=== PATIENT | male | born 1940 | race Caucasian/White ===

== ENCOUNTER 2021-12-31 06:49 | Inpatient (IN) | payer MEDICARE, BC ==
[2021-12-31] MEDS ORDERED: SODIUM CHLORIDE 0.9% 1,000 ML IV ONE (08:10)
--- NOTE | 2021-12-31 08:13 | ED ---
General Adult HPI - General Chief complaint: Back Pain/Injury Stated complaint: Back pain Time Seen by Provider: 12/31/21 08:05 Source: patient Mode of arrival: ambulatory Limitations: no limitations - History of Present Illness Initial comments: 81-year-old male with past medical history of hypertension presents to the emergency department with injury the scapular back pain. States it's been going on for the past 3 weeks. He did test positive for covid on the eighth and had mild congestion. Afterwards he did develop this back pain which is not r eproducible to palpation or movement. Denies any provocative or palliative factors. Has been taking Tylenol. Has no associated shortness of breath and pain does radiate through to the anterior chest as well as up to the jaw. No history of coronary disease or dysrhythmia. No history of congestive heart failure, asthma or COPD. He denies any numbness or tingling in his extremities. Did take a half aspirin this morning. 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 No fevers, chills or cough. No other alleviating, precipitating or modifying factors - Related Data Home Medications Medication Instructions Recorded Confirmed Aspirin EC [Ecotrin Low Dose] 40.5 mg PO W/SUPPER 12/31/21 12/31/21 Atorvastatin [Lipitor] 40 mg PO HS 12/31/21 12/31/21 Cholecalciferol [Vitamin D3 (125 125 mcg PO DAILY 12/31/21 12/31/21 Mcg = 5000 Iu)] Lisinopril-Hctz 20-12.5 mg 1 tab PO BID-W/MEALS 12/31/21 12/31/21 [Zestoretic 20-12.5] Vit C/E/Zn/Coppr/Lutein/Zeaxan 1 cap PO BID-W/MEALS 12/31/21 12/31/21 [Preservision Areds 2 Softgel] allopurinoL [Zyloprim] 150 mg PO W/SUPPER 12/31/21 12/31/21 amLODIPine [Norvasc] 5 mg PO W/LUNCH 12/31/21 12/31/21 carvediloL [Coreg] 12.5 mg PO BID-W/MEALS 12/31/21 12/31/21 fluorouraciL [Efudex] 1 applic TOPICAL MOTUWE 12/31/21 12/31/21 Allergies Allergy/AdvReac Type Severity Reaction Status Date / Time No Known Allergies Allergy Verified 12/31/21 10:14 Review of Systems ROS Statement: Those systems with pertinent positive or pertinent negative responses have been documented in the HPI. ROS Other: All systems not noted in ROS Statement are negative. Past Medical History Past Medical History: Hypertension History of Any Multi-Drug Resistant Organisms: None Reported Past Surgical History: Back Surgery, Tonsillectomy Smoking Status: Former smoker Past Alcohol Use History: Occasional Past Drug Use History: None Reported - Past Family History Mother Family Medical History: No Reported History Additional Family Medical History / Comment(s): Mother was healthy Father Family Medical History: No Reported History Additional Family Medical History / Comment(s): Father was healthy Brother(s) Family Medical History: CVA/TIA General Exam Limitations: no limitations General appearance: alert, in no apparent distress Head exam: Present: atraumatic, normocephalic, normal inspection Eye exam: Present: normal appearance, PERRL, EOMI. Absent: scleral icterus, conjunctival injection, periorbital swelling ENT exam: Present: normal exam, mucous membranes moist Neck exam: Present: normal inspection. Absent: tenderness, meningismus, lymphadenopathy Respiratory exam: Present: rales. Absent: respiratory distress, wheezes, rhonchi, stridor Cardiovascular Exam: Present: regular rate, irregular rhythm, normal heart sounds. Absent: systolic murmur, diastolic murmur, rubs, gallop, clicks GI/Abdominal exam: Present: soft, normal bowel sounds. Absent: distended, tenderness, guarding, rebound, rigid Extremities exam: Present: normal inspection, full ROM, normal capillary refill. Absent: tenderness, pedal edema, joint swelling, calf tenderness Back exam: Present: normal inspection Neurological exam: Present: alert, oriented X3, CN II-XII intact Psychiatric exam: Present: normal affect, normal mood Skin exam: Present: warm, dry, intact, normal color. Absent: rash Course Vital Signs 12/31/21 12/31/21 12/31/21 07:34 10:11 11:50 Temperature 97.7 F Pulse Rate 66 74 85 Pulse Rate [ Cellophane Bath Mixer ] Respiratory 18 18 20 Rate Blood Pressure 84/50 83/54 100/61 Blood Pressure [Right Arm] O2 Sat by Pulse 97 95 Oximetry 12/31/21 12/31/21 12/31/21 12:54 14:16 15:17 Temperature Pulse Rate 80 75 80 Pulse Rate [ Cellophane Bath Mixer ] Respiratory 20 20 16 Rate Blood Pressure 119/74 130/60 91/50 Blood Pressure [Right Arm] O2 Sat by Pulse 96 96 96 Oximetry 12/31/21 16:59 Temperature 98.2 F Pulse Rate Pulse Rate [ 78 Cellophane Bath Mixer ] Respiratory 20 Rate Blood Pressure Blood Pressure 91/56 [Right Arm] O2 Sat by Pulse 93 L Oximetry EKG Findings - EKG Comments: EKG Findings:: EKG demonstrates A. fib with a rate of 82. QRS 98. QTC of 394. No acute ST segment elevations or depressions. Baseline artifact. Medical Decision Making - Medical Decision Making Upon arrival patient was placed into room 3. A thorough history and physical exam was performed. IV access was established and laboratory studies are conducted and reviewed. Patient does have an elevated troponin 22.3. BNP is 8500. CT of the patient's chest is performed which demonstrates cardiomegaly with trace bilateral pleural effusions and pulmonary vascular congestion. Evaluation of the patient's thoracic spine demonstrates multilevel moderate to severe disc disease with large hypertrophic anterior spurs. Patient was originally given a liter bolus of normal saline due to his hypotension which did improve. Results are discussed with the patient. Twelve-lead EKG demonstrates new onset A. fib and therefore the patient is heparinized due to this and his elevated troponin. I spoke with Dr. Camacho who did evaluate the patient. I also spoke with Dr. Magallon who agreed to admit the patient to the hospital. Patient awaiting a bed in stable condition - Lab Data Result diagrams: 01/06/22 05:13 01/07/22 05:46 Lab Results 12/31/21 12/31/21 12/31/21 Range/Units 08:27 08:27 08:27 WBC 12.0 H (3.8-10.6) k/uL RBC 3.79 L (4.30-5.90) m/uL Hgb 12.7 L (13.0-17.5) gm/dL Hct 38.1 L (39.0-53.0) % MCV 100.7 H (80.0-100.0) fL MCH 33.6 (25.0-35.0) pg MCHC 33.4 (31.0-37.0) g/dL RDW 12.6 (11.5-15.5) % Plt Count 149 L (150-450) k/uL MPV 8.5 Neutrophils % 85 % Lymphocytes % 7 % Monocytes % 7 % Eosinophils % 1 % Basophils % 0 % Neutrophils # 10.1 H (1.3-7.7) k/uL Lymphocytes # 0.8 L (1.0-4.8) k/uL Monocytes # 0.8 (0-1.0) k/uL Eosinophils # 0.1 (0-0.7) k/uL Basophils # 0.0 (0-0.2) k/uL PT 11.4 (9.0-12.0) sec INR 1.1 (<1.2) APTT 23.3 (22.0-30.0) sec D-Dimer 0.45 (<0.60) mg/L FEU Sodium 131 L (137-145) mmol/L Potassium 4.5 (3.5-5.1) mmol/L Chloride 97 L (98-107) mmol/L Carbon Dioxide 23 (22-30) mmol/L Anion Gap 11 mmol/L BUN 27 H (9-20) mg/dL Creatinine 1.24 (0.66-1.25) mg/dL Est GFR (CKD-EPI)AfAm 63 (>60 ml/min/1.73 sqM) Est GFR (CKD-EPI)NonAf 54 (>60 ml/min/1.73 sqM) Glucose 151 H (74-99) mg/dL Calcium 8.8 (8.4-10.2) mg/dL Magnesium 1.7 (1.6-2.3) mg/dL Total Bilirubin 1.7 H (0.2-1.3) mg/dL AST 167 H (17-59) U/L ALT 31 (4-49) U/L Alkaline Phosphatase 117 (38-126) U/L Troponin I (0.000-0.034) ng/mL NT-Pro-B Natriuret Pep pg/mL Total Protein 6.4 (6.3-8.2) g/dL Albumin 3.8 (3.5-5.0) g/dL Lipase 120 (23-300) U/L 12/31/21 12/31/21 Range/Units 08:27 08:27 WBC (3.8-10.6) k/uL RBC (4.30-5.90) m/uL Hgb (13.0-17.5) gm/dL Hct (39.0-53.0) % MCV (80.0-100.0) fL MCH (25.0-35.0) pg MCHC (31.0-37.0) g/dL RDW (11.5-15.5) % Plt Count (150-450) k/uL MPV Neutrophils % % Lymphocytes % % Monocytes % % Eosinophils % % Basophils % % Neutrophils # (1.3-7.7) k/uL Lymphocytes # (1.0-4.8) k/uL Monocytes # (0-1.0) k/uL Eosinophils # (0-0.7) k/uL Basophils # (0-0.2) k/uL PT (9.0-12.0) sec INR (<1.2) APTT (22.0-30.0) sec D-Dimer (<0.60) mg/L FEU Sodium (137-145) mmol/L Potassium (3.5-5.1) mmol/L Chloride (98-107) mmol/L Carbon Dioxide (22-30) mmol/L Anion Gap mmol/L BUN (9-20) mg/dL Creatinine (0.66-1.25) mg/dL Est GFR (CKD-EPI)AfAm (>60 ml/min/1.73 sqM) Est GFR (CKD-EPI)NonAf (>60 ml/min/1.73 sqM) Glucose (74-99) mg/dL Calcium (8.4-10.2) mg/dL Magnesium (1.6-2.3) mg/dL Total Bilirubin (0.2-1.3) mg/dL AST (17-59) U/L ALT (4-49) U/L Alkaline Phosphatase (38-126) U/L Troponin I 22.300 H* (0.000-0.034) ng/mL NT-Pro-B Natriuret Pep 8500 pg/mL Total Protein (6.3-8.2) g/dL Albumin (3.5-5.0) g/dL Lipase (23-300) U/L Critical Care Time Critical Care Time: Yes Critical Care Time: 35 minutes Disposition Clinical Impression: Thoracic back pain, NSTEMI (non-ST elevated myocardial infarction), Chest pain, New onset of congestive heart failure Disposition: ADMITTED IP TO THIS [facility] Condition: Serious Is patient prescribed a controlled substance at d/c from ED?: No Time of Disposition: 10:39 Decision to Admit Reason: Admit from EC Decision Date: 12/31/21 Decision Time: 10:39
[2021-12-31 08:38] LABS: Basophils % (A) 0 %; Eosinophils # (A) 0.1 k/uL (0-0.7); Eosinophils % (A) 1 %; HCT 38.1 % (39.0-53.0); HGB 12.7 gm/dL (13.0-17.5); Lymphocytes # (A) 0.8 k/uL (1.0-4.8); Lymphocytes % (A) 7 %; MCH 33.6 pg (25.0-35.0); MCHC 33.4 g/dL (31.0-37.0); MCV 100.7 fL (80.0-100.0); Mean Platelet Volume 8.5; Monocytes # (A) 0.8 k/uL (0-1.0); Monocytes % (A) 7 %; Neutrophils # (A) 10.1 k/uL (1.3-7.7); Neutrophils % (A) 85 %; Platelet Count 149 k/uL (150-450); RBC 3.79 m/uL (4.30-5.90); RDW 12.6 % (11.5-15.5)
[2021-12-31 08:56] LABS: INR 1.1 (<1.2); Partial Thromboplastin Time 23.3 sec (22.0-30.0); Prothrombin Time 11.4 sec (9.0-12.0)
[2021-12-31 08:59] LABS: Albumin 3.8 g/dL (3.5-5.0); Calcium 8.8 mg/dL (8.4-10.2); Magnesium 1.7 mg/dL (1.6-2.3); Potassium 4.5 mmol/L (3.5-5.1); Total Bilirubin 1.7 mg/dL (0.2-1.3); Total Protein 6.4 g/dL (6.3-8.2)
--- NOTE | 2021-12-31 10:21 | CT ---
EXAMINATION TYPE: CT thoracic spine wo con DATE OF EXAM: 12/31/2021 COMPARISON: None HISTORY: Back/Chest pain CT DLP: Included with CTA chest of 1152.6 mGycm Automated exposure control for dose reduction was used. FINDINGS: Alignment is anatomic. There is hypertrophic spurring at virtually all levels with multilevel moderat e degenerative disc disease. Vacuum disc seen involving the lower thoracic and thoracolumbar junction compatible severe degenerative disc disease. There are no compression formation or evidence of acute fracture. Multilevel facet arthropathy and foraminal impingement suspected. There are bilateral pleural effusions. Dense atherosclerotic change and mesenteric vasculature. Calci fications in the renal hilum on the left are likely vascular Since the spinal canal limited due to artifact resolution. Could not exclude canal stenosis in the lo wer thoracic spine. IMPRESSION: 1. Multilevel moderate to severe degenerative disc disease with large hypertrophic anterior spurs. Arthur spect multilevel foraminal encroachment. Canal stenosis near the thoracolumbar junction in the differ ential diagnosis. 2. Bilateral pleural effusions. 3. Dense atherosclerotic change of the superior mesenteric artery and celiac axis. Correlate clinical ly.
--- NOTE | 2021-12-31 10:23 | CT ---
EXAMINATION TYPE: CT angio chest CT DLP: 1152.60 mGycm, Automated exposure control for dose reduction was used. DATE OF EXAM: 12/31/2021 10:06 AM COMPARISON: None CLINICAL INDICATION:Male, 81 years old with history of chest pain, back pain; Back/Chest pain TECHNIQUE/CONTRAST: CTA scan of the thorax is performed without and with IV Contrast, patient injected with 100 mL of Iso [address] 370, pulmonary embolism protocol. MIP images are created and reviewed. FINDINGS: Pulmonary Artery: Limited evaluation secondary both timing with no central filling defect to suggest pulmonary embolism. The pulmonary artery is mildly enlarged measuring up to 2.1 cm. Lungs/Pleura: Trace bilateral pleural effusions are present. Mild paraseptal emphysema changes are no jade in the apices. This thickening of the interlobular septa. No focal consolidation or pneumothorax. Scattered mild peripheral reticulation changes. Right upper lobe pulmonary nodule with peripheral ca lcification measuring 5 mm series 503 image 75 Airway : Large airways are patent. Heart: The heart is mildly enlarged for size with moderate coronary artery atherosclerosis. Vasculature: No evidence of aortic aneurysm. Moderate atherosclerosis of the arterial vasculature. Mediastinum: No gross evidence of adenopathy. Prominent right low paratracheal lymph node measuring u p to 9 mm in short axis and AP window measuring up to 8 mm. Musculoskeletal: No acute osseous abnormalities, bone island in T6 vertebral body. Multiple level dis c degeneration changes throughout the spine. Soft Tissues: Unremarkable. Lower neck: No significant findings. Upper Abdomen: Nonobstructing left renal calculus. IMPRESSION: 1. No evidence of central pulmonary embolism. Limited evaluation of the segmental and subsegmental br anches. 2. Cardiomegaly with trace bilateral pleural effusions and pulmonary vascular congestion concerning f or acute exacerbation of congestive heart failure. 3. Mild paraseptal emphysema changes. 4. Partially calcified 5 mm right upper lobe pulmonary nodule.
[2021-12-31] MEDS ORDERED: HEPARIN SODIUM 1,000 UN/ML (10ML VL) IV ONE ×2 (10:34→10:35)
[2021-12-31] MEDS ORDERED: HEPARIN SODIUM 1,000 UN/ML (10ML VL) IV PRN (10:35)
[2021-12-31] MEDS ORDERED: NALOXONE 0.4 MG/ML 1 ML VIAL IV PRN (10:43)
[2021-12-31] MEDS: carvediloL 12.5 MG TAB PO SCH ×2 (10:44→17:08)
[2021-12-31] MEDS ORDERED: HEPARIN SOD,PORK IN 0.45% NACL 25,000 UNIT in 0.45% NACL 1 250ML.BAG IV SCH (10:45)
[2021-12-31] MEDS: HEPARIN SOD,PORK IN 0.45% NACL 25,000 UNIT in 0.45% NACL 1 250ML.BAG IV SCH (11:45)
[2021-12-31] MEDS: ASPIRIN 81 MG PO SCH (11:49)
--- NOTE | 2021-12-31 12:08 | P.CRDCN ---
History of Present Illness History of present illness: HISTORY OF PRESENTING ILLNESS This is a pleasant 81-year-old male past medical history significant for hypertension, dyslipidemia, former smoker recent COVID-19 12/09/2021. 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 We have been asked to see in consultation for elevated troponin. Patient presents to the emergency department with complaints of injury to his back. Over the past 3 weeks patient has been having increased back pain in between his shoulder blades. It is non-exertional. Non-radiating. No chest pain. He denies any specific alleviating or aggravating factors. He denies any associated shortness of breath, chest pain, lightheadedness, dizziness, syncope or near-syncope, nausea, vomiting, palpitations. On 12/09/2021 patient is a positive for Coumadin 19 his symptoms are mild congestion. He currently denies any fevers cough or chills. Workup in the emergency department revealed an EKG revealed atrial fibrillation with controlled ventricular rates. Patient's initial troponin was elevated at 22.3. Patient denies any history of CAD, HI, stroke, atrial fibrillation. DIAGNOSTICS * EKG reveals atrial fibrillation, heart rate 82, nonspecific STT wave abnormalities, no acute ischemia noted on EKG. No prior EKG to compare. * Telemetry tracings indicate atrial fibrillation with controlled ventricular rates * CT chest reported- no evidence of central pulmonary embolism, limited evaluation the segmental and subsegmental branches. Cardiomegaly with trace bilateral pleural effusions, pulmonary as her congestion, mild paraseptal emphysema * Thoracic spine CT revealed multilevel moderate to severe degenerative disc disease with large hypertrophic anterior spurs, canal stenosis near the floor while: Lumbar junction in the differential diagnosis. Dense atherosclerotic changes of the superior mesenteric artery and celiac axis. No compression formation evidence of acute fracture. Bilateral pleural effusions. * Laboratory reviewed, W BC 12, hemoglobin 10.7, platelets 149, d-dimer negative, sodium 131, potassium 4.5, BUN 27, serum creatinine 1.24, magnesium 1.7, troponin 22.3, proBNP 8500 * Current home medications include allopurinol, carvedilol 12.5 mg twice a day, amlodipine 5 mg daily, lisinoprilhydrochlorothiazide 2012.5 mg twice a day, atorvastatin 40mg nightly, aspirin 40.5mg nightly REVIEW OF SYSTEMS At the time of my exam: CONSTITUTIONAL: Denies fever or chills. CARDIOVASCULAR: Denies chest pain, shortness of breath, orthopnea, PND or palpitations. RESPIRATORY: Denies cough. GASTROINTESTINAL: Denies abdominal pain, diarrhea, constipation, nausea or vomiting. MUSCULOSKELETAL: +Back pain NEUROLOGIC: Denies numbness, tingling, headacbe or weakness. ENDOCRINE: Denies fatigue, weight change, polydipsia or polyurina. GENITOURINARY: Denies burning, hematuria or urgency with micturation. HEMATOLOGIC: Denies bleeding. PHYSICAL EXAMINATION Vitals 100/61 HR 85, afebrile 95% on room air CONSTITUTIONAL: No apparent distress. HEENT: Head is normocephalic. Pupils are equal, round. Sclerae anicteric. Mucous membranes of the mouth are moist. No JVD. CHEST EXAMINATION: Lungs are clear to auscultation. No chest wall tenderness is noted on palpation or with deep breathing. HEART EXAMINATION: Irregular rate and rhythm. S1, S2 heard. ABDOMEN: Soft, nontender. Positive bowel sounds. EXTREMITIES: no lower extremity edema NEUROLOGIC EXAMINATION: Patient is awake, alert and oriented x3. ASSESSMENT Paroxysmal atrial fibrillation -[id number] score 3 Elevated troponin Recent COVID-19 infection on 12/09/2021 History hypertension Dyslipidemia Former smoker PLAN Start IV heparin drip Restart Aspirin, statin, carvedilol Obtain 2D echocardiogram Trend troponin Repeat EKG NPO after midnight if intervention is indicated Further recommendations based on clinical course Nurse practitioner note has been reviewed by physician. Signing provider agrees with the documented findings, assessment, and plan of care. Past Medical History Past Medical History: Hypertension History of Any Multi-Drug Resistant Organisms: None Reported Past Surgical History: Back Surgery, Tonsillectomy Smoking Status: Former smoker Past Alcohol Use History: Occasional Past Drug Use History: None Reported Medications and Allergies Home Medications Medication Instructions Recorded Confirmed Type Aspirin EC [Ecotrin Low Dose] 40.5 mg PO W/SUPPER 12/31/21 12/31/21 History Atorvastatin [Lipitor] 40 mg PO HS 12/31/21 12/31/21 History Cholecalciferol [Vitamin D3 (125 125 mcg PO DAILY 12/31/21 12/31/21 History Mcg = 5000 Iu)] Lisinopril-Hctz 20-12.5 mg 1 tab PO BID-W/MEALS 12/31/21 12/31/21 History [Zestoretic 20-12.5] Vit C/E/Zn/Coppr/Lutein/Zeaxan 1 cap PO BID-W/MEALS 12/31/21 12/31/21 History [Preservision Areds 2 Softgel] allopurinoL [Zyloprim] 150 mg PO W/SUPPER 12/31/21 12/31/21 History amLODIPine [Norvasc] 5 mg PO W/LUNCH 12/31/21 12/31/21 History carvediloL [Coreg] 12.5 mg PO BID-W/MEALS 12/31/21 12/31/21 History fluorouraciL [Efudex] 1 applic TOPICAL MOTUWE 12/31/21 12/31/21 History Allergies Allergy/AdvReac Type Severity Reaction Status Date / Time No Known Allergies Allergy Verified 12/31/21 10:14 Physical Exam Vitals: Vital Signs Temp Pulse Resp BP Pulse Ox 12/31/21 11:50 85 20 100/61 95 12/31/21 10:11 74 18 83/54 12/31/21 07:34 97.7 F 66 18 84/50 97 Intake and Output 12/30/21 12/31/21 12/31/21 22:59 06:59 14:59 Other: Weight 77.111 kg Results 12/31/21 08:27 12/31/21 08:27 Cardiac Enzymes 12/31/21 12/31/21 Range/Units 08:27 08:27 AST 167 H (17-59) U/L Troponin I 22.300 H* (0.000-0.034) ng/mL Coagulation 12/31/21 Range/Units 08:27 PT 11.4 (9.0-12.0) sec APTT 23.3 (22.0-30.0) sec CBC 12/31/21 Range/Units 08:27 WBC 12.0 H (3.8-10.6) k/uL RBC 3.79 L (4.30-5.90) m/uL Hgb 12.7 L (13.0-17.5) gm/dL Hct 38.1 L (39.0-53.0) % Plt Count 149 L (150-450) k/uL Comprehensive Metabolic Panel 12/31/21 Range/Units 08:27 Sodium 131 L (137-145) mmol/L Potassium 4.5 (3.5-5.1) mmol/L Chloride 97 L (98-107) mmol/L Carbon Dioxide 23 (22-30) mmol/L BUN 27 H (9-20) mg/dL Creatinine 1.24 (0.66-1.25) mg/dL Glucose 151 H (74-99) mg/dL Calcium 8.8 (8.4-10.2) mg/dL AST 167 H (17-59) U/L ALT 31 (4-49) U/L Alkaline Phosphatase 117 (38-126) U/L Total Protein 6.4 (6.3-8.2) g/dL Albumin 3.8 (3.5-5.0) g/dL Current Medications Generic Name Dose Route Start Last Admin Trade Name Freq PRN Reason Stop Dose Admin Aspirin 81 mg 12/31/21 10:45 12/31/21 11:49 Aspirin 81 Mg PO 81 mg DAILY BENJAMIN Administration Atorvastatin Calcium 40 mg 12/31/21 21:00 Atorvastatin 40 Mg Tab PO HS BENJAMIN Carvedilol 12.5 mg 12/31/21 10:45 12/31/21 10:44 Carvedilol 12.5 Mg Tab PO Not Given BID-W/MEALS BENJAMIN Heparin Sodium (Porcine) 0 unit 12/31/21 10:34 Heparin Sodium 1,000 Un/Ml (10ml Vl) IV PER PROTOCOL PRN Low PTT Protocol Heparin Sodium/Sodium Chloride 250 mls @ 9.253 mls/hr 12/31/21 10:45 12/31/21 11:45 25,000 unit/ Sodium Chloride IV 12 units/kg/hr .Q24H BENJAMIN 9.253 mls/hr Administration Protocol 12 UNITS/KG/HR Naloxone HCl 0.2 mg 12/31/21 10:43 Naloxone 0.4 Mg/Ml 1 Ml Vial IV Q2M PRN Opioid Reversal Intake and Output 12/30/21 12/31/21 12/31/21 22:59 06:59 14:59 Other: Weight 77.111 kg Patient Weight 01/01/22 06:59 Weight 77.111 kg 12/31/21 08:27 12/31/21 08:27
--- NOTE | 2021-12-31 12:11 | P.HPIM ---
History of Present Illness 81-year-old pleasant male came in with the upper back pain between the scapula and patient also vomiting, no pain in the chair. Jaw pain is mostly like spasms. Patient doesn't have any fever chills patient was diagnosed with COVID- 19 about couple weeks ago patient's pain in the back changes at the moment nonpleuritic patient had a CT angios the chest which did not show any significant X abnormality except for mild bilateral pleural effusions patient doesn't have any cardiac history found to have troponin of 22.3. EKG did not show any acute ST-T wave changes but is in A. fib and rate controlled. There is some degenerative to thoracic spine disease beyond which shows no other significant abnormality was seen. Patient was started on IV heparin cardiology was consulted patient although doesn't have any significant chest pain is back pain is not associated with lightheadedness or diaphoresis. REVIEW OF SYSTEMS: CONSTITUTIONAL: No fever, no malaise, no fatigue. HEENT: No recent visual problems or hearing problems. Denied any sore throat. CARDIOVASCULAR: No orthopnea, PND, no palpitations, no syncope. PULMONARY: No shortness of breath, no cough, no hemoptysis. GASTROINTESTINAL: No diarrhea, no nausea, no vomiting, no abdominal pain. NEUROLOGICAL: No headaches, no weakness, no numbness. HEMATOLOGICAL: Denies any bleeding or petechiae. GENITOURINARY: Denies any burning micturition, frequency, or urgency. MUSCULOSKELETAL/RHEUMATOLOGICAL: As mentioned above ENDOCRINE: Denies any polyuria or polydipsia. The rest of the 14-point review of systems is negative. PHYSICAL EXAMINATION: GENERAL: The patient is alert and oriented x3, not in any acute distress. Well developed, well nourished. HEENT: Pupils are round and equally reacting to light. EOMI. No scleral icterus. No conjunctival pallor. Normocephalic, atraumatic. No pharyngeal erythema. No thyromegaly. CARDIOVASCULAR: S1 and S2 present. No murmurs, rubs, or gallops. PULMONARY: Chest is clear to auscultation, no wheezing or crackles. ABDOMEN: Soft, nontender, nondistended, normoactive bowel sounds. No palpable organomegaly. EXTREMITIES: No cyanosis, clubbing, or pedal edema. NEUROLOGICAL: Gross neurological examination did not reveal any focal deficits. SKIN: No rashes. Assessment and plan -Troponin elevation: Possibility of this being type I acute non-ST elevation myocardial infarction for which patient is on IV heparin, no other possible etiologies stress-induced cardiomyopathy etiology evaluated the patient echo is being obtained, cardiac catheterization as per cardiology. Patient had a recent COVID-19 infection -Ruled out pulmonary embolism Hyponatremia secondary to diuretics which will be held -Possible congestive heart failure, ejection fraction is not known echocardiogram is being obtained patient may need diuretics once his pressure gets better presently blood pressure is low at 100/61. -Elevated creatinine unsure present patient has acute renal failure on chronic kidney disease will monitor the creatinine -Hypertension holding up antiemesis medication patient blood pressure is low at this time -Hypomagnesemia progress will be placed DVT prophylaxis: Patient on IV heparin Past Medical History Past Medical History: Hypertension History of Any Multi-Drug Resistant Organisms: None Reported Past Surgical History: Back Surgery, Tonsillectomy Smoking Status: Former smoker Past Alcohol Use History: Occasional Past Drug Use History: None Reported Medications and Allergies Home Medications Medication Instructions Recorded Confirmed Type Aspirin EC [Ecotrin Low Dose] 40.5 mg PO W/SUPPER 12/31/21 12/31/21 History Atorvastatin [Lipitor] 40 mg PO HS 12/31/21 12/31/21 History Cholecalciferol [Vitamin D3 (125 125 mcg PO DAILY 12/31/21 12/31/21 History Mcg = 5000 Iu)] Lisinopril-Hctz 20-12.5 mg 1 tab PO BID-W/MEALS 12/31/21 12/31/21 History [Zestoretic 20-12.5] Vit C/E/Zn/Coppr/Lutein/Zeaxan 1 cap PO BID-W/MEALS 12/31/21 12/31/21 History [Preservision Areds 2 Softgel] allopurinoL [Zyloprim] 150 mg PO W/SUPPER 12/31/21 12/31/21 History amLODIPine [Norvasc] 5 mg PO W/LUNCH 12/31/21 12/31/21 History carvediloL [Coreg] 12.5 mg PO BID-W/MEALS 12/31/21 12/31/21 History fluorouraciL [Efudex] 1 applic TOPICAL MOTUWE 12/31/21 12/31/21 History Allergies Allergy/AdvReac Type Severity Reaction Status Date / Time No Known Allergies Allergy Verified 12/31/21 10:14 Physical Exam Vitals: Vital Signs Temp Pulse Resp BP Pulse Ox 12/31/21 11:50 85 20 100/61 95 12/31/21 10:11 74 18 83/54 12/31/21 07:34 97.7 F 66 18 84/50 97 Intake and Output 12/30/21 12/31/21 12/31/21 22:59 06:59 14:59 Other: Weight 77.111 kg Results CBC & Chem 7: 12/31/21 08:27 12/31/21 08:27 Labs: Abnormal Lab Results - Last 24 Hours (Table) 12/31/21 12/31/21 12/31/21 Range/Units 08:27 08:27 08:27 WBC 12.0 H (3.8-10.6) k/uL RBC 3.79 L (4.30-5.90) m/uL Hgb 12.7 L (13.0-17.5) gm/dL Hct 38.1 L (39.0-53.0) % MCV 100.7 H (80.0-100.0) fL Plt Count 149 L (150-450) k/uL Neutrophils # 10.1 H (1.3-7.7) k/uL Lymphocytes # 0.8 L (1.0-4.8) k/uL Sodium 131 L (137-145) mmol/L Chloride 97 L (98-107) mmol/L BUN 27 H (9-20) mg/dL Glucose 151 H (74-99) mg/dL Total Bilirubin 1.7 H (0.2-1.3) mg/dL AST 167 H (17-59) U/L Troponin I 22.300 H* (0.000-0.034) ng/mL
[2021-12-31] MEDS: NON FORMULARY DRUG (Fluorouracil [Efudex] 40 GM Cream..G.) TOPICAL SCH (15:55)
[2021-12-31] MEDS ORDERED: NON FORMULARY DRUG (Aspirin Ec 81 MG Tablet) PO SCH (17:30)
[2021-12-31] MEDS: ATORVASTATIN 40 MG TAB PO SCH (20:05)
[2021-12-31] MEDS: FAMOTIDINE 20 MG/2 ML VIAL IV SCH (20:05)
[2021-12-31] MEDS: MELATONIN 3 MG TABLET PO PRN (20:05)
[2022-01-01] MEDS: carvediloL 12.5 MG TAB PO SCH (06:10)
[2022-01-01 07:36] LABS: Basophils % (A) 0 %; Eosinophils % (A) 0 %; HCT 33.5 % (39.0-53.0); HGB 11.2 gm/dL (13.0-17.5); Lymphocytes # (A) 1.2 k/uL (1.0-4.8); Lymphocytes % (A) 13 %; MCH 34.1 pg (25.0-35.0); MCHC 33.6 g/dL (31.0-37.0); MCV 101.6 fL (80.0-100.0); Macrocytosis Slight; Mean Platelet Volume 9.3; Monocytes # (A) 0.8 k/uL (0-1.0); Monocytes % (A) 9 %; Neutrophils # (A) 6.9 k/uL (1.3-7.7); Neutrophils % (A) 77 %; Platelet Count 111 k/uL (150-450); RDW 13.1 % (11.5-15.5)
[2022-01-01 07:45] LABS: Calcium 8.2 mg/dL (8.4-10.2); Magnesium 1.8 mg/dL (1.6-2.3); Potassium 4.4 mmol/L (3.5-5.1)
[2022-01-01 07:51] LABS: INR 1.2 (<1.2); Partial Thromboplastin Time 46.1 sec (22.0-30.0); Prothrombin Time 12.3 sec (9.0-12.0)
[2022-01-01] MEDS ORDERED: SODIUM CHLORIDE 0.9% 1,000 ML IV ONE (08:08)
[2022-01-01] MEDS: FAMOTIDINE 20 MG/2 ML VIAL IV SCH (08:10)
[2022-01-01] MEDS: ASPIRIN 81 MG PO SCH (08:11)
--- NOTE | 2022-01-01 10:31 | CA ---
Transthoracic Echo Report Name: Chuck Santiago Age: 81 Gender: M : 1940 Exam Date: 12/31/2021 14:03 Exam Location: [facility] Ht (in): 67 Wt (lb): 170 Ordering Physician: Chhaya Warren Attending/Referring Phys: Telephoto Installer Marquita Alicia RDCS Procedure CPT: Indications: elevated troponin, chest pain Cardiac Hx: Technical Quality: Technically difficult study Contrast 1: Total Dose (mL): Contrast 2: Total Dose (mL): MEASUREMENTS (Male / Female) Normal Values 2D ECHO LV Diastolic Diameter PLAX 4.5 cm 4.2 - 5.9 / 3.9 - 5.3 cm LV Systolic Diameter PLAX 4.1 cm IVS Diastolic Thickness 1.0 cm 0.6 - 1.0 / 0.6 - 0.9 cm LVPW Diastolic Thickness 1.2 cm 0.6 - 1.0 / 0.6 - 0.9 cm LV Relative Wall Thickness 0.5 LV Diastolic Volume MOD 4C 70.5 cm??? LV Systolic Volume MOD 4C 62.6 cm??? LV Ejection Fraction MOD 4C 11.2 % LV Diastolic Length 4C 7.2 cm LV Systolic Length 4C 7.3 cm LA Volume 54.4 cm??? 18 - 58 / 22 - 52 cm??? M-MODE Aortic Root Diameter MM 3.1 cm LA Systolic Diameter MM 3.4 cm LA Ao Ratio MM 1.1 MV E Point Septal Separation 0.3 cm AV Cusp Separation MM 1.7 cm DOPPLER AV Peak Velocity 93.1 cm/s AV Peak Gradient 3.5 mmHg AI Peak Velocity 207.0 cm/s AI Peak Gradient 17.1 mmHg AI Pressure Half Time 1340.4 ms MV Area PHT 3.3 cm??? MR Peak Velocity 387.7 cm/s MR Peak Gradient 60.1 mmHg Mitral E Point Velocity 98.8 cm/s Mitral A Point Velocity 37.3 cm/s Mitral E to A Ratio 2.6 MV Deceleration Time 229.2 ms MV E' Velocity 6.5 cm/s Mitral E to MV E' Ratio 15.2 TR Peak Velocity 250.8 cm/s TR Peak Gradient 25.2 mmHg Right Ventricular Systolic Press 27.8 mmHg PV Peak Velocity 102.5 cm/s PV Peak Gradient 4.2 mmHg PI Peak Gradient 11.8 mmHg FINDINGS Left Ventricle Left ventricular ejection fraction is estimated at 30-35 %. Apical hypokinesis. False tendon seen in the apical region. Lumason used to rule out clot. Grade 1 diastolic dysfunction. Right Ventricle The right ventricle is normal in size and function. Right Atrium The right atrium is normal in size. Left Atrium The left atrium is normal in size. Mitral Valve Structurally normal mitral valve without significant stenosis or prolapse. There is mild mitral regurgitation. Mitral valve thickened. Aortic Valve Structurally normal aortic valve without significant sclerosis or stenosis. There is trace aortic regurgitation. Tricuspid Valve Structurally normal tricuspid valve without significant stenosis. Pulmonary artery systolic pressure is normal. [id number] tricuspid regurgitation. Pulmonic Valve Structurally normal pulmonic valve without significant stenosis. There is no pulmonic regurgitation. Pericardium Normal pericardium without effusion. Aorta Normal aortic root dimension. CONCLUSIONS Left ventricular EF 30-35% with apical hypokinesis. May be seen with Takotsubo's or multivessel CAD. Mild mitral regurgitation Moderate to severe tricuspid regurgitation RVSP 27 No pericardial effusion Previewed by: Dr. Sabino Lenz DO (Electronically Signed) Final Date: 01 January 2022 10:30
[2022-01-01] MEDS: HEPARIN SOD,PORK IN 0.45% NACL 25,000 UNIT in 0.45% NACL 1 250ML.BAG IV SCH ×2 (10:56→20:39)
[2022-01-01] MEDS: NON FORMULARY DRUG (Fluorouracil [Efudex] 40 GM Cream..G.) TOPICAL SCH (10:57)
[2022-01-01] MEDS ORDERED: NOREPINEPHRINE 4 MG in SODIUM CHLORIDE 0.9% 250 ML IV SCH ×2 (11:15→12:45)
--- NOTE | 2022-01-01 11:47 | P.PN ---
Subjective This is a pleasant 81-year-old male past medical history significant for hypertension, dyslipidemia, former smoker recent COVID-19 12/09/2021. 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 We have been asked to see in consultation for elevated troponin. Patient presents to the emergency department with complaints of injury to his back. Over the past 3 weeks patient has been having increased back pain in between his shoulder blades. It is non-exertional. Non-radiating. No chest pain. He denies any specific alleviating or aggravating factors. He denies any associated shortness of breath, chest pain, lightheadedness, dizziness, syncope or near-syncope, nausea, vomiting, palpitations. On 12/09/2021 patient is a positive for Coumadin 19 his symptoms are mild congestion. He currently denies any fevers cough or chills. Workup in the emergency department revealed an EKG revealed atrial fibrillation with controlled ventricular rates. Patient's initial troponin was elevated at 22.3. Patient denies any history of CAD, [place], stroke, atrial fibrillation. * CT chest reported- no evidence of central pulmonary embolism, limited evaluation the segmental and subsegmental branches. Cardiomegaly with trace bilateral pleural effusions, pulmonary as her congestion, mild paraseptal emphysema * Thoracic spine CT revealed multilevel moderate to severe degenerative disc disease with large hypertrophic anterior spurs, canal stenosis near the floor while: Lumbar junction in the differential diagnosis. Dense atherosclerotic changes of the superior mesenteric artery and celiac axis. No compression formation evidence of acute fracture. Bilateral pleural effusions. 01/01 Patient seen and examined at bedside, appears short of breath but stable. He states he has generalized fatigue. Overall his bilateral back has improved but no resolved. He continues to be hypotensive, BP 81/43 this morning, was given 1L fluid bolus and improved to 88/55. Troponin increased to 29. Labs, hemoglobin 11.2, platelets 111, sodium 131, potassium 4.4, BUN 40, serum creatinine 1.8, magnesium 1.8, troponin 29.2 Echocardiogram revealed EF 3035% with apical hypokinesis, Takotsubo vs multivessel CAD, mild mitral regurgitation, moderate severe tricuspid regurgitation, RVSP of 27 mmHg, no pericardial effusion PHYSICAL EXAMINATION Vitals 100/61 HR 85, afebrile 95% on room air CONSTITUTIONAL: Appears short of breath on exam HEENT: Head is normocephalic. No JVD. CHEST EXAMINATION: Lungs are clear to auscultation. No chest wall tenderness is noted on palpation or with deep breathing. HEART EXAMINATION: Irregular rate and rhythm. S1, S2 heard. ABDOMEN: Soft, nontender. Positive bowel sounds. EXTREMITIES: no lower extremity edema NEUROLOGIC EXAMINATION: Patient is awake, alert and oriented x3. ASSESSMENT Paroxysmal atrial fibrillation -[id number] score 3 Elevated troponin, possible NSTEMI Cardiomyopathy with EF 30-35%, ischemic vs non-ischemic Hypotension Back pain Recent COVID-19 infection on 12/09/2021 History hypertension Dyslipidemia Former smoker PLAN Patient discussed with Dr. Camacho, due to patient's hypotension with cardimyopathy, recommend transfer to ICU for better BP control and likely need for vasopressors Hold carvedilol Continue IV heparin, aspirin, statin Monitor renal function NPO after midnight for possible cardiac catheterization tomorrow, however patient is asymptomatic will hold off pending renal function Further recommendations based on clinical course Nurse practitioner note has been reviewed by physician. Signing provider agrees with the documented findings, assessment, and plan of care. Objective - Vital Signs Vital signs: Vital Signs Temp 97.7 F 01/01/22 08:02 Pulse 86 01/01/22 11:11 Resp 16 01/01/22 11:11 BP 86/59 01/01/22 11:11 Pulse Ox 93 L 01/01/22 11:11 FiO2 Intake & Output 12/31/21 01/01/22 01/01/22 18:59 06:59 18:59 Intake Total 50.892 240 540 Balance 50.892 240 540 Weight 77.111 kg Intake: Intake, IV Titration 50.892 Amount Heparin Sod,Pork in 0.45% 50.892 NaCl 25,000 unit In 0.45 % NaCl 1 250ml.bag @ 12 UNITS/KG/HR 9.253 mls/hr IV .Q24H [facility] Rx#: [id number] Oral 240 540 Other: Voiding Method Toilet Toilet Urinal Urinal # Voids 1 1 # Bowel Movements 1 - Labs CBC & Chem 7: 01/01/22 06:51 01/01/22 06:51 Labs: Abnormal Lab Results - Last 24 Hours (Table) 12/31/21 12/31/21 12/31/21 Range/Units 11:39 16:01 16:01 RBC (4.30-5.90) m/uL Hgb (13.0-17.5) gm/dL Hct (39.0-53.0) % MCV (80.0-100.0) fL Plt Count (150-450) k/uL PT (9.0-12.0) sec INR (<1.2) APTT 99.5 H (22.0-30.0) sec Sodium (137-145) mmol/L Carbon Dioxide (22-30) mmol/L BUN (9-20) mg/dL Creatinine (0.66-1.25) mg/dL Glucose (74-99) mg/dL Calcium (8.4-10.2) mg/dL Troponin I 19.400 H* 29.200 H* (0.000-0.034) ng/mL 01/01/22 01/01/22 01/01/22 Range/Units 00:40 06:51 06:51 RBC 3.30 L (4.30-5.90) m/uL Hgb 11.2 L (13.0-17.5) gm/dL Hct 33.5 L (39.0-53.0) % MCV 101.6 H (80.0-100.0) fL Plt Count 111 L (150-450) k/uL PT (9.0-12.0) sec INR (<1.2) APTT 48.3 H (22.0-30.0) sec Sodium 131 L (137-145) mmol/L Carbon Dioxide 20 L (22-30) mmol/L BUN 40 H (9-20) mg/dL Creatinine 1.88 H (0.66-1.25) mg/dL Glucose 123 H (74-99) mg/dL Calcium 8.2 L (8.4-10.2) mg/dL Troponin I (0.000-0.034) ng/mL 01/01/22 Range/Units 06:51 RBC (4.30-5.90) m/uL Hgb (13.0-17.5) gm/dL Hct (39.0-53.0) % MCV (80.0-100.0) fL Plt Count (150-450) k/uL PT 12.3 H (9.0-12.0) sec INR 1.2 H (<1.2) APTT 46.1 H (22.0-30.0) sec Sodium (137-145) mmol/L Carbon Dioxide (22-30) mmol/L BUN (9-20) mg/dL Creatinine (0.66-1.25) mg/dL Glucose (74-99) mg/dL Calcium (8.4-10.2) mg/dL Troponin I (0.000-0.034) ng/mL
--- NOTE | 2022-01-01 11:53 | P.PN ---
Subjective 81-year-old pleasant male came in with the upper back pain between the scapula and patient also vomiting, no pain in the chair. Jaw pain is mostly like spasms. Patient doesn't have any fever chills patient was diagnosed with COVID- 19 about couple weeks ago patient's pain in the back changes at the moment nonpleuritic patient had a CT angios the chest which did not show any significant X abnormality except for mild bilateral pleural effusions patient doesn't have any cardiac history found to have troponin of 22.3. EKG did not show any acute ST-T wave changes but is in A. fib and rate controlled. There is some degenerative to thoracic spine disease beyond which shows no other significant abnormality was seen. Patient was started on IV heparin cardiology was consulted patient although doesn't have any significant chest pain is back pain is not associated with lightheadedness or diaphoresis. 01/01/2022 Patient denies chest pain or dyspnea today. Also denies pain between his shoulder blades as he rated as 0/10. He has constipation but no abdominal pain. No vomiting. His PCP is Dr. Tyree dalal at bedside and patient TO TALK TO HIM ABOUT HIS HEALTH ISSUE Blood pressure on the low side, patient might have CHF however he is not tachypneic therefore going to try 1 L of normal saline. Patient currently continues on heparin drip and aspirin 81 mg added Blood pressure medication were held since admission including hydr ochlorothiazide 12.5 mg, lisinopril 20 mg Norvasc 5 mg. TSH is normal, CTA is negative for PE but there is vascular congestion of right upper lobe nodes. His creatinine went up today to 1.8. He is making good urine output Patient may be moved to the ICU for blood pressure treatment Review of systems CONSTITUTIONAL: No fever, no malaise, no fatigue. HEENT: No recent visual problems or hearing problems. Denied any sore throat. CARDIOVASCULAR: No orthopnea, PND, no palpitations, no syncope. PULMONARY: No shortness of breath, no cough, no hemoptysis. GASTROINTESTINAL: No diarrhea, no nausea, no vomiting, no abdominal pain. Normoactive bowel sounds. NEUROLOGICAL: No headaches, no weakness, no numbness. Active Medications Generic Name Dose Route Start Last Admin Trade Name Freq PRN Reason Stop Dose Admin Aspirin 81 mg 12/31/21 10:45 01/01/22 08:11 Aspirin 81 Mg PO 81 mg DAILY BENJAMIN Administration Atorvastatin Calcium 40 mg 12/31/21 21:00 12/31/21 20:05 Atorvastatin 40 Mg Tab PO 40 mg HS BENJAMIN Administration Famotidine 20 mg 01/02/22 09:00 Famotidine 20 Mg/2 Ml Vial IV DAILY [facility] Heparin Sodium (Porcine) 0 unit 12/31/21 10:34 Heparin Sodium 1,000 Un/Ml (10ml Vl) IV PER PROTOCOL PRN Low PTT Protocol Heparin Sodium/Sodium Chloride 250 mls @ 9.253 mls/hr 12/31/21 10:45 01/01/22 10:56 25,000 unit/ Sodium Chloride IV Not Given .Q24H [facility] Protocol 12 UNITS/KG/HR Norepinephrine Bitartrate 4 mg 254 mls @ 14.69 mls/hr 01/01/22 11:15 / Sodium Chloride IV .[id number] [facility] Protocol 0.05 MCG/KG/MIN Melatonin 3 mg 12/31/21 19:53 12/31/21 20:05 Melatonin 3 Mg Tablet PO 3 mg HS PRN Administration Insomnia Naloxone HCl 0.2 mg 12/31/21 10:43 Naloxone 0.4 Mg/Ml 1 Ml Vial IV Q2M PRN Opioid Reversal Non-Formulary Medication 1 applic 12/31/21 12:00 01/01/22 10:57 Fluorouracil [Efudex] TOPICAL Not Given [facility] Objective - Vital Signs Vital signs: Vital Signs Temp 97.7 F 01/01/22 08:02 Pulse 79 01/01/22 09:40 Resp 16 01/01/22 08:02 BP 88/55 01/01/22 09:40 Pulse Ox 91 L 01/01/22 08:02 FiO2 Intake & Output 12/31/21 01/01/22 01/01/22 18:59 06:59 18:59 Intake Total 50.892 240 Balance 50.892 240 Weight 77.111 kg Intake: Intake, IV Titration 50.892 Amount Heparin Sod,Pork in 0.45% 50.892 NaCl 25,000 unit In 0.45 % NaCl 1 250ml.bag @ 12 UNITS/KG/HR 9.253 mls/hr IV .Q24H [facility] Rx#: [id number] Oral 240 Other: Voiding Method Toilet Toilet Urinal Urinal # Voids 1 - Labs CBC & Chem 7: 01/01/22 06:51 01/01/22 06:51 Labs: Abnormal Lab Results - Last 24 Hours (Table) 12/31/21 12/31/21 12/31/21 Range/Units 11:39 16:01 16:01 RBC (4.30-5.90) m/uL Hgb (13.0-17.5) gm/dL Hct (39.0-53.0) % MCV (80.0-100.0) fL Plt Count (150-450) k/uL PT (9.0-12.0) sec INR (<1.2) APTT 99.5 H (22.0-30.0) sec Sodium (137-145) mmol/L Carbon Dioxide (22-30) mmol/L BUN (9-20) mg/dL Creatinine (0.66-1.25) mg/dL Glucose (74-99) mg/dL Calcium (8.4-10.2) mg/dL Troponin I 19.400 H* 29.200 H* (0.000-0.034) ng/mL 01/01/22 01/01/22 01/01/22 Range/Units 00:40 06:51 06:51 RBC 3.30 L (4.30-5.90) m/uL Hgb 11.2 L (13.0-17.5) gm/dL Hct 33.5 L (39.0-53.0) % MCV 101.6 H (80.0-100.0) fL Plt Count 111 L (150-450) k/uL PT (9.0-12.0) sec INR (<1.2) APTT 48.3 H (22.0-30.0) sec Sodium 131 L (137-145) mmol/L Carbon Dioxide 20 L (22-30) mmol/L BUN 40 H (9-20) mg/dL Creatinine 1.88 H (0.66-1.25) mg/dL Glucose 123 H (74-99) mg/dL Calcium 8.2 L (8.4-10.2) mg/dL Troponin I (0.000-0.034) ng/mL 01/01/22 Range/Units 06:51 RBC (4.30-5.90) m/uL Hgb (13.0-17.5) gm/dL Hct (39.0-53.0) % MCV (80.0-100.0) fL Plt Count (150-450) k/uL PT 12.3 H (9.0-12.0) sec INR 1.2 H (<1.2) APTT 46.1 H (22.0-30.0) sec Sodium (137-145) mmol/L Carbon Dioxide (22-30) mmol/L BUN (9-20) mg/dL Creatinine (0.66-1.25) mg/dL Glucose (74-99) mg/dL Calcium (8.4-10.2) mg/dL Troponin I (0.000-0.034) ng/mL Assessment and Plan Assessment: -acute non-ST elevation myocardial infarction for which patient is on IV heparin, no other possible etiologies stress-induced cardiomyopathy etiology evaluated the patient echo is being obtained, cardiac catheterization as per cardiology. -Acute systolic and diastolic heart failure with ejection fraction 30-35% and apical hypokinesia, grade 1 diastolic dysfunction. Full standing seen, rule out clots, possible takotsubo syndrome . -Hypotension, secondary to above possible cardiogenic shock -Moderate to severe tricuspid regurgitation -Recent history of covid 19 infection without pneumonia -Acute kidney injury -Hyponatremia secondary to diuretics which will be held -Elevated creatinine unsure present patient has acute renal failure on chronic kidney disease will monitor the creatinine -Hypertension holding up anti-hypertensive medication patient blood pressure is low at this time Plan: This is a pleasant 81 years old male who presents with non-STEMI and hypertension possible congestive heart failure Status post 1 L of IV fluids with no improvement, patient might go to the ICU for pressor support Continue with heparin drip Cardiology and pulmonary consult Check a bladder scan and nephrology consult. Check urinalysis Labs and medication were reviewed.. Continue same treatment. Continue with symptomatic treatment. Resume home medication. Monitor lytes and vitals. DVT and GI prophylaxis. Further recommendations as per clinical course of the patient DVT prophylaxis: heparin GI Prophylaxis: Pepcid PT/OT: Pending Prognosis is guarded
[2022-01-01 12:28] LABS: Glucose,Whole Blood 152 mg/dL (70-110)
[2022-01-01] MEDS ORDERED: DEXTROSE/WATER 1 250ML.BAG with DOPamine DRIP 800 MG IV SCH (13:00)
[2022-01-01] MEDS: DOBUTamine DRIP 500 MG in DEXTROSE/WATER 1 250ML.BAG IV SCH (13:32)
--- NOTE | 2022-01-01 14:57 | P.CNPUL ---
History of Present Illness Consult date: 01/01/22 Chief complaint: Acute non-STEMI, hypotension History of present illness: 7-year-old male patient, Neel chest into the intensive care because of hypotension. The patient is postop acute non-ST segment elevation myocardial infarction patient is known to have cardiomyopathy with an ejection fraction of 30-35%. He has hypertension and hyperlipidemia and paroxysmal atrial fibrillation. Is a former smoker and he has COVID 19 infection back in August 2021 from which she recovered. The patient presented to the hospital because of back pain between his shoulder blades. No chest pain. No known exacerbating or relieving factors. No fever. No chills. He came into the emergency and his EKG was consistent with atrial fibrillation with RVR. The patient's troponin was elevated at 22.3. Subsequently, the troponin peaked at 29. The patient was started on IV heparin. The patient was given aspirin and patient was given a CT angiogram that showed no evidence of any pulmonary embolism. There was trace left pleural effusions and the patient had background COPD and a 5 mm calcified pulmonary nodule in the right upper lobe. CAT scan of the thoracic spine showed multilevel moderate to severe degenerative disc disease along with hard large hypertrophic anterior spurs and suspect multilevel foraminal encroachment. Cannot stenosis near the thoracolumbar junction was also considered. The patient has also by the pleural effusions. Initially, the patient got admitted to the medical floor and subsequently got transferred to the intensive care unit as the patient was running a lower blood pressure. The patient is currently on dobutamine as the patient was also noted to have cardiomyopathy and the echocardiogram revealed left ventricular ejection fraction of 30-35% along with apical hypokinesis and mild mitral regurgitation, moderate to severe tricuspid regurgitation without any pericardial effusion. RV was within normal limits. The patient is currently on dobutamine, dopamine and norepinephrine was also initiated for blood pressure support is being administered at a dose of 0.05 per Kilogram per minute. Dobutamine is running at 2.5 mcg/kg/min. Dopamine at 2 mcg/kg/min. Since the current admission, the patient developed acute kidney injury. Creatinine was 1.24 time of admission the creatinine is up to 1.8. The most recent systolic blood pressure is 86/59 and the patient is currently on 2 L of oxygen by nasal cannula with a pulse ox of 93%. The patient is not on any diuretics at this point in time. The fluid balance is slightly positive at 90 mL over the past 8 hours. The patient body weight is stable and 77 kg. Review of Systems Constitutional: Denies chills, Denies fever Eyes: denies as per HPI, denies blurred vision, denies bulging eye, denies decreased vision, denies diplopia, denies discharge, denies dry eye, denies irritation, denies itching, denies pain, denies photophobia, denies loss of peripheral vision, denies loss of vision, denies tunnel vision/blind spots Ears: deny: decreased hearing, ear discharge, earache, tinnitus Ears, nose, mouth and throat: Reports as per HPI Breasts: absent: as per HPI, gynecomastia Cardiovascular: Reports as per HPI (No chest. The patient had some back pain and the time of admission) Respiratory: Reports as per HPI, Reports cough (Mild congestion secondary to recent coronary infection, no fever) Gastrointestinal: Reports as per HPI Genitourinary: Reports as per HPI Musculoskeletal: Reports as per HPI (The patient had back pain and this was in between his scapula. ) Musculoskeletal: absent: ankle pain, ankle stiffness, ankle swelling Integumentary: Reports as per HPI Neurological: Reports as per HPI Psychiatric: Reports as per HPI Endocrine: Reports as per HPI Hematologic/Lymphatic: Reports as per HPI Allergic/Immunologic: Reports as per HPI Past Medical History Past Medical History: Cancer, Hyperlipidemia, Hypertension Additional Past Medical History / Comment(s): 12/09/21 covid +/[facility], skin cancer removals, gout in toes History of Any Multi-Drug Resistant Organisms: None Reported Past Surgical History: Back Surgery, Tonsillectomy Additional Past Surgical History / Comment(s): Skin cancer removals/nose flaps, colonoscopy Past Anesthesia/Blood Transfusion Reactions: No Reported Reaction Smoking Status: Former smoker - Past Family History Mother Family Medical History: No Reported History Additional Family Medical History / Comment(s): Mother was healthy Father Family Medical History: No Reported History Additional Family Medical History / Comment(s): Father was healthy Brother(s) Family Medical History: CVA/TIA Medications and Allergies Home Medications Medication Instructions Recorded Confirmed Type Aspirin EC [Ecotrin Low Dose] 40.5 mg PO W/SUPPER 12/31/21 12/31/21 History Atorvastatin [Lipitor] 40 mg PO HS 12/31/21 12/31/21 History Cholecalciferol [Vitamin D3 (125 125 mcg PO DAILY 12/31/21 12/31/21 History Mcg = 5000 Iu)] Lisinopril-Hctz 20-12.5 mg 1 tab PO BID-W/MEALS 12/31/21 12/31/21 History [Zestoretic 20-12.5] Vit C/E/Zn/Coppr/Lutein/Zeaxan 1 cap PO BID-W/MEALS 12/31/21 12/31/21 History [Preservision Areds 2 Softgel] allopurinoL [Zyloprim] 150 mg PO W/SUPPER 12/31/21 12/31/21 History amLODIPine [Norvasc] 5 mg PO W/LUNCH 12/31/21 12/31/21 History carvediloL [Coreg] 12.5 mg PO BID-W/MEALS 12/31/21 12/31/21 History fluorouraciL [Efudex] 1 applic TOPICAL MOTUWE 12/31/21 12/31/21 History Allergies Allergy/AdvReac Type Severity Reaction Status Date / Time No Known Allergies Allergy Verified 12/31/21 10:14 Physical Exam Vitals: Vital Signs Temp Pulse Pulse Resp BP BP Pulse Ox 01/01/22 11:11 86 16 86/59 93 L 01/01/22 09:40 79 88/55 01/01/22 08:02 97.7 F 73 16 81/43 91 L 01/01/22 04:00 98.4 F 95 16 91/56 94 L 12/31/21 22:59 98.1 F 80 16 104/67 92 L 12/31/21 20:00 98.5 F 95 18 90/64 94 L 12/31/21 18:06 98 F 89 17 89/57 95 12/31/21 16:59 98.2 F 78 20 91/56 93 L 12/31/21 15:17 80 16 91/50 96 12/31/21 14:16 75 20 130/60 96 Intake and Output 12/31/21 01/01/22 01/01/22 22:59 06:59 14:59 Intake Total 290.892 540 Balance 290.892 540 Intake: Intake, IV Titration 50.892 Amount Heparin Sod,Pork in 0.45% 50.892 NaCl 25,000 unit In 0.45 % NaCl 1 250ml.bag @ 12 UNITS/KG/HR 9.253 mls/hr IV .Q24H [facility] Rx#: [id number] Oral 240 540 Other: Voiding Method Toilet Toilet Toilet Urinal Urinal Urinal # Voids 1 1 1 # Bowel Movements 1 Weight 77.111 kg 77.111 kg CONSTITUTIONAL: Appears short of breath on exam , breathing is nonlabored and the patient's currently on 2 L oxygen by nasal cannula Head exam was generally normal. There was no scleral icterus or corneal arcus. Mucous membranes were moist. Neck was supple and without jugular venous distension, thyromegaly, or carotid bruits. Carotids were easily palpable bilaterally. There was no adenopathy. HEENT: Head is normocephalic. No JVD. CHEST EXAMINATION: Lungs are clear to auscultation. No chest wall tenderness is noted on palpation or with deep breathing. HEART EXAMINATION: Irregular rate and rhythm. S1, S2 heard. ABDOMEN: Abdominal exam revealed normal bowel sounds. The abdomen was soft, non- tender, and without masses, organomegaly, or appreciable enlargement of the abdominal aorta. EXTREMITIES: Examination of the extremities revealed easily palpable radial, femoral and pedal pulses. There was no cyanosis, clubbing or edema. Pulses in the lower extremity are quite diminished NEUROLOGIC EXAMINATION: Patient is awake, alert and oriented x3. Results - Laboratory Findings CBC and BMP: 01/01/22 06:51 01/01/22 06:51 PT/INR, D-dimer PT 12.3 sec (9.0-12.0) H 01/01/22 06:51 INR 1.2 (<1.2) H 01/01/22 06:51 D-Dimer 0.45 mg/L FEU (<0.60) 12/31/21 08:27 Abnormal lab findings: Abnormal Labs 12/31/21 12/31/21 12/31/21 08:27 08:27 08:27 WBC 12.0 H RBC 3.79 L Hgb 12.7 L Hct 38.1 L MCV 100.7 H Plt Count 149 L Neutrophils # 10.1 H Lymphocytes # 0.8 L PT INR APTT Sodium 131 L Chloride 97 L Carbon Dioxide BUN 27 H Creatinine Glucose 151 H POC Glucose (mg/dL) Calcium Total Bilirubin 1.7 H AST 167 H Troponin I 22.300 H* 12/31/21 12/31/21 12/31/21 11:39 16:01 16:01 WBC RBC Hgb Hct MCV Plt Count Neutrophils # Lymphocytes # PT INR APTT 99.5 H Sodium Chloride Carbon Dioxide BUN Creatinine Glucose POC Glucose (mg/dL) Calcium Total Bilirubin AST Troponin I 19.400 H* 29.200 H* 01/01/22 01/01/22 01/01/22 00:40 06:51 06:51 WBC RBC 3.30 L Hgb 11.2 L Hct 33.5 L MCV 101.6 H Plt Count 111 L Neutrophils # Lymphocytes # PT INR APTT 48.3 H Sodium 131 L Chloride Carbon Dioxide 20 L BUN 40 H Creatinine 1.88 H Glucose 123 H POC Glucose (mg/dL) Calcium 8.2 L Total Bilirubin AST Troponin I 01/01/22 01/01/22 06:51 12:25 WBC RBC Hgb Hct MCV Plt Count Neutrophils # Lymphocytes # PT 12.3 H INR 1.2 H APTT 46.1 H Sodium Chloride Carbon Dioxide BUN Creatinine Glucose POC Glucose (mg/dL) 152 H Calcium Total Bilirubin AST Troponin I - Diagnostic Findings Chest x-ray: image reviewed Assessment and Plan Plan: Acute non-STEMI, currently free of any chest pain or back pain and the patient is currently on IV heparin and aspirin, awaiting a cardiac catheterization, troponin peaked at 29 Severe cardiomyopathy with an ejection fraction of 30-35% long with apical hypokinesis and grade 1 diastolic heart failure Acute hypotension, likely cardiogenic in nature and the patient is currently on a combination of dobutamine and norepinephrine infusion for hemodynamic support Chronic atrial fibrillation, rate is controlled for now Acute kidney injury, possibly due to cardiogenic or cardiorenal factors, creatinine is up to 1.8 COVID 19 infection, on 12/09/2021, recovered, treated with monoclonal abs pleural effusion, bilateral, small COPD Granuloma, Calcified pulmonary nodule in the right upper lobe on the right Hypertension Hyperlipidemia History of skin cancer, multiple, resected Moderate degree of tricuspid regurgitation based on recent echocardiogram Plan Continue aspirin Continued IV heparin Continue dobutamine at 2.5 mcg/kg per minute Continue dopamine at 2 mcg/kg/min Continue norepinephrine infusion for hemodynamic support Monitor renal function Monitor urine output Moderate fluid balance All the beta blockers for now Continue high-dose statins with Lipitor Continue aspirin Senior Marketing Coordinator on the case and the patient will need a cardiac catheterization once his renal function is stable
[2022-01-01 16:30] LABS: Appearance,Urine Clear (Clear); Bilirubin,Urine Negative (Negative); Blood,Urine Negative (Negative); Color,Urine Yellow; Glucose,Urine (UA) Negative (Negative); Ketones,Urine Negative (Negative); Leukocyte Esterase,Urine Negative (Negative); Nitrite,Urine Negative (Negative); Protein,Urine Trace (Negative); Specific Gravity,Urine 1.032 (1.001-1.035)
[2022-01-01] MEDS: ACETAMINOPHEN TAB 325 MG TAB PO PRN (17:07)
[2022-01-01] MEDS: MELATONIN 3 MG TABLET PO PRN (20:37)
[2022-01-01] MEDS: ATORVASTATIN 40 MG TAB PO SCH (20:37)
[2022-01-01] MEDS ORDERED: DOPamine DRIP 800 MG in DEXTROSE/WATER 1 250ML.BAG IV SCH (22:15)
[2022-01-01] MEDS ORDERED: IPRATROPIUM-ALBUTEROL 3 ML NEB INHALATION PRN (23:56)
[2022-01-02] MEDS: NOREPINEPHRINE 4 MG in SODIUM CHLORIDE 0.9% 250 ML IV SCH ×2 (00:39→15:48)
[2022-01-02] MEDS ORDERED: FUROSEMIDE 10 MG/ML 10 ML VIAL IV STA (02:11)
[2022-01-02 06:17] LABS: Basophils % (A) 0 %; Eosinophils # (A) 0.1 k/uL (0-0.7); Eosinophils % (A) 1 %; HCT 36.6 % (39.0-53.0); HGB 12.2 gm/dL (13.0-17.5); Lymphocytes # (A) 1.2 k/uL (1.0-4.8); Lymphocytes % (A) 11 %; MCH 34.1 pg (25.0-35.0); MCHC 33.4 g/dL (31.0-37.0); MCV 102.2 fL (80.0-100.0); Macrocytosis Slight; Mean Platelet Volume 10.2; Monocytes # (A) 0.8 k/uL (0-1.0); Monocytes % (A) 7 %; Neutrophils # (A) 9.3 k/uL (1.3-7.7); Neutrophils % (A) 81 %; Platelet Count 135 k/uL (150-450); RBC 3.58 m/uL (4.30-5.90); RDW 13.1 % (11.5-15.5); WBC 11.5 k/uL (3.8-10.6)
[2022-01-02 06:35] LABS: Calcium 8.2 mg/dL (8.4-10.2); Potassium 4.3 mmol/L (3.5-5.1)
[2022-01-02] MEDS: IPRATROPIUM-ALBUTEROL 3 ML NEB INHALATION SCH ×4 (07:55→20:10)
[2022-01-02] MEDS ORDERED: FAMOTIDINE 20 MG/2 ML VIAL IV SCH (09:00)
--- NOTE | 2022-01-02 09:22 | XR ---
EXAMINATION TYPE: XR chest 1V DATE OF EXAM: 01/02/2022 COMPARISON: NONE HISTORY: Increased shortness of breath TECHNIQUE: Single frontal view of the chest is obtained. FINDINGS: Heart is enlarged and there is bilateral small pleural effusions greater on the left with left lower lobe consolidation. Atherosclerotic change aorta. Correlate for COPD. Nonspecific calcific ations overlying the left lung apex. A calcified lung nodule loss suspected on the right. Arthropathy of the shoulders. No overt failure. Correlate for previous surgical change in the left perihilar reg ion. IMPRESSION: 1. COPD with cardiomegaly and bilateral small pleural effusion with basilar infiltrate or atelectasis .
--- NOTE | 2022-01-02 09:44 | P.NPCON ---
History of Present Illness - Reason for Consult acute renal failure - History of Present Illness Reason for consultation: Acute kidney injury History of present illness: Patient is a 81-year-old male seen in consultation for acute kidney injury. Patient denies any prior history of kidney disease. Patient's creatinine on admission was 1.24 and was up to 1.88 yesterday. It is 1.39 today. Patient presented to the hospital with pain in his upper back between shoulder blades. He also complains of pain in his jaw. He was diagnosed with NSTEMI and is currently maintained on heparin drip. He's being followed by cardiology. Patient did undergo CTA on 12/31/2021 which showed no PE but was noted to have findings of CHF. Patient has ejection fraction of 30-35% with moderate to severe tricuspid regurgitation. He did receive a dose of IV Lasix last night and is nonoliguric. He is on low-dose Levophed as well as dobutamine. Patient's his oral intake has been poor. Denies chest pain. Denies vomiting or diarrhea. No hematuria or dysuria. Denies use of nonsteroidals. Denies family history of renal disease. No history of diabetes. Vital signs are stable. On vasopressor support. General: Awake. No acute distress. HEENT: Head exam is unremarkable. On nasal cannula. LUNGS: Breath sounds decreased. HEART: Rate and Rhythm are regular. ABDOMEN: Soft, no distention. EXTREMITITES: Trace edema. Past Medical History Past Medical History: Cancer, Hyperlipidemia, Hypertension Additional Past Medical History / Comment(s): 12/09/21 covid +/[facility], skin cancer removals, gout in toes History of Any Multi-Drug Resistant Organisms: None Reported Past Surgical History: Back Surgery, Tonsillectomy Additional Past Surgical History / Comment(s): Skin cancer removals/nose flaps, colonoscopy Past Anesthesia/Blood Transfusion Reactions: No Reported Reaction Smoking Status: Former smoker - Past Family History Mother Family Medical History: No Reported History Additional Family Medical History / Comment(s): Mother was healthy Father Family Medical History: No Reported History Additional Family Medical History / Comment(s): Father was healthy Brother(s) Family Medical History: CVA/TIA Medications and Allergies Home Medications Medication Instructions Recorded Confirmed Type Aspirin EC [Ecotrin Low Dose] 40.5 mg PO W/SUPPER 12/31/21 12/31/21 History Atorvastatin [Lipitor] 40 mg PO HS 12/31/21 12/31/21 History Cholecalciferol [Vitamin D3 (125 125 mcg PO DAILY 12/31/21 12/31/21 History Mcg = 5000 Iu)] Lisinopril-Hctz 20-12.5 mg 1 tab PO BID-W/MEALS 12/31/21 12/31/21 History [Zestoretic 20-12.5] Vit C/E/Zn/Coppr/Lutein/Zeaxan 1 cap PO BID-W/MEALS 12/31/21 12/31/21 History [Preservision Areds 2 Softgel] allopurinoL [Zyloprim] 150 mg PO W/SUPPER 12/31/21 12/31/21 History amLODIPine [Norvasc] 5 mg PO W/LUNCH 12/31/21 12/31/21 History carvediloL [Coreg] 12.5 mg PO BID-W/MEALS 12/31/21 12/31/21 History fluorouraciL [Efudex] 1 applic TOPICAL MOTUWE 12/31/21 12/31/21 History Allergies Allergy/AdvReac Type Severity Reaction Status Date / Time No Known Allergies Allergy Verified 12/31/21 10:14 Physical Exam Vitals: Vital Signs Temp Pulse Pulse Resp BP BP Pulse Ox 01/02/22 09:00 89 26 H 96/68 93 L 01/02/22 08:04 88 01/02/22 08:00 98.1 F 90 18 104/65 97 01/02/22 07:57 90 01/02/22 07:00 99 23 98/72 01/02/22 06:00 87 16 106/74 94 L 01/02/22 05:00 106 H 19 104/58 92 L 01/02/22 04:00 97.6 F 115 H 28 H 92/46 93 L 01/02/22 03:00 89 21 89/61 94 L 01/02/22 02:00 89 26 H 84/56 93 L 01/02/22 01:00 93 30 H 92/57 92 L 01/02/22 00:26 81 01/02/22 00:19 110 H 01/02/22 00:00 100 31 H 85/59 92 L 01/01/22 23:09 18 93/54 93 L 01/01/22 23:00 83 17 93/54 93 L 01/01/22 22:00 83 18 95/59 92 L 01/01/22 21:00 22 98/60 88 L 01/01/22 20:00 98.3 F 93 17 93/53 92 L 01/01/22 19:00 89 20 91/54 89 L 01/01/22 18:45 80 30 H 94/55 92 L 01/01/22 18:30 27 H 86/52 90 L 01/01/22 18:15 97 28 H 97/56 91 L 01/01/22 18:00 87 31 H 91/62 92 L 01/01/22 17:45 83 27 H 90/62 92 L 01/01/22 17:30 93 35 H 88/60 89 L 01/01/22 17:15 87 40 H 84/60 88 L 01/01/22 17:00 80 26 H 95/54 92 L 01/01/22 16:45 92 21 94/62 91 L 01/01/22 16:30 84 28 H 90 L 01/01/22 16:15 108 H 20 82/51 87 L 01/01/22 16:00 97.7 F 79 27 H 82/59 89 L 01/01/22 15:45 87 23 91/55 90 L 01/01/22 15:30 75 20 86/60 91 L 01/01/22 15:15 83 12 94/59 93 L 01/01/22 15:00 81 25 H 93/58 91 L 01/01/22 14:45 72 13 88/56 90 L 01/01/22 14:30 78 23 85/55 90 L 01/01/22 14:15 86 22 89/58 88 L 01/01/22 14:00 75 24 83/54 90 L 01/01/22 13:45 71 33 H 77/49 91 L 01/01/22 13:30 83/51 01/01/22 13:15 98.1 F 70 26 H 81/50 90 L 01/01/22 13:00 76 27 H 80/52 90 L 01/01/22 12:45 76 28 H 85/48 01/01/22 12:30 77 25 H 87/50 89 L 01/01/22 12:17 91 L 01/01/22 11:11 86 16 86/59 93 L 01/01/22 09:40 79 88/55 Intake and Output 01/01/22 01/02/22 01/02/22 22:59 06:59 14:59 Intake Total 314.026 150.788 148.989 Output Total 250 830 200 Balance 64.026 -679.212 -51.011 Intake: IV 80 80 30 0.9 NS 80 80 30 Intake, IV Titration 184.026 70.788 118.989 Amount DOPamine DRIP 800 mg In 0 Dextrose/Water 1 250ml. bag @ 3.5 MCG/KG/MIN 5.06 mls/hr IV .Q24H [facility] Rx#: [id number] Heparin Sod,Pork in 0.45% 184.026 70.788 NaCl 25,000 unit In 0.45 % NaCl 1 250ml.bag @ 12 UNITS/KG/HR 9.253 mls/hr IV .Q24H [facility] Rx#: [id number] Norepinephrine 4 mg In 118.989 Sodium Chloride 0.9% 250 ml @ 0.05 MCG/KG/MIN 14. 69 mls/hr IV .[id number] [facility] Rx#:[id number] Oral 50 Output: Urine 250 830 200 Other: Voiding Method Toilet Toilet Toilet Urinal Urinal Urinal # Voids 0 0 # Bowel Movements 1 Results - Lab Results Most recent lab results Calcium 8.2 mg/dL (8.4-10.2) L 01/02/22 05:28 Magnesium 1.8 mg/dL (1.6-2.3) 01/01/22 06:51 01/02/22 05:28 01/02/22 05:28 Assessment and Plan Plan: Assessment: 1. Acute kidney injury mostly prerenal secondary to cardiorenal syndrome. Creatinine peaked at 1.88 this admission and is 1.39 today. Creatinine was 1. to 4 on admission. Unknown baseline renal function. UA fairly benign. 2. Acute on chronic systolic CHF with ejection fraction of 30-35% with moderate to severe tricuspid regurgitation. 3. Volume overload. 4. Non-ST elevated myocardial infarction maintained on heparin drip. 5. Recent covid infection. 6. Metabolic acidosis secondary to acute kidney injury. 7. Hypervolemic hyponatremia. Plan: Agree with IV Lasix. Maintain dobutamine per cardiology. Wean Levophed. Encourage oral intake. Add oral bicarb. Check renal ultrasound. Avoid nephrotoxins. Continue to monitor renal function and urine output. Thank you for the consultation. I will continue to follow the patient with you during his hospital stay.
--- NOTE | 2022-01-02 09:46 | P.PN ---
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 The patient reported having COVID-19 earlier this month with mild symptoms. Initial EKG showed atrial fibrillation, which according to the patient is a new finding. Chest x-ray showed COPD with cardiomegaly and bilateral pleural effusions. The patient was subsequently transferred to the ICU for hypotension. Troponins elevated at 22, 19, 29. No ST changes on EKG. Echocardiogram revealed reduced LV function at 30-35% with apical hypokinesis consistent with Takotsubo. Extensive history reviewed with the patient and Dr. Camacho. The patient began feeling ill in November with fatigue and intermittent episodes of dizziness and lightheadedness. He states this was approximately 3 weeks prior to being diagnosed with COVID-19. He presented to his primary care provider where he was told he had covid pneumonia. According to the patient he did not have fever or chills. No cough or congestion. Just weakness, fatigue, and shortness of breath with exertional activity. The patient also states he had an EKG performed by his primary care provider within the last month and was not told it was abnormal. The patient states he is gradually feeling better and strands incision into the ICU. He states he is interested in eating, despite the patient not having an appetite over the last 6 weeks. He denies any current chest pain or chest pressure. No difficulty breathing resting in bed. No dizziness or lightheadedness. GENERAL: Well-appearing, well-nourished and in no acute distress. NECK: Supple without JVD or thyromegaly. LUNGS: Breath sounds diminished to auscultation bilaterally. Respiration equal and unlabored. No wheezes, rales or rhonchi. HEART: Irregular rate and rhythm without murmurs, rubs or gallops. S1 and S2 heard. EXTREMITIES: Normal range of motion, no edema. No clubbing or cyanosis. Peripheral pulses intact and strong. VITALS: Blood pressure 96/68, respiratory rate 18, pulse 89, SpO2 93% on nasal cannula TELEMETRY: Persistent atrial fibrillation with heart rates in the low 100s LABS: WBC 11.5, hemoglobin 12.2, hematocrit 36.6, platelet 135, sodium 133, potassium 4.3, BUN 46, creatinine 1.39 IMPRESSION: Paroxysmal atrial fibrillation, currently rate controlled, on heparin Elevated troponin, possible NSTEMI vs secondary to Covid myocarditis Cardiomyopathy with EF 30-35%, ischemic vs non-ischemic Hypotension, on supportive treatment Recent COVID-19 infection on 12/09/2021 History hypertension Dyslipidemia Former smoker PLAN: Obtain outpatient EKG Continue supportive treatment for hypotension. Wean norepinephrine to keep systolic pressure above 90 mmHg. Continue heparin drip No plan for coronary angiogram at this time with recent COVID-19 infection Further recommendations based upon clinical course I am dictating on behalf of Dr Orlando Camacho's history/physical and assessment/plan. Objective - Vital Signs Vital signs: Vital Signs Temp 98.1 F 01/02/22 08:00 Pulse 89 01/02/22 09:00 Resp 26 H 01/02/22 09:00 BP 96/68 01/02/22 09:00 Pulse Ox 93 L 01/02/22 09:00 FiO2 Intake & Output 01/01/22 01/02/22 01/02/22 18:59 06:59 18:59 Intake Total 610 414.814 148.989 Output Total 100 980 200 Balance 510 -565.186 -51.011 Weight 77.111 kg Intake: IV 70 110 30 0.9 NS 70 110 30 Intake, IV Titration 254.814 118.989 Amount DOPamine DRIP 800 mg In 0 Dextrose/Water 1 250ml. bag @ 3.5 MCG/KG/MIN 5.06 mls/hr IV .Q24H [facility] Rx#: [id number] Heparin Sod,Pork in 0.45% 254.814 NaCl 25,000 unit In 0.45 % NaCl 1 250ml.bag @ 12 UNITS/KG/HR 9.253 mls/hr IV .Q24H [facility] Rx#: [id number] Norepinephrine 4 mg In 118.989 Sodium Chloride 0.9% 250 ml @ 0.05 MCG/KG/MIN 14. 69 mls/hr IV .[id number] [facility] Rx#:[id number] Oral 540 50 Output: Urine 100 980 200 Other: Voiding Method Toilet Toilet Toilet Urinal Urinal Urinal # Voids 0 0 # Bowel Movements 1 - Labs CBC & Chem 7: 01/02/22 05:28 01/02/22 05:28 Labs: Abnormal Lab Results - Last 24 Hours (Table) 01/01/22 01/01/22 01/02/22 Range/Units 12:25 16:25 05:28 WBC (3.8-10.6) k/uL RBC (4.30-5.90) m/uL Hgb (13.0-17.5) gm/dL Hct (39.0-53.0) % MCV (80.0-100.0) fL Plt Count (150-450) k/uL Neutrophils # (1.3-7.7) k/uL APTT 33.3 H (22.0-30.0) sec Sodium (137-145) mmol/L Carbon Dioxide (22-30) mmol/L BUN (9-20) mg/dL Creatinine (0.66-1.25) mg/dL Glucose (74-99) mg/dL POC Glucose (mg/dL) 152 H (70-110) mg/dL Calcium (8.4-10.2) mg/dL Urine Protein Trace H (Negative) 01/02/22 01/02/22 Range/Units 05:28 05:28 WBC 11.5 H (3.8-10.6) k/uL RBC 3.58 L (4.30-5.90) m/uL Hgb 12.2 L (13.0-17.5) gm/dL Hct 36.6 L (39.0-53.0) % MCV 102.2 H (80.0-100.0) fL Plt Count 135 L (150-450) k/uL Neutrophils # 9.3 H (1.3-7.7) k/uL APTT (22.0-30.0) sec Sodium 133 L (137-145) mmol/L Carbon Dioxide 19 L (22-30) mmol/L BUN 46 H (9-20) mg/dL Creatinine 1.39 H (0.66-1.25) mg/dL Glucose 115 H (74-99) mg/dL POC Glucose (mg/dL) (70-110) mg/dL Calcium 8.2 L (8.4-10.2) mg/dL Urine Protein (Negative)
[2022-01-02] MEDS: ASPIRIN 81 MG PO SCH (10:08)
[2022-01-02] MEDS: FUROSEMIDE 10 MG/ML 4 ML VIAL IV SCH ×2 (10:08→20:27)
[2022-01-02] MEDS: SODIUM BICARBONATE TAB 650 MG TAB PO SCH ×2 (10:09→20:26)
--- NOTE | 2022-01-02 12:26 | P.PN ---
Subjective Progress Note Date: 01/02/22 81-year-old male patient, Neel chest into the intensive care because of hypotension. The patient is postop acute non-ST segment elevation myocardial infarction patient is known to have cardiomyopathy with an ejection fraction of 30-35%. He has hypertension and hyperlipidemia and paroxysmal atrial fibr illation. Is a former smoker and he has COVID 19 infection back in August 2021 from which she recovered. The patient presented to the hospital because of back pain between his shoulder blades. No chest pain. No known exacerbating or relieving factors. No fever. No chills. He came into the emergency and his EKG was consistent with atrial fibrillation with RVR. The patient's troponin was elevated at 22.3. Subsequently, the troponin peaked at 29. The patient was started on IV heparin. The patient was given aspirin and patient was given a CT angiogram that showed no evidence of any pulmonary embolism. There was trace left pleural effusions and the patient had background COPD and a 5 mm calcified pulmonary nodule in the right upper lobe. CAT scan of the thoracic spine showed multilevel moderate to severe degenerative disc disease along with hard large hypertrophic anterior spurs and suspect multilevel foraminal encroachment. Cannot stenosis near the thoracolumbar junction was also considered. The patient has also by the pleural effusions. Initially, the patient got admitted to the medical floor and subsequently got transferred to the intensive care unit as the patient was running a lower blood pressure. The patient is currently on dobutamine as the patient was also noted to have cardiomyopathy and the echocardiogram revealed left ventricular ejection fraction of 30-35% along with apical hypokinesis and mild mitral regurgitation, moderate to severe tricuspid regurgitation without any pericardial effusion. RV was within normal limits. The patient is currently on dobutamine, dopamine and norepinephrine was also initiated for blood pressure support is being administered at a dose of 0.05 per Kilogram per minute. Dobutamine is running at 2.5 mcg/kg/min. Dopamine at 2 mcg/kg/min. Since the current admission, the patient developed acute kidney injury. Creatinine was 1.24 time of admission the creatinine is up to 1.8. The most recent systolic blood pressure is 86/59 and the patient is currently on 2 L of oxygen by nasal cannula with a pulse ox of 93%. The patient is not on any diuretics at this point in time. The fluid balance is slightly positive at 90 mL over the past 8 hours. The patient body weight is stable and 77 kg. On today's evaluation of 01/02/2022, the patient is being seen for a follow-up. Some improvement since yesterday as the patient was started on a combination dobutamine and norepinephrine. Yesterday afternoon and early evening, the patient became more short of breath. He was given a dose of Lasix 60 mg IV push and his urine output improved and the patient producing approximately 1 L of urine output since. This morning, he remains on examination dobutamine 2.5 mics per kilogram patient is also norepinephrine at 0.04 mcg/kg per minute. The patient is on 10 L of oxygen by nasal cannula. Urine output is adequate. C ardiac rhythm is still atrial fibrillation with a controlled rate. The creatinine is improving. Also one point with a BUN of 46. The patient remains on IV heparin. Hemoglobin is at 12.2 with a white cell count of 11.5. UA is negative. Cardiology on the case. No chest pain. No back pain. No focal neurological deficits. Objective - Vital Signs Vital signs: Vital Signs Temp 98.1 F 01/02/22 08:00 Pulse 90 01/02/22 11:53 Resp 26 H 01/02/22 11:00 BP 97/61 01/02/22 11:00 Pulse Ox 95 01/02/22 11:00 FiO2 Intake & Output 01/01/22 01/02/22 01/02/22 18:59 06:59 18:59 Intake Total 610 414.814 513.521 Output Total 100 980 775 Balance 510 -565.186 -261.479 Weight 77.111 kg Intake: IV 70 110 120 0.9 NS 70 110 120 Intake, IV Titration 254.814 143.521 Amount DOPamine DRIP 800 mg In 0 Dextrose/Water 1 250ml. bag @ 3.5 MCG/KG/MIN 5.06 mls/hr IV .Q24H [facility] Rx#: [id number] Heparin Sod,Pork in 0.45% 254.814 NaCl 25,000 unit In 0.45 % NaCl 1 250ml.bag @ 12 UNITS/KG/HR 9.253 mls/hr IV .Q24H [facility] Rx#: [id number] Norepinephrine 4 mg In 143.521 Sodium Chloride 0.9% 250 ml @ 0.05 MCG/KG/MIN 14. 69 mls/hr IV .[id number] [facility] Rx#:[id number] Oral 540 50 250 Output: Urine 100 980 775 Other: Voiding Method Toilet Toilet Toilet Urinal Urinal Urinal # Voids 0 0 # Bowel Movements 1 - Exam CONSTITUTIONAL: Appears short of breath on exam , breathing is nonlabored and the patient's currently on 10 L oxygen by nasal cannula Head exam was generally normal. There was no scleral icterus or corneal arcus. Mucous membranes were moist. Neck was supple and without jugular venous distension, thyromegaly, or carotid bruits. Carotids were easily palpable bilaterally. There was no adenopathy. HEENT: Head is normocephalic. No JVD. CHEST EXAMINATION: Lungs are clear to auscultation. No chest wall tenderness is noted on palpation or with deep breathing. HEART EXAMINATION: Irregular rate and rhythm. S1, S2 heard. ABDOMEN: Abdominal exam revealed normal bowel sounds. The abdomen was soft, non- tender, and without masses, organomegaly, or appreciable enlargement of the abdominal aorta. EXTREMITIES: Examination of the extremities revealed easily palpable radial, femoral and pedal pulses. There was no cyanosis, clubbing or edema. Pulses in the lower extremity are quite diminished NEUROLOGIC EXAMINATION: Patient is awake, alert and oriented x3. - Labs CBC & Chem 7: 01/02/22 05:28 01/02/22 05:28 Labs: Abnormal Lab Results - Last 24 Hours (Table) 01/01/22 01/01/22 01/02/22 Range/Units 12:25 16:25 05:28 WBC (3.8-10.6) k/uL RBC (4.30-5.90) m/uL Hgb (13.0-17.5) gm/dL Hct (39.0-53.0) % MCV (80.0-100.0) fL Plt Count (150-450) k/uL Neutrophils # (1.3-7.7) k/uL APTT 33.3 H (22.0-30.0) sec Sodium (137-145) mmol/L Carbon Dioxide (22-30) mmol/L BUN (9-20) mg/dL Creatinine (0.66-1.25) mg/dL Glucose (74-99) mg/dL POC Glucose (mg/dL) 152 H (70-110) mg/dL Calcium (8.4-10.2) mg/dL Urine Protein Trace H (Negative) 01/02/22 01/02/22 Range/Units 05:28 05:28 WBC 11.5 H (3.8-10.6) k/uL RBC 3.58 L (4.30-5.90) m/uL Hgb 12.2 L (13.0-17.5) gm/dL Hct 36.6 L (39.0-53.0) % MCV 102.2 H (80.0-100.0) fL Plt Count 135 L (150-450) k/uL Neutrophils # 9.3 H (1.3-7.7) k/uL APTT (22.0-30.0) sec Sodium 133 L (137-145) mmol/L Carbon Dioxide 19 L (22-30) mmol/L BUN 46 H (9-20) mg/dL Creatinine 1.39 H (0.66-1.25) mg/dL Glucose 115 H (74-99) mg/dL POC Glucose (mg/dL) (70-110) mg/dL Calcium 8.2 L (8.4-10.2) mg/dL Urine Protein (Negative) Assessment and Plan Plan: Acute non-STEMI, currently free of any chest pain or back pain and the patient is currently on IV heparin and aspirin, awaiting a cardiac catheterization, troponin peaked at 29, also possibility of a COVID 19 induced myocarditis cannot be completely ruled out. The patient remains on IV heparin. The patient remains free of any pain. Acute hypoxic respiratory failure secondary to CHF/pulmonary edema, currently on 2 L of O2 nasal cannula and the patient is on a combination of norepinephrine and dobutamine and Lasix. Acute on top of chronic systolic heart failure the patient has severe cardiomyopathy with an ejection fraction of 30-35% long with apical hypokinesis and grade 1 diastolic heart failure Acute hypotension, likely cardiogenic in nature and the patient is currently on a combination of dobutamine and norepinephrine infusion for hemodynamic support, the patient is normotensive Chronic atrial fibrillation, rate is controlled for now Acute kidney injury, possibly due to cardiogenic or cardiorenal factors, creatinine is improving as the patient is producing adequate urine output for now. COVID 19 infection, on 12/09/2021, recovered, treated with monoclonal abs pleural effusion, bilateral, small COPD Granuloma, Calcified pulmonary nodule in the right upper lobe on the right Hypertension Hyperlipidemia History of skin cancer, multiple, resected Moderate degree of tricuspid regurgitation based on recent echocardiogram Plan Continue aspirin Continued IV heparin Continue dobutamine at 2.5 mcg/kg per minute Continue norepinephrine infusion for hemodynamic support Start the patient on Lasix 40 mg IV every 12 hours Wean the FiO2 as tolerated Monitor renal function Monitor urine output Moderate fluid balance Hold beta blockers for now Continue high-dose statins with Lipitor Continue aspirin Renal function continued to improve. We'll keep the patient intensive care unit for now.
[2022-01-02] MEDS: HEPARIN SODIUM 1,000 UN/ML (10ML VL) IV PRN (13:50)
--- NOTE | 2022-01-02 14:41 | US ---
EXAMINATION TYPE: US kidneys/renal and bladder DATE OF EXAM: 01/02/2022 COMPARISON: NONE CLINICAL HISTORY: gabriela. GABRIELA EXAM MEASUREMENTS: Right Kidney: 9.4 x 5.2 x 4.6 cm Left Kidney: 9.4 x 5.0 x 3.4 cm Right Kidney: No hydronephrosis, nephrolithiasis or masses seen Left Kidney: No hydronephrosis, nephrolithiasis or masses seen Bladder: wnl Bilateral Jets seen: Yes IMPRESSION: No acute processes.
[2022-01-02] MEDS: DOBUTamine DRIP 500 MG in DEXTROSE/WATER 1 250ML.BAG IV SCH (16:07)
[2022-01-02] MEDS: ATORVASTATIN 40 MG TAB PO SCH (20:26)
[2022-01-02] MEDS: ACETAMINOPHEN TAB 325 MG TAB PO PRN (20:26)
--- NOTE | 2022-01-02 22:16 | P.PN ---
Subjective 81-year-old pleasant male came in with the upper back pain between the scapula and patient also vomiting, no pain in the chair. Jaw pain is mostly like spasms. Patient doesn't have any fever chills patient was diagnosed with COVID- 19 about couple weeks ago patient's pain in the back changes at the moment nonpleuritic patient had a CT angios the chest which did not show any significant X abnormality except for mild bilateral pleural effusions patient doesn't have any cardiac history found to have troponin of 22.3. EKG did not show any acute ST-T wave changes but is in A. fib and rate controlled. There is some degenerative to thoracic spine disease beyond which shows no other significant abnormality was seen. Patient was started on IV heparin cardiology was consulted patient although doesn't have any significant chest pain is back pain is not associated with lightheadedness or diaphoresis. 01/01/2022 Patient denies chest pain or dyspnea today. Also denies pain between his shoulder blades as he rated as 0/10. He has constipation but no abdominal pain. No vomiting. His PCP is Dr. Tyree dalal at bedside and patient TO TALK TO HIM ABOUT HIS HEALTH ISSUE Blood pressure on the low side, patient might have CHF however he is not tachypneic therefore going to try 1 L of normal saline. Patient currently continues on heparin drip and aspirin 81 mg added Blood pressure medication were held since admission including hydr ochlorothiazide 12.5 mg, lisinopril 20 mg Norvasc 5 mg. TSH is normal, CTA is negative for PE but there is vascular congestion of right upper lobe nodes. His creatinine went up today to 1.8. He is making good urine output Patient may be moved to the ICU for blood pressure treatment 01/02/2022 Patient states in the ICU, his awake, not significantly tachypneic while he is at rest. Patient blood pressure is improved while he is on pressors. He is kept on both dobutamine and the levophed drips. He has decent urine output and his creatinine improved as well 1.8 down to 1.3. Also he is on IV Lasix to help his fluid overload. He has hypoxia with oxygen requirement 10 L/m. Also he is continued on heparin drip and his rate controlled. Coreg is on hold. Currently blood pressure is 100/60. Heart rate is high 90s-100s. Coreg is on hold and he is continued on baby aspirin Other than that WBC 11.5, hemoglobin 12.2 and creatinine 1.39 abdominal ultrasound is negative. Review of systems CONSTITUTIONAL: No fever, no malaise, no fatigue. HEENT: No recent visual problems or hearing problems. Denied any sore throat. CARDIOVASCULAR: No orthopnea, PND, no palpitations, no syncope. PULMONARY: No shortness of breath, no cough, no hemoptysis. GASTROINTESTINAL: No diarrhea, no nausea, no vomiting, no abdominal pain. Normoactive bowel sounds. NEUROLOGICAL: No headaches, no weakness, no numbness. Active Medications Generic Name Dose Route Start Last Admin Trade Name Freq PRN Reason Stop Dose Admin Acetaminophen 650 mg 01/01/22 17:00 01/02/22 20:26 Acetaminophen Tab 325 Mg Tab PO 650 mg Q4HR PRN Administration Fever and/ or Mild Pain Albuterol/Ipratropium 3 ml 01/02/22 08:00 01/02/22 20:10 Ipratropium-Albuterol 3 Ml Neb INHALATION 3 ml RT-QID [facility] Administration Albuterol/Ipratropium 3 ml 01/01/22 23:56 01/02/22 00:18 Ipratropium-Albuterol 3 Ml Neb INHALATION 3 ml RT-QID PRN Administration Shortness Of Breath Or Wheezing Aspirin 81 mg 12/31/21 10:45 01/02/22 10:08 Aspirin 81 Mg PO 81 mg DAILY [facility] Administration Atorvastatin Calcium 40 mg 12/31/21 21:00 01/02/22 20:26 Atorvastatin 40 Mg Tab PO 40 mg HS [facility] Administration Famotidine 20 mg 01/03/22 09:00 Famotidine 20 Mg Tab PO DAILY [facility] Furosemide 40 mg 01/02/22 09:30 01/02/22 20:27 Furosemide 10 Mg/Ml 4 Ml Vial IV 40 mg Q12HR [facility] Administration Heparin Sodium (Porcine) 0 unit 12/31/21 10:34 01/02/22 13:50 Heparin Sodium 1,000 Un/Ml (10ml Vl) IV 1,925 unit PER PROTOCOL PRN Administration Low PTT Protocol Heparin Sodium/Sodium Chloride 250 mls @ 9.253 mls/hr 12/31/21 10:45 01/02/22 13:50 25,000 unit/ Sodium Chloride IV 14 units/kg/hr .Q24H [facility] 10.796 mls/hr Titration Protocol 12 UNITS/KG/HR Dobutamine HCl/Dextrose 500 mg 250 mls @ 5.783 mls/hr 01/01/22 13:00 01/02/22 16:07 / IV Solution IV Not Given .Q24H [facility] 2.5 MCG/KG/MIN Norepinephrine Bitartrate 4 mg 254 mls @ 14.69 mls/hr 01/02/22 00:15 01/02/22 15:48 / Sodium Chloride IV 0.05 mcg/kg/min .[id number] [facility] 14.69 mls/hr Administration Protocol 0.05 MCG/KG/MIN Melatonin 3 mg 12/31/21 19:53 01/01/22 20:37 Melatonin 3 Mg Tablet PO 3 mg HS PRN Administration Insomnia Naloxone HCl 0.2 mg 12/31/21 10:43 Naloxone 0.4 Mg/Ml 1 Ml Vial IV Q2M PRN Opioid Reversal Non-Formulary Medication 1 applic 12/31/21 12:00 01/01/22 10:57 Fluorouracil [Efudex] TOPICAL Not Given [facility] Sodium Bicarbonate 650 mg 01/02/22 09:45 01/02/22 20:26 Sodium Bicarbonate Tab 650 Mg Tab PO 650 mg BID [facility] Administration Objective - Vital Signs Vital signs: Vital Signs Temp 98.1 F 01/02/22 08:00 Pulse 90 01/02/22 11:00 Resp 26 H 01/02/22 11:00 BP 97/61 01/02/22 11:00 Pulse Ox 95 01/02/22 11:00 FiO2 Intake & Output 01/01/22 01/02/22 01/02/22 18:59 06:59 18:59 Intake Total 610 414.814 473.989 Output Total 100 980 400 Balance 510 -565.186 73.989 Weight 77.111 kg Intake: IV 70 110 105 0.9 NS 70 110 105 Intake, IV Titration 254.814 118.989 Amount DOPamine DRIP 800 mg In 0 Dextrose/Water 1 250ml. bag @ 3.5 MCG/KG/MIN 5.06 mls/hr IV .Q24H [facility] Rx#: [id number] Heparin Sod,Pork in 0.45% 254.814 NaCl 25,000 unit In 0.45 % NaCl 1 250ml.bag @ 12 UNITS/KG/HR 9.253 mls/hr IV .Q24H [facility] Rx#: [id number] Norepinephrine 4 mg In 118.989 Sodium Chloride 0.9% 250 ml @ 0.05 MCG/KG/MIN 14. 69 mls/hr IV .[id number] [facility] Rx#:[id number] Oral 540 50 250 Output: Urine 100 980 400 Other: Voiding Method Toilet Toilet Toilet Urinal Urinal Urinal # Voids 0 0 # Bowel Movements 1 - Exam GENERAL: The patient is alert and oriented x3, not in any acute distress. Well developed, well nourished. HEENT: Pupils are round and equally reacting to light. EOMI. No scleral icterus. No conjunctival pallor. Normocephalic, atraumatic. No pharyngeal erythema. No thyromegaly. CARDIOVASCULAR: S1 and S2 present. No murmurs, rubs, or gallops. PULMONARY: Chest is clear to auscultation, no wheezing or crackles. ABDOMEN: Soft, nontender, nondistended, normoactive bowel sounds. No palpable organomegaly. MUSCULOSKELETAL: No joint swelling or deformity. EXTREMITIES: No cyanosis, clubbing, or pedal edema. NEUROLOGICAL: Gross neurological examination did not reveal any focal deficits. SKIN: No rashes. no petechiae. - Labs CBC & Chem 7: 01/02/22 05:28 01/02/22 05:28 Labs: Abnormal Lab Results - Last 24 Hours (Table) 01/01/22 01/01/22 01/02/22 Range/Units 12:25 16:25 05:28 WBC (3.8-10.6) k/uL RBC (4.30-5.90) m/uL Hgb (13.0-17.5) gm/dL Hct (39.0-53.0) % MCV (80.0-100.0) fL Plt Count (150-450) k/uL Neutrophils # (1.3-7.7) k/uL APTT 33.3 H (22.0-30.0) sec Sodium (137-145) mmol/L Carbon Dioxide (22-30) mmol/L BUN (9-20) mg/dL Creatinine (0.66-1.25) mg/dL Glucose (74-99) mg/dL POC Glucose (mg/dL) 152 H (70-110) mg/dL Calcium (8.4-10.2) mg/dL Urine Protein Trace H (Negative) 01/02/22 01/02/22 Range/Units 05:28 05:28 WBC 11.5 H (3.8-10.6) k/uL RBC 3.58 L (4.30-5.90) m/uL Hgb 12.2 L (13.0-17.5) gm/dL Hct 36.6 L (39.0-53.0) % MCV 102.2 H (80.0-100.0) fL Plt Count 135 L (150-450) k/uL Neutrophils # 9.3 H (1.3-7.7) k/uL APTT (22.0-30.0) sec Sodium 133 L (137-145) mmol/L Carbon Dioxide 19 L (22-30) mmol/L BUN 46 H (9-20) mg/dL Creatinine 1.39 H (0.66-1.25) mg/dL Glucose 115 H (74-99) mg/dL POC Glucose (mg/dL) (70-110) mg/dL Calcium 8.2 L (8.4-10.2) mg/dL Urine Protein (Negative) Assessment and Plan Assessment: -acute non-ST elevation myocardial infarction for which patient is on IV heparin, no other possible etiologies stress-induced cardiomyopathy etiology evaluated the patient echo is being obtained, cardiac catheterization as per cardiology. -Acute systolic and diastolic heart failure with ejection fraction 30-35% and apical hypokinesia, grade 1 diastolic dysfunction. Full standing seen, rule out clots, possible takotsubo syndrome . -Hypotension, secondary to above possible cardiogenic shock -Moderate to severe tricuspid regurgitation -Recent history of covid 19 infection without pneumonia -Acute kidney injury -Hyponatremia secondary to diuretics which will be held -Elevated creatinine unsure present patient has acute renal failure on chronic kidney disease will monitor the creatinine -Hypertension holding up anti-hypertensive medication patient blood pressure is low at this time Plan: This is a pleasant 81 years old male who presents with non-STEMI and hypertension possible congestive heart failure Status post 1 L of IV fluids with no improvement, patient might go to the ICU for pressor support Continue with heparin drip Cardiology and pulmonary consult Check a bladder scan and nephrology consult. Check urinalysis Labs and medication were reviewed.. Continue same treatment. Continue with symptomatic treatment. Resume home medication. Monitor lytes and vitals. DVT and GI prophylaxis. Further recommendations as per clinical course of the patient DVT prophylaxis: heparin GI Prophylaxis: Pepcid PT/OT: Pending Prognosis is guarded
[2022-01-03] MEDS: HEPARIN SOD,PORK IN 0.45% NACL 25,000 UNIT in 0.45% NACL 1 250ML.BAG IV SCH (02:29)
[2022-01-03] MEDS: NOREPINEPHRINE 4 MG in SODIUM CHLORIDE 0.9% 250 ML IV SCH ×2 (06:15→23:05)
[2022-01-03] MEDS: DOBUTamine DRIP 500 MG in DEXTROSE/WATER 1 250ML.BAG IV SCH (08:04)
--- NOTE | 2022-01-03 08:47 | P.PN ---
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 The patient reported having COVID-19 earlier this month with mild symptoms. Initial EKG showed atrial fibrillation, which according to the patient is a new finding. Chest x-ray showed COPD with cardiomegaly and bilateral pleural effusions. The patient was subsequently transferred to the ICU for hypotension. Troponins elevated at 22, 19, 29. No ST changes on EKG. Echocardiogram revealed reduced LV function at 30-35% with global hypokinesis consistent with Takotsubo. Extensive history reviewed with the patient and Dr. Camacho. The patient began feeling ill in November with fatigue and intermittent episodes of dizziness and lightheadedness. He states this was approximately 3 weeks prior to being diagnosed with COVID-19. He presented to his primary care provider where he was told he had covid pneumonia. According to the patient he did not have fever or chills. No cough or congestion. Just weakness, fatigue, and shortness of breath with exertional activity. The patient also states he had an EKG performed by his primary care provider within the last month and was not told it was abnormal. On 01/02/2022, his IV diuretics were increased. Overnight he became more hypotensive and norepinephrine requirements increased. No significant increase in urine output with IV diuretics. The patient was interviewed and examined lying comfortably in bed. He denies any chest pain overnight. No difficulty breathing. No dizziness or lightheadedness, however mobility has been limited due to multiple IVs. GENERAL: Well-appearing, well-nourished and in no acute distress. NECK: Supple without JVD or thyromegaly. LUNGS: Breath sounds diminished to auscultation bilaterally. Respiration equal and unlabored. No wheezes, rales or rhonchi. HEART: Irregular rate and rhythm without murmurs, rubs or gallops. S1 and S2 heard. EXTREMITIES: Normal range of motion, no edema. No clubbing or cyanosis. Peripheral pulses intact and strong. VITALS: Blood pressure 107/70, heart rate 112, respiratory rate 20, SpO2 94% on 10 L high flow nasal cannula TELEMETRY: Persistent atrial fibrillation with heart rates 1 teens to 120s. LABS: Awaiting lab work IMPRESSION: Paroxysmal atrial fibrillation, currently rate controlled, on heparin Elevated troponin, possible NSTEMI vs secondary to Covid myocarditis Cardiomyopathy with EF 30-35%, ischemic vs non-ischemic Hypotension, on supportive treatment Recent COVID-19 infection on 12/09/2021 History hypertension Dyslipidemia Former smoker PLAN: Reduce furosemide IV to once daily in an effort to wean norepinephrine Obtain outpatient EKG Continue heparin drip No plan for coronary angiogram at this time Further recommendations based upon clinical course I am dictating on behalf of Dr Orlando Camacho's history/physical and assessment/plan. Objective - Vital Signs Vital signs: Vital Signs Temp 97.8 F 01/03/22 08:00 Pulse 96 01/03/22 08:30 Resp 21 01/03/22 08:30 BP 107/70 01/03/22 08:15 Pulse Ox 94 L 01/03/22 08:30 FiO2 Intake & Output 01/02/22 01/03/22 01/03/22 18:59 06:59 18:59 Intake Total 974.695 548.595 316.30 Output Total 1275 1100 0 Balance -300.305 -551.405 316.30 Weight 79 kg Intake: IV 210 180 15 0.9 NS 210 180 15 Intake, IV Titration 264.695 368.595 301.30 Amount DOBUTamine DRIP 500 mg In 245.97 Dextrose/Water 1 250ml. bag @ 2.5 MCG/KG/MIN 5. 783 mls/hr IV .Q24H [facility] Rx#:[id number] Heparin Sod,Pork in 0.45% 64.617 114.595 NaCl 25,000 unit In 0.45 % NaCl 1 250ml.bag @ 12 UNITS/KG/HR 9.253 mls/hr IV .Q24H [facility] Rx#: [id number] Norepinephrine 4 mg In 200.078 254.000 55.33 Sodium Chloride 0.9% 250 ml @ 0.05 MCG/KG/MIN 14. 69 mls/hr IV .[id number] [facility] Rx#:[id number] Oral 500 Output: Urine 1275 1100 0 Other: Voiding Method Toilet Toilet Urinal Urinal # Voids 1 - Labs CBC & Chem 7: 01/02/22 05:28 01/02/22 05:28 Labs: Abnormal Lab Results - Last 24 Hours (Table) 01/02/22 01/02/22 Range/Units 12:43 22:05 APTT 39.2 H 71.2 H (22.0-30.0) sec
[2022-01-03 08:49] LABS: Basophils % (A) 0 %; Eosinophils # (A) 0.1 k/uL (0-0.7); Eosinophils % (A) 1 %; HCT 37.4 % (39.0-53.0); HGB 12.3 gm/dL (13.0-17.5); Lymphocytes # (A) 1.3 k/uL (1.0-4.8); Lymphocytes % (A) 14 %; MCH 33.7 pg (25.0-35.0); MCHC 32.9 g/dL (31.0-37.0); MCV 102.6 fL (80.0-100.0); Macrocytosis Slight; Mean Platelet Volume 8.7; Monocytes # (A) 0.7 k/uL (0-1.0); Monocytes % (A) 8 %; Neutrophils # (A) 7.3 k/uL (1.3-7.7); Neutrophils % (A) 76 %; Platelet Count 177 k/uL (150-450); RBC 3.65 m/uL (4.30-5.90); RDW 13.1 % (11.5-15.5); WBC 9.6 k/uL (3.8-10.6)
--- NOTE | 2022-01-03 09:11 | P.PN ---
Subjective Patient is seen in follow-up for acute kidney injury. Morning labs pending. Dobutamine drip stopped this morning. Dose of Lasix also decreased to once daily. Not on any vasopressors. Blood pressure stable. On 10 L high flow cannula. Oral intake fair. Vital signs are stable. General: Awake. No acute distress. HEENT: Head exam is unremarkable. On nasal cannula. LUNGS: Breath sounds decreased. HEART: Rate and Rhythm are regular. ABDOMEN: Soft, no distention. EXTREMITITES: No edema. Objective - Vital Signs Vital signs: Vital Signs Temp 97.8 F 01/03/22 08:00 Pulse 96 01/03/22 08:30 Resp 21 01/03/22 08:30 BP 107/70 01/03/22 08:15 Pulse Ox 94 L 01/03/22 08:30 FiO2 Intake & Output 01/02/22 01/03/22 01/03/22 18:59 06:59 18:59 Intake Total 974.695 548.595 316.30 Output Total 1275 1100 0 Balance -300.305 -551.405 316.30 Weight 79 kg Intake: IV 210 180 15 0.9 NS 210 180 15 Intake, IV Titration 264.695 368.595 301.30 Amount DOBUTamine DRIP 500 mg In 245.97 Dextrose/Water 1 250ml. bag @ 2.5 MCG/KG/MIN 5. 783 mls/hr IV .Q24H [facility] Rx#:[id number] Heparin Sod,Pork in 0.45% 64.617 114.595 NaCl 25,000 unit In 0.45 % NaCl 1 250ml.bag @ 12 UNITS/KG/HR 9.253 mls/hr IV .Q24H [facility] Rx#: [id number] Norepinephrine 4 mg In 200.078 254.000 55.33 Sodium Chloride 0.9% 250 ml @ 0.05 MCG/KG/MIN 14. 69 mls/hr IV .[id number] [facility] Rx#:[id number] Oral 500 Output: Urine 1275 1100 0 Other: Voiding Method Toilet Toilet Urinal Urinal # Voids 1 - Labs CBC & Chem 7: 01/03/22 07:56 01/02/22 05:28 Labs: Abnormal Lab Results - Last 24 Hours (Table) 01/02/22 01/02/22 01/03/22 Range/Units 12:43 22:05 07:56 RBC 3.65 L (4.30-5.90) m/uL Hgb 12.3 L (13.0-17.5) gm/dL Hct 37.4 L (39.0-53.0) % MCV 102.6 H (80.0-100.0) fL APTT 39.2 H 71.2 H (22.0-30.0) sec 01/03/22 Range/Units 08:17 RBC (4.30-5.90) m/uL Hgb (13.0-17.5) gm/dL Hct (39.0-53.0) % MCV (80.0-100.0) fL APTT 48.0 H (22.0-30.0) sec Assessment and Plan Plan: Assessment: 1. Acute kidney injury mostly prerenal secondary to cardiorenal syndrome. Creatinine peaked at 1.88 this admission and was 1.39 yesterday. Creatinine was 1.24 on admission. Unknown baseline renal function. UA fairly benign. No hydronephrosis noted on kidney ultrasound. 2. Acute on chronic systolic CHF with ejection fraction of 30-35% with moderate to severe tricuspid regurgitation. 3. Volume overload. 4. Non-ST elevated myocardial infarction maintained on heparin drip. 5. Recent covid infection. 6. Metabolic acidosis secondary to acute kidney injury. On oral bicarbonate. 7. Hypervolemic hyponatremia. Plan: Maintain IV Lasix. Will give additional dose this evening if urine output tapers. Dobutamine discontinued this morning. Off Levophed. Encourage oral intake. Avoid nephrotoxins. Continue to monitor renal function and urine output. Follow-up morning labs.
--- NOTE | 2022-01-03 09:16 | XR ---
EXAMINATION TYPE: XR chest 1V DATE OF EXAM: 01/03/2022 COMPARISON: 01/02/2022 HISTORY: Increasing shortness of breath TECHNIQUE: Single frontal view of the chest is obtained. FINDINGS: Heart is enlarged and there is bilateral small pleural effusions greater on the left with left lower lobe consolidation. Atherosclerotic change aorta. Correlate for COPD. Nonspecific calcific ations overlying the left lung apex. A calcified lung nodule loss suspected on the right. Arthropathy of the shoulders. No overt failure. Correlate for previous surgical change in the left perihilar reg ion. IMPRESSION: 1. Bilateral lower lobe. Small effusions greater on the left stable. However, there is now a intersti tial process correlate for interstitial pneumonitis, pneumonia versus
[2022-01-03 09:24] LABS: Potassium 4.9 mmol/L (3.5-5.1)
[2022-01-03] MEDS: IPRATROPIUM-ALBUTEROL 3 ML NEB INHALATION SCH ×4 (09:34→20:57)
[2022-01-03] MEDS: ASPIRIN 81 MG PO SCH (10:03)
[2022-01-03] MEDS: SODIUM BICARBONATE TAB 650 MG TAB PO SCH ×2 (10:04→20:17)
[2022-01-03] MEDS: FUROSEMIDE 10 MG/ML 4 ML VIAL IV SCH (10:04)
[2022-01-03] MEDS: FAMOTIDINE 20 MG TAB PO SCH (10:04)
--- NOTE | 2022-01-03 14:29 | P.PN ---
Subjective Progress Note Date: 01/03/22 81-year-old male patient, [facility] chest into the intensive care because of hypotension. The patient is postop acute non-ST segment elevation myocardial infarction patient is known to have cardiomyopathy with an ejection fraction of 30-35%. He has hypertension and hyperlipidemia and paroxysmal atrial fibr illation. Is a former smoker and he has COVID 19 infection back in August 2021 from which she recovered. The patient presented to the hospital because of back pain between his shoulder blades. No chest pain. No known exacerbating or relieving factors. No fever. No chills. He came into the emergency and his EKG was consistent with atrial fibrillation with RVR. The patient's troponin was elevated at 22.3. Subsequently, the troponin peaked at 29. The patient was started on IV heparin. The patient was given aspirin and patient was given a CT angiogram that showed no evidence of any pulmonary embolism. There was trace left pleural effusions and the patient had background COPD and a 5 mm calcified pulmonary nodule in the right upper lobe. CAT scan of the thoracic spine showed multilevel moderate to severe degenerative disc disease along with hard large hypertrophic anterior spurs and suspect multilevel foraminal encroachment. Cannot stenosis near the thoracolumbar junction was also considered. The patient has also by the pleural effusions. Initially, the patient got admitted to the medical floor and subsequently got transferred to the intensive care unit as the patient was running a lower blood pressure. The patient is currently on dobutamine as the patient was also noted to have cardiomyopathy and the echocardiogram revealed left ventricular ejection fraction of 30-35% along with apical hypokinesis and mild mitral regurgitation, moderate to severe tricuspid regurgitation without any pericardial effusion. RV was within normal limits. The patient is currently on dobutamine, dopamine and norepinephrine was also initiated for blood pressure support is being administered at a dose of 0.05 per Kilogram per minute. Dobutamine is running at 2.5 mcg/kg/min. Dopamine at 2 mcg/kg/min. Since the current admission, the patient developed acute kidney injury. Creatinine was 1.24 time of admission the creatinine is up to 1.8. The most recent systolic blood pressure is 86/59 and the patient is currently on 2 L of oxygen by nasal cannula with a pulse ox of 93%. The patient is not on any diuretics at this point in time. The fluid balance is slightly positive at 90 mL over the past 8 hours. The patient body weight is stable and 77 kg. On today's evaluation of 01/02/2022, the patient is being seen for a follow-up. Some improvement since yesterday as the patient was started on a combination dobutamine and norepinephrine. Yesterday afternoon and early evening, the patient became more short of breath. He was given a dose of Lasix 60 mg IV push and his urine output improved and the patient producing approximately 1 L of urine output since. This morning, he remains on examination dobutamine 2.5 mics per kilogram patient is also norepinephrine at 0.04 mcg/kg per minute. The patient is on 10 L of oxygen by nasal cannula. Urine output is adequate. C ardiac rhythm is still atrial fibrillation with a controlled rate. The creatinine is improving. Also one point with a BUN of 46. The patient remains on IV heparin. Hemoglobin is at 12.2 with a white cell count of 11.5. UA is negative. Cardiology on the case. No chest pain. No back pain. No focal neurological deficits. 01/03/2022, the patient is being seen for a follow-up. Patient is comfortable. The patient was taken off the dobutamine today. The patient urine output is adequate for now and the patient produced approximately 2.3 L of urine output yesterday and the patient has a negative fluid balance of 850 mL over the past 24 hours. The patient is currently on 10 L O2 nasal cannula. The patient is on norepinephrine at 0.08 mcg/kg per minute and the patient remains on IV heparin. No chest pain. No angina. No palpitation. White cell count is at 9.6 and hemoglobin of 12.3 and a platelet count of177. As far as electrolytes, the sodium level is at 133 and a serum bicarbonate of 19 with a BUN of 41 and creatinine 0.9. The PTT is therapeutic for now. The patient is resting comfortably in bed. No new complaints otherwise for now.he remains in atrial fibrillation. The chest x-ray shows bilateral lower lobe small effusions greater on the left and there is some interstitial process consistent with some interstitial edema/CHF. Objective - Vital Signs Vital signs: Vital Signs Temp 98.1 F 01/03/22 12:00 Pulse 109 H 01/03/22 12:45 Resp 19 01/03/22 12:45 BP 102/64 01/03/22 12:30 Pulse Ox 97 01/03/22 12:15 FiO2 Intake & Output 01/02/22 01/03/22 01/03/22 18:59 06:59 18:59 Intake Total 974.695 548.595 991.30 Output Total 1275 1100 700 Balance -300.305 -551.405 291.30 Weight 79 kg 79 kg Intake: IV 210 180 90 0.9 NS 210 180 90 Intake, IV Titration 264.695 368.595 301.30 Amount DOBUTamine DRIP 500 mg In 245.97 Dextrose/Water 1 250ml. bag @ 2.5 MCG/KG/MIN 5. 783 mls/hr IV .Q24H [facility] Rx#:[id number] Heparin Sod,Pork in 0.45% 64.617 114.595 NaCl 25,000 unit In 0.45 % NaCl 1 250ml.bag @ 12 UNITS/KG/HR 9.253 mls/hr IV .Q24H [facility] Rx#: [id number] Norepinephrine 4 mg In 200.078 254.000 55.33 Sodium Chloride 0.9% 250 ml @ 0.05 MCG/KG/MIN 14. 69 mls/hr IV .[id number] [facility] Rx#:[id number] Oral 500 600 Output: Urine 1275 1100 700 Other: Voiding Method Toilet Toilet Toilet Urinal Urinal Urinal # Voids 1 - Exam CONSTITUTIONAL: Appears short of breath on exam , breathing is nonlabored and the patient's currently on 10 L oxygen by nasal cannula Head exam was generally normal. There was no scleral icterus or corneal arcus. Mucous membranes were moist. Neck was supple and without jugular venous distension, thyromegaly, or carotid bruits. Carotids were easily palpable bilaterally. There was no adenopathy. HEENT: Head is normocephalic. No JVD. CHEST EXAMINATION: Lungs are clear to auscultation. No chest wall tenderness is noted on palpation or with deep breathing. HEART EXAMINATION: Irregular rate and rhythm. S1, S2 heard. ABDOMEN: Abdominal exam revealed normal bowel sounds. The abdomen was soft, non- tender, and without masses, organomegaly, or appreciable enlargement of the abdominal aorta. EXTREMITIES: Examination of the extremities revealed easily palpable radial, femoral and pedal pulses. There was no cyanosis, clubbing or edema. Pulses in the lower extremity are quite diminished NEUROLOGIC EXAMINATION: Patient is awake, alert and oriented x3. - Labs CBC & Chem 7: 01/03/22 07:56 01/03/22 07:56 Labs: Abnormal Lab Results - Last 24 Hours (Table) 01/02/22 01/03/22 01/03/22 Range/Units 22:05 07:56 07:56 RBC 3.65 L (4.30-5.90) m/uL Hgb 12.3 L (13.0-17.5) gm/dL Hct 37.4 L (39.0-53.0) % MCV 102.6 H (80.0-100.0) fL APTT 71.2 H (22.0-30.0) sec Sodium 133 L (137-145) mmol/L Carbon Dioxide 19 L (22-30) mmol/L BUN 41 H (9-20) mg/dL Glucose 137 H (74-99) mg/dL Calcium 8.0 L (8.4-10.2) mg/dL 01/03/22 Range/Units 08:17 RBC (4.30-5.90) m/uL Hgb (13.0-17.5) gm/dL Hct (39.0-53.0) % MCV (80.0-100.0) fL APTT 48.0 H (22.0-30.0) sec Sodium (137-145) mmol/L Carbon Dioxide (22-30) mmol/L BUN (9-20) mg/dL Glucose (74-99) mg/dL Calcium (8.4-10.2) mg/dL Assessment and Plan Plan: Acute non-STEMI, currently free of any chest pain or back pain and the patient is currently on IV heparin and aspirin, awaiting a cardiac catheterization, troponin peaked at 29, also possibility of a COVID 19 induced myocarditis cannot be completely ruled out. The patient remains on IV heparin. The patient remains free of any pain. Acute hypoxic respiratory failure secondary to CHF/pulmonary edema, currently on 10 L of O2 nasal cannula and the patient is on a combination of norepinephrine and dobutamine and Lasix.the patient was taken off dobutamine today by cardiology. Acute on top of chronic systolic heart failure the patient has severe cardiomyopathy with an ejection fraction of 30-35% long with apical hypokinesis and grade 1 diastolic heart failure Acute hypotension, likely cardiogenic in nature and the patient is currently on a combination of dobutamine and norepinephrine infusion for hemodynamic support, the patient is normotensive. The patient was taken off dobutamine Chronic atrial fibrillation, rate is controlled for now Acute kidney injury, possibly due to cardiogenic or cardiorenal factors, creatinine is improvement in the patient is producing adequate amount of urine output COVID 19 infection, on 12/09/2021, recovered, treated with monoclonal abs pleural effusion, bilateral, small COPD Granuloma, Calcified pulmonary nodule in the right upper lobe on the right Hypertension Hyperlipidemia History of skin cancer, multiple, resected Moderate degree of tricuspid regurgitation based on recent echocardiogram Plan Continue aspirin Continued IV heparin dobutamine was discontinued by cardiology Continue norepinephrine infusion for hemodynamic support continue Lasix 40 mg IV every 12 hours wean FiO2 as tolerated to maintain saturation above 90% Chest x-ray still showing interstitial edema monitor fluid balance Hold beta blockers for now Continue high-dose statins with Lipitor Renal function continued to improve. We'll keep the patient intensive care unit for now.
[2022-01-03] MEDS: ATORVASTATIN 40 MG TAB PO SCH (20:17)
[2022-01-03] MEDS: ACETAMINOPHEN TAB 325 MG TAB PO PRN (23:06)
[2022-01-04 06:31] LABS: Basophils # (A) 0.1 k/uL (0-0.2); Basophils % (A) 1 %; Eosinophils # (A) 0.1 k/uL (0-0.7); Eosinophils % (A) 1 %; HCT 37.1 % (39.0-53.0); HGB 12.1 gm/dL (13.0-17.5); Lymphocytes # (A) 1.7 k/uL (1.0-4.8); Lymphocytes % (A) 20 %; MCH 32.9 pg (25.0-35.0); MCHC 32.7 g/dL (31.0-37.0); MCV 100.6 fL (80.0-100.0); Monocytes # (A) 0.6 k/uL (0-1.0); Monocytes % (A) 7 %; Neutrophils # (A) 5.9 k/uL (1.3-7.7); Neutrophils % (A) 69 %; Platelet Count 198 k/uL (150-450); RBC 3.69 m/uL (4.30-5.90); WBC 8.5 k/uL (3.8-10.6)
[2022-01-04 06:42] LABS: African American GFR (CKD) >90 (>60 ml/min/1.73 sqM); Anion Gap 9 mmol/L; Blood Urea Nitrogen 34 mg/dL (9-20); Carbon Dioxide 21 mmol/L (22-30); Chloride 103 mmol/L (98-107); Glucose 126 mg/dL (74-99); Non-African American GFR(CKD) 78 (>60 ml/min/1.73 sqM); Potassium 3.8 mmol/L (3.5-5.1); Sodium 133 mmol/L (137-145)
--- NOTE | 2022-01-04 07:13 | XR ---
EXAMINATION TYPE: XR chest 1V DATE OF EXAM: 01/04/2022 5:47 AM COMPARISON: Chest radiographs from 01/03/2022 TECHNIQUE: XR chest 1V Frontal view of the chest. CLINICAL INDICATION:Male, 81 years old with history of SOB; FINDINGS: Lungs/Pleura: No pneumothorax. Small bilateral pleural effusions redemonstrated. Bibasilar patchy air space disease. Increased bilateral upper lobe lucencies. Pulmonary vascularity: Unremarkable. Heart/mediastinum: Cardiomediastinal silhouette is enlarged and stable. Musculoskeletal: No acute osseous pathology. IMPRESSION: COPD with cardiomegaly and bilateral small pleural effusions with bibasilar infiltrate or atelectasis .
[2022-01-04] MEDS: HEPARIN SOD,PORK IN 0.45% NACL 25,000 UNIT in 0.45% NACL 1 250ML.BAG IV SCH (07:55)
[2022-01-04] MEDS ORDERED: Potassium Replacement Protocol 1 EACH MISC MISCELLANE PRN (08:01)
[2022-01-04] MEDS: IPRATROPIUM-ALBUTEROL 3 ML NEB INHALATION SCH ×4 (08:16→21:20)
[2022-01-04] MEDS: FUROSEMIDE 10 MG/ML 4 ML VIAL IV SCH (08:27)
[2022-01-04] MEDS: SODIUM BICARBONATE TAB 650 MG TAB PO SCH (08:28)
[2022-01-04] MEDS: FAMOTIDINE 20 MG TAB PO SCH (08:28)
[2022-01-04] MEDS: ASPIRIN 81 MG PO SCH (08:28)
[2022-01-04] MEDS: ACETAMINOPHEN TAB 325 MG TAB PO PRN ×3 (08:43→23:09)
[2022-01-04] MEDS ORDERED: POTASSIUM CHLORIDE ER 20 MEQ TAB.ER PO SCH (09:00)
--- NOTE | 2022-01-04 09:44 | P.PN ---
Subjective Progress Note Date: 01/03/22 81-year-old pleasant male came in with the upper back pain between the scapula and patient also vomiting, no pain in the chair. Jaw pain is mostly like spasms. Patient doesn't have any fever chills patient was diagnosed with COVID- 19 about couple weeks ago patient's pain in the back changes at the moment nonpleuritic patient had a CT angios the chest which did not show any significant X abnormality except for mild bilateral pleural effusions patient doesn't have any cardiac history found to have troponin of 22.3. EKG did not show any acute ST-T wave changes but is in A. fib and rate controlled. There is some degenerative to thoracic spine disease beyond which shows no other significant abnormality was seen. Patient was started on IV heparin cardiology was consulted patient although doesn't have any significant chest pain is back pain is not associated with lightheadedness or diaphoresis. Objective - Vital Signs Vital signs: Vital Signs Temp 97.8 F 01/03/22 08:00 Pulse 105 H 01/03/22 10:00 Resp 17 01/03/22 10:00 BP 106/75 01/03/22 10:00 Pulse Ox 98 01/03/22 10:00 FiO2 Intake & Output 01/02/22 01/03/22 01/03/22 18:59 06:59 18:59 Intake Total 974.695 548.595 316.30 Output Total 1275 1100 0 Balance -300.305 -551.405 316.30 Weight 79 kg Intake: IV 210 180 15 0.9 NS 210 180 15 Intake, IV Titration 264.695 368.595 301.30 Amount DOBUTamine DRIP 500 mg In 245.97 Dextrose/Water 1 250ml. bag @ 2.5 MCG/KG/MIN 5. 783 mls/hr IV .Q24H [facility] Rx#:[id number] Heparin Sod,Pork in 0.45% 64.617 114.595 NaCl 25,000 unit In 0.45 % NaCl 1 250ml.bag @ 12 UNITS/KG/HR 9.253 mls/hr IV .Q24H [facility] Rx#: [id number] Norepinephrine 4 mg In 200.078 254.000 55.33 Sodium Chloride 0.9% 250 ml @ 0.05 MCG/KG/MIN 14. 69 mls/hr IV .[id number] [facility] Rx#:[id number] Oral 500 Output: Urine 1275 1100 0 Other: Voiding Method Toilet Toilet Urinal Urinal # Voids 1 - Exam GENERAL: The patient is alert and oriented x3, not in any acute distress. Well developed, well nourished. HEENT: Pupils are round and equally reacting to light. EOMI. No scleral icterus. No conjunctival pallor. Normocephalic, atraumatic. No pharyngeal erythema. No thyromegaly. CARDIOVASCULAR: S1 and S2 present. No murmurs, rubs, or gallops. PULMONARY: Chest is clear to auscultation, no wheezing or crackles. ABDOMEN: Soft, nontender, nondistended, normoactive bowel sounds. No palpable organomegaly. MUSCULOSKELETAL: No joint swelling or deformity. EXTREMITIES: No cyanosis, clubbing, or pedal edema. NEUROLOGICAL: Gross neurological examination did not reveal any focal deficits. SKIN: No rashes. no petechiae. - Labs CBC & Chem 7: 01/04/22 06:04 01/04/22 06:04 Labs: Abnormal Lab Results - Last 24 Hours (Table) 01/02/22 01/02/22 01/03/22 Range/Units 12:43 22:05 07:56 RBC 3.65 L (4.30-5.90) m/uL Hgb 12.3 L (13.0-17.5) gm/dL Hct 37.4 L (39.0-53.0) % MCV 102.6 H (80.0-100.0) fL APTT 39.2 H 71.2 H (22.0-30.0) sec Sodium (137-145) mmol/L Carbon Dioxide (22-30) mmol/L BUN (9-20) mg/dL Glucose (74-99) mg/dL Calcium (8.4-10.2) mg/dL 01/03/22 01/03/22 Range/Units 07:56 08:17 RBC (4.30-5.90) m/uL Hgb (13.0-17.5) gm/dL Hct (39.0-53.0) % MCV (80.0-100.0) fL APTT 48.0 H (22.0-30.0) sec Sodium 133 L (137-145) mmol/L Carbon Dioxide 19 L (22-30) mmol/L BUN 41 H (9-20) mg/dL Glucose 137 H (74-99) mg/dL Calcium 8.0 L (8.4-10.2) mg/dL Assessment and Plan Assessment: -acute non-ST elevation myocardial infarction for which patient is on IV heparin, no other possible etiologies stress-induced cardiomyopathy etiology evaluated the patient echo is being obtained, cardiac catheterization as per cardiology. -Acute systolic and diastolic heart failure with ejection fraction 30-35% and apical hypokinesia, grade 1 diastolic dysfunction. Full standing seen, rule out clots, possible takotsubo syndrome . -Hypotension, secondary to above possible cardiogenic shock -Moderate to severe tricuspid regurgitation -Recent history of covid 19 infection without pneumonia -Acute kidney injury -Hyponatremia secondary to diuretics which will be held -Elevated creatinine unsure present patient has acute renal failure on chronic kidney disease will monitor the creatinine -Hypertension holding up anti-hypertensive medication patient blood pressure is low at this time Status post 1 L of IV fluids with no improvement, patient might go to the ICU for pressor support Continue with heparin drip Cardiology and pulmonary consult Check a bladder scan and nephrology consult. Check urinalysis Labs and medication were reviewed.. Continue same treatment. Continue with symptomatic treatment. Resume home medication. Monitor lytes and vitals. DVT and GI prophylaxis. Further recommendations as per clinical course of the patient DVT prophylaxis: heparin GI Prophylaxis: Pepcid PT/OT: Pending Prognosis is guarded
[2022-01-04 10:31] LABS: ABG HCO3 26 mmol/L (21-25); ABG Hematocrit 36 % (34.0-46.0); ABG Oxygen Saturation 88.9 % (94-97); ABG PCO2 33 mmHg (35-45); ABG PH 7.51 (7.35-7.45); ABG TCO2 27 mmol/L (19-24); Allen Test Performed? Yes
[2022-01-04 10:33] LABS: ABG PO2 54 mmHg (83-108)
--- NOTE | 2022-01-04 10:37 | P.PN ---
Subjective Progress Note Date: 01/04/22 The patient is an 81-year-old male who follows with a resident care manager rn in [facility], who presented to the emergency room with back discomfort. The patient reported having COVID-19 earlier this month with mild symptoms. Initial EKG showed atrial fibrillation, which according to the patient is a new finding. Chest x-ray showed COPD with cardiomegaly and bilateral pleural effusions. The patient was subsequently transferred to the ICU for hypotension. Troponins elevated at 22, 19, 29. No ST changes on EKG. Echocardiogram revealed reduced LV function at 30-35% with global hypokinesis consistent with Takotsubo. Extensive history reviewed with the patient and Dr. Caamcho. The patient began feeling ill in November with fatigue and intermittent episodes of dizziness and lightheadedness. He states this was approximately 3 weeks prior to being diagnosed with COVID-19. He presented to his primary care provider where he was told he had covid pneumonia. According to the patient he did not have fever or chills. No cough or congestion. Just weakness, fatigue, and shortness of breath with exertional activity. The patient also states he had an EKG performed by his primary care provider within the last month and was not told it was abnormal. On 01/03/2022 his dobutamine was discontinued. He remained on norepinephrine overnight. Unfortunately he continues to have high oxygen requirements. Chest x-ray continues to show only small bilateral pleural effusions The patient was interviewed and examined lying comfortably in bed. He states there is no change in his clinical status in the last 24 hours. He continues to remain chest pain-free. No difficulty breathing. No dizziness or ligh theadedness, however mobility has been limited due to multiple IVs. GENERAL: Well-appearing, well-nourished and in no acute distress. NECK: Supple without JVD or thyromegaly. LUNGS: Breath sounds diminished to auscultation bilaterally. Respiration equal and unlabored. Fine crackles in the lung bases. HEART: Irregular rate and rhythm without murmurs, rubs or gallops. S1 and S2 heard. EXTREMITIES: Normal range of motion, no edema. No clubbing or cyanosis. Peripheral pulses intact and strong. VITALS: Blood pressure 120/72, pulse 92, respiratory rate 20, SpO2 93% on 10 L high flow nasal cannula TELEMETRY: Persistent atrial fibrillation with heart rates in the 90s LABS: WBC 8.5, hemoglobin 12.1, hematocrit 37.1, platelet 198, sodium 133, potassium 3.8, BUN 34, creatinine 0.91 IMPRESSION: Paroxysmal atrial fibrillation, currently rate controlled, on heparin Elevated troponin, possible NSTEMI vs secondary to Covid myocarditis Cardiomyopathy with EF 30-35%, ischemic vs non-ischemic Hypotension, on supportive treatment Recent COVID-19 infection on 12/09/2021 History hypertension Dyslipidemia Former smoker PLAN: Stop norepinephrine ABG to completed off vasopressors Further recommendations based on clinical course I am dictating on behalf of Dr Orlando Camacho's history/physical and as sessment/plan. Objective - Vital Signs Vital signs: Vital Signs Temp 98.2 F 01/04/22 08:00 Pulse 92 01/04/22 08:45 Resp 20 01/04/22 08:45 BP 120/72 01/04/22 08:45 Pulse Ox 93 L 01/04/22 08:45 FiO2 Intake & Output 01/03/22 01/04/22 01/04/22 18:59 06:59 18:59 Intake Total 1524.959 835.011 99.539 Output Total 1000 450 0 Balance 524.959 385.011 99.539 Weight 79 kg 78.5 kg Intake: IV 180 180 15 0.9 NS 180 180 15 Intake, IV Titration 494.959 255.011 84.539 Amount DOBUTamine DRIP 500 mg In 245.97 Dextrose/Water 1 250ml. bag @ 2.5 MCG/KG/MIN 5. 783 mls/hr IV .Q24H [facility] Rx#:[id number] Heparin Sod,Pork in 0.45% 250 0.463 NaCl 25,000 unit In 0.45 % NaCl 1 250ml.bag @ 12 UNITS/KG/HR 9.253 mls/hr IV .Q24H [facility] Rx#: [id number] Norepinephrine 4 mg In 248.989 5.011 84.076 Sodium Chloride 0.9% 250 ml @ 0.05 MCG/KG/MIN 14. 69 mls/hr IV .[id number] [facility] Rx#:[id number] Oral 850 400 Output: Urine 1000 450 0 Other: Voiding Method Toilet Toilet Urinal Urinal - Labs CBC & Chem 7: 01/04/22 06:04 01/04/22 06:04 Labs: Abnormal Lab Results - Last 24 Hours (Table) 01/04/22 01/04/22 01/04/22 Range/Units 06:04 06:04 06:04 RBC 3.69 L (4.30-5.90) m/uL Hgb 12.1 L (13.0-17.5) gm/dL Hct 37.1 L (39.0-53.0) % MCV 100.6 H (80.0-100.0) fL APTT 43.5 H (22.0-30.0) sec Sodium 133 L (137-145) mmol/L Carbon Dioxide 21 L (22-30) mmol/L BUN 34 H (9-20) mg/dL Glucose 126 H (74-99) mg/dL Calcium 8.0 L (8.4-10.2) mg/dL
--- NOTE | 2022-01-04 13:38 | P.PN ---
Subjective Progress Note Date: 01/04/22 81-year-old male patient, Neel chest into the intensive care because of hypotension. The patient is postop acute non-ST segment elevation myocardial infarction patient is known to have cardiomyopathy with an ejection fraction of 30-35%. He has hypertension and hyperlipidemia and paroxysmal atrial fibr illation. Is a former smoker and he has COVID 19 infection back in August 2021 from which she recovered. The patient presented to the hospital because of back pain between his shoulder blades. No chest pain. No known exacerbating or relieving factors. No fever. No chills. He came into the emergency and his EKG was consistent with atrial fibrillation with RVR. The patient's troponin was elevated at 22.3. Subsequently, the troponin peaked at 29. The patient was started on IV heparin. The patient was given aspirin and patient was given a CT angiogram that showed no evidence of any pulmonary embolism. There was trace left pleural effusions and the patient had background COPD and a 5 mm calcified pulmonary nodule in the right upper lobe. CAT scan of the thoracic spine showed multilevel moderate to severe degenerative disc disease along with hard large hypertrophic anterior spurs and suspect multilevel foraminal encroachment. Cannot stenosis near the thoracolumbar junction was also considered. The patient has also by the pleural effusions. Initially, the patient got admitted to the medical floor and subsequently got transferred to the intensive care unit as the patient was running a lower blood pressure. The patient is currently on dobutamine as the patient was also noted to have cardiomyopathy and the echocardiogram revealed left ventricular ejection fraction of 30-35% along with apical hypokinesis and mild mitral regurgitation, moderate to severe tricuspid regurgitation without any pericardial effusion. RV was within normal limits. The patient is currently on dobutamine, dopamine and norepinephrine was also initiated for blood pressure support is being administered at a dose of 0.05 per Kilogram per minute. Dobutamine is running at 2.5 mcg/kg/min. Dopamine at 2 mcg/kg/min. Since the current admission, the patient developed acute kidney injury. Creatinine was 1.24 time of admission the creatinine is up to 1.8. The most recent systolic blood pressure is 86/59 and the patient is currently on 2 L of oxygen by nasal cannula with a pulse ox of 93%. The patient is not on any diuretics at this point in time. The fluid balance is slightly positive at 90 mL over the past 8 hours. The patient body weight is stable and 77 kg. On today's evaluation of 01/02/2022, the patient is being seen for a follow-up. Some improvement since yesterday as the patient was started on a combination dobutamine and norepinephrine. Yesterday afternoon and early evening, the patient became more short of breath. He was given a dose of Lasix 60 mg IV push and his urine output improved and the patient producing approximately 1 L of urine output since. This morning, he remains on examination dobutamine 2.5 mics per kilogram patient is also norepinephrine at 0.04 mcg/kg per minute. The patient is on 10 L of oxygen by nasal cannula. Urine output is adequate. C ardiac rhythm is still atrial fibrillation with a controlled rate. The creatinine is improving. Also one point with a BUN of 46. The patient remains on IV heparin. Hemoglobin is at 12.2 with a white cell count of 11.5. UA is negative. Cardiology on the case. No chest pain. No back pain. No focal neurological deficits. 01/03/2022, the patient is being seen for a follow-up. Patient is comfortable. The patient was taken off the dobutamine today. The patient urine output is adequate for now and the patient produced approximately 2.3 L of urine output yesterday and the patient has a negative fluid balance of 850 mL over the past 24 hours. The patient is currently on 10 L O2 nasal cannula. The patient is on norepinephrine at 0.08 mcg/kg per minute and the patient remains on IV heparin. No chest pain. No angina. No palpitation. White cell count is at 9.6 and hemoglobin of 12.3 and a platelet count of177. As far as electrolytes, the sodium level is at 133 and a serum bicarbonate of 19 with a BUN of 41 and creatinine 0.9. The PTT is therapeutic for now. The patient is resting comfortably in bed. No new complaints otherwise for now.he remains in atrial fibrillation. The chest x-ray shows bilateral lower lobe small effusions greater on the left and there is some interstitial process consistent with some interstitial edema/CHF. 01/04/2022, the patient is hemodynamically stable and the patient was taken off norepinephrine infusion this morning. The patient was on low dose of norepinephrine earlier. The patient was also taken off dobutamine. The patient otherwise is doing well. No specific complaints. Urine output is adequate. Creatinine is down to 0.9 with a 34. The patient was started on 10 L of oxygen by nasal cannula. With that him of the oxygen and the room air blood gases was done and the patient was found to have a pH of 7.51 with a pCO2 of 33 and pO2 of 54. He was placed on 2 L of oxygen by nasal cannula and he was given incentive spirometer. Chest x-ray showing some small pleural effusion and atelectatic changes. No significant pulmonary edema noted. The white cell count at 8.5 with a hemoglobin of 12.1 and a platelet count of 198. The sodium level is at 133 with a potassium level of 3.8 and a BUN of 34 with a creatinine of 0.91. No fever. No chills. No altered mentation. The patient remains in atrial fibrillation. Objective - Vital Signs Vital signs: Vital Signs Temp 97 F L 01/04/22 12:00 Pulse 94 01/04/22 12:00 Resp 21 01/04/22 12:00 BP 92/61 01/04/22 12:00 Pulse Ox 93 L 01/04/22 12:00 FiO2 Intake & Output 01/03/22 01/04/22 01/04/22 18:59 06:59 18:59 Intake Total 1524.959 835.011 99.539 Output Total 1000 450 0 Balance 524.959 385.011 99.539 Weight 79 kg 78.5 kg Intake: IV 180 180 15 0.9 NS 180 180 15 Intake, IV Titration 494.959 255.011 84.539 Amount DOBUTamine DRIP 500 mg In 245.97 Dextrose/Water 1 250ml. bag @ 2.5 MCG/KG/MIN 5. 783 mls/hr IV .Q24H [facility] Rx#:[id number] Heparin Sod,Pork in 0.45% 250 0.463 NaCl 25,000 unit In 0.45 % NaCl 1 250ml.bag @ 12 UNITS/KG/HR 9.253 mls/hr IV .Q24H [facility] Rx#: [id number] Norepinephrine 4 mg In 248.989 5.011 84.076 Sodium Chloride 0.9% 250 ml @ 0.05 MCG/KG/MIN 14. 69 mls/hr IV .[id number] [facility] Rx#:[id number] Oral 850 400 Output: Urine 1000 450 0 Other: Voiding Method Toilet Toilet Urinal Urinal - Exam CONSTITUTIONAL: Appears short of breath on exam , breathing is nonlabored and the patient's currently on 2 L oxygen by nasal cannula Head exam was generally normal. There was no scleral icterus or corneal arcus. Mucous membranes were moist. Neck was supple and without jugular venous distension, thyromegaly, or carotid bruits. Carotids were easily palpable bilaterally. There was no adenopathy. HEENT: Head is normocephalic. No JVD. CHEST EXAMINATION: Lungs are clear to auscultation. No chest wall tenderness is noted on palpation or with deep breathing. HEART EXAMINATION: Irregular rate and rhythm. S1, S2 heard. ABDOMEN: Abdominal exam revealed normal bowel sounds. The abdomen was soft, non- tender, and without masses, organomegaly, or appreciable enlargement of the abdominal aorta. EXTREMITIES: Examination of the extremities revealed easily palpable radial, femoral and pedal pulses. There was no cyanosis, clubbing or edema. Pulses in the lower extremity are quite diminished NEUROLOGIC EXAMINATION: Patient is awake, alert and oriented x3. - Labs CBC & Chem 7: 01/04/22 06:04 01/04/22 06:04 Labs: Abnormal Lab Results - Last 24 Hours (Table) 01/04/22 01/04/22 01/04/22 Range/Units 06:04 06:04 06:04 RBC 3.69 L (4.30-5.90) m/uL Hgb 12.1 L (13.0-17.5) gm/dL Hct 37.1 L (39.0-53.0) % MCV 100.6 H (80.0-100.0) fL APTT 43.5 H (22.0-30.0) sec ABG pH (7.35-7.45) ABG pCO2 (35-45) mmHg ABG pO2 (83-108) mmHg ABG HCO3 (21-25) mmol/L ABG Total CO2 (19-24) mmol/L ABG O2 Saturation (94-97) % Hemoglobin (13.0-17.5) gm/dL Sodium 133 L (137-145) mmol/L Carbon Dioxide 21 L (22-30) mmol/L BUN 34 H (9-20) mg/dL Glucose 126 H (74-99) mg/dL Calcium 8.0 L (8.4-10.2) mg/dL 01/04/22 Range/Units 10:29 RBC (4.30-5.90) m/uL Hgb (13.0-17.5) gm/dL Hct (39.0-53.0) % MCV (80.0-100.0) fL APTT (22.0-30.0) sec ABG pH 7.51 H (7.35-7.45) ABG pCO2 33 L (35-45) mmHg ABG pO2 54 L* (83-108) mmHg ABG HCO3 26 H (21-25) mmol/L ABG Total CO2 27 H (19-24) mmol/L ABG O2 Saturation 88.9 L (94-97) % Hemoglobin 11.6 L (13.0-17.5) gm/dL Sodium (137-145) mmol/L Carbon Dioxide (22-30) mmol/L BUN (9-20) mg/dL Glucose (74-99) mg/dL Calcium (8.4-10.2) mg/dL Assessment and Plan Plan: Acute non-STEMI, currently free of any chest pain or back pain and the patient is currently on IV heparin and aspirin, awaiting a cardiac catheterization, troponin peaked at 29, also possibility of a COVID 19 induced myocarditis cannot be completely ruled out. The patient remains on IV heparin. The patient remains free of any pain. Acute hypoxic respiratory failure secondary to CHF/pulmonary edema, currently on 2-3 L per minute nasal cannula Small pleural effusions Atelectatic changes in lung bases Acute on top of chronic systolic heart failure the patient has severe cardiomyopathy with an ejection fraction of 30-35% long with apical hypokinesis and grade 1 diastolic heart failure Acute hypotension, likely cardiogenic in nature and the patient is currently on a combination of dobutamine and norepinephrine infusion for hemodynamic support, the patient is normotensive. The patient was taken off dobutamine and the patient is also off norepinephrine Chronic atrial fibrillation, rate is controlled for now Acute kidney injury, possibly due to cardiogenic or cardiorenal factors, creatinine is improvement in the patient is producing adequate amount of urine output, acute kidney injuries recovered COVID 19 infection, on 12/09/2021, recovered, treated with monoclonal abs pleural effusion, bilateral, small COPD Granuloma, Calcified pulmonary nodule in the right upper lobe on the right Hypertension Hyperlipidemia History of skin cancer, multiple, resected Moderate degree of tricuspid regurgitation based on recent echocardiogram Plan Continue aspirin Continue IV heparin, and long-term and to coagulation for cardiology Patient is off pressors Started low dose of Coreg 6.25 mg by mouth twice a day as the patient remains off pressors Lasix 40 mg by mouth daily Wean down the FiO2 to 2 L per minute nasal cannula Continue high-dose statins with Lipitor Renal function continued to improve. We'll keep the patient intensive care unit for now.
[2022-01-04] MEDS: carvediloL 6.25 MG TAB PO SCH ×2 (15:21→16:20)
[2022-01-04] MEDS: ATORVASTATIN 40 MG TAB PO SCH (20:45)
[2022-01-04] MEDS: MELATONIN 3 MG TABLET PO PRN (20:45)
[2022-01-05] MEDS: NOREPINEPHRINE 4 MG in SODIUM CHLORIDE 0.9% 250 ML IV SCH (04:44)
[2022-01-05 05:00] LABS: Basophils # (A) 0.1 k/uL (0-0.2); Basophils % (A) 1 %; Eosinophils # (A) 0.1 k/uL (0-0.7); Eosinophils % (A) 1 %; HCT 34.3 % (39.0-53.0); HGB 11.6 gm/dL (13.0-17.5); Lymphocytes # (A) 1.1 k/uL (1.0-4.8); Lymphocytes % (A) 21 %; MCH 34.3 pg (25.0-35.0); MCV 101.1 fL (80.0-100.0); Mean Platelet Volume 8.5; Monocytes # (A) 0.5 k/uL (0-1.0); Monocytes % (A) 8 %; Neutrophils # (A) 3.7 k/uL (1.3-7.7); Neutrophils % (A) 67 %; Platelet Count 146 k/uL (150-450); RBC 3.39 m/uL (4.30-5.90); WBC 5.5 k/uL (3.8-10.6)
[2022-01-05 05:08] LABS: Magnesium 1.9 mg/dL (1.6-2.3); Potassium 3.7 mmol/L (3.5-5.1)
[2022-01-05] MEDS ORDERED: Potassium Replacement Protocol 1 EACH MISC MISCELLANE PRN (05:19)
[2022-01-05] MEDS ORDERED: POTASSIUM BICARBONATE/CIT AC 20 MEQ TABLET.EFF NG-TUBE SCH (06:00)
[2022-01-05] MEDS: IPRATROPIUM-ALBUTEROL 3 ML NEB INHALATION SCH ×4 (08:17→19:27)
--- NOTE | 2022-01-05 08:58 | P.PN ---
Subjective Progress Note Date: 01/04/22 Principal diagnosis: Acute non-STEMI Acute hypoxic respiratory failure Pulmonary edema 81-year-old pleasant male came in with the upper back pain between the scapula and patient also vomiting, no pain in the chair. Jaw pain is mostly like spasms. Patient doesn't have any fever chills patient was diagnosed with COVID- 19 about couple weeks ago patient's pain in the back changes at the moment nonpleuritic patient had a CT angios the chest which did not show any significant X abnormality except for mild bilateral pleural effusions patient doesn't have any cardiac history found to have troponin of 22.3. EKG did not show any acute ST-T wave changes but is in A. fib and rate controlled. There is some degenerative to thoracic spine disease beyond which shows no other significant abnormality was seen. Patient was started on IV heparin cardiology was consulted patient although doesn't have any significant chest pain is back pain is not associated with lightheadedness or diaphoresis. 01/04/2022 Patient is seen and evaluated in room at bedside; no specific complaints are reported; patient has been taken off of pressor agents Vital signs are stable with temperature of 97, pulse 94, respiration 21 and blood pressure 92/61 with O2 saturation of 93% on 2 L Chest x-ray showing some small pleural effusion and atelectatic changes. No significant pulmonary edema noted. The white cell count at 8.5 with a hemoglobin of 12.1 and a platelet count of 198. The sodium level is at 133 with a potassium level of 3.8 and a BUN of 34 with a creatinine of 0.91. Patient remains on IV heparin; long-term anticoagulation per cardiology recommendations; patient is placed on Coreg 6.25 mg twice a day monitoring blood pressure closely given patient is off pressors; continue with Lasix 40 mg daily along with high-dose statin repeat with Lipitor; patient to be monitored closely in ICU for next 24 hours Objective - Vital Signs Vital signs: Vital Signs Temp 98.2 F 01/04/22 08:00 Pulse 92 01/04/22 08:45 Resp 20 01/04/22 08:45 BP 120/72 01/04/22 08:45 Pulse Ox 93 L 01/04/22 08:45 FiO2 Intake & Output 01/03/22 01/04/22 01/04/22 18:59 06:59 18:59 Intake Total 1524.959 835.011 99.539 Output Total 1000 450 0 Balance 524.959 385.011 99.539 Weight 79 kg 78.5 kg Intake: IV 180 180 15 0.9 NS 180 180 15 Intake, IV Titration 494.959 255.011 84.539 Amount DOBUTamine DRIP 500 mg In 245.97 Dextrose/Water 1 250ml. bag @ 2.5 MCG/KG/MIN 5. 783 mls/hr IV .Q24H [facility] Rx#:[id number] Heparin Sod,Pork in 0.45% 250 0.463 NaCl 25,000 unit In 0.45 % NaCl 1 250ml.bag @ 12 UNITS/KG/HR 9.253 mls/hr IV .Q24H [facility] Rx#: [id number] Norepinephrine 4 mg In 248.989 5.011 84.076 Sodium Chloride 0.9% 250 ml @ 0.05 MCG/KG/MIN 14. 69 mls/hr IV .[id number] [facility] Rx#:[id number] Oral 850 400 Output: Urine 1000 450 0 Other: Voiding Method Toilet Toilet Urinal Urinal - Exam GENERAL: The patient is alert and oriented x3, not in any acute distress. Well developed, well nourished. HEENT: Pupils are round and equally reacting to light. EOMI. No scleral icterus. No conjunctival pallor. Normocephalic, atraumatic. No pharyngeal erythema. No thyromegaly. CARDIOVASCULAR: S1 and S2 present. No murmurs, rubs, or gallops. PULMONARY: Chest is clear to auscultation, no wheezing or crackles. ABDOMEN: Soft, nontender, nondistended, normoactive bowel sounds. No palpable organomegaly. MUSCULOSKELETAL: No joint swelling or deformity. EXTREMITIES: No cyanosis, clubbing, or pedal edema. NEUROLOGICAL: Gross neurological examination did not reveal any focal deficits. SKIN: No rashes. no petechiae. - Labs CBC & Chem 7: 01/05/22 04:39 01/05/22 04:39 Labs: Abnormal Lab Results - Last 24 Hours (Table) 01/04/22 01/04/22 01/04/22 Range/Units 06:04 06:04 06:04 RBC 3.69 L (4.30-5.90) m/uL Hgb 12.1 L (13.0-17.5) gm/dL Hct 37.1 L (39.0-53.0) % MCV 100.6 H (80.0-100.0) fL APTT 43.5 H (22.0-30.0) sec Sodium 133 L (137-145) mmol/L Carbon Dioxide 21 L (22-30) mmol/L BUN 34 H (9-20) mg/dL Glucose 126 H (74-99) mg/dL Calcium 8.0 L (8.4-10.2) mg/dL Assessment and Plan Assessment: -acute non-ST elevation myocardial infarction for which patient is on IV h eparin, no other possible etiologies stress-induced cardiomyopathy etiology evaluated the patient echo is being obtained, cardiac catheterization as per cardiology. -Acute systolic and diastolic heart failure with ejection fraction 30-35% and apical hypokinesia, grade 1 diastolic dysfunction. Full standing seen, rule out clots, possible takotsubo syndrome . -Hypotension, secondary to above possible cardiogenic shock -Moderate to severe tricuspid regurgitation -Recent history of covid 19 infection without pneumonia -Acute kidney injury -Hyponatremia secondary to diuretics which will be held -Elevated creatinine unsure present patient has acute renal failure on chronic kidney disease will monitor the creatinine -Hypertension holding up anti-hypertensive medication patient blood pressure is low at this time Status post 1 L of IV fluids with no improvement, patient might go to the ICU for pressor support Continue with heparin drip Cardiology and pulmonary consult Check a bladder scan and nephrology consult. Check urinalysis Labs and medication were reviewed.. Continue same treatment. Continue with symptomatic treatment. Resume home medication. Monitor lytes and vitals. DVT and GI prophylaxis. Further recommendations as per clinical course of the patient DVT prophylaxis: heparin GI Prophylaxis: Pepcid PT/OT: Pending Prognosis is guarded
[2022-01-05] MEDS: METOPROLOL SUCCINATE (ER) 25 MG TAB.ER.24H PO SCH (09:47)
[2022-01-05] MEDS: FUROSEMIDE 40 MG TAB PO SCH (09:47)
[2022-01-05] MEDS: ASPIRIN 81 MG PO SCH (09:47)
[2022-01-05] MEDS: FAMOTIDINE 20 MG TAB PO SCH (09:47)
--- NOTE | 2022-01-05 10:04 | P.PN ---
Subjective Progress Note Date: 01/05/22 The patient is an 81-year-old male who follows with a tension worker in [facility], who presented to the emergency room with back discomfort. The patient reported having COVID-19 earlier this month with mild symptoms. Initial EKG showed atrial fibrillation, which according to the patient is a new finding. Chest x-ray showed COPD with cardiomegaly and bilateral pleural effusions. The patient was subsequently transferred to the ICU for hypotension. Troponins elevated at 22, 19, 29. No ST changes on EKG. Echocardiogram revealed reduced LV function at 30-35% with global hypokinesis consistent with Takotsubo. Extensive history reviewed with the patient and Dr. Camacho. The patient began feeling ill in November with fatigue and intermittent episodes of dizziness and lightheadedness. He states this was approximately 3 weeks prior to being diagnosed with COVID-19. He presented to his primary care provider where he was told he had covid pneumonia. According to the patient he did not have fever or chills. No cough or congestion. Just weakness, fatigue, and shortness of breath with exertional activity. The patient also states he had an EKG performed by his primary care provider within the last month and was not told it was abnormal. On 01/04/2022 his norepinephrine was completely discontinued. He was also weaned down on his oxygen. ABG showed mild hypoxia on room air and he has ma intained saturations on 3 L nasal cannula. The patient was interviewed and examined lying comfortably in bed. He states there is no change in his clinical status in the last 24 hours. He continues to remain chest pain-free. No difficulty breathing. No dizziness or lightheadedness. GENERAL: Well-appearing, well-nourished and in no acute distress. NECK: Supple without JVD or thyromegaly. LUNGS: Breath sounds diminished to auscultation bilaterally. Respiration equal and unlabored. Fine crackles in the lung bases. HEART: Irregular rate and rhythm without murmurs, rubs or gallops. S1 and S2 heard. EXTREMITIES: Normal range of motion, no edema. No clubbing or cyanosis. Peripheral pulses intact and strong. VITALS: Blood pressure 106/67, pulse 100, respiratory rate 21, SpO2 97% on 3 L nasal cannula TELEMETRY: Persistent atrial fibrillation with heart rates in the 80's LABS: WBC 5.5, hemoglobin 11.6, hematocrit 34.3, platelet 146, sodium 132, potassium 3.7, BUN 37, creatinine 1.07, magnesium 1.9 IMPRESSION: Paroxysmal atrial fibrillation, currently rate controlled, on heparin Elevated troponin, possible NSTEMI vs secondary to Covid myocarditis Cardiomyopathy with EF 30-35%, ischemic vs non-ischemic Hypotension, on supportive treatment Recent COVID-19 infection on 12/09/2021 History hypertension Dyslipidemia Former smoker PLAN: Discontinue carvedilol and start metoprolol for rate control Start low-dose spironolactone for cardiomyopathy Aggressive pulmonary hygiene and continue weaning oxygen as tolerated Consideration for coronary angiogram on Thursday now that his creatinine has normalized Patient may be transferred to stepdown unit Further recommendations to be based upon clinical course I am dictating on behalf of Dr Orlando Camacho's history/physical and assessmen t/plan. Objective - Vital Signs Vital signs: Vital Signs Temp 97.6 F 01/05/22 08:00 Pulse 109 H 01/05/22 09:30 Resp 21 01/05/22 09:30 BP 106/67 01/05/22 09:30 Pulse Ox 97 01/05/22 09:30 FiO2 Intake & Output 01/04/22 01/05/22 01/05/22 18:59 06:59 18:59 Intake Total 404.571 120 20 Output Total 275 225 300 Balance 129.571 -105 -280 Weight 82.3 kg Intake: IV 125 120 20 0.9 NS 125 120 20 Intake, IV Titration 159.571 Amount Heparin Sod,Pork in 0.45% 75.495 NaCl 25,000 unit In 0.45 % NaCl 1 250ml.bag @ 12 UNITS/KG/HR 9.253 mls/hr IV .Q24H [facility] Rx#: [id number] Norepinephrine 4 mg In 84.076 Sodium Chloride 0.9% 250 ml @ 0.05 MCG/KG/MIN 14. 69 mls/hr IV .[id number] [facility] Rx#:[id number] Oral 120 Output: Urine 275 225 300 Other: Voiding Method Toilet Toilet Urinal Urinal # Voids 1 1 - Labs CBC & Chem 7: 01/05/22 04:39 01/05/22 04:39 Labs: Abnormal Lab Results - Last 24 Hours (Table) 01/04/22 01/04/22 01/04/22 Range/Units 10:29 14:05 18:08 RBC (4.30-5.90) m/uL Hgb (13.0-17.5) gm/dL Hct (39.0-53.0) % MCV (80.0-100.0) fL Plt Count (150-450) k/uL APTT 167.3 H* 56.9 H (22.0-30.0) sec ABG pH 7.51 H (7.35-7.45) ABG pCO2 33 L (35-45) mmHg ABG pO2 54 L* (83-108) mmHg ABG HCO3 26 H (21-25) mmol/L ABG Total CO2 27 H (19-24) mmol/L ABG O2 Saturation 88.9 L (94-97) % Hemoglobin 11.6 L (13.0-17.5) gm/dL Sodium (137-145) mmol/L BUN (9-20) mg/dL Glucose (74-99) mg/dL Calcium (8.4-10.2) mg/dL 01/04/22 01/05/22 01/05/22 Range/Units 21:05 04:39 04:39 RBC 3.39 L (4.30-5.90) m/uL Hgb 11.6 L (13.0-17.5) gm/dL Hct 34.3 L (39.0-53.0) % MCV 101.1 H (80.0-100.0) fL Plt Count 146 L (150-450) k/uL APTT 47.2 H (22.0-30.0) sec ABG pH (7.35-7.45) ABG pCO2 (35-45) mmHg ABG pO2 (83-108) mmHg ABG HCO3 (21-25) mmol/L ABG Total CO2 (19-24) mmol/L ABG O2 Saturation (94-97) % Hemoglobin (13.0-17.5) gm/dL Sodium 132 L (137-145) mmol/L BUN 37 H (9-20) mg/dL Glucose 110 H (74-99) mg/dL Calcium 8.0 L (8.4-10.2) mg/dL 01/05/22 Range/Units 04:39 RBC (4.30-5.90) m/uL Hgb (13.0-17.5) gm/dL Hct (39.0-53.0) % MCV (80.0-100.0) fL Plt Count (150-450) k/uL APTT 47.2 H (22.0-30.0) sec ABG pH (7.35-7.45) ABG pCO2 (35-45) mmHg ABG pO2 (83-108) mmHg ABG HCO3 (21-25) mmol/L ABG Total CO2 (19-24) mmol/L ABG O2 Saturation (94-97) % Hemoglobin (13.0-17.5) gm/dL Sodium (137-145) mmol/L BUN (9-20) mg/dL Glucose (74-99) mg/dL Calcium (8.4-10.2) mg/dL
[2022-01-05] MEDS: HEPARIN SOD,PORK IN 0.45% NACL 25,000 UNIT in 0.45% NACL 1 250ML.BAG IV SCH (11:11)
--- NOTE | 2022-01-05 12:40 | P.PN ---
Subjective Progress Note Date: 01/05/22 81-year-old male patient, Neel chest into the intensive care because of hypotension. The patient is postop acute non-ST segment elevation myocardial infarction patient is known to have cardiomyopathy with an ejection fraction of 30-35%. He has hypertension and hyperlipidemia and paroxysmal atrial fibr illation. Is a former smoker and he has COVID 19 infection back in August 2021 from which she recovered. The patient presented to the hospital because of back pain between his shoulder blades. No chest pain. No known exacerbating or relieving factors. No fever. No chills. He came into the emergency and his EKG was consistent with atrial fibrillation with RVR. The patient's troponin was elevated at 22.3. Subsequently, the troponin peaked at 29. The patient was started on IV heparin. The patient was given aspirin and patient was given a CT angiogram that showed no evidence of any pulmonary embolism. There was trace left pleural effusions and the patient had background COPD and a 5 mm calcified pulmonary nodule in the right upper lobe. CAT scan of the thoracic spine showed multilevel moderate to severe degenerative disc disease along with hard large hypertrophic anterior spurs and suspect multilevel foraminal encroachment. Cannot stenosis near the thoracolumbar junction was also considered. The patient has also by the pleural effusions. Initially, the patient got admitted to the medical floor and subsequently got transferred to the intensive care unit as the patient was running a lower blood pressure. The patient is currently on dobutamine as the patient was also noted to have cardiomyopathy and the echocardiogram revealed left ventricular ejection fraction of 30-35% along with apical hypokinesis and mild mitral regurgitation, moderate to severe tricuspid regurgitation without any pericardial effusion. RV was within normal limits. The patient is currently on dobutamine, dopamine and norepinephrine was also initiated for blood pressure support is being administered at a dose of 0.05 per Kilogram per minute. Dobutamine is running at 2.5 mcg/kg/min. Dopamine at 2 mcg/kg/min. Since the current admission, the patient developed acute kidney injury. Creatinine was 1.24 time of admission the creatinine is up to 1.8. The most recent systolic blood pressure is 86/59 and the patient is currently on 2 L of oxygen by nasal cannula with a pulse ox of 93%. The patient is not on any diuretics at this point in time. The fluid balance is slightly positive at 90 mL over the past 8 hours. The patient body weight is stable and 77 kg. On today's evaluation of 01/02/2022, the patient is being seen for a follow-up. Some improvement since yesterday as the patient was started on a combination dobutamine and norepinephrine. Yesterday afternoon and early evening, the patient became more short of breath. He was given a dose of Lasix 60 mg IV push and his urine output improved and the patient producing approximately 1 L of urine output since. This morning, he remains on examination dobutamine 2.5 mics per kilogram patient is also norepinephrine at 0.04 mcg/kg per minute. The patient is on 10 L of oxygen by nasal cannula. Urine output is adequate. C ardiac rhythm is still atrial fibrillation with a controlled rate. The creatinine is improving. Also one point with a BUN of 46. The patient remains on IV heparin. Hemoglobin is at 12.2 with a white cell count of 11.5. UA is negative. Cardiology on the case. No chest pain. No back pain. No focal neurological deficits. 01/03/2022, the patient is being seen for a follow-up. Patient is comfortable. The patient was taken off the dobutamine today. The patient urine output is adequate for now and the patient produced approximately 2.3 L of urine output yesterday and the patient has a negative fluid balance of 850 mL over the past 24 hours. The patient is currently on 10 L O2 nasal cannula. The patient is on norepinephrine at 0.08 mcg/kg per minute and the patient remains on IV heparin. No chest pain. No angina. No palpitation. White cell count is at 9.6 and hemoglobin of 12.3 and a platelet count of177. As far as electrolytes, the sodium level is at 133 and a serum bicarbonate of 19 with a BUN of 41 and creatinine 0.9. The PTT is therapeutic for now. The patient is resting comfortably in bed. No new complaints otherwise for now.he remains in atrial fibrillation. The chest x-ray shows bilateral lower lobe small effusions greater on the left and there is some interstitial process consistent with some interstitial edema/CHF. 01/04/2022, the patient is hemodynamically stable and the patient was taken off norepinephrine infusion this morning. The patient was on low dose of norepinephrine earlier. The patient was also taken off dobutamine. The patient otherwise is doing well. No specific complaints. Urine output is adequate. Creatinine is down to 0.9 with a 34. The patient was started on 10 L of oxygen by nasal cannula. With that him of the oxygen and the room air blood gases was done and the patient was found to have a pH of 7.51 with a pCO2 of 33 and pO2 of 54. He was placed on 2 L of oxygen by nasal cannula and he was given incentive spirometer. Chest x-ray showing some small pleural effusion and atelectatic changes. No significant pulmonary edema noted. The white cell count at 8.5 with a hemoglobin of 12.1 and a platelet count of 198. The sodium level is at 133 with a potassium level of 3.8 and a BUN of 34 with a creatinine of 0.91. No fever. No chills. No altered mentation. The patient remains in atrial fibrillation. 01/05/2022, the patient is doing well. No new complaints. He is currently on 2 L O2 nasal cannula. No history distress. Using incentive spirometer. He is currently on Lasix 40 mg by mouth daily. He is also on metoprolol 25 mg by mouth XL 1 tablet a day. The patient is white cell count of 5.5 with a hemoglobin 11.6 and a platelet count of 146. The patient remains on IV heparin. Electrolytes are all within normal limits. No altered mentation. He remains in atrial fibrillation. Adequate urine output. No hypotension. Objective - Vital Signs Vital signs: Vital Signs Temp 97.9 F 01/05/22 11:30 Pulse 82 01/05/22 11:51 Resp 25 H 01/05/22 11:30 BP 87/56 01/05/22 11:30 Pulse Ox 96 01/05/22 11:30 FiO2 Intake & Output 01/04/22 01/05/22 01/05/22 18:59 06:59 18:59 Intake Total 404.571 120 200.593 Output Total 275 225 300 Balance 129.571 -105 -99.407 Weight 82.3 kg Intake: IV 125 120 40 0.9 NS 125 120 40 Intake, IV Titration 159.571 160.593 Amount Heparin Sod,Pork in 0.45% 75.495 160.593 NaCl 25,000 unit In 0.45 % NaCl 1 250ml.bag @ 12 UNITS/KG/HR 9.253 mls/hr IV .Q24H [facility] Rx#: [id number] Norepinephrine 4 mg In 84.076 Sodium Chloride 0.9% 250 ml @ 0.05 MCG/KG/MIN 14. 69 mls/hr IV .[id number] [facility] Rx#:[id number] Oral 120 Output: Urine 275 225 300 Other: Voiding Method Toilet Toilet Toilet Urinal Urinal Urinal # Voids 1 1 - Exam CONSTITUTIONAL: Appears short of breath on exam , breathing is nonlabored and the patient's currently on 2 L oxygen by nasal cannula Head exam was generally normal. There was no scleral icterus or corneal arcus. Mucous membranes were moist. Neck was supple and without jugular venous distension, thyromegaly, or carotid bruits. Carotids were easily palpable bilaterally. There was no adenopathy. HEENT: Head is normocephalic. No JVD. CHEST EXAMINATION: Lungs are clear to auscultation. No chest wall tenderness is noted on palpation or with deep breathing. HEART EXAMINATION: Irregular rate and rhythm. S1, S2 heard. ABDOMEN: Abdominal exam revealed normal bowel sounds. The abdomen was soft, non- tender, and without masses, organomegaly, or appreciable enlargement of the abdominal aorta. EXTREMITIES: Examination of the extremities revealed easily palpable radial, femoral and pedal pulses. There was no cyanosis, clubbing or edema. Pulses in the lower extremity are quite diminished NEUROLOGIC EXAMINATION: Patient is awake, alert and oriented x3. - Labs CBC & Chem 7: 01/05/22 04:39 01/05/22 04:39 Labs: Abnormal Lab Results - Last 24 Hours (Table) 01/04/22 01/04/22 01/04/22 Range/Units 14:05 18:08 21:05 RBC (4.30-5.90) m/uL Hgb (13.0-17.5) gm/dL Hct (39.0-53.0) % MCV (80.0-100.0) fL Plt Count (150-450) k/uL APTT 167.3 H* 56.9 H 47.2 H (22.0-30.0) sec Sodium (137-145) mmol/L BUN (9-20) mg/dL Glucose (74-99) mg/dL Calcium (8.4-10.2) mg/dL 01/05/22 01/05/22 01/05/22 Range/Units 04:39 04:39 04:39 RBC 3.39 L (4.30-5.90) m/uL Hgb 11.6 L (13.0-17.5) gm/dL Hct 34.3 L (39.0-53.0) % MCV 101.1 H (80.0-100.0) fL Plt Count 146 L (150-450) k/uL APTT 47.2 H (22.0-30.0) sec Sodium 132 L (137-145) mmol/L BUN 37 H (9-20) mg/dL Glucose 110 H (74-99) mg/dL Calcium 8.0 L (8.4-10.2) mg/dL Assessment and Plan Plan: Acute non-STEMI, currently free of any chest pain or back pain and the patient is currently on IV heparin and aspirin, awaiting a cardiac catheterization, troponin peaked at 29, also possibility of a COVID 19 induced myocarditis cannot be completely ruled out. The patient remains on IV heparin. The patient remains free of any pain. Acute hypoxic respiratory failure secondary to CHF/pulmonary edema, currently on 2 L per minute nasal cannula Small pleural effusions Atelectatic changes in lung bases Acute on top of chronic systolic heart failure the patient has severe cardiomyopathy with an ejection fraction of 30-35% long with apical hypokinesis and grade 1 diastolic heart failure Acute hypotension, likely cardiogenic in nature and the patient is currently on a combination of dobutamine and norepinephrine infusion for hemodynamic support, the patient is normotensive. The patient was taken off dobutamine and the patient is also off norepinephrine Chronic atrial fibrillation, rate is controlled for now Acute kidney injury, possibly due to cardiogenic or cardiorenal factors, creatinine is improvement in the patient is producing adequate amount of urine output, acute kidney injuries recovered COVID 19 infection, on 12/09/2021, recovered, treated with monoclonal abs pleural effusion, bilateral, small COPD Granuloma, Calcified pulmonary nodule in the right upper lobe on the right Hypertension Hyperlipidemia History of skin cancer, multiple, resected Moderate degree of tricuspid regurgitation based on recent echocardiogram Plan Continue aspirin Continue IV heparin, and long-term and to coagulation for cardiology, I suggest stopping the IV heparin putting the patient on Eliquis 5 mg by mouth twice a day Patient is off pressors Started low dose of Toprol-XL 25 mg by mouth twice a day as the patient remains off pressors Lasix 40 mg by mouth daily Aldactone 12.5 mg Wean down the FiO2 to 2 L per minute nasal cannula Continue high-dose statins with Lipitor Renal function continued to improve. May transfer out of the intensive care unit
[2022-01-05] MEDS ORDERED: APIXABAN 5 MG TAB PO SCH (12:45)
[2022-01-05] MEDS: SPIRONOLACTONE 25 MG TAB PO SCH (14:07)
--- NOTE | 2022-01-05 16:00 | P.PN ---
Subjective Progress Note Date: 01/05/22 Principal diagnosis: Acute non-STEMI Acute hypoxic respiratory failure Pulmonary edema 81-year-old pleasant male came in with the upper back pain between the scapula and patient also vomiting, no pain in the chair. Jaw pain is mostly like spasms. Patient doesn't have any fever chills patient was diagnosed with COVID- 19 about couple weeks ago patient's pain in the back changes at the moment nonpleuritic patient had a CT angios the chest which did not show any significant X abnormality except for mild bilateral pleural effusions patient doesn't have any cardiac history found to have troponin of 22.3. EKG did not show any acute ST-T wave changes but is in A. fib and rate controlled. There is some degenerative to thoracic spine disease beyond which shows no other significant abnormality was seen. Patient was started on IV heparin cardiology was consulted patient although doesn't have any significant chest pain is back pain is not associated with lightheadedness or diaphoresis. 01/04/2022 Patient is seen and evaluated in room at bedside; no specific complaints are reported; patient has been taken off of pressor agents Vital signs are stable with temperature of 97, pulse 94, respiration 21 and blood pressure 92/61 with O2 saturation of 93% on 2 L Chest x-ray showing some small pleural effusion and atelectatic changes. No significant pulmonary edema noted. The white cell count at 8.5 with a hemoglobin of 12.1 and a platelet count of 198. The sodium level is at 133 with a potassium level of 3.8 and a BUN of 34 with a creatinine of 0.91. Patient remains on IV heparin; long-term anticoagulation per cardiology recommendations; patient is placed on Coreg 6.25 mg twice a day monitoring blood pressure closely given patient is off pressors; continue with Lasix 40 mg daily along with high-dose statin repeat with Lipitor; patient to be monitored closely in ICU for next 24 hours 01/05/2022 the patient is seen and evaluated sitting up in bedside chair in ICU; continues to be doing well. No new complaints. He is currently on 2 L O2 nasal cannula. No history distress. Using incentive spirometer. He is currently on Lasix 40 mg by mouth daily. He is also on metoprolol 25 mg by mouth XL 1 tablet a day. The patient is white cell count of 5.5 with a hemoglobin 11.6 and a platelet count of 146. The patient remains on IV heparin. Electrolytes are all within normal limits. No altered mentation. He remains in atrial fibrillation. Adequate urine output. No hypotension. Patient remains on IV heparin; recommending to discontinue heparin and start on Eliquis 5 mg by mouth twice a day; Started low dose of Toprol-XL 25 mg by mouth twice a day; Lasix 40 mg by mouth daily; Aldactone 12.5 mg Objective - Vital Signs Vital signs: Vital Signs Temp 97.6 F 01/05/22 04:00 Pulse 84 01/05/22 08:27 Resp 37 H 01/05/22 07:00 BP 93/57 01/05/22 07:00 Pulse Ox 94 L 01/05/22 07:00 FiO2 Intake & Output 01/04/22 01/05/22 01/05/22 18:59 06:59 18:59 Intake Total 404.571 120 10 Output Total 275 225 200 Balance 129.571 -105 -190 Weight 82.3 kg Intake: IV 125 120 10 0.9 NS 125 120 10 Intake, IV Titration 159.571 Amount Heparin Sod,Pork in 0.45% 75.495 NaCl 25,000 unit In 0.45 % NaCl 1 250ml.bag @ 12 UNITS/KG/HR 9.253 mls/hr IV .Q24H [facility] Rx#: [id number] Norepinephrine 4 mg In 84.076 Sodium Chloride 0.9% 250 ml @ 0.05 MCG/KG/MIN 14. 69 mls/hr IV .[id number] [facility] Rx#:[id number] Oral 120 Output: Urine 275 225 200 Other: Voiding Method Toilet Toilet Urinal Urinal # Voids 1 - Exam GENERAL: The patient is alert and oriented x3, not in any acute distress. Well developed, well nourished. HEENT: Pupils are round and equally reacting to light. EOMI. No scleral icterus. No conjunctival pallor. Normocephalic, atraumatic. No pharyngeal erythema. No thyromegaly. CARDIOVASCULAR: S1 and S2 present. No murmurs, rubs, or gallops. PULMONARY: Chest is clear to auscultation, no wheezing or crackles. ABDOMEN: Soft, nontender, nondistended, normoactive bowel sounds. No palpable organomegaly. MUSCULOSKELETAL: No joint swelling or deformity. EXTREMITIES: No cyanosis, clubbing, or pedal edema. NEUROLOGICAL: Gross neurological examination did not reveal any focal deficits. SKIN: No rashes. no petechiae. - Labs CBC & Chem 7: 01/05/22 04:39 01/05/22 04:39 Labs: Abnormal Lab Results - Last 24 Hours (Table) 01/04/22 01/04/22 01/04/22 Range/Units 10:29 14:05 18:08 RBC (4.30-5.90) m/uL Hgb (13.0-17.5) gm/dL Hct (39.0-53.0) % MCV (80.0-100.0) fL Plt Count (150-450) k/uL APTT 167.3 H* 56.9 H (22.0-30.0) sec ABG pH 7.51 H (7.35-7.45) ABG pCO2 33 L (35-45) mmHg ABG pO2 54 L* (83-108) mmHg ABG HCO3 26 H (21-25) mmol/L ABG Total CO2 27 H (19-24) mmol/L ABG O2 Saturation 88.9 L (94-97) % Hemoglobin 11.6 L (13.0-17.5) gm/dL Sodium (137-145) mmol/L BUN (9-20) mg/dL Glucose (74-99) mg/dL Calcium (8.4-10.2) mg/dL 01/04/22 01/05/22 01/05/22 Range/Units 21:05 04:39 04:39 RBC 3.39 L (4.30-5.90) m/uL Hgb 11.6 L (13.0-17.5) gm/dL Hct 34.3 L (39.0-53.0) % MCV 101.1 H (80.0-100.0) fL Plt Count 146 L (150-450) k/uL APTT 47.2 H (22.0-30.0) sec ABG pH (7.35-7.45) ABG pCO2 (35-45) mmHg ABG pO2 (83-108) mmHg ABG HCO3 (21-25) mmol/L ABG Total CO2 (19-24) mmol/L ABG O2 Saturation (94-97) % Hemoglobin (13.0-17.5) gm/dL Sodium 132 L (137-145) mmol/L BUN 37 H (9-20) mg/dL Glucose 110 H (74-99) mg/dL Calcium 8.0 L (8.4-10.2) mg/dL 01/05/22 Range/Units 04:39 RBC (4.30-5.90) m/uL Hgb (13.0-17.5) gm/dL Hct (39.0-53.0) % MCV (80.0-100.0) fL Plt Count (150-450) k/uL APTT 47.2 H (22.0-30.0) sec ABG pH (7.35-7.45) ABG pCO2 (35-45) mmHg ABG pO2 (83-108) mmHg ABG HCO3 (21-25) mmol/L ABG Total CO2 (19-24) mmol/L ABG O2 Saturation (94-97) % Hemoglobin (13.0-17.5) gm/dL Sodium (137-145) mmol/L BUN (9-20) mg/dL Glucose (74-99) mg/dL Calcium (8.4-10.2) mg/dL Assessment and Plan Assessment: -acute non-ST elevation myocardial infarction for which patient is on IV heparin, no other possible etiologies stress-induced cardiomyopathy etiology evaluated the patient echo is being obtained, cardiac catheterization as per cardiology. -Acute systolic and diastolic heart failure with ejection fraction 30-35% and apical hypokinesia, grade 1 diastolic dysfunction. Full standing seen, rule out clots, possible takotsubo syndrome . -Hypotension, secondary to above possible cardiogenic shock -Moderate to severe tricuspid regurgitation -Recent history of covid 19 infection without pneumonia -Acute kidney injury -Hyponatremia secondary to diuretics which will be held -Elevated creatinine unsure present patient has acute renal failure on chronic kidney disease will monitor the creatinine -Hypertension holding up anti-hypertensive medication patient blood pressure is low at this time Status post 1 L of IV fluids with no improvement, patient might go to the ICU for pressor support Continue with heparin drip Cardiology and pulmonary consult Check a bladder scan and nephrology consult. Check urinalysis Labs and medication were reviewed.. Continue same treatment. Continue with symptomatic treatment. Resume home medication. Monitor lytes and vitals. DVT and GI prophylaxis. Further recommendations as per clinical course of the patient DVT prophylaxis: heparin GI Prophylaxis: Pepcid PT/OT: Pending Prognosis is guarded
[2022-01-05] MEDS: ATORVASTATIN 40 MG TAB PO SCH (20:56)
[2022-01-05] MEDS: MELATONIN 3 MG TABLET PO PRN (20:56)
[2022-01-05] MEDS: ACETAMINOPHEN TAB 325 MG TAB PO PRN (23:57)
[2022-01-06] MEDS: ACETAMINOPHEN TAB 325 MG TAB PO PRN ×2 (04:35→21:51)
[2022-01-06 05:49] LABS: Basophils % (A) 1 %; Eosinophils # (A) 0.1 k/uL (0-0.7); Eosinophils % (A) 2 %; HGB 12.5 gm/dL (13.0-17.5); Lymphocytes # (A) 1.3 k/uL (1.0-4.8); Lymphocytes % (A) 19 %; MCH 35.1 pg (25.0-35.0); MCHC 32.9 g/dL (31.0-37.0); Macrocytosis Moderate; Mean Platelet Volume 8.4; Monocytes # (A) 0.5 k/uL (0-1.0); Monocytes % (A) 7 %; Neutrophils # (A) 4.4 k/uL (1.3-7.7); Neutrophils % (A) 68 %; Platelet Count 173 k/uL (150-450); RBC 3.56 m/uL (4.30-5.90); RDW 13.7 % (11.5-15.5); WBC 6.6 k/uL (3.8-10.6)
[2022-01-06 05:51] LABS: MCV 106.9 fL (80.0-100.0)
[2022-01-06 06:49] LABS: Calcium 8.5 mg/dL (8.4-10.2)
[2022-01-06 07:02] LABS: Potassium 3.9 mmol/L (3.5-5.1)
[2022-01-06] MEDS: ASPIRIN 81 MG PO SCH (08:38)
[2022-01-06] MEDS: METOPROLOL SUCCINATE (ER) 25 MG TAB.ER.24H PO SCH (08:38)
[2022-01-06] MEDS: FAMOTIDINE 20 MG TAB PO SCH (08:38)
[2022-01-06] MEDS: FUROSEMIDE 40 MG TAB PO SCH (08:38)
[2022-01-06] MEDS: IPRATROPIUM-ALBUTEROL 3 ML NEB INHALATION SCH ×4 (08:59→19:41)
--- NOTE | 2022-01-06 09:53 | P.PN ---
Subjective Patient is seen for follow-up for acute kidney injury which was mostly cardiorenal. Patient had been on dobutamine drip which is now discontinued. He has been diuresed. Serum creatinine staying at about 1.0 mg/dL. Currently maintained on oral Lasix No significant complaints today. Objective - Vital Signs Vital signs: Vital Signs Temp 97.6 F 01/06/22 08:00 Pulse 96 01/06/22 09:12 Resp 16 01/06/22 09:12 BP 92/64 01/06/22 08:00 Pulse Ox 95 01/06/22 08:59 FiO2 Intake & Output 01/05/22 01/06/22 01/06/22 18:59 06:59 18:59 Intake Total 340.593 110 20 Output Total 500 325 Balance -159.407 -215 20 Weight 82.6 kg Intake: IV 120 110 20 0.9 NS 120 110 20 Intake, IV Titration 160.593 Amount Heparin Sod,Pork in 0.45% 160.593 NaCl 25,000 unit In 0.45 % NaCl 1 250ml.bag @ 12 UNITS/KG/HR 9.253 mls/hr IV .Q24H [facility] Rx#: [id number] Oral 60 Output: Urine 500 325 Other: Voiding Method Toilet Toilet Toilet Urinal Urinal Urinal # Voids 1 - Exam Awake, comfortable, not in any acute distress Examination of the heart S1 and S2 Examination lungs bilateral breath sounds are heard Abdomen is soft nontender Examination lower extremity shows trace edema mainly in the ankles [employer] exam grossly intact - Labs CBC & Chem 7: 01/06/22 05:13 01/06/22 05:13 Labs: Abnormal Lab Results - Last 24 Hours (Table) 01/06/22 01/06/22 01/06/22 Range/Units 05:13 05:13 05:13 RBC 3.56 L (4.30-5.90) m/uL Hgb 12.5 L (13.0-17.5) gm/dL Hct 38.0 L (39.0-53.0) % MCV 106.9 H D (80.0-100.0) fL MCH 35.1 H (25.0-35.0) pg APTT 47.3 H (22.0-30.0) sec Sodium 131 L (137-145) mmol/L Carbon Dioxide 14 L (22-30) mmol/L BUN 37 H (9-20) mg/dL Glucose 115 H (74-99) mg/dL Assessment and Plan Assessment: 1. Acute kidney injury mostly prerenal secondary to cardiorenal syndrome. Creatinine peaked at 1.88 this admission and down to 1.0 now. Creatinine was 1.24 on admission. Unknown baseline renal function. UA fairly benign. No hydronephrosis noted on kidney ultrasound. 2. Acute on chronic systolic CHF with ejection fraction of 30-35% with moderate to severe tricuspid regurgitation. 3. Volume overload. 4. Non-ST elevated myocardial infarction maintained on heparin drip. 5. Recent covid infection. 6. Metabolic acidosis secondary to acute kidney injury. On oral bicarbonate. 7. Hypervolemic hyponatremia. Plan: Continue current dose of oral Lasix We will sign off
[2022-01-06] MEDS ORDERED: ASPIRIN 325 MG TAB PO STA (10:37)
[2022-01-06] MEDS ORDERED: NITROGLYCERIN SL TABS 0.4 MG TAB SUBLINGUAL PRN (10:37)
[2022-01-06] MEDS ORDERED: ALPRAZolam 0.5 MG TAB PO PRN (10:37)
[2022-01-06] MEDS ORDERED: ALPRAZolam 0.25 MG TAB PO PRN (10:37)
[2022-01-06] MEDS ORDERED: ATORVASTATIN 80 MG TAB PO STA (10:37)
--- NOTE | 2022-01-06 10:37 | P.PN ---
Subjective Patient is sitting comfortably in chair Mildly short of breath at rest Blood pressure 102 systolic Remains in atrial fibrillation No chest discomfort Was short of breath at night Heart rates between 90-120 beats a minute irregular Respirations 16-20 Pulse ox 95% Blood pressure 102 mmHg systolic Labs White count 6.6 thousand hemoglobin 12.5, platelet count 173,000 Sodium 131, potassium 3.9 BUN 37 and creatinine 1.08 Magnesium 1.9 Yesterday his ABG on room air showed a pH of 7.5, pCO2 of [address] of the chest was reviewed with Dr. Parekh There is no clear evidence for ARDS Bilateral small pleural effusions with bibasilar atelectasis noted The 2-D echo shows severe global LV dysfunction It appears like an apical ballooning syndrome The proximal one third of the LV contracts is the distal two thirds globally shows severe reduction in LV systolic function This patient had coronavirus infection in the month of November with a diagnosed in early December He received antibodies infusion Initially when he came in his A. fib rates were controlled but he was quite hypotensive with minimal symptoms He received IV fluids almost a liter and thereafter became short of breath and required IV Lasix Subsequently his creatinine worsened to greater than 3.0 The creatinine has now normalized after IV dobutamine infusion He responded very well to IV dobutamine with a good urine output IV dobutamine has been discontinued for the last several days He is on oral Lasix Now he is on low-dose beta blockers, succinate 25 mg daily Baby aspirin, atorvastatin and 42 g of Lasix by mouth He is on IV heparin Spironolactone 12.5 mg daily Impression Severe cardio myopathy with abnormal troponins and globally severe LV dysfunction consistent with myocarditis or Takotsubo syndrome He had a stressful situation at home in the month of October Severe hypertension on admission Atrial fibrillation initially with a controlled ventricular response Required pressors along with IV dobutamine with improvement in renal function His baseline creatinine is 0.84 He has small bilateral pleural effusions with basilar atelectasis Plan He is stable from a cardiovascular standpoint proceed with coronary angiography to see if he has any significant epicardial coronary artery disease However my clinical impression, irrespective of the results of the cardiac catheterization remains in the myocarditis or stress cardiomyopathy given the nature of the LV dysfunction Continue aspirin and statins metoprolol in the low dose and low-dose I will give him 1 dose of IV Lasix today Objective - Vital Signs Vital signs: Vital Signs Temp 97.6 F 01/06/22 08:00 Pulse 96 01/06/22 09:12 Resp 16 01/06/22 09:12 BP 92/64 01/06/22 08:00 Pulse Ox 95 01/06/22 08:59 FiO2 Intake & Output 01/05/22 01/06/22 01/06/22 18:59 06:59 18:59 Intake Total 340.593 110 20 Output Total 500 325 Balance -159.407 -215 20 Weight 82.6 kg Intake: IV 120 110 20 0.9 NS 120 110 20 Intake, IV Titration 160.593 Amount Heparin Sod,Pork in 0.45% 160.593 NaCl 25,000 unit In 0.45 % NaCl 1 250ml.bag @ 12 UNITS/KG/HR 9.253 mls/hr IV .Q24H [facility] Rx#: [id number] Oral 60 Output: Urine 500 325 Other: Voiding Method Toilet Toilet Toilet Urinal Urinal Urinal # Voids 1 - Labs CBC & Chem 7: 01/06/22 05:13 01/06/22 05:13 Labs: Abnormal Lab Results - Last 24 Hours (Table) 01/06/22 01/06/22 01/06/22 Range/Units 05:13 05:13 05:13 RBC 3.56 L (4.30-5.90) m/uL Hgb 12.5 L (13.0-17.5) gm/dL Hct 38.0 L (39.0-53.0) % MCV 106.9 H D (80.0-100.0) fL MCH 35.1 H (25.0-35.0) pg APTT 47.3 H (22.0-30.0) sec Sodium 131 L (137-145) mmol/L Carbon Dioxide 14 L (22-30) mmol/L BUN 37 H (9-20) mg/dL Glucose 115 H (74-99) mg/dL
[2022-01-06] MEDS: SPIRONOLACTONE 25 MG TAB PO SCH (11:56)
[2022-01-06] MEDS: HEPARIN SOD,PORK IN 0.45% NACL 25,000 UNIT in 0.45% NACL 1 250ML.BAG IV SCH (12:09)
[2022-01-06] MEDS ORDERED: SODIUM BICARB 8.4% 50 ML SYR (1 MEQ/ML) IV STA (12:55)
--- NOTE | 2022-01-06 12:55 | P.PN ---
Subjective Progress Note Date: 01/06/22 81-year-old male patient, Neel chest into the intensive care because of hypotension. The patient is postop acute non-ST segment elevation myocardial infarction patient is known to have cardiomyopathy with an ejection fraction of 30-35%. He has hypertension and hyperlipidemia and paroxysmal atrial fibr illation. Is a former smoker and he has COVID 19 infection back in August 2021 from which she recovered. The patient presented to the hospital because of back pain between his shoulder blades. No chest pain. No known exacerbating or relieving factors. No fever. No chills. He came into the emergency and his EKG was consistent with atrial fibrillation with RVR. The patient's troponin was elevated at 22.3. Subsequently, the troponin peaked at 29. The patient was started on IV heparin. The patient was given aspirin and patient was given a CT angiogram that showed no evidence of any pulmonary embolism. There was trace left pleural effusions and the patient had background COPD and a 5 mm calcified pulmonary nodule in the right upper lobe. CAT scan of the thoracic spine showed multilevel moderate to severe degenerative disc disease along with hard large hypertrophic anterior spurs and suspect multilevel foraminal encroachment. Cannot stenosis near the thoracolumbar junction was also considered. The patient has also by the pleural effusions. Initially, the patient got admitted to the medical floor and subsequently got transferred to the intensive care unit as the patient was running a lower blood pressure. The patient is currently on dobutamine as the patient was also noted to have cardiomyopathy and the echocardiogram revealed left ventricular ejection fraction of 30-35% along with apical hypokinesis and mild mitral regurgitation, moderate to severe tricuspid regurgitation without any pericardial effusion. RV was within normal limits. The patient is currently on dobutamine, dopamine and norepinephrine was also initiated for blood pressure support is being administered at a dose of 0.05 per Kilogram per minute. Dobutamine is running at 2.5 mcg/kg/min. Dopamine at 2 mcg/kg/min. Since the current admission, the patient developed acute kidney injury. Creatinine was 1.24 time of admission the creatinine is up to 1.8. The most recent systolic blood pressure is 86/59 and the patient is currently on 2 L of oxygen by nasal cannula with a pulse ox of 93%. The patient is not on any diuretics at this point in time. The fluid balance is slightly positive at 90 mL over the past 8 hours. The patient body weight is stable and 77 kg. On today's evaluation of 01/02/2022, the patient is being seen for a follow-up. Some improvement since yesterday as the patient was started on a combination dobutamine and norepinephrine. Yesterday afternoon and early evening, the patient became more short of breath. He was given a dose of Lasix 60 mg IV push and his urine output improved and the patient producing approximately 1 L of urine output since. This morning, he remains on examination dobutamine 2.5 mics per kilogram patient is also norepinephrine at 0.04 mcg/kg per minute. The patient is on 10 L of oxygen by nasal cannula. Urine output is adequate. C ardiac rhythm is still atrial fibrillation with a controlled rate. The creatinine is improving. Also one point with a BUN of 46. The patient remains on IV heparin. Hemoglobin is at 12.2 with a white cell count of 11.5. UA is negative. Cardiology on the case. No chest pain. No back pain. No focal neurological deficits. 01/03/2022, the patient is being seen for a follow-up. Patient is comfortable. The patient was taken off the dobutamine today. The patient urine output is adequate for now and the patient produced approximately 2.3 L of urine output yesterday and the patient has a negative fluid balance of 850 mL over the past 24 hours. The patient is currently on 10 L O2 nasal cannula. The patient is on norepinephrine at 0.08 mcg/kg per minute and the patient remains on IV heparin. No chest pain. No angina. No palpitation. White cell count is at 9.6 and hemoglobin of 12.3 and a platelet count of177. As far as electrolytes, the sodium level is at 133 and a serum bicarbonate of 19 with a BUN of 41 and creatinine 0.9. The PTT is therapeutic for now. The patient is resting comfortably in bed. No new complaints otherwise for now.he remains in atrial fibrillation. The chest x-ray shows bilateral lower lobe small effusions greater on the left and there is some interstitial process consistent with some interstitial edema/CHF. 01/04/2022, the patient is hemodynamically stable and the patient was taken off norepinephrine infusion this morning. The patient was on low dose of norepinephrine earlier. The patient was also taken off dobutamine. The patient otherwise is doing well. No specific complaints. Urine output is adequate. Creatinine is down to 0.9 with a 34. The patient was started on 10 L of oxygen by nasal cannula. With that him of the oxygen and the room air blood gases was done and the patient was found to have a pH of 7.51 with a pCO2 of 33 and pO2 of 54. He was placed on 2 L of oxygen by nasal cannula and he was given incentive spirometer. Chest x-ray showing some small pleural effusion and atelectatic changes. No significant pulmonary edema noted. The white cell count at 8.5 with a hemoglobin of 12.1 and a platelet count of 198. The sodium level is at 133 with a potassium level of 3.8 and a BUN of 34 with a creatinine of 0.91. No fever. No chills. No altered mentation. The patient remains in atrial fibrillation. 01/05/2022, the patient is doing well. No new complaints. He is currently on 2 L O2 nasal cannula. No history distress. Using incentive spirometer. He is currently on Lasix 40 mg by mouth daily. He is also on metoprolol 25 mg by mouth XL 1 tablet a day. The patient is white cell count of 5.5 with a hemoglobin 11.6 and a platelet count of 146. The patient remains on IV heparin. Electrolytes are all within normal limits. No altered mentation. He remains in atrial fibrillation. Adequate urine output. No hypotension. 01/06/2022, I'm seeing the patient for a follow-up. The patient is having some mild shortness of breath. Otherwise hemodynamically stable on 2 L of oxygen nasal cannula. He was given additional dose of Lasix today by cardiology. Otherwise, his cardiac rhythm is sinus. The patient was given IV heparin and the patient is going to undergo a cardiac catheterization tomorrow. Medications are essentially unchanged. Meanwhile, the blood work shows a white cell count 6.6 with a hemoglobin of 12.5.. He at 47. Serum bicarbs of 14 with an EF of 37 and a creatinine of 1.08. Objective - Vital Signs Vital signs: Vital Signs Temp 97.6 F 01/06/22 08:00 Pulse 96 01/06/22 09:12 Resp 16 01/06/22 09:12 BP 92/64 01/06/22 08:00 Pulse Ox 95 09/05/22 08:59 FiO2 Intake & Output 01/05/22 01/06/22 01/06/22 18:59 06:59 18:59 Intake Total 340.593 110 20 Output Total 500 325 Balance -159.407 -215 20 Weight 82.6 kg Intake: IV 120 110 20 0.9 NS 120 110 20 Intake, IV Titration 160.593 Amount Heparin Sod,Pork in 0.45% 160.593 NaCl 25,000 unit In 0.45 % NaCl 1 250ml.bag @ 12 UNITS/KG/HR 9.253 mls/hr IV .Q24H [facility] Rx#: [id number] Oral 60 Output: Urine 500 325 Other: Voiding Method Toilet Toilet Toilet Urinal Urinal Urinal # Voids 1 - Exam CONSTITUTIONAL: Appears short of breath on exam , breathing is nonlabored and th e patient's currently on 2 L oxygen by nasal cannula Head exam was generally normal. There was no scleral icterus or corneal arcus. Mucous membranes were moist. Neck was supple and without jugular venous distension, thyromegaly, or carotid bruits. Carotids were easily palpable bilaterally. There was no adenopathy. HEENT: Head is normocephalic. No JVD. CHEST EXAMINATION: Lungs are clear to auscultation. No chest wall tenderness is noted on palpation or with deep breathing. HEART EXAMINATION: Irregular rate and rhythm. S1, S2 heard. ABDOMEN: Abdominal exam revealed normal bowel sounds. The abdomen was soft, non- tender, and without masses, organomegaly, or appreciable enlargement of the abdo wendy aorta. EXTREMITIES: Examination of the extremities revealed easily palpable radial, femoral and pedal pulses. There was no cyanosis, clubbing or edema. Pulses in the lower extremity are quite diminished NEUROLOGIC EXAMINATION: Patient is awake, alert and oriented x3. - Labs CBC & Chem 7: 01/06/22 05:13 01/06/22 05:13 Labs: Abnormal Lab Results - Last 24 Hours (Table) 01/06/22 01/06/22 01/06/22 Range/Units 05:13 05:13 05:13 RBC 3.56 L (4.30-5.90) m/uL Hgb 12.5 L (13.0-17.5) gm/dL Hct 38.0 L (39.0-53.0) % MCV 106.9 H D (80.0-100.0) fL MCH 35.1 H (25.0-35.0) pg APTT 47.3 H (22.0-30.0) sec Sodium 131 L (137-145) mmol/L Carbon Dioxide 14 L (22-30) mmol/L BUN 37 H (9-20) mg/dL Glucose 115 H (74-99) mg/dL Assessment and Plan Plan: Acute non-STEMI, currently free of any chest pain or back pain and the patient is currently on IV heparin and aspirin, awaiting a cardiac catheterization, trop onin peaked at 29, also possibility of a COVID 19 induced myocarditis cannot be completely ruled out. The patient remains on IV heparin. The patient remains free of any pain. The patient is awaiting cardiac catheterization to be done tomorrow. The patient remains on IV heparin Acute hypoxic respiratory failure secondary to CHF/pulmonary edema, currently on 2 L per minute nasal cannula shortness of breath secondary to above Small pleural effusions Atelectatic changes in lung bases Acute on top of chronic systolic heart failure the patient has severe cardiomyopathy with an ejection fraction of 30-35% long with apical hypokinesis and grade 1 diastolic heart failure Acute hypotension, likely cardiogenic in nature and the patient is currently on a combination of dobutamine and norepinephrine infusion for hemodynamic support, the patient is normotensive. The patient was taken off dobutamine and the patient is also off norepinephrine Chronic atrial fibrillation, rate is controlled for now Acute kidney injury, possibly due to cardiogenic or cardiorenal factors, creatinine is improvement in the patient is producing adequate amount of urine output, acute kidney injuries recovered COVID 19 infection, on 12/09/2021, recovered, treated with monoclonal abs pleural effusion, bilateral, small COPD Granuloma, Calcified pulmonary nodule in the right upper lobe on the right Hypertension Hyperlipidemia History of skin cancer, multiple, resected Moderate degree of tricuspid regurgitation based on recent echocardiogram Non-anion gap Metabolic acidosis Plan . The patient to be given 2 A of sodium bicarb and repeat electrolytes today Continue aspirin Continue IV heparin, and patient is looking for cardiac catheterization tomorrow Patient is off pressors Started low dose of Toprol-XL 25 mg by mouth twice a day as the patient remains off pressors Lasix 40 mg by mouth daily and the patient was given additional dose of Lasix today Aldactone 12.5 mg Wean down the FiO2 to 2 L per minute nasal cannula Continue high-dose statins with Lipitor Renal function continued to improve. We'll keep in ICU for another 24 hours
[2022-01-06] MEDS: NON FORMULARY DRUG (Fluorouracil [Efudex] 40 GM Cream..G.) TOPICAL SCH (13:27)
[2022-01-06 16:58] LABS: Calcium 8.4 mg/dL (8.4-10.2); Potassium 4.4 mmol/L (3.5-5.1)
[2022-01-06] MEDS: ATORVASTATIN 40 MG TAB PO SCH (21:51)
[2022-01-06] MEDS: MELATONIN 3 MG TABLET PO PRN (21:51)
--- NOTE | 2022-01-06 23:21 | P.PN ---
Subjective 81-year-old pleasant male came in with the upper back pain between the scapula and patient also vomiting, no pain in the chair. Jaw pain is mostly like spasms. Patient doesn't have any fever chills patient was diagnosed with COVID- 19 about couple weeks ago patient's pain in the back changes at the moment nonpleuritic patient had a CT angios the chest which did not show any significant X abnormality except for mild bilateral pleural effusions patient doesn't have any cardiac history found to have troponin of 22.3. EKG did not show any acute ST-T wave changes but is in A. fib and rate controlled. There is some degenerative to thoracic spine disease beyond which shows no other significant abnormality was seen. Patient was started on IV heparin cardiology was consulted patient although doesn't have any significant chest pain is back pain is not associated with lightheadedness or diaphoresis. 01/01/2022 Patient denies chest pain or dyspnea today. Also denies pain between his shoulder blades as he rated as 0/10. He has constipation but no abdominal pain. No vomiting. His PCP is Dr. Tyree dalal at bedside and patient TO TALK TO HIM ABOUT HIS HEALTH ISSUE Blood pressure on the low side, patient might have CHF however he is not tachypneic therefore going to try 1 L of normal saline. Patient currently continues on heparin drip and aspirin 81 mg added Blood pressure medication were held since admission including hydr ochlorothiazide 12.5 mg, lisinopril 20 mg Norvasc 5 mg. TSH is normal, CTA is negative for PE but there is vascular congestion of right upper lobe nodes. His creatinine went up today to 1.8. He is making good urine output Patient may be moved to the ICU for blood pressure treatment 01/02/2022 Patient states in the ICU, his awake, not significantly tachypneic while he is at rest. Patient blood pressure is improved while he is on pressors. He is kept on both dobutamine and the levophed drips. He has decent urine output and his creatinine improved as well 1.8 down to 1.3. Also he is on IV Lasix to help his fluid overload. He has hypoxia with oxygen requirement 10 L/m. Also he is continued on heparin drip and his rate controlled. Coreg is on hold. Currently blood pressure is 100/60. Heart rate is high 90s-100s. Coreg is on hold and he is continued on baby aspirin Other than that WBC 11.5, hemoglobin 12.2 and creatinine 1.39 abdominal ultrasound is negative. 01/06/2022 patient sitting up in chair the ICU, looks comfortable with mildly dyspneic. No chest pain or other complaints. Labs look stabilized with WBC back to normal at 6.6, hemoglobin 12.5, platelet 173. Creatinine 1.0. Patient currently on heparin drip with plan for cardiac cath tomorrow. [employer] team signed off. He is currently on aspirin 81 mg Metoprolol 25 mg and Lasix 40 mg daily Objective - Vital Signs Vital signs: Vital Signs Temp 97.6 F 01/06/22 08:00 Pulse 96 01/06/22 09:12 Resp 16 01/06/22 09:12 BP 92/64 01/06/22 08:00 Pulse Ox 95 01/06/22 08:59 FiO2 Intake & Output 01/05/22 01/06/22 01/06/22 18:59 06:59 18:59 Intake Total 340.593 110 20 Output Total 500 325 Balance -159.407 -215 20 Weight 82.6 kg Intake: IV 120 110 20 0.9 NS 120 110 20 Intake, IV Titration 160.593 Amount Heparin Sod,Pork in 0.45% 160.593 NaCl 25,000 unit In 0.45 % NaCl 1 250ml.bag @ 12 UNITS/KG/HR 9.253 mls/hr IV .Q24H [facility] Rx#: [id number] Oral 60 Output: Urine 500 325 Other: Voiding Method Toilet Toilet Toilet Urinal Urinal Urinal # Voids 1 - Exam GENERAL: The patient is alert and oriented x3, not in any acute distress. Well developed, well nourished. HEENT: Pupils are round and equally reacting to light. EOMI. No scleral icterus. No conjunctival pallor. Normocephalic, atraumatic. No pharyngeal erythema. No thyromegaly. CARDIOVASCULAR: S1 and S2 present. No murmurs, rubs, or gallops. PULMONARY: Chest is clear to auscultation, no wheezing or crackles. ABDOMEN: Soft, nontender, nondistended, normoactive bowel sounds. No palpable organomegaly. MUSCULOSKELETAL: No joint swelling or deformity. EXTREMITIES: No cyanosis, clubbing, or pedal edema. NEUROLOGICAL: Gross neurological examination did not reveal any focal deficits. SKIN: No rashes. no petechiae. - Labs CBC & Chem 7: 01/06/22 05:13 01/06/22 15:55 Labs: Abnormal Lab Results - Last 24 Hours (Table) 01/06/22 01/06/22 01/06/22 Range/Units 05:13 05:13 05:13 RBC 3.56 L (4.30-5.90) m/uL Hgb 12.5 L (13.0-17.5) gm/dL Hct 38.0 L (39.0-53.0) % MCV 106.9 H D (80.0-100.0) fL MCH 35.1 H (25.0-35.0) pg APTT 47.3 H (22.0-30.0) sec Sodium 131 L (137-145) mmol/L Carbon Dioxide 14 L (22-30) mmol/L BUN 37 H (9-20) mg/dL Glucose 115 H (74-99) mg/dL Assessment and Plan Assessment: -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 Full standing seen, rule out clots, possible takotsubo syndrome . -Hypotension, secondary to above possible cardiogenic shock. Resolved -Moderate to severe tricuspid regurgitation -Recent history of covid 19 infection without pneumonia -Acute kidney injury. Resolved -Hyponatremia secondary to diuretics which will be held -Elevated creatinine unsure present patient has acute renal failure on chronic kidney disease will monitor the creatinine -Hypertension holding up anti-hypertensive medication patient blood pressure is low at this time Plan: This is a pleasant 81 years old male who presents with non-STEMI and hypertension possible congestive heart failure Status post 1 L of IV fluids with plan for cardiac cath with cartilage team Continue with heparin drip Cardiology and pulmonary consult Labs and medication were reviewed.. Continue same treatment. Continue with symptomatic treatment. Resume home medication. Monitor lytes and vitals. DVT and GI prophylaxis. Further recommendations as per clinical course of the patient DVT prophylaxis: heparin GI Prophylaxis: Pepcid PT/OT: Pending Prognosis is guarded
[2022-01-07] MEDS: ACETAMINOPHEN TAB 325 MG TAB PO PRN (04:44)
[2022-01-07 06:21] LABS: Calcium 8.5 mg/dL (8.4-10.2)
[2022-01-07 06:38] LABS: Potassium 4.4 mmol/L (3.5-5.1)
[2022-01-07] MEDS ORDERED: HEPARIN SODIUM,PORCINE 2,500 UNIT in SODIUM CHLORIDE 0.9% 250 ML IRRIGATION PRN (07:00)
[2022-01-07] MEDS ORDERED: HEPARIN SODIUM,PORCINE 10,000 UNIT in SODIUM CHLORIDE 0.9% 1,000 ML IRRIGATION PRN (07:00)
[2022-01-07] MEDS: IPRATROPIUM-ALBUTEROL 3 ML NEB INHALATION SCH ×4 (07:59→19:26)
[2022-01-07] MEDS: HEPARIN SODIUM 1,000 UN/ML (10ML VL) IV PRN (09:34)
[2022-01-07] MEDS: METOPROLOL SUCCINATE (ER) 25 MG TAB.ER.24H PO SCH ×2 (09:39→20:37)
[2022-01-07] MEDS: ASPIRIN 81 MG PO SCH (09:39)
[2022-01-07] MEDS: FUROSEMIDE 40 MG TAB PO SCH (09:39)
[2022-01-07] MEDS: FAMOTIDINE 20 MG TAB PO SCH (09:39)
[2022-01-07] MEDS: NON FORMULARY DRUG (Fluorouracil [Efudex] 40 GM Cream..G.) TOPICAL SCH (12:16)
--- NOTE | 2022-01-07 12:46 | P.PN ---
Subjective Progress Note Date: 01/07/22 Principal diagnosis: Acute non-ST elevation myocardial infarction 81-year-old male patient, Neel chest into the intensive care because of hypotension. The patient is postop acute non-ST segment elevation myocardial infarction patient is known to have cardiomyopathy with an ejection fraction of 30-35%. He has hypertension and hyperlipidemia and paroxysmal atrial fibrillation. Is a former smoker and he has COVID 19 infection back in August 2021 from which she recovered. The patient presented to the hospital because of back pain between his shoulder blades. No chest pain. No known exacerbating or relieving factors. No fever. No chills. He came into the emergency and his EKG was consistent with atrial fibrillation with RVR. The patient's troponin was elevated at 22.3. Subsequently, the troponin peaked at 29. The patient was started on IV heparin. The patient was given aspirin and patient was given a CT angiogram that showed no evidence of any pulmonary embolism. There was trace left pleural effusions and the patient had background COPD and a 5 mm calcified pulmonary nodule in the right upper lobe. CAT scan of the thoracic spine showed multilevel moderate to severe degenerative disc disease along with hard large hypertrophic anterior spurs and suspect multilevel foraminal encroachment. Cannot stenosis near the thoracolumbar junction was also considered. The patient has also by the pleural effusions. Initially, the patient got admitted to the medical floor and subsequently got transferred to the intensive care unit as the patient was running a lower blood pressure. The patient is currently on dobutamine as the patient was also noted to have cardiomyopathy and the echocardiogram revealed left ventricular ejection fraction of 30-35% along with apical hypokinesis and mild mitral regurgitation, moderate to severe tricuspid regurgitation without any pericardial effusion. RV was within normal limits. The patient is currently on dobutamine, dopamine and norepinephrine was also initiated for blood pressure support is being administered at a dose of 0.05 per Kilogram per minute. Dobutamine is running at 2.5 mcg/kg/min. Dopamine at 2 m cg/kg/min. Since the current admission, the patient developed acute kidney injury. Creatinine was 1.24 time of admission the creatinine is up to 1.8. The most recent systolic blood pressure is 86/59 and the patient is currently on 2 L of oxygen by nasal cannula with a pulse ox of 93%. The patient is not on any diuretics at this point in time. The fluid balance is slightly positive at 90 mL over the past 8 hours. The patient body weight is stable and 77 kg. 01/06/2022, I'm seeing the patient for a follow-up. The patient is having some mild shortness of breath. Otherwise hemodynamically stable on 2 L of oxygen nasal cannula. He was given additional dose of Lasix today by cardiology. Otherwise, his cardiac rhythm is sinus. The patient was given IV heparin and the patient is going to undergo a cardiac catheterization tomorrow. Medications are essentially unchanged. Meanwhile, the blood work shows a white cell count 6.6 with a hemoglobin of 12.5.. He at 47. Serum bicarbs of 14 with an EF of 37 and a creatinine of 1.08. Reevaluated today on , patient remains in the ICU, seems to be doing fairly well, he is on 2 L nasal cannula with O2 sats of 99%, remains on heparin for atrial fibrillation, patient was supposed to undergo cardiac catheterization but this was placed on hold because of his worsening renal functioning. No cough no wheezing no shortness of breath no chest pain. Patient seems to be quite comfortable. PTT is therapeutic today. Lactulose are normal BUN is 41 creatinine 1.21. Objective - Vital Signs Vital signs: Vital Signs Temp 97.6 F 01/07/22 08:00 Pulse 96 01/07/22 11:43 Resp 18 01/07/22 11:43 BP 91/55 01/07/22 08:00 Pulse Ox 99 01/07/22 08:00 FiO2 Intake & Output 01/06/22 01/07/22 01/07/22 18:59 06:59 18:59 Intake Total 951.767 30 197.08 Output Total 200 250 0 Balance 751.767 -220 197.08 Weight 81 kg 81 kg Intake: IV 60 30 15 0.9 NS 60 30 15 Intake, IV Titration 211.767 182.08 Amount Heparin Sod,Pork in 0.45% 211.767 182.08 NaCl 25,000 unit In 0.45 % NaCl 1 250ml.bag @ 12 UNITS/KG/HR 9.253 mls/hr IV .Q24H [facility] Rx#: [id number] Oral 680 Output: Urine 200 250 0 Other: Voiding Method Toilet Toilet Urinal Urinal # Voids 1 1 # Bowel Movements 1 - Exam Physical Exam: Revealed a 81-year-old white male in no distress. On 2 L nasal cannula. Head: Atraumatic, normocephalic. HEENT:[Neck is supple.] [No neck masses.] [No thyromegaly.] [No JVD.] Chest: Fine crackles at the bases..] Cardiac Exam: Irregular irregular rhythm. [Normal S1 and S2, no S3 gallop, 2/6 systolic murmur thought the precordium. Abdomen: [Soft, nontender, no megaly, no rebound, no guarding, normal bowel sounds.] Extremities: [No clubbing, no edema, no cyanosis.] Neurological Exam: [No focal neurologic deficit.] Alert oriented 3. Psychiatric: Normal mood affect and normal mental status examination. Skin: No rashes - Labs CBC & Chem 7: 01/06/22 05:13 01/07/22 05:46 Labs: Abnormal Lab Results - Last 24 Hours (Table) 01/06/22 01/07/22 01/07/22 Range/Units 15:55 05:46 06:13 APTT 42.2 H (22.0-30.0) sec Sodium 131 L 131 L (137-145) mmol/L Chloride 97 L (98-107) mmol/L Carbon Dioxide 21 L 20 L (22-30) mmol/L BUN 40 H 41 H (9-20) mg/dL Glucose 111 H 124 H (74-99) mg/dL Assessment and Plan Assessment: Impression: Acute non-ST elevation myocardial infarction Acute on chronic systolic congestive heart failure, patient has ejection fraction of 30-35%. Small pleural effusions Chronic atrial fibrillation Acute kidney injury secondary to cardiogenic or cardiorenal factor, could also be related to diuresis. History of COVID-19 infection back on , recovered, received monoclonal antibodies. Hypertension. Dyslipidemia. Non-anion gap metabolic acidosis. Recommendation: Continue IV heparin and consider eventually transitioning to oral anticoagulation therapy Continue Toprol. Cut down Lasix until cardiac catheterization is performed. Continue Aldactone. Continue statins. Transferred to a cardiac floor out of the ICU today. We'll continue to follow Time with Patient: Less than 30
[2022-01-07] MEDS ORDERED: ALPRAZolam 0.25 MG TAB PO PRN (12:49)
[2022-01-07] MEDS ORDERED: NITROGLYCERIN SL TABS 0.4 MG TAB SUBLINGUAL PRN (12:49)
[2022-01-07] MEDS ORDERED: IPRATROPIUM-ALBUTEROL 3 ML NEB ONE (15:21)
[2022-01-07] MEDS: ALPRAZolam 0.5 MG TAB PO PRN (20:37)
[2022-01-07] MEDS: ATORVASTATIN 40 MG TAB PO SCH (20:37)
[2022-01-07] MEDS: HEPARIN SOD,PORK IN 0.45% NACL 25,000 UNIT in 0.45% NACL 1 250ML.BAG IV SCH (20:40)
--- NOTE | 2022-01-07 21:00 | P.PN ---
Subjective 81-year-old pleasant male came in with the upper back pain between the scapula and patient also vomiting, no pain in the chair. Jaw pain is mostly like spasms. Patient doesn't have any fever chills patient was diagnosed with COVID- 19 about couple weeks ago patient's pain in the back changes at the moment nonpleuritic patient had a CT angios the chest which did not show any significant X abnormality except for mild bilateral pleural effusions patient doesn't have any cardiac history found to have troponin of 22.3. EKG did not show any acute ST-T wave changes but is in A. fib and rate controlled. There is some degenerative to thoracic spine disease beyond which shows no other significant abnormality was seen. Patient was started on IV heparin cardiology was consulted patient although doesn't have any significant chest pain is back pain is not associated with lightheadedness or diaphoresis. 01/01/2022 Patient denies chest pain or dyspnea today. Also denies pain between his shoulder blades as he rated as 0/10. He has constipation but no abdominal pain. No vomiting. His PCP is Dr. Tyree dalal at bedside and patient TO TALK TO HIM ABOUT HIS HEALTH ISSUE Blood pressure on the low side, patient might have CHF however he is not tachypneic therefore going to try 1 L of normal saline. Patient currently continues on heparin drip and aspirin 81 mg added Blood pressure medication were held since admission including hydr ochlorothiazide 12.5 mg, lisinopril 20 mg Norvasc 5 mg. TSH is normal, CTA is negative for PE but there is vascular congestion of right upper lobe nodes. His creatinine went up today to 1.8. He is making good urine output Patient may be moved to the ICU for blood pressure treatment 01/02/2022 Patient states in the ICU, his awake, not significantly tachypneic while he is at rest. Patient blood pressure is improved while he is on pressors. He is kept on both dobutamine and the levophed drips. He has decent urine output and his creatinine improved as well 1.8 down to 1.3. Also he is on IV Lasix to help his fluid overload. He has hypoxia with oxygen requirement 10 L/m. Also he is continued on heparin drip and his rate controlled. Coreg is on hold. Currently blood pressure is 100/60. Heart rate is high 90s-100s. Coreg is on hold and he is continued on baby aspirin Other than that WBC 11.5, hemoglobin 12.2 and creatinine 1.39 abdominal ultrasound is negative. 01/06/2022 patient sitting up in chair the ICU, looks comfortable with mildly dyspneic. No chest pain or other complaints. Labs look stabilized with WBC back to normal at 6.6, hemoglobin 12.5, platelet 173. Creatinine 1.0. Patient currently on heparin drip with plan for cardiac cath tomorrow. Tacker Off team signed off. He is currently on aspirin 81 mg Metoprolol 25 mg and Lasix 40 mg daily 01/07/2022 Patient looks comfortable, awake and alert. Little short of breath and tachypnea while at rest but no other complaints. No chest pain. His vitals are stable Creatinine increased 1.0 up to 1.2. he remains on aspirin and heparin drip What patient was planned to undergo cardiac cath today but was put on hold because of high creatinine 1.2 Objective - Vital Signs Vital signs: Vital Signs Temp 97.6 F 01/07/22 08:00 Pulse 111 H 01/07/22 08:00 Resp 16 01/07/22 08:00 BP 91/55 01/07/22 08:00 Pulse Ox 99 01/07/22 08:00 FiO2 Intake & Output 01/06/22 01/07/22 01/07/22 18:59 06:59 18:59 Intake Total 951.767 30 197.08 Output Total 200 250 0 Balance 751.767 -220 197.08 Weight 81 kg Intake: IV 60 30 15 0.9 NS 60 30 15 Intake, IV Titration 211.767 182.08 Amount Heparin Sod,Pork in 0.45% 211.767 182.08 NaCl 25,000 unit In 0.45 % NaCl 1 250ml.bag @ 12 UNITS/KG/HR 9.253 mls/hr IV .Q24H [facility] Rx#: [id number] Oral 680 Output: Urine 200 250 0 Other: Voiding Method Toilet Toilet Urinal Urinal # Voids 1 1 # Bowel Movements 1 - Exam GENERAL: The patient is alert and oriented x3, not in any acute distress. Well developed, well nourished. HEENT: Pupils are round and equally reacting to light. EOMI. No scleral icterus. No conjunctival pallor. Normocephalic, atraumatic. No pharyngeal erythema. No thyromegaly. CARDIOVASCULAR: S1 and S2 present. No murmurs, rubs, or gallops. PULMONARY: Chest is clear to auscultation, no wheezing or crackles. ABDOMEN: Soft, nontender, nondistended, normoactive bowel sounds. No palpable organomegaly. MUSCULOSKELETAL: No joint swelling or deformity. EXTREMITIES: No cyanosis, clubbing, or pedal edema. NEUROLOGICAL: Gross neurological examination did not reveal any focal deficits. SKIN: No rashes. no petechiae. 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 Full standing seen, rule out clots, possible takotsubo syndrome . -Hypotension, secondary to above possible cardiogenic shock. Resolved -Moderate to severe tricuspid regurgitation -Recent history of covid 19 infection without pneumonia -Acute kidney injury. Resolved -Hyponatremia secondary to diuretics which will be held -Elevated creatinine unsure present patient has acute renal failure on chronic kidney disease will monitor the creatinine -Hypertension holding up anti-hypertensive medication patient blood pressure is low at this time Plan: This is a pleasant 81 years old male who presents with non-STEMI and hypertension possible congestive heart failure Status post 1 L of IV fluids with plan for cardiac cath with cartilage team Continue with heparin drip Cardiology and pulmonary consult Labs and medication were reviewed.. Continue same treatment. Continue with symptomatic treatment. Resume home medication. Monitor lytes and vitals. DVT and GI prophylaxis. Further recommendations as per clinical course of the patient DVT prophylaxis: heparin GI Prophylaxis: Pepcid PT/OT: Pending Prognosis is guarded
[2022-01-07] MEDS: SODIUM CHLORIDE 0.9% 1,000 ML in EMPTY BAG 1 BAG IV SCH (23:17)
[2022-01-08] MEDS ORDERED: ASPIRIN 325 MG TAB PO ONE (05:00)
[2022-01-08] MEDS ORDERED: ATORVASTATIN 80 MG TAB PO ONE (05:00)
[2022-01-08 06:50] LABS: Glucose,Whole Blood 133 mg/dL (70-110)
[2022-01-08] MEDS ORDERED: HEPARIN SODIUM,PORCINE 2,500 UNIT in SODIUM CHLORIDE 0.9% 250 ML IRRIGATION PRN (07:00)
[2022-01-08] MEDS ORDERED: HEPARIN SODIUM,PORCINE 10,000 UNIT in SODIUM CHLORIDE 0.9% 1,000 ML IRRIGATION PRN (07:00)
[2022-01-08] MEDS: IPRATROPIUM-ALBUTEROL 3 ML NEB INHALATION SCH ×4 (07:43→20:13)
[2022-01-08] MEDS: carvediloL 6.25 MG TAB PO SCH (07:52)
[2022-01-08 08:07] LABS: Basophils % (A) 0 %; Eosinophils # (A) 0.1 k/uL (0-0.7); Eosinophils % (A) 2 %; HCT 35.8 % (39.0-53.0); HGB 11.4 gm/dL (13.0-17.5); Lymphocytes # (A) 1.1 k/uL (1.0-4.8); Lymphocytes % (A) 15 %; MCH 33.2 pg (25.0-35.0); MCHC 31.9 g/dL (31.0-37.0); MCV 103.9 fL (80.0-100.0); Macrocytosis Slight; Mean Platelet Volume 8.1; Monocytes # (A) 0.5 k/uL (0-1.0); Monocytes % (A) 7 %; Neutrophils # (A) 5.5 k/uL (1.3-7.7); Neutrophils % (A) 76 %; Platelet Count 178 k/uL (150-450); RBC 3.45 m/uL (4.30-5.90); RDW 13.5 % (11.5-15.5); WBC 7.3 k/uL (3.8-10.6)
[2022-01-08 08:31] LABS: Calcium 8.4 mg/dL (8.4-10.2); Potassium 3.8 mmol/L (3.5-5.1)
[2022-01-08] MEDS: FAMOTIDINE 20 MG TAB PO SCH (09:47)
[2022-01-08] MEDS: ASPIRIN 81 MG PO SCH (09:47)
[2022-01-08] MEDS: METOPROLOL SUCCINATE (ER) 25 MG TAB.ER.24H PO SCH ×2 (09:47→21:23)
[2022-01-08] MEDS: FUROSEMIDE 40 MG TAB PO SCH (09:47)
--- NOTE | 2022-01-08 11:19 | P.PN ---
Subjective Progress Note Date: 01/08/22 Principal diagnosis: Acute non-ST elevation myocardial infarction 81-year-old male patient, Neel chest into the intensive care because of hypotension. The patient is postop acute non-ST segment elevation myocardial infarction patient is known to have cardiomyopathy with an ejection fraction of 30-35%. He has hypertension and hyperlipidemia and paroxysmal atrial fibrillation. Is a former smoker and he has COVID 19 infection back in August 2021 from which she recovered. The patient presented to the hospital because of back pain between his shoulder blades. No chest pain. No known exacerbating or relieving factors. No fever. No chills. He came into the emergency and his EKG was consistent with atrial fibrillation with RVR. The patient's troponin was elevated at 22.3. Subsequently, the troponin peaked at 29. The patient was started on IV heparin. The patient was given aspirin and patient was given a CT angiogram that showed no evidence of any pulmonary embolism. There was trace left pleural effusions and the patient had background COPD and a 5 mm calcified pulmonary nodule in the right upper lobe. CAT scan of the thoracic spine showed multilevel moderate to severe degenerative disc disease along with hard large hypertrophic anterior spurs and suspect multilevel foraminal encroachment. Cannot stenosis near the thoracolumbar junction was also considered. The patient has also by the pleural effusions. Initially, the patient got admitted to the medical floor and subsequently got transferred to the intensive care unit as the patient was running a lower blood pressure. The patient is currently on dobutamine as the patient was also noted to have cardiomyopathy and the echocardiogram revealed left ventricular ejection fraction of 30-35% along with apical hypokinesis and mild mitral regurgitation, moderate to severe tricuspid regurgitation without any pericardial effusion. RV was within normal limits. The patient is currently on dobutamine, dopamine and norepinephrine was also initiated for blood pressure support is being administered at a dose of 0.05 per Kilogram per minute. Dobutamine is running at 2.5 mcg/kg/min. Dopamine at 2 m cg/kg/min. Since the current admission, the patient developed acute kidney injury. Creatinine was 1.24 time of admission the creatinine is up to 1.8. The most recent systolic blood pressure is 86/59 and the patient is currently on 2 L of oxygen by nasal cannula with a pulse ox of 93%. The patient is not on any diuretics at this point in time. The fluid balance is slightly positive at 90 mL over the past 8 hours. The patient body weight is stable and 77 kg. 01/06/2022, I'm seeing the patient for a follow-up. The patient is having some mild shortness of breath. Otherwise hemodynamically stable on 2 L of oxygen nasal cannula. He was given additional dose of Lasix today by cardiology. Otherwise, his cardiac rhythm is sinus. The patient was given IV heparin and the patient is going to undergo a cardiac catheterization tomorrow. Medications are essentially unchanged. Meanwhile, the blood work shows a white cell count 6.6 with a hemoglobin of 12.5.. He at 47. Serum bicarbs of 14 with an EF of 37 and a creatinine of 1.08. Reevaluated today on , patient remains in the ICU, seems to be doing fairly well, he is on 2 L nasal cannula with O2 sats of 99%, remains on heparin for atrial fibrillation, patient was supposed to undergo cardiac catheterization but this was placed on hold because of his worsening renal functioning. No cough no wheezing no shortness of breath no chest pain. Patient seems to be quite comfortable. PTT is therapeutic today. Lactulose are normal BUN is 41 creatinine 1.21. Reevaluated today on 01/08/22, patient remains in the ICU as an overflow, being considered for cardiac catheterization, clinically the patient is doing great, asymptomatic, he is on 2 L nasal cannula, not in any distress. Renal functioning remains poor, creatinine is 1.25 today. His PTT is 57 CBC is relatively unremarkable Objective - Vital Signs Vital signs: Vital Signs Temp 97.7 F 01/08/22 09:20 Pulse 78 01/08/22 11:06 Resp 14 01/08/22 11:06 BP 97/59 01/08/22 09:20 Pulse Ox 93 L 01/08/22 09:20 FiO2 Intake & Output 01/07/22 01/08/22 01/08/22 18:59 06:59 18:59 Intake Total 355.00 30 648 Output Total 200 200 Balance 155.00 30 448 Weight 81 kg 84 kg Intake: IV 105 30 648 0.9 NS 105 30 648 Intake, IV Titration 250.00 Amount Heparin Sod,Pork in 0.45% 250.00 NaCl 25,000 unit In 0.45 % NaCl 1 250ml.bag @ 12 UNITS/KG/HR 9.253 mls/hr IV .Q24H [facility] Rx#: [id number] Output: Urine 200 200 Other: Voiding Method Toilet Toilet Toilet Urinal # Voids 1 0 3 # Bowel Movements 1 - Exam Physical Exam: Revealed a 81-year-old white male in no distress. On 2 L nasal cannula. Head: Atraumatic, normocephalic. HEENT:[Neck is supple.] [No neck masses.] [No thyromegaly.] [No JVD.] Chest: Fine crackles at the bases..] Cardiac Exam: Irregular irregular rhythm. [Normal S1 and S2, no S3 gallop, 2/6 systolic murmur thought the precordium. Abdomen: [Soft, nontender, no megaly, no rebound, no guarding, normal bowel sounds.] Extremities: [No clubbing, no edema, no cyanosis.] Neurological Exam: [No focal neurologic deficit.] Alert oriented 3. Psychiatric: Normal mood affect and normal mental status examination. Skin: No rashes - Labs CBC & Chem 7: 01/08/22 07:48 01/08/22 07:48 Labs: Abnormal Lab Results - Last 24 Hours (Table) 01/07/22 01/08/22 01/08/22 Range/Units 16:42 00:35 06:49 RBC (4.30-5.90) m/uL Hgb (13.0-17.5) gm/dL Hct (39.0-53.0) % MCV (80.0-100.0) fL APTT 82.5 H 58.3 H (22.0-30.0) sec Sodium (137-145) mmol/L BUN (9-20) mg/dL Glucose (74-99) mg/dL POC Glucose (mg/dL) 133 H (70-110) mg/dL 01/08/22 01/08/22 01/08/22 Range/Units 07:48 07:48 07:48 RBC 3.45 L (4.30-5.90) m/uL Hgb 11.4 L (13.0-17.5) gm/dL Hct 35.8 L (39.0-53.0) % MCV 103.9 H (80.0-100.0) fL APTT 57.0 H (22.0-30.0) sec Sodium 132 L (137-145) mmol/L BUN 43 H (9-20) mg/dL Glucose 113 H (74-99) mg/dL POC Glucose (mg/dL) (70-110) mg/dL Assessment and Plan Assessment: Impression: Acute non-ST elevation myocardial infarction Acute on chronic systolic congestive heart failure, patient has ejection fraction of 30-35%. Small pleural effusions Chronic atrial fibrillation Acute kidney injury secondary to cardiogenic or cardiorenal factor, could also be related to diuresis. History of COVID-19 infection back on , recovered, received monoclonal antibodies. Hypertension. Dyslipidemia. Non-anion gap metabolic acidosis. Recommendation: Continue IV heparin Continue Toprol. Continue gentle diuresis. Continue Aldactone. Continue statins. Patient could be transferred to a cardiac floor once a bed is available, he is presently overflow. We'll continue to follow Time with Patient: Less than 30
[2022-01-08] MEDS ORDERED: IV FLUID CONTINUATION 900 ML IV ONE (13:15)
[2022-01-08] MEDS ORDERED: MIDAZOLAM 2 MG/2 ML VIAL IVP ONE (13:27)
[2022-01-08] MEDS ORDERED: fentaNYL (PF) 50 MCG/ML 2 ML AMP IVP ONE (13:27)
[2022-01-08] MEDS ORDERED: LIDOCAINE 1% INJ 10MG/ML (30 ML VIAL-PF) SQ ONE (13:28)
[2022-01-08] MEDS ORDERED: VERAPAMIL SYRINGE (5 MG/10 ML) INTRAARTER ONE (13:30)
[2022-01-08] MEDS ORDERED: HEPARIN SODIUM 1,000 UN/ML (10ML VL) IVP ONE (13:34)
[2022-01-08] MEDS ORDERED: IOPAMIDOL-370 125ML BTL INJ ONE (13:43)
--- NOTE | 2022-01-08 16:34 | P.GSCN ---
History of Present Illness Consult date: 01/08/22 Reason for Consult: Coronary artery disease with left main disease Requesting physician: Sabino Lenz History of present illness: This is an 81-year-old gentleman with a previous medical history of hypertension, hyperlipidemia, recent Covid infection 12/09/2021, gout, skin cancer status post resection, previous tobacco dependence, and occasional EtOH use. He presented to [facility] December 31 with complaints of back and shoulder pain with radiation to his jaw as well as shortness of breath, symptomatology lasting approximately 3 weeks. Upon presentation to the emergency room he was noted to be in new onset atrial fibrillation which she denies any previous history of. BNP was elevated at 8500, troponins were elevated at 22 and he was ruled in for non-STEMI. He was initiated on IV heparin. Transthoracic echocardiogram was completed demonstrating impaired left ventricular systolic function with EF 30-35%, apical wall hypokinesis, grade 1 diastolic dysfunction, mild mitral regurgitation, trace aortic insufficiency, and moderate to severe tricuspid regurgitation. Initially he was admitted to the telemetry unit with consultation placed to cardiology, however his blood pressure was noted to be low and he was transferred to the ICU and placed on dobutamine, dopamine, and Levophed. Over the next several days he developed acute kidney injury and nephrology was also consulted. As he continued to recover, pressors were weaned off, recommendations were made for heart catheterization which was completed today and which demonstrated left main stenosis 95%, RCA stenosis 100%, OM stenosis 70%, and proximal LAD stenosis 100%. Due to these findings consultation was placed to Dr. Ramirez from cardiothoracic surgery for revascularization recommendations. Review of Systems Review of systems was completed and was negative except as noted - Cardiovascular Cardiovascular Comment(s): Upper back and shoulder pain with radiation to the jaw Reports as per HPI, Reports dyspnea on exertion, Reports shortness of breath 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 History of Any Multi-Drug Resistant Organisms: None Reported Past Surgical History: Back Surgery, Tonsillectomy Additional Past Surgical History / Comment(s): Skin cancer removals/nose flaps, colonoscopy Past Anesthesia/Blood Transfusion Reactions: No Reported Reaction Past Psychological History: No Psychological Hx Reported Smoking Status: Former smoker Past Alcohol Use History: Occasional Additional Past Alcohol Use History / Comment(s): Drinks 2-3 drinks per week Past Drug Use History: None Reported Additional History: Quit smoking in 1989 - Past Family History Mother Family Medical History: No Reported History Additional Family Medical History / Comment(s): Mother was healthy Father Family Medical History: No Reported History Additional Family Medical History / Comment(s): Father was healthy Brother(s) Family Medical History: CVA/TIA Medications and Allergies Home Medications Medication Instructions Recorded Confirmed Type Aspirin EC [Ecotrin Low Dose] 40.5 mg PO W/SUPPER 12/31/21 12/31/21 History Atorvastatin [Lipitor] 40 mg PO HS 12/31/21 12/31/21 History Cholecalciferol [Vitamin D3 (125 125 mcg PO DAILY 12/31/21 12/31/21 History Mcg = 5000 Iu)] Lisinopril-Hctz 20-12.5 mg 1 tab PO BID-W/MEALS 12/31/21 12/31/21 History [Zestoretic 20-12.5] Vit C/E/Zn/Coppr/Lutein/Zeaxan 1 cap PO BID-W/MEALS 12/31/21 12/31/21 History [Preservision Areds 2 Softgel] allopurinoL [Zyloprim] 150 mg PO W/SUPPER 12/31/21 12/31/21 History amLODIPine [Norvasc] 5 mg PO W/LUNCH 12/31/21 12/31/21 History carvediloL [Coreg] 12.5 mg PO BID-W/MEALS 12/31/21 12/31/21 History fluorouraciL [Efudex] 1 applic TOPICAL MOTUWE 12/31/21 12/31/21 History Allergies Allergy/AdvReac Type Severity Reaction Status Date / Time No Known Allergies Allergy Verified 12/31/21 10:14 Surgical - Exam Vital Signs Temp Pulse Resp BP Pulse Ox 97.7 F 66 18 84/50 97 12/31/21 07:34 12/31/21 07:34 12/31/21 07:34 12/31/21 07:34 12/31/21 07:34 CONSTITUTIONAL: Awake and alert, appears comfortable, cooperative, well- developed, well-nourished, no pain, no acute distress EYES: Pupils equal, round, reactive to light, normal ocular movement ENT: Moist mucous membranes without oral lesions present NECK: No masses, no bruits, trachea midline RESPIRATORY: Lungs sounds diminished bilaterally. Respirations even, slightly labored with conversational. Currently on 2 L with oxygen saturation 94%. Strong cough. No chest wall deformities. No clubbing or cyanosis present CARDIOVASCULAR: S1, S2 present. Regular rate and rhythm, sinus rhythm on telemetry. Palpable peripheral pulses bilaterally. Bilateral ankle edema present. No calf pain or tenderness noted. No significant lower extremity varicosities noted. GASTROINTESTINAL: Abdomen soft, nontender, nondistended without masses or organomegaly noted. There is no rebound or guarding present. Active bowel sounds present 4 quadrants. GENITOURINARY: Deferred INTEGUMENTARY: Skin is warm and dry with evidence of good perfusion. NEUROLOGIC: Cranial nerves II through XII intact, normal coordination, no obvious motor or sensory deficits, speech is normal MUSKULOSKELETAL: Able to move all extremities, strength equal bilaterally, normal posture PSYCHIATRIC: Alert and oriented to person place and time, appropriate affect, intact judgment and insight Results - Labs 01/08/22 07:48 01/08/22 07:48 Abnormal Lab Results - Last 24 Hours (Table) 01/07/22 01/08/22 01/08/22 Range/Units 16:42 00:35 06:49 RBC (4.30-5.90) m/uL Hgb (13.0-17.5) gm/dL Hct (39.0-53.0) % MCV (80.0-100.0) fL APTT 82.5 H 58.3 H (22.0-30.0) sec Sodium (137-145) mmol/L BUN (9-20) mg/dL Glucose (74-99) mg/dL POC Glucose (mg/dL) 133 H (70-110) mg/dL 01/08/22 01/08/22 01/08/22 Range/Units 07:48 07:48 07:48 RBC 3.45 L (4.30-5.90) m/uL Hgb 11.4 L (13.0-17.5) gm/dL Hct 35.8 L (39.0-53.0) % MCV 103.9 H (80.0-100.0) fL APTT 57.0 H (22.0-30.0) sec Sodium 132 L (137-145) mmol/L BUN 43 H (9-20) mg/dL Glucose 113 H (74-99) mg/dL POC Glucose (mg/dL) (70-110) mg/dL Diabetes panel 01/08/22 Range/Units 07:48 Sodium 132 L (137-145) mmol/L Potassium 3.8 (3.5-5.1) mmol/L Chloride 99 (98-107) mmol/L Carbon Dioxide 24 (22-30) mmol/L BUN 43 H (9-20) mg/dL Creatinine 1.25 (0.66-1.25) mg/dL Glucose 113 H (74-99) mg/dL Calcium 8.4 (8.4-10.2) mg/dL Calcium panel 01/08/22 Range/Units 07:48 Calcium 8.4 (8.4-10.2) mg/dL Pituitary panel 01/08/22 Range/Units 07:48 Sodium 132 L (137-145) mmol/L Potassium 3.8 (3.5-5.1) mmol/L Chloride 99 (98-107) mmol/L Carbon Dioxide 24 (22-30) mmol/L BUN 43 H (9-20) mg/dL Creatinine 1.25 (0.66-1.25) mg/dL Glucose 113 H (74-99) mg/dL Calcium 8.4 (8.4-10.2) mg/dL Adrenal panel 01/08/22 Range/Units 07:48 Sodium 132 L (137-145) mmol/L Potassium 3.8 (3.5-5.1) mmol/L Chloride 99 (98-107) mmol/L Carbon Dioxide 24 (22-30) mmol/L BUN 43 H (9-20) mg/dL Creatinine 1.25 (0.66-1.25) mg/dL Glucose 113 H (74-99) mg/dL Calcium 8.4 (8.4-10.2) mg/dL - Imaging Chest x-ray: report reviewed, image reviewed EKG: image reviewed Additional studies: Heart catheterization and echocardiogram films reviewed with Dr. Ramirez Assessment and Plan Assessment: 1. Triple-vessel CAD with left main disease, non-STEMI this admission 2. Acute systolic heart failure 3. New onset atrial fibrillation, currently sinus rhythm 4. GABRIELA this admission 5. History of hypertension, was hypotensive on pressors at admit 6. Hyperlipidemia, treated 7. Recent Covid infection 12/09/2021 8. Gout 9. Skin cancer status post resection 10. Previous tobacco dependence 11. Occasional EtOH us Plan: The patient was seen and examined at the bedside. Chart/diagnostics were reviewed, heart cath and echo films reviewed with Dr. Ramirez. The usual periop erative course of open heart surgery was discussed in detail with the patient and his friend, risks and benefits were reviewed, all questions were answered. Preoperative testing was initiated, once completed will calculate STS risk score and discuss with the patient. Continue to maximize medical therapy with aspirin, statin, beta page therapy. Medical management of other comorbidities per primary care service. Thank you Dr. Lenz for this consult. More recommendations to follow. I have personally seen and examined the patient, performed the documentation and the assessment and plan as written. Number of minutes spent on the visit: 30. LIA Tate Patient seen and examined . All diagnostic studies reviewed and in particular today's repeat-echo and cath. Atypical acute [place] presentation with CHF , peak tr op 29, proBNP >8000. Today's echo after 1 week of medical Rx showed evidence of severe left Ventricular dysfunction with almost akinetic mid-distal anterior wall, moderate -severe MR, TR, pulmonary hypertension. Case discussed with Dr Riley and Dr Lenz. Patient is a very poor surgical candidate. He should be considered for high risk PCI/Stenting with impella support . Time spent 45 minutes. CARRINGTON RAMIREZ MD
[2022-01-08] MEDS: HEPARIN SOD,PORK IN 0.45% NACL 25,000 UNIT in 0.45% NACL 1 250ML.BAG IV SCH (16:37)
[2022-01-08] MEDS: SODIUM CHLORIDE 0.9% 1,000 ML in EMPTY BAG 1 BAG IV SCH (16:37)
[2022-01-08] MEDS: NON FORMULARY DRUG (Fluorouracil [Efudex] 40 GM Cream..G.) TOPICAL SCH (17:25)
--- NOTE | 2022-01-08 18:43 | P.PN ---
Subjective 81-year-old pleasant male came in with the upper back pain between the scapula and patient also vomiting, no pain in the chair. Jaw pain is mostly like spasms. Patient doesn't have any fever chills patient was diagnosed with COVID- 19 about couple weeks ago patient's pain in the back changes at the moment nonpleuritic patient had a CT angios the chest which did not show any significant X abnormality except for mild bilateral pleural effusions patient doesn't have any cardiac history found to have troponin of 22.3. EKG did not show any acute ST-T wave changes but is in A. fib and rate controlled. There is some degenerative to thoracic spine disease beyond which shows no other significant abnormality was seen. Patient was started on IV heparin cardiology was consulted patient although doesn't have any significant chest pain is back pain is not associated with lightheadedness or diaphoresis. 01/01/2022 Patient denies chest pain or dyspnea today. Also denies pain between his shoulder blades as he rated as 0/10. He has constipation but no abdominal pain. No vomiting. His PCP is Dr. Tyree dalal at bedside and patient TO TALK TO HIM ABOUT HIS HEALTH ISSUE Blood pressure on the low side, patient might have CHF however he is not tachypneic therefore going to try 1 L of normal saline. Patient currently continues on heparin drip and aspirin 81 mg added Blood pressure medication were held since admission including hydr ochlorothiazide 12.5 mg, lisinopril 20 mg Norvasc 5 mg. TSH is normal, CTA is negative for PE but there is vascular congestion of right upper lobe nodes. His creatinine went up today to 1.8. He is making good urine output Patient may be moved to the ICU for blood pressure treatment 01/02/2022 Patient states in the ICU, his awake, not significantly tachypneic while he is at rest. Patient blood pressure is improved while he is on pressors. He is kept on both dobutamine and the levophed drips. He has decent urine output and his creatinine improved as well 1.8 down to 1.3. Also he is on IV Lasix to help his fluid overload. He has hypoxia with oxygen requirement 10 L/m. Also he is continued on heparin drip and his rate controlled. Coreg is on hold. Currently blood pressure is 100/60. Heart rate is high 90s-100s. Coreg is on hold and he is continued on baby aspirin Other than that WBC 11.5, hemoglobin 12.2 and creatinine 1.39 abdominal ultrasound is negative. 01/06/2022 patient sitting up in chair the ICU, looks comfortable with mildly dyspneic. No chest pain or other complaints. Labs look stabilized with WBC back to normal at 6.6, hemoglobin 12.5, platelet 173. Creatinine 1.0. Patient currently on heparin drip with plan for cardiac cath tomorrow. [employer] team signed off. He is currently on aspirin 81 mg Metoprolol 25 mg and Lasix 40 mg daily 01/07/2022 Patient looks comfortable, awake and alert. Little short of breath and tachypnea while at rest but no other complaints. No chest pain. His vitals are stable Creatinine increased 1.0 up to 1.2. he remains on aspirin and heparin drip What patient was planned to undergo cardiac cath today but was put on hold because of high creatinine 1.2 01/08/2022 Patient awake and alert with no chest pain or other symptoms. He underwent cardiac cath showing severe triple vessel coronary artery disease Cardiothoracic surgery been consulted Continued with heparin drip Continue with aspirin and metoprolol. Also he has evidence of cardiomyopathy and ischemic in nature however he is euvolemic Objective - Vital Signs Vital signs: Vital Signs Temp 97.7 F 01/08/22 04:00 Pulse 93 01/08/22 08:05 Resp 16 01/08/22 08:05 BP 102/60 01/08/22 04:00 Pulse Ox 98 01/08/22 07:47 FiO2 Intake & Output 01/07/22 01/08/22 01/08/22 18:59 06:59 18:59 Intake Total 355.00 30 648 Output Total 200 Balance 155.00 30 648 Weight 81 kg 84 kg Intake: IV 105 30 648 0.9 NS 105 30 648 Intake, IV Titration 250.00 Amount Heparin Sod,Pork in 0.45% 250.00 NaCl 25,000 unit In 0.45 % NaCl 1 250ml.bag @ 12 UNITS/KG/HR 9.253 mls/hr IV .Q24H BENJAMIN Rx#: [id number] Output: Urine 200 Other: Voiding Method Toilet Toilet Urinal # Voids 1 0 3 # Bowel Movements 1 - Exam GENERAL: The patient is alert and oriented x3, not in any acute distress. Well developed, well nourished. HEENT: Pupils are round and equally reacting to light. EOMI. No scleral icterus. No conjunctival pallor. Normocephalic, atraumatic. No pharyngeal erythema. No thyromegaly. CARDIOVASCULAR: S1 and S2 present. No murmurs, rubs, or gallops. PULMONARY: Chest is clear to auscultation, no wheezing or crackles. ABDOMEN: Soft, nontender, nondistended, normoactive bowel sounds. No palpable organomegaly. MUSCULOSKELETAL: No joint swelling or deformity. EXTREMITIES: No cyanosis, clubbing, or pedal edema. NEUROLOGICAL: Gross neurological examination did not reveal any focal deficits. SKIN: No rashes. no petechiae. - Labs CBC & Chem 7: 01/08/22 07:48 01/08/22 07:48 Labs: Abnormal Lab Results - Last 24 Hours (Table) 01/07/22 01/08/22 01/08/22 Range/Units 16:42 00:35 06:49 RBC (4.30-5.90) m/uL Hgb (13.0-17.5) gm/dL Hct (39.0-53.0) % MCV (80.0-100.0) fL APTT 82.5 H 58.3 H (22.0-30.0) sec Sodium (137-145) mmol/L BUN (9-20) mg/dL Glucose (74-99) mg/dL POC Glucose (mg/dL) 133 H (70-110) mg/dL 01/08/22 01/08/22 01/08/22 Range/Units 07:48 07:48 07:48 RBC 3.45 L (4.30-5.90) m/uL Hgb 11.4 L (13.0-17.5) gm/dL Hct 35.8 L (39.0-53.0) % MCV 103.9 H (80.0-100.0) fL APTT 57.0 H (22.0-30.0) sec Sodium 132 L (137-145) mmol/L BUN 43 H (9-20) mg/dL Glucose 113 H (74-99) mg/dL POC Glucose (mg/dL) (70-110) mg/dL Assessment and Plan Assessment: -Non-STEMI with cardiac cath showing 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 Full standing seen, rule out clots, possible takotsubo syndrome . -Hypotension, secondary to above possible cardiogenic shock. Resolved -Moderate to severe tricuspid regurgitation -Recent history of covid 19 infection without pneumonia -Acute kidney injury. Resolved -Hyponatremia secondary to diuretics which will be held -Elevated creatinine unsure present patient has acute renal failure on chronic kidney disease will monitor the creatinine -Hypertension holding up anti-hypertensive medication patient blood pressure is low at this time Plan: This is a pleasant 81 years old male who presents with non-STEMI and hypertension possible congestive heart failure Continue with aspirin Continue with heparin drip Cardiology and pulmonary consult Cardiothoracic surgery consult Labs and medication were reviewed.. Continue same treatment. Continue with symptomatic treatment. Resume home medication. Monitor lytes and vitals. DVT and GI prophylaxis. Further recommendations as per clinical course of the patient DVT prophylaxis: heparin GI Prophylaxis: Pepcid Prognosis is guarded
[2022-01-08] MEDS: FUROSEMIDE 10 MG/ML 4 ML VIAL IV SCH ×2 (19:05→21:17)
--- NOTE | 2022-01-08 19:23 | P.CARDCATH ---
Description of Procedure: PROCEDURES PERFORMED: Left heart catheterization, bilateral coronary angiography INDICATION: NSTEMI CONSENT:I have discussed the risks, benefits and alternative therapies for the above-mentioned procedure and for both sedation/analgesia as well as necessary blood product administration, if indicated, as they pertain to this patient. The patient has indicated understanding and acceptance of the risks and procedures discussed. PROCEDURE: After the risks, benefits and alternatives of the above mentioned procedure explained in detail with the patient, informed consent was obtained. Patient was taken to the catheterization lab and prepped and draped in usual fashion. 1% lidocaine was used to anesthetize the right radial artery. A 6- Thai sheath was placed in the right radial artery using modified Seldinger technique. Left coronary angiography was performed with a 5-Thai JL 3.5 catheter. Attempts were initially made at RCA angiography with FR5 however not sitting well with possible occlusion on subselective images. Given collaterals and left main disease with CKD, decision was made to defer further imaging of R CA at this time. A 5-Thai FR5 catheter was inserted into the left ventricle and pressure measurements were obtained. The right radial sheath was removed and a TR band was placed with hemostasis achieved. The patient tolerated the procedure well. Patient was transported back to the post catheterization holding area in stable condition. Conscious Sedation: Patient was monitored under the direct supervision of vision of myself for conscious sedation using Versed and fentanyl for a total duration of 15 minutes HEMODYNAMICS: Aorta: 95/61 LV: 92/32, LVEDP 38 SELECTIVE CORONARY ARTERIOGRAPHY: LEFT MAIN: The left main is a large caliber vessel which bifurcates into the LAD and circumflex. There is distal left main 95% stenosis. LEFT ANTERIOR DESCENDING CORONARY ARTERY: LAD is a large caliber vessel which wraps around to the apex. There is proximal LAD 100% stenosis with left to left collaterals. LEFT CIRCUMFLEX CORONARY ARTERY: Left circumflex is a moderate caliber vessel with mild disease and a OM1 70% stenosis. RIGHT CORONARY ARTERY: The right coronary artery was not imaged however appeared to be occluded possibly at the ostium with robust left to right collaterals. FINAL IMPRESSION: 1. Multivessel CAD as described above with 95% left main, 100% proximal LAD, OM1 70%, 100% RCA stenosis 2. Extremely elevated left sided filling pressures PLAN: 1. Aggressive risk factor modification per most recent ACC/AHA guidelines. 2. Evaluate for possible CABG. If patient decompensates will likely need Impella or support device.
[2022-01-08] MEDS: ALPRAZolam 0.5 MG TAB PO PRN (20:07)
--- NOTE | 2022-01-08 20:59 | PN ---
PROGRESS NOTE This is an 81-year-old gentleman seen for the 1st day, came to hospital with shortness of breath, renal insufficiency, and atrial fibrillation. The patient had a coronavirus infection in November and apparently had antibody infusion at that time. His workup here revealed what appears like an apical ballooning syndrome and his renal functions have gradually gotten better. At the time of my evaluation, patient is sitting comfortably at rest. Denies any chest pain or difficulty in breathing and remains in atrial fibrillation with fairly well controlled ventricular rate. PHYSICAL EXAMINATION: GENERAL: He is comfortable at rest. VITAL SIGNS: Stable. CHEST: Reveals good air entry bilaterally. HEART: Reveals first and second heart sounds, irregular rhythm and a systolic murmur at the apex. ABDOMEN: Soft. EXTREMITIES: Did not reveal any edema. Peripheral pulses are felt. Patient is currently on aspirin, Lipitor, Lasix, intravenous heparin, Toprol. The patient will undergo cardiac cath. The patient's renal functions have worsened compared to the day before. The plan is to perform cardiac catheterization on him on 01/08/2022 if his renal functions are stable or are not getting significantly worse. MMODL / IJN: [id number] /
[2022-01-08] MEDS: ATORVASTATIN 40 MG TAB PO SCH (21:23)
[2022-01-09 00:07] LABS: Hepatitis A Antibody IgM Nonreactive (Nonreactive); Hepatitis B Core IgM Nonreactive (Nonreactive); Hepatitis B Surface Antigen Nonreactive (Nonreactive); Hepatitis C IgG Antibody Nonreactive (Nonreactive)
[2022-01-09 00:40] LABS: Chol/HDL Ratio 2.88 Ratio; LDL Cholesterol,Calculated 61.9 mg/dL (0.0-131.0); VLDL Calculation 15.14 mg/dL (5.00-40.00)
--- NOTE | 2022-01-09 07:38 | CA ---
Transthoracic Echo Report Name: Chuck Santiago Age: 81 Gender: M : 1940 Exam Date: 01/08/2022 16:29 Exam Location: [facility] Ht (in): 67 Wt (lb): 185 Ordering Physician: Marquita Umana Attending/Referring Phys: [id number], Lyndsay Supervisor [employer] Marquita Alicia RDCS Procedure CPT: Indications: preop cardiac surgery Cardiac Hx: Technical Quality: Good Contrast 1: Total Dose (mL): Contrast 2: Total Dose (mL): MEASUREMENTS (Male / Female) Normal Values 2D ECHO LV Diastolic Diameter PLAX 4.5 cm 4.2 - 5.9 / 3.9 - 5.3 cm LV Systolic Diameter PLAX 3.6 cm IVS Diastolic Thickness 1.0 cm 0.6 - 1.0 / 0.6 - 0.9 cm LVPW Diastolic Thickness 1.2 cm 0.6 - 1.0 / 0.6 - 0.9 cm LV Relative Wall Thickness 0.5 RV Internal Dim ED PLAX 2.5 cm LV Diastolic Volume MOD BP 75.8 cm??? 67 - 155 / 56 - 104 cm??? LV Systolic Volume MOD BP 53.6 cm??? 22 - 58 / 19 - 49 cm??? LV Ejection Fraction MOD BP 29.3 % >= 55 % LV Diastolic Volume MOD 4C 80.7 cm??? LV Systolic Volume MOD 4C 49.2 cm??? LV Ejection Fraction MOD 4C 39.0 % LV Diastolic Length 4C 8.5 cm LV Systolic Length 4C 8.2 cm LV Diastolic Volume MOD 2C 69.1 cm??? LV Systolic Volume MOD 2C 58.3 cm??? LV Ejection Fraction MOD 2C 15.7 % LV Diastolic Length 2C 8.2 cm LV Systolic Length 2C 8.2 cm LA Volume 56.5 cm??? 18 - 58 / 22 - 52 cm??? M-MODE Aortic Root Diameter MM 3.0 cm LA Systolic Diameter MM 4.0 cm LA Ao Ratio MM 1.3 MV E Point Septal Separation 0.7 cm AV Cusp Separation MM 1.8 cm DOPPLER AV Peak Velocity 80.1 cm/s AV Peak Gradient 2.6 mmHg AI Peak Velocity 274.3 cm/s AI Peak Gradient 30.1 mmHg AI Pressure Half Time 857.3 ms MV Area PHT 4.1 cm??? MR Peak Velocity 420.7 cm/s MR Peak Gradient 70.8 mmHg Mitral E Point Velocity 93.4 cm/s Mitral A Point Velocity 19.0 cm/s Mitral E to A Ratio 4.9 MV Deceleration Time 183.3 ms MV E' Velocity 4.3 cm/s Mitral E to MV E' Ratio 21.8 TR Peak Velocity 359.2 cm/s TR Peak Gradient 51.6 mmHg Right Ventricular Systolic Press 56.6 mmHg FINDINGS Left Ventricle Severely decreased left ventricular ejection fraction. Left ventricular ejection fraction is estimated at 30 %. Grade 3 diastolic dysfunction. Left ventricular wall thickness normal. There is hypokinesia from the mid to distal septum and adjoining anteroapical wall. Right Ventricle Normal right ventricular size and function. Severe pulmonary hypertension. Right Atrium Normal right atrial size. Left Atrium Mildly increased left atrial area. Mitral Valve Mitral valve thickened. Severe mitral regurgitation. Aortic Valve Focal thickening of the aortic valve cusps. Mild aortic regurgitation. Tricuspid Valve Severe tricuspid regurgitation. Pulmonic Valve Mild pulmonic regurgitation. Pericardium No pericardial effusion. Aorta Normal size aortic root and proximal ascending aorta. CONCLUSIONS LV at upper limits of normal with severe hypokinesia of the mid to distal septum and adjoining anteroapical wall and estimated ejection fraction of about 30-35%. No pericardial effusion severe pulmonary hypertension with right-sided pressures of about 55 mmHg. Aortic valve sclerosis and mitral annular calcification with severe mitral regurgitation Previewed by: Dr. Janie Hopson MD (Electronically Signed) Final Date: 09 January 2022 07:37
--- NOTE | 2022-01-09 07:39 | PN ---
PROGRESS NOTE SUBJECTIVE: The patient was seen initially for acute kidney injury, however, his renal function had improved, and we had signed off. However, serum creatinine has increased again slightly, and the patient is scheduled for cardiac catheterization today. This morning, he is comfortable. Denies any significant complaints. PHYSICAL EXAMINATION: VITAL SIGNS: Blood pressure was 104/65, heart rate 75 per minute, the patient is afebrile. HEART: S1, S2. LUNGS: Bilateral breath sounds are heard. ABDOMEN: Soft, nontender. LOWER EXTREMITIES: Shows trace edema bilaterally. 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 LABORATORY DATA: Labs show sodium 132, potassium 3.8, BUN 43, creatinine 1.25, hemoglobin 11.4 g/dL. ASSESSMENT: 1. Acute kidney injury, mostly cardiorenal. Renal function had improved with serum creatinine down to 0.9 to 1 mg/dL. Creatinine slightly up again at 1.25. Blood pressure remains on the lower side. The patient is maintained on Lopressor. We can proceed with cardiac catheterization. IV fluids have been started. 2. Volume overload on initial admission, now improved. 3. Acute on chronic systolic congestive heart failure with ejection fraction 30% to 35% with [id number] tricuspid regurgitation. 4. Hypervolemic hyponatremia, currently improved. PLAN: Continue with IV fluids. We will hold the dose of Lasix tomorrow unless the patient is hypervolemic. Repeat labs in the a.m. Avoid any other nephrotoxic agents. Renal function will likely worsen slightly, however, I do not expect severe acute kidney injury, requiring renal replacement therapy. MMODL / IJN: [id number] /
[2022-01-09] MEDS: IPRATROPIUM-ALBUTEROL 3 ML NEB INHALATION SCH ×4 (07:57→20:36)
[2022-01-09 08:08] LABS: Calcium 8.5 mg/dL (8.4-10.2); Potassium 4.1 mmol/L (3.5-5.1)
[2022-01-09] MEDS ORDERED: ALPRAZolam 0.25 MG TAB PO PRN (08:30)
[2022-01-09] MEDS ORDERED: NITROGLYCERIN SL TABS 0.4 MG TAB SUBLINGUAL PRN (08:30)
--- NOTE | 2022-01-09 09:10 | CDI ---
Documentation Clarification Form Date: 01/10/2022 08:59:00 AM From: Dimple Ac CCS, CCDS Admit Date: 12/31/2021 10:44:00 AM Patient Name: Chuck Santiago Visit Number: [id number] Discharge Date: ATTENTION: The Clinical Documentation Specialists (CDI) and [facility] Coding Staff appreciate your assistance in clarifying documentation. Please respond to the clarification below the line at the bottom and electronically sign. The CDI & [facility] Coding staff will review the response and follow-up if needed. Please note: Queries are made part of the Legal Health Record. If you have any questions, please contact the author of this message via ITS. Dr. Holly Anderson: Unspecified CKD is documented in the 12/31 History & Physical and in subsequent Progress Notes 01/01 - 01/08. Additional clarification regarding the stage of CKD is requested. History/Risk Factors per the 12/31 H/P: Degenerative thoracic spine disease, Hypertension, Former Smoker. Clinical Indicators: Presented to the ED on 12/31 with Back pain x3 weeks. Tested positive 12/09 for COVID. Developed back pain. Admit with Thoracic Back Pain, NSTEMI, New Onset CHF and Chest Pain. LAB: 12/31 BUN: 27, 01/01: 40, 01/06: 40, 01/09: 41 12/31 Creatinine: 1.24, 01/01: 1.88, 01/06: 1.09, 01/09: 1.20 12/31 GFR: 54, 01/01: 33, 01/06: 63, 01/09: 56 Treatment 12/31: Heparin Drip, PT/OT, IV Na Chl 1,000 mls @ 999 mls/hr q1H, po Aspirin 81 mg Daily, IV Pepcid 20 mg q12H. Nephrology Consulted 01/02: GABRIELA mostly prerenal secondary to cardiorenal syndrome. Acute on chronic Systolic CHF w/EF 30-35% with moderate to severe Tricuspid Regurgitation. Volume overload. NSTEMI on Heparin drip, Recent COVID Infection, Metabolic acidosis secondary to GABRIELA, Hypervolemic Hyponatremia. 01/08: Left Heart Catheterization Please clarify the stage of the CKD, if known: [ x ] CKD Stage 2 (GFR 60-89) [ ] CKD Stage 3 (GFR 30-59) [ ] CKD Stage 3a (GFR 45-59) [ ] CKD Stage 3b (GFR 30-44) [ ] CKD ruled out [ ] Other, please specify: [ ] Unable to determine (Template Last revised: June 2020) MTDD
[2022-01-09] MEDS: SODIUM CHLORIDE 0.9% 1,000 ML in EMPTY BAG 1 BAG IV SCH ×2 (09:16→22:52)
[2022-01-09] MEDS: CLOPIDOGREL 75 MG TAB PO STA ×2 (09:21→09:49)
[2022-01-09] MEDS: FUROSEMIDE 10 MG/ML 4 ML VIAL IV SCH ×2 (09:49→20:53)
[2022-01-09] MEDS: ASPIRIN 81 MG PO SCH (09:49)
[2022-01-09] MEDS: HEPARIN SOD,PORK IN 0.45% NACL 25,000 UNIT in 0.45% NACL 1 250ML.BAG IV SCH ×2 (09:49→22:20)
[2022-01-09] MEDS: FAMOTIDINE 20 MG TAB PO SCH (09:49)
[2022-01-09] MEDS: METOPROLOL SUCCINATE (ER) 25 MG TAB.ER.24H PO SCH ×2 (09:49→20:53)
--- NOTE | 2022-01-09 10:30 | P.PN ---
Subjective Patient is seen for follow-up for acute kidney injury which was mostly cardiorenal. Renal function had improved. Serum creatinine staying at about 1.1-1.2 mg/dL. Patient is status post cardiac catheterization which showed triple-vessel disease and he has been evaluated by cardiothoracic surgery with patient not being a candidate for surgical intervention. Patient was also noted to have extremely elevated left-sided filling pressures and was started on IV Lasix yesterday. No significant complaints today. Objective - Vital Signs Vital signs: Vital Signs Temp 96.5 F L 01/09/22 08:00 Pulse 83 01/09/22 10:00 Resp 29 H 01/09/22 10:00 BP 112/82 01/09/22 10:00 Pulse Ox 93 L 01/09/22 10:00 FiO2 Intake & Output 01/08/22 01/09/22 01/09/22 18:59 06:59 18:59 Intake Total 908 390 Output Total 300 610 Balance 608 -220 Weight 84 kg Intake: IV 748 140 0.9 NS 648 140 Intake, IV Titration 250 Amount Heparin Sod,Pork in 0.45% 250 NaCl 25,000 unit In 0.45 % NaCl 1 250ml.bag @ 12 UNITS/KG/HR 9.253 mls/hr IV .Q24H [facility] Rx#: [id number] Oral 160 Output: Urine 300 610 Other: Voiding Method Toilet Toilet Toilet # Voids 3 - Exam Awake, comfortable, not in any acute distress Examination of the heart S1 and S2 Examination lungs bilateral breath sounds are heard Abdomen is soft nontender Examination lower extremity shows edema mainly in the ankles DEVOPS ARCHITECT exam grossly intact - Labs CBC & Chem 7: 01/08/22 07:48 01/09/22 07:31 Labs: Abnormal Lab Results - Last 24 Hours (Table) 01/09/22 01/09/22 Range/Units 07:31 07:31 APTT 46.4 H (22.0-30.0) sec Sodium 134 L (137-145) mmol/L BUN 41 H (9-20) mg/dL Glucose 102 H (74-99) mg/dL Assessment and Plan Assessment: 1. Acute kidney injury mostly prerenal secondary to cardiorenal syndrome. Creatinine peaked at 1.88 this admission and down to 1.2 now. Creatinine was 1.24 on admission. Unknown baseline renal function. UA fairly benign. No hydronephrosis noted on kidney ultrasound. 2. Acute on chronic systolic CHF with ejection fraction of 30-35% with moderate to severe tricuspid regurgitation. 3. Volume overload. 4. Non-ST elevated myocardial infarction maintained on heparin drip. 5. Recent covid infection. 6. Metabolic acidosis secondary to acute kidney injury. On oral bicarbonate. 7. Hypervolemic hyponatremia. Plan: May continue with IV Lasix with close monitoring of renal function.
--- NOTE | 2022-01-09 12:12 | P.PN ---
Subjective Progress Note Date: 01/09/22 This 81-year-old gentleman underwent a cardiac cath yesterday found to have multivessel coronary artery disease, 95% blockage of the left main, 100% of the proximal LAD, OM1 70%, 100% RCA stenosis. patient was evaluated for possible coronary artery bypass grafting and was determined to be not a surgical c andidate. Patient will undergo high risk PCI within impella support tomorrow with Dr. Lenz. His echocardiogram showed a severely decreased LV function with an ejection fraction of 30-35%, hypokinesis of the mid to distal septum and adjoining anteroapical wall. Patient is on aspirin, Plavix, Toprol, and Lipitor. Labs reviewed cholesterol 118 triglycerides LDL 61 HDL 41 Patient seen today resting comfortably in the chair with no signs of acute distress, he denies chest pain or increased shortness of breath. Discussed in detail heart cath tomorrow. Objective - Vital Signs Vital signs: Vital Signs Temp 96.5 F L 01/09/22 08:00 Pulse 82 01/09/22 11:13 Resp 29 H 01/09/22 10:00 BP 112/82 01/09/22 10:00 Pulse Ox 93 L 01/09/22 10:00 FiO2 Intake & Output 01/08/22 01/09/22 01/09/22 18:59 06:59 18:59 Intake Total 908 390 160 Output Total 300 610 300 Balance 608 -220 -140 Weight 84 kg Intake: IV 748 140 160 0.9 NS 648 140 160 Intake, IV Titration 250 Amount Heparin Sod,Pork in 0.45% 250 NaCl 25,000 unit In 0.45 % NaCl 1 250ml.bag @ 12 UNITS/KG/HR 9.253 mls/hr IV .Q24H [facility] Rx#: [id number] Oral 160 Output: Urine 300 610 300 Other: Voiding Method Toilet Toilet Toilet # Voids 3 - Exam PHYSICAL EXAM: VITAL SIGNS: Reviewed. GENERAL: Well-developed in no acute distress. HEENT: Head is normocephalic. Pupils are equal, round. Sclerae anicteric. Mucous membranes of the mouth are moist. NECK: Supple. No JVD or thyromegaly RESPIRATORY: Respirations even and unlabored. Lungs diminished to auscultation bilaterally. CARDIO: Regular rate and rhythm. S1 and S2 heard. No murmur or gallops. EXTREMITIES: Normal range of motion. No clubbing or cyanosis. Peripheral pulses intact. Negative for bilateral lower extremity edema NEURO: Orientated to person, time, mood is appropriate - Labs CBC & Chem 7: 01/08/22 07:48 01/09/22 07:31 Labs: Abnormal Lab Results - Last 24 Hours (Table) 01/09/22 01/09/22 Range/Units 07:31 07:31 APTT 46.4 H (22.0-30.0) sec Sodium 134 L (137-145) mmol/L BUN 41 H (9-20) mg/dL Glucose 102 H (74-99) mg/dL Assessment and Plan Assessment: Multivessel coronary artery disease Plan: Patient will undergo cardiac catheterization with Impella support with Dr. Lenz at 7:30am Continue with all current cardiac medications as an echocardiogram reviewed
--- NOTE | 2022-01-09 13:20 | US ---
EXAMINATION TYPE: US carotid duplex BILAT DATE OF EXAM: 01/08/2022 COMPARISON: NONE CLINICAL HISTORY: preop cardiac surgery. TECHNIQUE: Carotid duplex ultrasound examination. Indirect Doppler criteria was utilized. FINDINGS: EXAM MEASUREMENTS: RIGHT: Peak Systolic Velocity (PSV) cm/sec ----- Right CCA: 46.1 ----- Right ICA: 94.3 ----- Right ECA: 60.3 ICA/CCA ratio: 2.0 RIGHT: End Diastole cm/sec ----- Right CCA: 0.0 ----- Right ICA: 27.0 ----- Right ECA: 8.7 LEFT: Peak Systolic Velocity (PSV) cm/sec ----- Left CCA: 61.4 ----- Left ICA: 78.4 ----- Left ECA: 77.5 ICA/CCA ratio: 1.3 LEFT: End Diastole cm/sec ----- Left CCA: 18.6 ----- Left ICA: 23.5 ----- Left ECA: 12.8 VERTEBRALS (direction of flow): Right Vertebral: Antegrade Left Vertebral: Antegrade Rhythm: Normal COMMISSARY ASSISTANT NOTES: Grayscale images show moderate to severe diffuse plaque involving common and internal carotid arterie s bilaterally. Velocity measurements and ratios however remain within normal limits. IMPRESSION: Moderate to severe diffuse atherosclerotic changes without hemodynamically significant s tenosis seen in either internal carotid artery. Criteria for Assigning % of Stenosis / Diameter reduction (Estimation based on the indirect measurements of the internal carotid artery velocities (ICA PSV). 1. Normal (no stenosis)=ICA PSV < 125 cm/s: ratio < 2.0: ICA EDV<40 cm/s. 2. Less than 50% stenosis=ICA PSV < 125 cm/s: ratio < 2.0: ICA EDV<40 cm/s. 3. 50 to 69% stenosis=ICA PSV of 125 to 230 cm/s: ration 2.0 ? 4.0: ICA EDV 40-100 cm/s. 4. Greater than 70% stenosis to near occlusion= ICA PSV > 230 cm/s: ratio > 4.0: ICA EDV > 100 cm/s. 5. Near occlusion= ICA PSV velocities may be low or undetectable: variable ratio and ICA EDV. 6. Total occlusion=unable to detect flow.
[2022-01-09] MEDS: ATORVASTATIN 40 MG TAB PO SCH (20:53)
--- NOTE | 2022-01-09 21:48 | XR ---
EXAMINATION TYPE: XR chest 1V portable DATE OF EXAM: 01/08/2022 CLINICAL HISTORY: CHF. TECHNIQUE: Single AP portable upright view of the chest is obtained. COMPARISON: Chest x-ray from 4 days earlier FINDINGS: Increasing left basilar opacity. Small right pleural effusion redemonstrated. Stable mild cardiomegaly with atherosclerotic thoracic aorta and slightly more prominent mild central vascular co ngestion. Osseous structures are intact. IMPRESSION: Suspect worsening CHF as there is mild cardiomegaly with slightly more prominent central vascular congestion. Stable small right pleural effusion. Suspect worsening small to moderate size le ft pleural effusion and worsening left basilar atelectasis and/or acute infiltrate.
--- NOTE | 2022-01-09 22:08 | P.PN ---
Subjective 81-year-old pleasant male came in with the upper back pain between the scapula and patient also vomiting, no pain in the chair. Jaw pain is mostly like spasms. Patient doesn't have any fever chills patient was diagnosed with COVID- 19 about couple weeks ago patient's pain in the back changes at the moment nonpleuritic patient had a CT angios the chest which did not show any significant X abnormality except for mild bilateral pleural effusions patient doesn't have any cardiac history found to have troponin of 22.3. EKG did not show any acute ST-T wave changes but is in A. fib and rate controlled. There is some degenerative to thoracic spine disease beyond which shows no other significant abnormality was seen. Patient was started on IV heparin cardiology was consulted patient although doesn't have any significant chest pain is back pain is not associated with lightheadedness or diaphoresis. 01/01/2022 Patient denies chest pain or dyspnea today. Also denies pain between his shoulder blades as he rated as 0/10. He has constipation but no abdominal pain. No vomiting. His PCP is Dr. Tyree dalal at bedside and patient TO TALK TO HIM ABOUT HIS HEALTH ISSUE Blood pressure on the low side, patient might have CHF however he is not tachypneic therefore going to try 1 L of normal saline. Patient currently continues on heparin drip and aspirin 81 mg added Blood pressure medication were held since admission including hydr ochlorothiazide 12.5 mg, lisinopril 20 mg Norvasc 5 mg. TSH is normal, CTA is negative for PE but there is vascular congestion of right upper lobe nodes. His creatinine went up today to 1.8. He is making good urine output Patient may be moved to the ICU for blood pressure treatment 01/02/2022 Patient states in the ICU, his awake, not significantly tachypneic while he is at rest. Patient blood pressure is improved while he is on pressors. He is kept on both dobutamine and the levophed drips. He has decent urine output and his creatinine improved as well 1.8 down to 1.3. Also he is on IV Lasix to help his fluid overload. He has hypoxia with oxygen requirement 10 L/m. Also he is continued on heparin drip and his rate controlled. Coreg is on hold. Currently blood pressure is 100/60. Heart rate is high 90s-100s. Coreg is on hold and he is continued on baby aspirin Other than that WBC 11.5, hemoglobin 12.2 and creatinine 1.39 abdominal ultrasound is negative. 01/06/2022 patient sitting up in chair the ICU, looks comfortable with mildly dyspneic. No chest pain or other complaints. Labs look stabilized with WBC back to normal at 6.6, hemoglobin 12.5, platelet 173. Creatinine 1.0. Patient currently on heparin drip with plan for cardiac cath tomorrow. Bindery Assistant team signed off. He is currently on aspirin 81 mg Metoprolol 25 mg and Lasix 40 mg daily 01/07/2022 Patient looks comfortable, awake and alert. Little short of breath and tachypnea while at rest but no other complaints. No chest pain. His vitals are stable Creatinine increased 1.0 up to 1.2. he remains on aspirin and heparin drip What patient was planned to undergo cardiac cath today but was put on hold because of high creatinine 1.2 01/08/2022 Patient awake and alert with no chest pain or other symptoms. He underwent cardiac cath showing severe triple vessel coronary artery disease Cardiothoracic surgery been consulted Continued with heparin drip Continue with aspirin and metoprolol Also he has evidence of cardiomyopathy and ischemic in nature however he is euvolemic 01/09/2022 patient's clinically comfortable while at rest while he is on IV Lasix and heparin drip He has severe triple-vessel coronary artery disease with severe hypokinesia seen on echocardiogram Patient found high-risk surgical candidate, therefore it was recommended for the patient to undergo heart cath with Impella support tomorrow morning Objective - Vital Signs Vital signs: Vital Signs Temp 97.8 F 01/09/22 11:45 Pulse 83 01/09/22 14:00 Resp 15 01/09/22 14:00 BP 134/84 01/09/22 11:45 Pulse Ox 97 01/09/22 11:45 FiO2 Intake & Output 01/08/22 01/09/22 01/09/22 18:59 06:59 18:59 Intake Total 908 390 160 Output Total 300 610 625 Balance 360 -058 -767 Weight 84 kg Intake: IV 748 140 160 0.9 NS 648 140 160 Intake, IV Titration 250 Amount Heparin Sod,Pork in 0.45% 250 NaCl 25,000 unit In 0.45 % NaCl 1 250ml.bag @ 12 UNITS/KG/HR 9.253 mls/hr IV .Q24H [facility] Rx#: [id number] Oral 160 Output: Urine 300 610 625 Other: Voiding Method Toilet Toilet Toilet # Voids 3 - Exam GENERAL: The patient is alert and oriented x3, not in any acute distress. Well developed, well nourished. HEENT: Pupils are round and equally reacting to light. EOMI. No scleral icterus. No conjunctival pallor. Normocephalic, atraumatic. No pharyngeal erythema. No thyromegaly. CARDIOVASCULAR: S1 and S2 present. No murmurs, rubs, or gallops. PULMONARY: Chest is clear to auscultation, no wheezing or crackles. ABDOMEN: Soft, nontender, nondistended, normoactive bowel sounds. No palpable organomegaly. MUSCULOSKELETAL: No joint swelling or deformity. EXTREMITIES: No cyanosis, clubbing, or pedal edema. NEUROLOGICAL: Gross neurological examination did not reveal any focal deficits. SKIN: No rashes. no petechiae. 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 Full standing seen, rule out clots, possible takotsubo syndrome . -Hypotension, secondary to above possible cardiogenic shock. Resolved -Moderate to severe tricuspid regurgitation -Recent history of covid 19 infection without pneumonia -Acute kidney injury. Resolved -Hyponatremia secondary to diuretics which will be held -Elevated creatinine unsure present patient has acute renal failure on chronic kidney disease will monitor the creatinine -Hypertension holding up anti-hypertensive medication patient blood pressure is low at this time Plan: This is a pleasant 81 years old male who presents with non-STEMI and hypertension possible congestive heart failure Continue with aspirin Continue with heparin drip Cardiology and pulmonary consult Cardiothoracic surgery consult Labs and medication were reviewed.. Continue same treatment. Continue with symptomatic treatment. Resume home medication. Monitor lytes and vitals. DVT and GI prophylaxis. Further recommendations as per clinical course of the patient DVT prophylaxis: heparin GI Prophylaxis: Pepcid Prognosis is guarded
[2022-01-09] MEDS: MELATONIN 3 MG TABLET PO PRN (22:20)
[2022-01-09] MEDS: ALPRAZolam 0.5 MG TAB PO PRN (22:20)
[2022-01-10] MEDS ORDERED: CLOPIDOGREL 75 MG TAB PO ONE (06:00)
[2022-01-10] MEDS: ASPIRIN 81 MG PO SCH (06:17)
[2022-01-10] MEDS: METOPROLOL SUCCINATE (ER) 25 MG TAB.ER.24H PO SCH ×2 (06:31→21:24)
[2022-01-10] MEDS: FAMOTIDINE 20 MG TAB PO SCH (06:31)
[2022-01-10] MEDS ORDERED: ASPIRIN 325 MG TAB PO ONE (07:00)
[2022-01-10] MEDS ORDERED: HEPARIN SODIUM,PORCINE 2,500 UNIT in SODIUM CHLORIDE 0.9% 250 ML IRRIGATION PRN (07:00)
[2022-01-10] MEDS ORDERED: HEPARIN SODIUM,PORCINE 10,000 UNIT in SODIUM CHLORIDE 0.9% 1,000 ML IRRIGATION PRN (07:00)
[2022-01-10] MEDS ORDERED: ATORVASTATIN 80 MG TAB PO ONE (07:00)
[2022-01-10] MEDS ORDERED: fentaNYL (PF) 50 MCG/ML 2 ML AMP ONE (07:32)
[2022-01-10] MEDS ORDERED: LIDOCAINE 1% INJ 10MG/ML (30 ML VIAL-PF) SQ ONE (07:34)
[2022-01-10] MEDS ORDERED: fentaNYL (PF) 50 MCG/ML 2 ML AMP IV ONE (07:34)
[2022-01-10] MEDS: MIDAZOLAM 2 MG/2 ML VIAL IV ONE ×2 (07:34→09:23)
[2022-01-10] MEDS ORDERED: IV FLUID CONTINUATION 900 ML IV ONE (07:37)
[2022-01-10] MEDS: HEPARIN SODIUM 1,000 UN/ML (10ML VL) IV ONE ×2 (07:53→08:08)
[2022-01-10] MEDS: IPRATROPIUM-ALBUTEROL 3 ML NEB INHALATION SCH ×4 (08:20→19:19)
[2022-01-10] MEDS: HEPARIN SODIUM 1,000 UN/ML (10ML VL) ONE ×4 (08:37→11:03)
[2022-01-10] MEDS ORDERED: IOPAMIDOL-370 125ML BTL INJ ONE ×2 (09:57→11:27)
[2022-01-10] MEDS ORDERED: HEPARIN SODIUM 1,000 UN/ML (10ML VL) ONE (11:02)
[2022-01-10] MEDS ORDERED: IOPAMIDOL-370 100ML BTL INJ ONE (11:27)
[2022-01-10 11:59] LABS: Glucose,Whole Blood 101 mg/dL (70-110)
[2022-01-10] MEDS: FUROSEMIDE 10 MG/ML 4 ML VIAL IV SCH ×2 (12:07→21:25)
[2022-01-10] MEDS: SODIUM CHLORIDE 0.9% 1,000 ML in EMPTY BAG 1 BAG IV SCH ×3 (12:08→23:56)
--- NOTE | 2022-01-10 16:12 | US ---
EXAMINATION TYPE: US vein mapping BILAT DATE OF EXAM: 01/08/2022 6:26 PM COMPARISON: NONE CLINICAL HISTORY: preop cardiac surgery. SIDE PERFORMED: bilateral TECHNIQUE: Lower extremity saphenous vein is examined and measured utilizing real time linear array sonography. DUPLEX FINDINGS: Greater Saphenous: Color flow seen Measurements in mm: Right Greater Saphenous: Groin: 4 x 4mm High Thigh: 6 x 5 mm Mid Thigh: 3 x 2 mm Above Knee: 3 x 2 mm Knee: 1 x 1 mm Below Knee: 2 x 2 mm Mid Calf: 2 x 1 mm At Ankle: 1 x 1 mm Left Greater Saphenous: Groin: 8 x 7 mm High Thigh: 5 x 5 mm Mid Thigh: 3 x 2 mm Above Knee: 3 x 2 mm Knee: 2 x 1 mm Below Knee: 2 x 1 mm Mid Calf: 1 x 1 mm At Ankle: 1 x 1 mm IMPRESSION: 1. Bilateral GSV measurements listed above. 2. Performing surgeon to determine viability as conduit.
--- NOTE | 2022-01-10 17:56 | P.PN ---
Subjective 81-year-old pleasant male came in with the upper back pain between the scapula and patient also vomiting, no pain in the chair. Jaw pain is mostly like spasms. Patient doesn't have any fever chills patient was diagnosed with COVID- 19 about couple weeks ago patient's pain in the back changes at the moment nonpleuritic patient had a CT angios the chest which did not show any significant X abnormality except for mild bilateral pleural effusions patient doesn't have any cardiac history found to have troponin of 22.3. EKG did not show any acute ST-T wave changes but is in A. fib and rate controlled. There is some degenerative to thoracic spine disease beyond which shows no other significant abnormality was seen. Patient was started on IV heparin cardiology was consulted patient although doesn't have any significant chest pain is back pain is not associated with lightheadedness or diaphoresis. 01/01/2022 Patient denies chest pain or dyspnea today. Also denies pain between his shoulder blades as he rated as 0/10. He has constipation but no abdominal pain. No vomiting. His PCP is Dr. Tyree dalal at bedside and patient TO TALK TO HIM ABOUT HIS HEALTH ISSUE Blood pressure on the low side, patient might have CHF however he is not tachypneic therefore going to try 1 L of normal saline. Patient currently continues on heparin drip and aspirin 81 mg added Blood pressure medication were held since admission including hydr ochlorothiazide 12.5 mg, lisinopril 20 mg Norvasc 5 mg. TSH is normal, CTA is negative for PE but there is vascular congestion of right upper lobe nodes. His creatinine went up today to 1.8. He is making good urine output Patient may be moved to the ICU for blood pressure treatment 01/02/2022 Patient states in the ICU, his awake, not significantly tachypneic while he is at rest. Patient blood pressure is improved while he is on pressors. He is kept on both dobutamine and the levophed drips. He has decent urine output and his creatinine improved as well 1.8 down to 1.3. Also he is on IV Lasix to help his fluid overload. He has hypoxia with oxygen requirement 10 L/m. Also he is continued on heparin drip and his rate controlled. Coreg is on hold. Currently blood pressure is 100/60. Heart rate is high 90s-100s. Coreg is on hold and he is continued on baby aspirin Other than that WBC 11.5, hemoglobin 12.2 and creatinine 1.39 abdominal ultrasound is negative. 01/06/2022 patient sitting up in chair the ICU, looks comfortable with mildly dyspneic. No chest pain or other complaints. Labs look stabilized with WBC back to normal at 6.6, hemoglobin 12.5, platelet 173. Creatinine 1.0. Patient currently on heparin drip with plan for cardiac cath tomorrow. Bookkeeping Clerk team signed off. He is currently on aspirin 81 mg Metoprolol 25 mg and Lasix 40 mg daily 01/07/2022 Patient looks comfortable, awake and alert. Little short of breath and tachypnea while at rest but no other complaints. No chest pain. His vitals are stable Creatinine increased 1.0 up to 1.2. he remains on aspirin and heparin drip What patient was planned to undergo cardiac cath today but was put on hold because of high creatinine 1.2 01/08/2022 Patient awake and alert with no chest pain or other symptoms. He underwent cardiac cath showing severe triple vessel coronary artery disease Cardiothoracic surgery been consulted Continued with heparin drip Continue with aspirin and metoprolol Also he has evidence of cardiomyopathy and ischemic in nature however he is euvolemic 01/09/2022 patient's clinically comfortable while at rest while he is on IV Lasix and heparin drip He has severe triple-vessel coronary artery disease with severe hypokinesia seen on echocardiogram Patient found high-risk surgical candidate, therefore it was recommended for the patient to undergo heart cath with Impella support tomorrow morning 01/10/2022 I see the patient's once he came from his cardiac cath this morning, he was informed to 61 of the ICU resting comfortably. Hemodynamically stable. He underwent cardiac cath with ampulla and as per primary report 2 stents has been placed. Currently she remains on aspirin Plavix and IV Lasix. Creatinine is stable at 1.2 and we'll keep monitoring. Objective - Vital Signs Vital signs: Vital Signs Temp 97.4 F L 01/10/22 16:00 Pulse 102 H 01/10/22 17:00 Resp 12 01/10/22 17:00 BP 125/86 01/10/22 17:00 Pulse Ox 95 01/10/22 17:00 FiO2 Intake & Output 01/09/22 01/10/22 01/10/22 18:59 06:59 18:59 Intake Total 700 303.625 6976 Output Total 1000 650 100 Balance -300 -483.046 950 Weight 78.8 kg 78.8 kg Intake: IV 160 1050 0.9 NS 160 500 Intake, IV Titration 166.954 Amount Heparin Sod,Pork in 0.45% 166.954 NaCl 25,000 unit In 0.45 % NaCl 1 250ml.bag @ 12 UNITS/KG/HR 9.253 mls/hr IV .Q24H [facility] Rx#: [id number] Oral 540 Output: Urine 1000 650 100 Other: Voiding Method Toilet Toilet Urinal # Voids 1 - Exam GENERAL: The patient is alert and oriented x3, not in any acute distress. Well developed, well nourished. HEENT: Pupils are round and equally reacting to light. EOMI. No scleral icterus. No conjunctival pallor. Normocephalic, atraumatic. No pharyngeal erythema. No thyromegaly. CARDIOVASCULAR: S1 and S2 present. No murmurs, rubs, or gallops. PULMONARY: Chest is clear to auscultation, no wheezing or crackles. ABDOMEN: Soft, nontender, nondistended, normoactive bowel sounds. No palpable organomegaly. MUSCULOSKELETAL: No joint swelling or deformity. EXTREMITIES: No cyanosis, clubbing, or pedal edema. NEUROLOGICAL: Gross neurological examination did not reveal any focal deficits. SKIN: No rashes. no petechiae. 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 Full standing seen, rule out clots, possible takotsubo syndrome . -Hypotension, secondary to above possible cardiogenic shock. Resolved -Moderate to severe tricuspid regurgitation -Recent history of covid 19 infection without pneumonia -Acute kidney injury. Resolved -Hyponatremia secondary to diuretics which will be held -Elevated creatinine unsure present patient has acute renal failure on chronic kidney disease will monitor the creatinine -Hypertension holding up anti-hypertensive medication patient blood pressure is low at this time Plan: This is a pleasant 81 years old male who presents with non-STEMI and hypertension possible congestive heart failure Continue with aspirin and Plavix Continue with heparin drip Cardiology and pulmonary consult Cardiothoracic surgery consult Labs and medication were reviewed.. Continue same treatment. Continue with symptomatic treatment. Resume home medication. Monitor lytes and vitals. DVT and GI prophylaxis. Further recommendations as per clinical course of the patient DVT prophylaxis: heparin GI Prophylaxis: Pepcid Prognosis is guarded
[2022-01-10] MEDS: HEPARIN SOD,PORK IN 0.45% NACL 25,000 UNIT in 0.45% NACL 1 250ML.BAG IV SCH (18:07)
[2022-01-10] MEDS: ALPRAZolam 0.5 MG TAB PO PRN (21:24)
[2022-01-10] MEDS: MELATONIN 3 MG TABLET PO PRN (21:25)
[2022-01-10] MEDS: ATORVASTATIN 40 MG TAB PO SCH (21:25)
[2022-01-10] MEDS ORDERED: RX INFO: IV CONTRAST WAS GIVEN 1 EACH MISC MISCELLANE PRN (22:45)
--- NOTE | 2022-01-10 22:45 | P.PRCINT ---
Percutaneous Coronary Int. - Percutaneous Coronary Intervention Percutaneous Coronary Intervention: PROCEDURES PERFORMED: Left coronary angiography, Impella CP placement, protected left main into circumflex PCI with a 4.0 x 15mm Xience QIANA, post dilated in the left main with a 5.0 NC balloon, IVUS left main into circumflex and LAD, attempted wiring of EXPENDITURE REQUISITION CLERK of LAD, balloon angioplasty ostium of the LAD with a 3.0 x 12mm balloon, PCI OM1 with a 2.5 x 12mm Xience QIANA INDICATION: Non-STEMI, cardiomyopathy, severe triple vessel disease, prohibitive risk for surgery CONSENT:I have discussed the risks, benefits and alternative therapies for the above-mentioned procedure and for both sedation/analgesia as well as necessary blood product administration, if indicated, as they pertain to this patient. The patient has indicated understanding and acceptance of the risks and procedures discussed. PROCEDURE: After the risks, benefits and alternatives of the above mentioned procedure explained in detail with the patient, informed consent was obtained. Patient was taken to the catheterization lab and prepped and draped in usual fashion. 1% lidocaine was used to anesthetize the right femoral area. Using ultrasound guidance and micropuncture technique the micropuncture catheter was inserted however angiography showed inappropriate positioning. Therefore left femoral axis was obtained. Using ultrasound guidance a 6-Moroccan sheath was placed in the left common femoral artery. 2 Percloses were placed in the left femoral artery for pre-close technique. Next a 14-Moroccan sheath was placed. A pigtail catheter was advanced into the left ventricle and pressure measurements were obtained with an LVEDP of 16. Heparin was given. Next the Impella CP was placed in the LV over a 0.018 wire. The Impella was turned on with 3.5 L/m output. Using micropuncture technique the 6-Moroccan sheath was advanced through the 14-Moroccan sheath. A 6-Moroccan CLS 3.5 guide was used to engage left main. A 0.014 BMW wire was advanced into the distal circumflex. A Corsair microcatheter was advanced to the site of the short LAD EXPENDITURE REQUISITION CLERK with a BMW wire area next using a fielder XT, company pilot 200, Confianza Pro 0.014 wire, multiple attempts were made at crossing the EXPENDITURE REQUISITION CLERK. Multiple times the wire crossed and appeared to be LAD however angiography showed either in a septal branch, a diagonal branch or at one point appeared to be coursing near the apex however outside of the vessel may have been in a vein. Balloon angioplasty had been performed of the proximal segment with a 1.0 and 2.0 balloon. Given the wire appeared subintimal and extraluminal IVUS was performed which did show extraluminal. Multiple further attempts were made for approximately over 2 hours and therefore further attempts on the EXPENDITURE REQUISITION CLERK were abandoned. The decision was made to perform provisional PCI of the left main into the circumflex. Therefore balloon angioplasty was performed of the origin of the LAD with a 3.0 x 12mm NC balloon. IVUS of the left main into circumflex was performed showing the left main 5.0mm in diameter and the circumflex 4.0mm. Balloon angioplasty was performed of the left main into circumflex with a 4.0 x 12 mm NC balloon with good expansion. Next, a 4.0 x 15mm Xience QIANA was placed from the left main into the circumflex. The proximal portion of the stent in the left main was post dilated with a 5.0 x 8mm NC balloon. Repeat IVUS was performed which showed well expanded stent with no dissection. Preintervention there was 95% stenosis and DORA 3 flow and post intervention there was 0% stenosis with DORA 3 flow. Next the OM1 branch also had a 90% stenosis and given this fed the majority of the viable myocardium, PCI was recommended. Therefore a 2nd 0.014 BMW wire was advanced into the distal OM1 branch. Balloon angioplasty was performed with a 2.5 x 8mm balloon. Next a 2.5 x 12mm Xience QIANA was deployed at the origin of the OM1. The wire was pulled and final angiograms were performed. Preintervention there was 90% stenosis and DORA 3 flow and post intervention there was DORA 3 flow and 0% stenosis. The Impella was weaned and removed from the LV and withdrawn. The 14Fr sheath was pulled and the pecloses were deployed with hemostasis achieved. The patient tolerated the procedure well. Patient was transported back to the post catheterization holding area in stable condition. Conscious Sedation: Patient was monitored under the direct supervision of vision of myself for conscious sedation using Versed and fentanyl for a total duration of 226 minutes HEMODYNAMICS: Ao: 100/59 LV: 98/7, LVEDP 16 SELECTIVE CORONARY ARTERIOGRAPHY: LEFT MAIN: The left main is a large caliber vessel which bifurcates into the LAD and circumflex. There is distal left main 95% stenosis. LEFT ANTERIOR DESCENDING CORONARY ARTERY: LAD is a large caliber vessel which wraps around to the apex. There is 100% proximal LAD stenosis. There are faint left to left collaterals. LEFT CIRCUMFLEX CORONARY ARTERY: Left circumflex is a large caliber vessel with diffuse mild 30-40% stenosis. OM1 is a moderate caliber vessel with proximal 90% stenosis. RIGHT CORONARY ARTERY: The right coronary artery was not imaged however known to be occluded with left to right collaterals. FINAL IMPRESSION: 1. CAD as described above with 95% left main, 100% proximal LAD, 100% RCA, 90% OM1 stenosis 2. S/p Impella protected PCI left main into circumflex with a 4.0 x 15mm Xience QIANA, post dilated in the left main with a 5.0 NC balloon and additional PCI OM1 with a 2.5 x 12mm Xience QIANA 3. S/p attempted wiring of EXPENDITURE REQUISITION CLERK LAD however IVUS showing extraluminal at the level of 1st septal branch 4. Normal left sided filling pressures PLAN: 1. Aggressive risk factor modification per most recent ACC/AHA guidelines. 2. Continue triple therapy with aspirin, Plavix and Eliquis for 1 week then transition to Plavix and Eliquis for 12 months. 3. May consider further PCI EXPENDITURE REQUISITION CLERK LAD or RCA however would need to establish viability before further interventions attempted.
[2022-01-11 06:47] LABS: HCT 38.2 % (39.0-53.0); HGB 12.4 gm/dL (13.0-17.5); Hypochromasia Slight; MCH 34.1 pg (25.0-35.0); MCHC 32.4 g/dL (31.0-37.0); MCV 105.1 fL (80.0-100.0); Macrocytosis Moderate; Mean Platelet Volume 8.4; Platelet Count 167 k/uL (150-450); RBC 3.63 m/uL (4.30-5.90); RDW 13.8 % (11.5-15.5)
[2022-01-11 06:49] LABS: Calcium 8.1 mg/dL (8.4-10.2)
[2022-01-11 07:07] LABS: Potassium 4.2 mmol/L (3.5-5.1)
[2022-01-11] MEDS: IPRATROPIUM-ALBUTEROL 3 ML NEB INHALATION SCH ×4 (08:53→20:20)
[2022-01-11] MEDS: FAMOTIDINE 20 MG TAB PO SCH (09:31)
[2022-01-11] MEDS: CLOPIDOGREL 75 MG TAB PO SCH (09:31)
[2022-01-11] MEDS: METOPROLOL SUCCINATE (ER) 25 MG TAB.ER.24H PO SCH ×2 (09:31→20:31)
[2022-01-11] MEDS: ASPIRIN 81 MG PO SCH (09:31)
--- NOTE | 2022-01-11 11:12 | P.PN ---
Subjective Progress Note Date: 01/11/22 Principal diagnosis: 81-year-old male seen in consultation because of acute kidney injury from cardiorenal syndrome on Lasix. Has had cardiac catheterization with three- vessel disease not a surgical candidate. He is in atrial fibrillation. Feels little bit better today, remains somewhat short of breath. Appetite is poor. Vital signs her's stable except for blood pressure being in the 98/64-101/67 range 24-hour intake is 2010 and output is 550. He is off of Lasix He is known with previous colon and on 12/09/2021, colon cancer, Objective - Vital Signs Vital signs: Vital Signs Temp 98.2 F 01/11/22 08:00 Pulse 99 01/11/22 10:00 Resp 27 H 01/11/22 10:00 BP 98/64 01/11/22 10:00 Pulse Ox 95 01/11/22 10:00 FiO2 Intake & Output 01/10/22 01/11/22 01/11/22 18:59 06:59 18:59 Intake Total 1130 880 160 Output Total 350 200 250 Balance 780 680 -90 Weight 78.8 kg 83.6 kg Intake: IV 1130 880 160 0.9 NS 580 880 160 Intake, IV Titration 0 Amount Heparin Sod,Pork in 0.45% 0 NaCl 25,000 unit In 0.45 % NaCl 1 250ml.bag @ 12 UNITS/KG/HR 9.253 mls/hr IV .Q24H [facility] Rx#: [id number] Output: Urine 350 200 250 Other: Voiding Method Urinal Toilet Toilet Urinal Urinal # Voids 1 1 On examination awake alert oriented but generalized weakness. HEENT exam no JVP neck is supple no facial asymmetry Lungs are significant for bilateral wheezing with an occasional coarse crackle Heart sounds unremarkable for any murmur rub gallop Abdomen soft nontender Extremity exam was minimal edema Neurologically awake alert oriented - Labs CBC & Chem 7: 01/11/22 06:00 01/11/22 06:00 Labs: Abnormal Lab Results - Last 24 Hours (Table) 01/11/22 01/11/22 01/11/22 Range/Units 00:06 06:00 06:00 RBC 3.63 L (4.30-5.90) m/uL Hgb 12.4 L (13.0-17.5) gm/dL Hct 38.2 L (39.0-53.0) % MCV 105.1 H (80.0-100.0) fL APTT 51.7 H (22.0-30.0) sec Sodium 134 L (137-145) mmol/L Carbon Dioxide 19 L (22-30) mmol/L BUN 31 H (9-20) mg/dL Glucose 117 H (74-99) mg/dL Calcium 8.1 L (8.4-10.2) mg/dL Assessment and Plan Assessment: Impression 1. Acute kidney injury cardiorenal syndrome, creatinine is back to 1.01 baseline 2. Congestive heart failure, with few wheezes and occasional crackles 3. Blood pressure low currently on metoprolol 25 twice a day 4. Cardiac cath performed 01/20/2022 yesterday, with stent 5. Left sided filling pressures are normal on cardiac cath yesterday Recommendation 1. We will resume small dose of Lasix 20 mg a day starting because of the mild wheezing keep a close watch on blood pressure and creatinine
--- NOTE | 2022-01-11 14:18 | P.PN ---
Subjective HISTORY OF PRESENTING ILLNESS This 81-year-old gentleman underwent a cardiac cath yesterday found to have multivessel coronary artery disease, 95% blockage of the left main, 100% of the proximal LAD, OM1 70%, 100% RCA stenosis. patient was evaluated for possible coronary artery bypass grafting and was determined to be not a surgical candidate. Patient will undergo high risk PCI within impella support tomorrow with Dr. Lenz. His echocardiogram showed a severely decreased LV function with an ejection fraction of 30-35%, hypokinesis of the mid to distal septum and adjoining anteroapical wall. Patient is on aspirin, Plavix, Toprol, and L ipitor. Labs reviewed cholesterol 118 triglycerides LDL 61 HDL 41 01/11 Patient seen and examined. Patient underwent Impella protected PCI left main and circumflex with attempted wiring of LAD CARE AIDE which was unsuccessful with additional balloon angioplasty of the origin of the LAD yesterday from a left femoral approach. He states he is feeling much better and he actually states that his back pain has improved. Suspect his back pain has been his angina symptoms. He admits his breathing is also somewhat improved. Mildly tachycardic with A. fib with heart rates in the 100-110 range. He has been on the metoprolol 25 mg twice a day. PHYSICAL EXAMINATION Vital signs reviewed. CONSTITUTIONAL: No apparent distress. HEENT: Head is normocephalic. Pupils are equal, round. Sclerae anicteric. Mucous membranes of the mouth are moist. No JVD. No carotid bruit. CHEST EXAMINATION: Lungs are clear to auscultation. No chest wall tenderness is noted on palpation or with deep breathing. HEART EXAMINATION: Irregularly irregular rate and rhythm. S1, S2 heard. No murmurs, gallops or rub. ABDOMEN: Soft, nontender. Positive bowel sounds. EXTREMITIES: 2+ peripheral pulses, no lower extremity edema and no calf tenderness. NEUROLOGIC EXAMINATION: Patient is awake, alert and oriented x3. ASSESSMENT 1. Triple vessel disease with left main 95% stenosis, LAD 100% stenosis, OM1 90% stenosis and RCA 100% stenosis, s/p PCI left main, OM1 2. Chronic systolic heart failure, currently appears euvolemic 3. New-onset atrial fibrillation, mild RVR 4. History of hypertension, borderline hypotensive this hospitalization 5. Acute kidney injury, cardiorenal syndrome improved 6. Previous COVID-19 infection 7. Previous tobacco abuse 8. Back pain suspect his angina symptom, improved after PCI left main, OM1 9. Non-STEMI PLAN Patient's left femoral site appears well-healed and hemoglobin and creatinine appears stable. We will transition patient from heparin to Alquist's and check coverage. Patient mildly tachycardic and increase the metoprolol from 25-50 mg twice a day for better heart rate control. May always consider PCI of CARE AIDE LAD and RCA however would need to establish viability before performing this. Continue triple therapy for 1 week then tranistion to Plavix and Eliquis. Fu rther recommendations to follow. Likely DC in 48-72 hrs if improves. Objective - Vital Signs Vital signs: Vital Signs Temp 98.2 F 01/11/22 12:00 Pulse 116 H 01/11/22 13:00 Resp 26 H 01/11/22 13:00 BP 96/65 01/11/22 13:00 Pulse Ox 96 01/11/22 13:00 FiO2 Intake & Output 01/10/22 01/11/22 01/11/22 18:59 06:59 18:59 Intake Total 1130 880 160 Output Total 350 200 250 Balance 780 680 -90 Weight 78.8 kg 83.6 kg Intake: IV 1130 880 160 0.9 NS 580 880 160 Intake, IV Titration 0 Amount Heparin Sod,Pork in 0.45% 0 NaCl 25,000 unit In 0.45 % NaCl 1 250ml.bag @ 12 UNITS/KG/HR 9.253 mls/hr IV .Q24H [facility] Rx#: [id number] Output: Urine 350 200 250 Other: Voiding Method Urinal Toilet Toilet Urinal Urinal # Voids 1 1 - Labs CBC & Chem 7: 01/11/22 06:00 01/11/22 06:00 Labs: Abnormal Lab Results - Last 24 Hours (Table) 01/11/22 01/11/22 01/11/22 Range/Units 00:06 06:00 06:00 RBC 3.63 L (4.30-5.90) m/uL Hgb 12.4 L (13.0-17.5) gm/dL Hct 38.2 L (39.0-53.0) % MCV 105.1 H (80.0-100.0) fL APTT 51.7 H (22.0-30.0) sec Sodium 134 L (137-145) mmol/L Carbon Dioxide 19 L (22-30) mmol/L BUN 31 H (9-20) mg/dL Glucose 117 H (74-99) mg/dL Calcium 8.1 L (8.4-10.2) mg/dL
[2022-01-11 17:10] VITALS: BMI 28.8
[2022-01-11] MEDS: SODIUM CHLORIDE 0.9% 1,000 ML in EMPTY BAG 1 BAG IV SCH ×2 (19:17)
[2022-01-11] MEDS: ALPRAZolam 0.5 MG TAB PO PRN (20:31)
[2022-01-11] MEDS: ATORVASTATIN 40 MG TAB PO SCH (20:31)
[2022-01-11] MEDS: APIXABAN 5 MG TAB PO SCH (20:31)
--- NOTE | 2022-01-11 23:32 | P.PN ---
Subjective 81-year-old pleasant male came in with the upper back pain between the scapula and patient also vomiting, no pain in the chair. Jaw pain is mostly like spasms. Patient doesn't have any fever chills patient was diagnosed with COVID- 19 about couple weeks ago patient's pain in the back changes at the moment nonpleuritic patient had a CT angios the chest which did not show any significant X abnormality except for mild bilateral pleural effusions patient doesn't have any cardiac history found to have troponin of 22.3. EKG did not show any acute ST-T wave changes but is in A. fib and rate controlled. There is some degenerative to thoracic spine disease beyond which shows no other significant abnormality was seen. Patient was started on IV heparin cardiology was consulted patient although doesn't have any significant chest pain is back pain is not associated with lightheadedness or diaphoresis. 01/01/2022 Patient denies chest pain or dyspnea today. Also denies pain between his shoulder blades as he rated as 0/10. He has constipation but no abdominal pain. No vomiting. His PCP is Dr. Tyree dalal at bedside and patient TO TALK TO HIM ABOUT HIS HEALTH ISSUE Blood pressure on the low side, patient might have CHF however he is not tachypneic therefore going to try 1 L of normal saline. Patient currently continues on heparin drip and aspirin 81 mg added Blood pressure medication were held since admission including hydr ochlorothiazide 12.5 mg, lisinopril 20 mg Norvasc 5 mg. TSH is normal, CTA is negative for PE but there is vascular congestion of right upper lobe nodes. His creatinine went up today to 1.8. He is making good urine output Patient may be moved to the ICU for blood pressure treatment 01/02/2022 Patient states in the ICU, his awake, not significantly tachypneic while he is at rest. Patient blood pressure is improved while he is on pressors. He is kept on both dobutamine and the levophed drips. He has decent urine output and his creatinine improved as well 1.8 down to 1.3. Also he is on IV Lasix to help his fluid overload. He has hypoxia with oxygen requirement 10 L/m. Also he is continued on heparin drip and his rate controlled. Coreg is on hold. Currently blood pressure is 100/60. Heart rate is high 90s-100s. Coreg is on hold and he is continued on baby aspirin Other than that WBC 11.5, hemoglobin 12.2 and creatinine 1.39 abdominal ultrasound is negative. 01/06/2022 patient sitting up in chair the ICU, looks comfortable with mildly dyspneic. No chest pain or other complaints. Labs look stabilized with WBC back to normal at 6.6, hemoglobin 12.5, platelet 173. Creatinine 1.0. Patient currently on heparin drip with plan for cardiac cath tomorrow. Librarian Assistant team signed off. He is currently on aspirin 81 mg Metoprolol 25 mg and Lasix 40 mg daily 01/07/2022 Patient looks comfortable, awake and alert. Little short of breath and tachypnea while at rest but no other complaints. No chest pain. His vitals are stable Creatinine increased 1.0 up to 1.2. he remains on aspirin and heparin drip What patient was planned to undergo cardiac cath today but was put on hold because of high creatinine 1.2 01/08/2022 Patient awake and alert with no chest pain or other symptoms. He underwent cardiac cath showing severe triple vessel coronary artery disease Cardiothoracic surgery been consulted Continued with heparin drip Continue with aspirin and metoprolol Also he has evidence of cardiomyopathy and ischemic in nature however he is euvolemic 01/09/2022 patient's clinically comfortable while at rest while he is on IV Lasix and heparin drip He has severe triple-vessel coronary artery disease with severe hypokinesia seen on echocardiogram Patient found high-risk surgical candidate, therefore it was recommended for the patient to undergo heart cath with Impella support tomorrow morning 01/10/2022 I see the patient's once he came from his cardiac cath this morning, he was informed to 61 of the ICU resting comfortably. Hemodynamically stable. He underwent cardiac cath with ampulla and as per primary report 2 stents has been placed. Currently she remains on aspirin Plavix and IV Lasix. Creatinine is stable at 1.2 and we'll keep monitoring. 01-11-2022 patient keep monitored in the ICU. No significant chest pain or other symptoms. Vitals and labs are stable. WBCs 10. Hemoglobin 12.4. Creatinine stable at 1.1. He has 2 stents placed yesterday, he has also left main disease besides severe triple coronary artery disease. He had PCI to LAD and OM1 He is on aspirin Plavix and Eliquis. Metoprolol increased today to 50 mg be cause of tachycardia. Patient will be kept monitor to the hospital for 48-72 hours Objective - Vital Signs Vital signs: Vital Signs Temp 98.2 F 01/11/22 08:00 Pulse 77 01/11/22 09:05 Resp 16 01/11/22 09:05 BP 101/67 01/11/22 09:00 Pulse Ox 95 01/11/22 08:00 FiO2 Intake & Output 01/10/22 01/11/22 01/11/22 18:59 06:59 18:59 Intake Total 1130 880 160 Output Total 350 200 250 Balance 780 680 -90 Weight 78.8 kg 83.6 kg Intake: IV 1130 880 160 0.9 NS 580 880 160 Intake, IV Titration 0 Amount Heparin Sod,Pork in 0.45% 0 NaCl 25,000 unit In 0.45 % NaCl 1 250ml.bag @ 12 UNITS/KG/HR 9.253 mls/hr IV .Q24H [facility] Rx#: [id number] Output: Urine 350 200 250 Other: Voiding Method Urinal Toilet Toilet Urinal Urinal # Voids 1 1 - Exam GENERAL: The patient is alert and oriented x3, not in any acute distress. Well developed, well nourished. HEENT: Pupils are round and equally reacting to light. EOMI. No scleral icterus. No conjunctival pallor. Normocephalic, atraumatic. No pharyngeal erythema. No thyromegaly. CARDIOVASCULAR: S1 and S2 present. No murmurs, rubs, or gallops. PULMONARY: Chest is clear to auscultation, no wheezing or crackles. ABDOMEN: Soft, nontender, nondistended, normoactive bowel sounds. No palpable organomegaly. MUSCULOSKELETAL: No joint swelling or deformity. EXTREMITIES: No cyanosis, clubbing, or pedal edema. NEUROLOGICAL: Gross neurological examination did not reveal any focal deficits. SKIN: No rashes. no petechiae. 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 Full standing seen, rule out clots, possible takotsubo syndrome . -Hypotension, secondary to above possible cardiogenic shock. Resolved -Moderate to severe tricuspid regurgitation -Recent history of covid 19 infection without pneumonia -Acute kidney injury. Resolved -Hyponatremia secondary to diuretics which will be held -Elevated creatinine unsure present patient has acute renal failure on chronic kidney disease will monitor the creatinine -Hypertension holding up anti-hypertensive medication patient blood pressure is low at this time Plan: This is a pleasant 81 years old male who presents with non-STEMI and hypertension possible congestive heart failure Continue with aspirin and Plavix Continue with heparin drip Cardiology and pulmonary consult Cardiothoracic surgery consult Labs and medication were reviewed.. Continue same treatment. Continue with symptomatic treatment. Resume home medication. Monitor lytes and vitals. DVT and GI prophylaxis. Further recommendations as per clinical course of the patient DVT prophylaxis: heparin GI Prophylaxis: Pepcid Prognosis is guarded
[2022-01-12] MEDS: SODIUM CHLORIDE 0.9% 1,000 ML in EMPTY BAG 1 BAG IV SCH ×4 (07:59→15:44)
[2022-01-12] MEDS: IPRATROPIUM-ALBUTEROL 3 ML NEB INHALATION SCH ×4 (08:42→19:25)
[2022-01-12] MEDS: APIXABAN 5 MG TAB PO SCH ×2 (09:53→21:36)
[2022-01-12] MEDS: FAMOTIDINE 20 MG TAB PO SCH (09:53)
[2022-01-12] MEDS: FUROSEMIDE 20 MG TAB PO SCH (09:53)
[2022-01-12] MEDS: ASPIRIN 81 MG PO SCH (09:53)
[2022-01-12] MEDS: CLOPIDOGREL 75 MG TAB PO SCH (09:53)
[2022-01-12] MEDS: METOPROLOL SUCCINATE (ER) 25 MG TAB.ER.24H PO SCH ×2 (09:53→21:36)
--- NOTE | 2022-01-12 10:36 | P.PN ---
Subjective Progress Note Date: 01/12/22 Principal diagnosis: 81-year-old male seen in consultation because of acute kidney injury from cardiorenal syndrome on Lasix. Has had cardiac catheterization with three- vessel disease not a surgical candidate. He is in atrial fibrillation. Feels little bit better today, remains somewhat short of breath. Appetite is poor. Vital signs her's stable except for blood pressure low in the 90s to 111 systolic 24-hour intake is documented at 160 mL and output at 500 mL On labs done yesterday 01/11/2022, His creatinine is down to 1.01 sodium is 134 stable bicarb is down to 19 from 25. No history of diarrhea Objective - Vital Signs Vital signs: Vital Signs Temp 97.9 F 01/12/22 08:00 Pulse 79 01/12/22 08:52 Resp 16 01/12/22 08:52 BP 106/65 01/12/22 08:00 Pulse Ox 94 L 01/12/22 08:42 FiO2 Intake & Output 01/11/22 01/12/22 01/12/22 18:59 06:59 18:59 Intake Total 160 Output Total 500 Balance -340 Weight 83.6 kg Intake: IV 160 0.9 NS 160 Output: Urine 500 Other: Voiding Method Toilet Toilet Urinal Urinal # Voids 2 # Bowel Movements 0 On examination awake alert oriented comfortable HEENT exam no JVP neck is supple no facial asymmetry Lungs clear to auscultation good air entry bilaterally Heart sounds atrial fibrillation Abdomen soft nontender Extremity exam was trace edema Neurologically awake alert oriented - Labs CBC & Chem 7: 01/11/22 06:00 01/11/22 06:00 Assessment and Plan Assessment: Impression 1. Acute kidney injury cardiorenal syndrome, creatinine is back to 1.01 baseline. Status post cardiac cath 01/10/2022. Watch for contrast-induced nephropathy 2. Congestive heart failure, with few wheezes and occasional crackles, resolved. On Lasix 20 mg daily started yesterday 3. Blood pressure low currently on metoprolol 25 twice a day 4. Cardiac cath performed 01/20/2022 yesterday, with stent 5. Left sided filling pressures are normal on cardiac cath yesterday. 6. New onset of non-gap acidosis. Etiology is not clear. Unlikely to be a compensate response to respiratory alkalosis Recommendation 1. Watch bicarb with repeat labs tomorrow 2. continue Lasix 20 mg a day started 01/11/2022 yesterday, because of the mild wheezing keep a close watch on blood pressure and creatinine
--- NOTE | 2022-01-12 14:30 | P.PN ---
Subjective HISTORY OF PRESENTING ILLNESS This 81-year-old gentleman underwent a cardiac cath yesterday found to have multivessel coronary artery disease, 95% blockage of the left main, 100% of the proximal LAD, OM1 70%, 100% RCA stenosis. patient was evaluated for possible coronary artery bypass grafting and was determined to be not a surgical candidate. Patient will undergo high risk PCI within impella support tomorrow with Dr. Lenz. His echocardiogram showed a severely decreased LV function with an ejection fraction of 30-35%, hypokinesis of the mid to distal septum and adjoining anteroapical wall. Patient is on aspirin, Plavix, Toprol, and L ipitor. Labs reviewed cholesterol 118 triglycerides LDL 61 HDL 41 01/11 Patient seen and examined. Patient underwent Impella protected PCI left main and circumflex with attempted wiring of LAD RN FIRST ASSISTANT which was unsuccessful with additional balloon angioplasty of the origin of the LAD yesterday from a left femoral approach. He states he is feeling much better and he actually states that his back pain has improved. Suspect his back pain has been his angina symptoms. He admits his breathing is also somewhat improved. Mildly tachycardic with A. fib with heart rates in the 100-110 range. He has been on the metoprolol 25 mg twice a day. 01/12 Patient seen and examined. Patient states he has been doing well. Denies any chest pain or back pain. No issues with left femoral site. BP in the 90's. PHYSICAL EXAMINATION Vital signs reviewed. CONSTITUTIONAL: No apparent distress. HEENT: Head is normocephalic. Pupils are equal, round. Sclerae anicteric. Mucous membranes of the mouth are moist. No JVD. No carotid bruit. CHEST EXAMINATION: Lungs are clear to auscultation. No chest wall tenderness is noted on palpation or with deep breathing. HEART EXAMINATION: Irregularly irregular rate and rhythm. S1, S2 heard. No murmurs, gallops or rub. ABDOMEN: Soft, nontender. Positive bowel sounds. EXTREMITIES: 2+ peripheral pulses, no lower extremity edema and no calf tenderness. NEUROLOGIC EXAMINATION: Patient is awake, alert and oriented x3. ASSESSMENT 1. Triple vessel disease with left main 95% stenosis, LAD 100% stenosis, OM1 90% stenosis and RCA 100% stenosis, s/p PCI left main, OM1 2. Chronic systolic heart failure, currently appears euvolemic 3. New-onset atrial fibrillation, mild RVR 4. History of hypertension, borderline hypotensive this hospitalization 5. Acute kidney injury, cardiorenal syndrome improved 6. Previous COVID-19 infection 7. Previous tobacco abuse 8. Back pain suspect his angina symptom, improved after PCI left main, OM1 9. Non-STEMI PLAN She appears to be progressing well. Not having any significant angina-type symptoms. Optimize heart failure regimen as able. Borderline blood pressures however attempt to optimize heart failure regimen and add lisinopril 2.5 mg daily. Continue with metoprolol. Heart rates still borderline in the 90s to low 100s. Possible discharge home in next 24-48 hours. Discussed recommendations for LifeVest and patient is agreeable. Social work to further assess coverage for anticoagulation as well as LifeVest. Objective - Vital Signs Vital signs: Vital Signs Temp 98.7 F 01/12/22 12:00 Pulse 101 H 01/12/22 13:18 Resp 16 01/12/22 13:18 BP 112/62 01/12/22 12:00 Pulse Ox 95 01/12/22 12:00 FiO2 Intake & Output 01/11/22 01/12/22 01/12/22 18:59 06:59 18:59 Intake Total 160 Output Total 500 Balance -340 Weight 83.6 kg Intake: IV 160 0.9 NS 160 Output: Urine 500 Other: Voiding Method Toilet Toilet Urinal Urinal # Voids 2 # Bowel Movements 0 - Labs CBC & Chem 7: 01/11/22 06:00 01/11/22 06:00
[2022-01-12] MEDS: ATORVASTATIN 40 MG TAB PO SCH (21:36)
[2022-01-12] MEDS: ALPRAZolam 0.5 MG TAB PO PRN (21:36)
--- NOTE | 2022-01-13 07:47 | P.PN ---
Subjective Progress Note Date: 01/13/22 Principal diagnosis: Severe CAD The patient is a pleasant 81-year-old gentleman who was admitted to the hospital with chest discomfort and underwent a heart catheterization and that revealed severe disease involving the left main coronary artery. He was deemed to be high risk for bypass surgery and for that reason he underwent PCI of the left main coronary artery with hemodynamic support. The patient was seen this morning. He is asymptomatic from a cardiovascular standpoint of view. He is hemodynamically stable as well. He continues to be in atrial fibrillation was controlled heart rate. Objective - Vital Signs Vital signs: Vital Signs Temp 97.1 F L 01/13/22 04:00 Pulse 86 01/13/22 04:00 Resp 20 01/13/22 04:00 BP 113/66 01/13/22 04:00 Pulse Ox 96 01/13/22 04:00 FiO2 Intake & Output 01/12/22 01/13/22 01/13/22 18:59 06:59 18:59 Output Total 250 Balance -250 Output: Urine 250 Other: Voiding Method Toilet Urinal # Voids 1 - Constitutional General appearance: Present: no acute distress - Respiratory Respiratory: bilateral: diminished - Cardiovascular Rhythm: irregularly irregular Heart sounds: normal: S1, S2 - Labs CBC & Chem 7: 01/11/22 06:00 01/11/22 06:00 Assessment and Plan Assessment: Assessment #1 severe CAD and status post PCI of the left main #2 chronic systolic heart failure the patient currently is euvolemic #3 atrial fibrillation was controlled heart rate #4 multiple comorbid conditions Plan #1 continue the current medical regimen #2 the patient is asymptomatic and hemodynamic stable #3 the patient can be transferred to the third floor
[2022-01-13] MEDS: IPRATROPIUM-ALBUTEROL 3 ML NEB INHALATION SCH ×4 (08:11→20:15)
[2022-01-13 08:34] LABS: Calcium 8.2 mg/dL (8.4-10.2); Potassium 3.3 mmol/L (3.5-5.1)
[2022-01-13] MEDS ORDERED: POTASSIUM CHLORIDE ER 20 MEQ TAB.ER PO STA (08:58)
--- NOTE | 2022-01-13 08:58 | P.PN ---
Subjective Patient is seen in follow-up for acute kidney injury. Renal function stable. On oral Lasix. Good urine output. No vomiting or diarrhea. Denies chest pain or shortness of breath. Vital signs are stable. General: Awake. No acute distress. HEENT: Head exam is unremarkable. LUNGS: Breath sounds decreased. HEART: Rate and Rhythm are regular. ABDOMEN: Soft, no distention. EXTREMITITES: Trace edema. Objective - Vital Signs Vital signs: Vital Signs Temp 97.1 F L 01/13/22 04:00 Pulse 78 01/13/22 08:22 Resp 20 01/13/22 04:00 BP 113/66 01/13/22 04:00 Pulse Ox 96 01/13/22 04:00 FiO2 Intake & Output 01/12/22 01/13/22 01/13/22 18:59 06:59 18:59 Output Total 250 Balance -250 Output: Urine 250 Other: Voiding Method Toilet Urinal # Voids 1 - Labs CBC & Chem 7: 01/11/22 06:00 01/13/22 07:58 Labs: Abnormal Lab Results - Last 24 Hours (Table) 01/13/22 Range/Units 07:58 Sodium 136 L (137-145) mmol/L Potassium 3.3 L (3.5-5.1) mmol/L BUN 22 H (9-20) mg/dL Glucose 122 H (74-99) mg/dL Calcium 8.2 L (8.4-10.2) mg/dL Assessment and Plan Plan: Assessment: 1. Acute kidney injury mostly prerenal secondary to cardiorenal syndrome. Also underwent cardiac catheterization on January 08 of 01/10/2022 and had a stent placed. Creatinine 0.99 today. 2. Acute on chronic systolic CHF ejection fraction of 30% with severe tricuspid and mitral regurgitation and pulmonary hypertension. 3. Metabolic acidosis secondary to acute kidney injury. Improved. 4. Hypokalemia from diuresis. Magnesium normal. 5. Coronary disease status post cardiac stenting this admission. Plan: Maintain oral Lasix. Encouraged oral intake. Avoid nephrotoxins. Replace potassium.
--- NOTE | 2022-01-13 10:01 | P.PN ---
Subjective 81-year-old pleasant male came in with the upper back pain between the scapula and patient also vomiting, no pain in the chair. Jaw pain is mostly like spasms. Patient doesn't have any fever chills patient was diagnosed with COVID- 19 about couple weeks ago patient's pain in the back changes at the moment nonpleuritic patient had a CT angios the chest which did not show any significant X abnormality except for mild bilateral pleural effusions patient doesn't have any cardiac history found to have troponin of 22.3. EKG did not show any acute ST-T wave changes but is in A. fib and rate controlled. There is some degenerative to thoracic spine disease beyond which shows no other significant abnormality was seen. Patient was started on IV heparin cardiology was consulted patient although doesn't have any significant chest pain is back pain is not associated with lightheadedness or diaphoresis. 01/01/2022 Patient denies chest pain or dyspnea today. Also denies pain between his shoulder blades as he rated as 0/10. He has constipation but no abdominal pain. No vomiting. His PCP is Dr. Tyree dalal at bedside and patient TO TALK TO HIM ABOUT HIS HEALTH ISSUE Blood pressure on the low side, patient might have CHF however he is not tachypneic therefore going to try 1 L of normal saline. Patient currently continues on heparin drip and aspirin 81 mg added Blood pressure medication were held since admission including hydr ochlorothiazide 12.5 mg, lisinopril 20 mg Norvasc 5 mg. TSH is normal, CTA is negative for PE but there is vascular congestion of right upper lobe nodes. His creatinine went up today to 1.8. He is making good urine output Patient may be moved to the ICU for blood pressure treatment 01/02/2022 Patient states in the ICU, his awake, not significantly tachypneic while he is at rest. Patient blood pressure is improved while he is on pressors. He is kept on both dobutamine and the levophed drips. He has decent urine output and his creatinine improved as well 1.8 down to 1.3. Also he is on IV Lasix to help his fluid overload. He has hypoxia with oxygen requirement 10 L/m. Also he is continued on heparin drip and his rate controlled. Coreg is on hold. Currently blood pressure is 100/60. Heart rate is high 90s-100s. Coreg is on hold and he is continued on baby aspirin Other than that WBC 11.5, hemoglobin 12.2 and creatinine 1.39 abdominal ultrasound is negative. 01/06/2022 patient sitting up in chair the ICU, looks comfortable with mildly dyspneic. No chest pain or other complaints. Labs look stabilized with WBC back to normal at 6.6, hemoglobin 12.5, platelet 173. Creatinine 1.0. Patient currently on heparin drip with plan for cardiac cath tomorrow. Cabinetmaker Helper team signed off. He is currently on aspirin 81 mg Metoprolol 25 mg and Lasix 40 mg daily 01/07/2022 Patient looks comfortable, awake and alert. Little short of breath and tachypnea while at rest but no other complaints. No chest pain. His vitals are stable Creatinine increased 1.0 up to 1.2. he remains on aspirin and heparin drip What patient was planned to undergo cardiac cath today but was put on hold because of high creatinine 1.2 01/08/2022 Patient awake and alert with no chest pain or other symptoms. He underwent cardiac cath showing severe triple vessel coronary artery disease Cardiothoracic surgery been consulted Continued with heparin drip Continue with aspirin and metoprolol Also he has evidence of cardiomyopathy and ischemic in nature however he is euvolemic 01/09/2022 patient's clinically comfortable while at rest while he is on IV Lasix and heparin drip He has severe triple-vessel coronary artery disease with severe hypokinesia seen on echocardiogram Patient found high-risk surgical candidate, therefore it was recommended for the patient to undergo heart cath with Impella support tomorrow morning 01/10/2022 I see the patient's once he came from his cardiac cath this morning, he was informed to 61 of the ICU resting comfortably. Hemodynamically stable. He underwent cardiac cath with ampulla and as per primary report 2 stents has been placed. Currently she remains on aspirin Plavix and IV Lasix. Creatinine is stable at 1.2 and we'll keep monitoring. 01-11-2022 patient keep monitored in the ICU. No significant chest pain or other symptoms. Vitals and labs are stable. WBCs 10. Hemoglobin 12.4. Creatinine stable at 1.1. He has 2 stents placed yesterday, he has also left main disease besides severe triple coronary artery disease. He had PCI to LAD and OM1 He is on aspirin Plavix and Eliquis. Metoprolol increased today to 50 mg be cause of tachycardia. Patient will be kept monitor to the hospital for 48-72 hours 01/12/2022 Patient lying in bed comfortable, no chest pain, no dyspnea, no headache or dizziness or weakness. Blood pressure is low normal. Patient is asymptomatic. Patient used. Closely by cardiology team and make adjustment as appropriate. Currently on metoprolol 25 mg increased to 50 mg, also is on liquids, aspirin and Plavix and oral Lasix lower to 20 mg daily. Hydrochlorothiazide is on hold. Also lisinopril 20 mg, the patient was held. Creatinine is down to 1.2. Cabinetmaker Helper of the case. Patient will need pulmonary follow-up for his pulmonary nodule as an outpatient, patient already been informed and he is agreeable Objective - Vital Signs Vital signs: Vital Signs Temp 97.9 F 01/12/22 08:00 Pulse 79 01/12/22 08:42 Resp 16 01/12/22 08:42 BP 106/65 01/12/22 08:00 Pulse Ox 94 L 01/12/22 08:42 FiO2 Intake & Output 01/11/22 01/12/22 01/12/22 18:59 06:59 18:59 Intake Total 160 Output Total 500 Balance -340 Weight 83.6 kg Intake: IV 160 0.9 NS 160 Output: Urine 500 Other: Voiding Method Toilet Toilet Urinal Urinal # Voids 2 # Bowel Movements 0 - Exam GENERAL: The patient is alert and oriented x3, not in any acute distress. Well developed, well nourished. HEENT: Pupils are round and equally reacting to light. EOMI. No scleral icterus. No conjunctival pallor. Normocephalic, atraumatic. No pharyngeal erythema. No thyromegaly. CARDIOVASCULAR: S1 and S2 present. No murmurs, rubs, or gallops. PULMONARY: Chest is clear to auscultation, no wheezing or crackles. ABDOMEN: Soft, nontender, nondistended, normoactive bowel sounds. No palpable organomegaly. MUSCULOSKELETAL: No joint swelling or deformity. EXTREMITIES: No cyanosis, clubbing, or pedal edema. NEUROLOGICAL: Gross neurological examination did not reveal any focal deficits. SKIN: No rashes. no petechiae. 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 Full standing seen, rule out clots, possible takotsubo syndrome . -Hypotension, secondary to above possible cardiogenic shock. Resolved -Moderate to severe tricuspid regurgitation -Recent history of covid 19 infection without pneumonia -Acute kidney injury. Resolved -Hyponatremia secondary to diuretics which will be held -Elevated creatinine unsure present patient has acute renal failure on chronic kidney disease will monitor the creatinine -Hypertension holding up anti-hypertensive medication patient blood pressure is low at this time Plan: This is a pleasant 81 years old male who presents with non-STEMI and hyper tension possible congestive heart failure Continue with aspirin and Plavix Continue with the liquids Continue with CHF regimen and antihypertensive as per clinical social work therapist Cardiology and pulmonary consult Cardiothoracic surgery consult Labs and medication were reviewed.. Continue same treatment. Continue with symptomatic treatment. Resume home medication. Monitor lytes and vitals. DVT and GI prophylaxis. Further recommendations as per clinical course of the patient DVT prophylaxis: heparin GI Prophylaxis: Pepcid Prognosis is guarded
[2022-01-13] MEDS: FAMOTIDINE 20 MG TAB PO SCH (10:41)
[2022-01-13] MEDS: FUROSEMIDE 20 MG TAB PO SCH (10:41)
[2022-01-13] MEDS: METOPROLOL SUCCINATE (ER) 25 MG TAB.ER.24H PO SCH ×2 (10:41→20:01)
[2022-01-13] MEDS: CLOPIDOGREL 75 MG TAB PO SCH (10:41)
[2022-01-13] MEDS: APIXABAN 5 MG TAB PO SCH ×2 (10:41→20:04)
[2022-01-13] MEDS: ASPIRIN 81 MG PO SCH (10:43)
[2022-01-13] MEDS: SODIUM CHLORIDE 0.9% 1,000 ML in EMPTY BAG 1 BAG IV SCH ×4 (14:36→15:07)
[2022-01-13] MEDS: NON FORMULARY DRUG (Fluorouracil [Efudex] 40 GM Cream..G.) TOPICAL SCH (15:06)
--- NOTE | 2022-01-13 15:13 | P.PN ---
Subjective Progress Note Date: 01/13/22 81-year-old pleasant male came in with the upper back pain between the scapula and patient also vomiting, no pain in the chair. Jaw pain is mostly like spasms. Patient doesn't have any fever chills patient was diagnosed with COVID- 19 about couple weeks ago patient's pain in the back changes at the moment nonpleuritic patient had a CT angios the chest which did not show any significant X abnormality except for mild bilateral pleural effusions patient doesn't have any cardiac history found to have troponin of 22.3. EKG did not show any acute ST-T wave changes but is in A. fib and rate controlled. There is some degenerative to thoracic spine disease beyond which shows no other significant abnormality was seen. Patient was started on IV heparin cardiology was consulted patient although doesn't have any significant chest pain is back pain is not associated with lightheadedness or diaphoresis. 01/01/2022 Patient denies chest pain or dyspnea today. Also denies pain between his shoulder blades as he rated as 0/10. He has constipation but no abdominal pain. No vomiting. His PCP is Dr. Tyree dalal at bedside and patient TO TALK TO HIM ABOUT HIS HEALTH ISSUE Blood pressure on the low side, patient might have CHF however he is not tachypneic therefore going to try 1 L of normal saline. Patient currently continues on heparin drip and aspirin 81 mg added Blood pressure medication were held since admission including hydrochlorothiazide 12.5 mg, lisinopril 20 mg Norvasc 5 mg. TSH is normal, CTA is negative for PE but there is vascular congestion of right upper lobe nodes. His creatinine went up today to 1.8. He is making good urine output Patient may be moved to the ICU for blood pressure treatment 01/02/2022 Patient states in the ICU, his awake, not significantly tachypneic while he is at rest. Patient blood pressure is improved while he is on pressors. He is kept on both dobutamine and the levophed drips. He has decent urine output and his creatinine improved as well 1.8 down to 1.3. Also he is on IV Lasix to help his fluid overload. He has hypoxia with oxygen requirement 10 L/m. Also he is continued on heparin drip and his rate controlled. Coreg is on hold. Currently blood pressure is 100/60. Heart rate is high 90s-100s. Coreg is on hold and he is continued on baby aspirin Other than that WBC 11.5, hemoglobin 12.2 and creatinine 1.39 abdominal ultra sound is negative. 01/06/2022 patient sitting up in chair the ICU, looks comfortable with mildly dyspneic. No chest pain or other complaints. Labs look stabilized with WBC back to normal at 6.6, hemoglobin 12.5, platelet 173. Creatinine 1.0. Patient currently on heparin drip with plan for cardiac cath tomorrow. Wringer Operator team signed off. He is currently on aspirin 81 mg Metoprolol 25 mg and Lasix 40 mg daily 01/07/2022 Patient looks comfortable, awake and alert. Little short of breath and tachypnea while at rest but no other complaints. No chest pain. His vitals are stable Creatinine increased 1.0 up to 1.2. he remains on aspirin and heparin drip What patient was planned to undergo cardiac cath today but was put on hold because of high creatinine 1.2 01/08/2022 Patient awake and alert with no chest pain or other symptoms. He underwent cardiac cath showing severe triple vessel coronary artery disease Cardiothoracic surgery been consulted Continued with heparin drip Continue with aspirin and metoprolol Also he has evidence of cardiomyopathy and ischemic in nature however he is euvolemic 01/09/2022 patient's clinically comfortable while at rest while he is on IV Lasix and heparin drip He has severe triple-vessel coronary artery disease with severe hypokinesia seen on echocardiogram Patient found high-risk surgical candidate, therefore it was recommended for the patient to undergo heart cath with Impella support tomorrow morning 01/10/2022 I see the patient's once he came from his cardiac cath this morning, he was informed to 61 of the ICU resting comfortably. Hemodynamically stable. He underwent cardiac cath with ampulla and as per primary report 2 stents has been placed. Currently she remains on aspirin Plavix and IV Lasix. Creatinine is stable at 1.2 and we'll keep monitoring. 01-11-2022 patient keep monitored in the ICU. No significant chest pain or other symptoms. Vitals and labs are stable. WBCs 10. Hemoglobin 12.4. Creatinine stable at 1.1. He has 2 stents placed yesterday, he has also left main disease besides severe triple coronary artery disease. He had PCI to LAD and OM1 He is on aspirin Plavix and Eliquis. Metoprolol increased today to 50 mg because of tachycardia. Patient will be kept monitor to the hospital for 48-72 hours 01/12/2022 Patient lying in bed comfortable, no chest pain, no dyspnea, no headache or dizziness or weakness. Blood pressure is low normal. Patient is asymptomatic. Patient used. Closely by cardiology team and make adjustment as appropriate. Currently on metoprolol 25 mg increased to 50 mg, also is on liquids, aspirin and Plavix and oral Lasix lower to 20 mg daily. Hydrochlorothiazide is on hold. Also lisinopril 20 mg, the patient was held. Creatinine is down to 1.2. Wringer Operator of the case. Patient will need pulmonary follow-up for his pulmonary nodule as an outpatient, patient already been informed and he is agreeable 01/13/2022. Patient seen and examined. Family at the bedside. States he feels much better. Denies any shortness of breath on exertion. States he has been ambulating in the hallways. Denies any nausea, vomiting or abdominal pain. Vital signs stable Objective - Vital Signs Vital signs: Vital Signs Temp 97.9 F 01/12/22 08:00 Pulse 79 01/12/22 08:42 Resp 16 01/12/22 08:42 BP 106/65 01/12/22 08:00 Pulse Ox 94 L 01/12/22 08:42 FiO2 Intake & Output 01/11/22 01/12/22 01/12/22 18:59 06:59 18:59 Intake Total 160 Output Total 500 Balance -340 Weight 83.6 kg Intake: IV 160 0.9 NS 160 Output: Urine 500 Other: Voiding Method Toilet Toilet Urinal Urinal # Voids 2 # Bowel Movements 0 - Exam GENERAL: The patient is alert and oriented x3, not in any acute distress. Well developed, well nourished. HEENT: Pupils are round and equally reacting to light. EOMI. No scleral icterus. No conjunctival pallor. Normocephalic, atraumatic. No pharyngeal erythema. No thyromegaly. CARDIOVASCULAR: S1 and S2 present. No murmurs, rubs, or gallops. PULMONARY: Good air entry bilaterally, no wheeze, no rhonchi ABDOMEN: Soft, nontender, nondistended, normoactive bowel sounds. No palpable organomegaly. MUSCULOSKELETAL: No joint swelling or deformity. EXTREMITIES: No cyanosis, clubbing, or pedal edema. NEUROLOGICAL: Gross neurological examination did not reveal any focal deficits. SKIN: No rashes. no petechiae. 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 Full standing seen, rule out clots, possible takotsubo syndrome . -Hypotension, secondary to above possible cardiogenic shock. Resolved -Moderate to severe tricuspid regurgitation -Recent history of covid 19 infection without pneumonia -Acute kidney injury. Resolved -Hyponatremia secondary to diuretics which will be held -Elevated creatinine unsure present patient has acute renal failure on chronic kidney disease will monitor the creatinine -Hypertension holding up anti-hypertensive medication patient blood pressure is low at this time Plan: Strict I's and O's, daily weights Continue Lasix 20 mg daily Continue with aspirin and Plavix Continue with CHF regimen and antihypertensive as per choker setter Cardiology and pulmonary consult Cardiothoracic surgery consult Labs and medication were reviewed.. Continue same treatment. Continue with symptomatic treatment. Resume home medication. Monitor lytes and vitals. DVT and GI prophylaxis. Further recommendations as per clinical course of the patient Objective - Vital Signs Vital signs: Vital Signs Temp 97.8 F 01/13/22 12:00 Pulse 76 01/13/22 12:00 Resp 16 01/13/22 12:00 BP 102/66 01/13/22 12:00 Pulse Ox 95 01/13/22 12:00 FiO2 Intake & Output 01/12/22 01/13/22 01/13/22 18:59 06:59 18:59 Output Total 250 Balance -250 Output: Urine 250 Other: Voiding Method Toilet Toilet Urinal Urinal # Voids 1 2 - Labs CBC & Chem 7: 01/11/22 06:00 01/13/22 07:58 Labs: Abnormal Lab Results - Last 24 Hours (Table) 09/12/22 Range/Units 07:58 Sodium 136 L (137-145) mmol/L Potassium 3.3 L (3.5-5.1) mmol/L BUN 22 H (9-20) mg/dL Glucose 122 H (74-99) mg/dL Calcium 8.2 L (8.4-10.2) mg/dL
[2022-01-13] MEDS: ATORVASTATIN 40 MG TAB PO SCH (20:01)
[2022-01-13] MEDS: ALPRAZolam 0.5 MG TAB PO PRN (20:01)
[2022-01-14] MEDS: SODIUM CHLORIDE 0.9% 1,000 ML in EMPTY BAG 1 BAG IV SCH ×2 (04:24→04:25)
--- NOTE | 2022-01-14 07:27 | P.PN ---
Subjective Progress Note Date: 01/14/22 Principal diagnosis: Severe CAD The patient is a pleasant 81-year-old gentleman who was admitted to the hospital with chest discomfort and underwent a heart catheterization and that revealed severe disease involving the left main coronary artery. He was deemed to be high risk for bypass surgery and for that reason he underwent PCI of the left main coronary artery with hemodynamic support. The patient was seen this morning. He is asymptomatic from a cardiovascular standpoint of view. He is hemodynamically stable as well. He continues to be in atrial fibrillation was controlled heart rate. From a perivascular standpoint of view, the patient can be discharged home Objective - Vital Signs Vital signs: Vital Signs Temp 97.4 F L 01/13/22 23:53 Pulse 72 01/14/22 04:00 Resp 14 01/14/22 04:00 BP 111/62 01/14/22 04:00 Pulse Ox 100 01/14/22 04:00 FiO2 Intake & Output 01/13/22 01/14/22 01/14/22 18:59 06:59 18:59 Other: Voiding Method Toilet Toilet Urinal Urinal # Voids 2 1 - Constitutional General appearance: Present: no acute distress - Respiratory Respiratory: bilateral: diminished - Cardiovascular Rhythm: irregularly irregular - Labs CBC & Chem 7: 01/11/22 06:00 01/13/22 07:58 Labs: Abnormal Lab Results - Last 24 Hours (Table) 01/13/22 Range/Units 07:58 Sodium 136 L (137-145) mmol/L Potassium 3.3 L (3.5-5.1) mmol/L BUN 22 H (9-20) mg/dL Glucose 122 H (74-99) mg/dL Calcium 8.2 L (8.4-10.2) mg/dL Assessment and Plan Assessment: Assessment #1 severe CAD and status post PCI of the left main #2 chronic systolic heart failure the patient currently is euvolemic #3 atrial fibrillation was controlled heart rate #4 multiple comorbid conditions Plan #1 continue the current medical regimen #2 the patient is asymptomatic and hemodynamic stable #3 the patient can be discharged home
[2022-01-14] MEDS: IPRATROPIUM-ALBUTEROL 3 ML NEB INHALATION SCH ×2 (07:35→10:55)
[2022-01-14] MEDS: CLOPIDOGREL 75 MG TAB PO SCH (08:57)
[2022-01-14] MEDS: ASPIRIN 81 MG PO SCH (08:57)
[2022-01-14] MEDS: APIXABAN 5 MG TAB PO SCH (08:57)
[2022-01-14] MEDS: FAMOTIDINE 20 MG TAB PO SCH (08:57)
--- NOTE | 2022-01-14 10:23 | P.PN ---
Subjective Patient is seen in follow-up for acute kidney injury. Renal function stable. On oral Lasix. Good urine output. No vomiting or diarrhea. Denies chest pain or shortness of breath. On room air. No active complaints. Vital signs are stable. General: Awake. No acute distress. HEENT: Head exam is unremarkable. LUNGS: Breath sounds decreased. HEART: Rate and Rhythm are regular. ABDOMEN: Soft, no distention. EXTREMITITES: Trace edema. Objective - Vital Signs Vital signs: Vital Signs Temp 97.4 F L 01/13/22 23:53 Pulse 81 01/14/22 07:48 Resp 14 01/14/22 04:00 BP 111/62 01/14/22 04:00 Pulse Ox 100 01/14/22 04:00 FiO2 Intake & Output 01/13/22 01/14/22 01/14/22 18:59 06:59 18:59 Other: Voiding Method Toilet Toilet Urinal Urinal # Voids 2 1 - Labs CBC & Chem 7: 01/11/22 06:00 01/13/22 07:58 Assessment and Plan Plan: Assessment: 1. Acute kidney injury mostly prerenal secondary to cardiorenal syndrome. Also underwent cardiac catheterization on January 08 of 01/10/2022 and had a stent placed. Creatinine 0.99 as of yesterday. 2. Acute on chronic systolic CHF ejection fraction of 30% with severe tricuspid and mitral regurgitation and pulmonary hypertension. 3. Metabolic acidosis secondary to acute kidney injury. Improved. 4. Hypokalemia from diuresis. Magnesium normal. Replaced. 5. Coronary disease status post cardiac stenting this admission. Plan: Maintain oral Lasix. Encouraged oral intake. Avoid nephrotoxins. Repeat labs in the morning.
[2022-01-14] MEDS: METOPROLOL SUCCINATE (ER) 25 MG TAB.ER.24H PO SCH (10:38)
[2022-01-14] MEDS: FUROSEMIDE 20 MG TAB PO SCH (11:51)
[2022-01-14] MEDS: NON FORMULARY DRUG (Fluorouracil [Efudex] 40 GM Cream..G.) TOPICAL SCH (11:52)
--- NOTE | 2022-01-14 12:30 | P.DS ---
Providers Date of admission: 12/31/21 10:44 Expected date of discharge: 01/14/22 Attending physician: Foreign Magallon Consults: 12/31/21 10:29 Consult Physician Routine Consulting Provider: Orlando Camacho Consult Reason/Comments: Elevated troponin Do you want consulting provider notified?: Already Contacted 01/01/22 11:06 Consult Physician Urgent Consulting Provider: Lee Ann Parekh Consult Reason/Comments: ICU managment- Mr Teacher Do you want consulting provider notified?: Yes 01/02/22 09:28 Consult Physician Routine Consulting Provider: Laci Ledesma Consult Reason/Comments: increased kidney function Do you want consulting provider notified?: Already Contacted Consult Physician Urgent Consulting Provider: Laci Ledesma Consult Reason/Comments: kristina Do you want consulting provider notified?: Already Contacted Primary care physician: Physician Nonstaff Hospital Course: Discharge Diagnosis; -Non-STEMI with cardiac cath showing 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 Full standing seen, rule out clots, possible takotsubo syndrome . -Hypotension, secondary to above possible cardiogenic shock. Resolved -Moderate to severe tricuspid regurgitation -Recent history of covid 19 infection without pneumonia -Acute kidney injury. Resolved -Hyponatremia secondary to diuretics which will be held -Hypertension Plan: Cardiology cleared the patient for discharge, patient currently on aspirin, Plavix and eliquis Outpatient follow-up nephrology Outpatient CBC and BMP ordered Hospital course; 81-year-old pleasant male came in with the upper back pain between the scapula and patient also vomiting, no pain in the chair. Jaw pain is mostly like spasms. Patient doesn't have any fever chills patient was diagnosed with COVID- 19 about couple weeks ago patient's pain in the back changes at the moment nonpleuritic patient had a CT angios the chest which did not show any significant X abnormality except for mild bilateral pleural effusions patient doesn't have any cardiac history found to have troponin of 22.3. EKG did not show any acute ST-T wave changes but is in A. fib and rate controlled. There is some degenerative to thoracic spine disease beyond which shows no other signifi cant abnormality was seen. Patient was started on IV heparin cardiology was consulted patient although doesn't have any significant chest pain is back pain is not associated with lightheadedness or diaphoresis. 01/01/2022 Patient denies chest pain or dyspnea today. Also denies pain between his shoulder blades as he rated as 0/10. He has constipation but no abdominal pain. No vomiting. His PCP is Dr. Tyree dalal at bedside and patient TO TALK TO HIM ABOUT HIS HEALTH ISSUE Blood pressure on the low side, patient might have CHF however he is not tachypneic therefore going to try 1 L of normal saline. Patient currently continues on heparin drip and aspirin 81 mg added Blood pressure medication were held since admission including hydrochlorothiazide 12.5 mg, lisinopril 20 mg Norvasc 5 mg. TSH is normal, CTA is negative for PE but there is vascular congestion of right upper lobe nodes. His creatinine went up today to 1.8. He is making good urine output Patient may be moved to the ICU for blood pressure treatment 01/02/2022 Patient states in the ICU, his awake, not significantly tachypneic while he is at rest. Patient blood pressure is improved while he is on pressors. He is kept on both dobutamine and the levophed drips. He has decent urine output and his creatinine improved as well 1.8 down to 1.3. Also he is on IV Lasix to help his fluid overload. He has hypoxia with oxygen requirement 10 L/m. Also he is continued on heparin drip and his rate controlled. Coreg is on hold. Currently blood pressure is 100/60. Heart rate is high 90s-100s. Coreg is on hold and he is continued on baby aspirin Other than that WBC 11.5, hemoglobin 12.2 and creatinine 1.39 abdominal ultrasound is negative. 01/06/2022 patient sitting up in chair the ICU, looks comfortable with mildly dyspneic. No chest pain or other complaints. Labs look stabilized with WBC back to normal at 6.6, hemoglobin 12.5, platelet 173. Creatinine 1.0. Patient currently on heparin drip with plan for cardiac cath tomorrow. Senior Integration Developer team signed off. He is currently on aspirin 81 mg Metoprolol 25 mg and Lasix 40 mg daily 01/07/2022 Patient looks comfortable, awake and alert. Little short of breath and tachypnea while at rest but no other complaints. No chest pain. His vitals are stable Creatinine increased 1.0 up to 1.2. he remains on aspirin and heparin drip What patient was planned to undergo cardiac cath today but was put on hold because of high creatinine 1.2 01/08/2022 Patient awake and alert with no chest pain or other symptoms. He underwent cardiac cath showing severe triple vessel coronary artery disease Cardiothoracic surgery been consulted Continued with heparin drip Continue with aspirin and metoprolol Also he has evidence of cardiomyopathy and ischemic in nature however he is euvolemic 01/09/2022 patient's clinically comfortable while at rest while he is on IV Lasix and heparin drip He has severe triple-vessel coronary artery disease with severe hypokinesia seen on echocardiogram Patient found high-risk surgical candidate, therefore it was recommended for the patient to undergo heart cath with Impella support tomorrow morning 01/10/2022 I see the patient's once he came from his cardiac cath this morning, he was informed to 61 of the ICU resting comfortably. Hemodynamically stable. He underwent cardiac cath with ampulla and as per primary report 2 stents has been placed. Currently she remains on aspirin Plavix and IV Lasix. Creatinine is stable at 1.2 and we'll keep monitoring. 01-11-2022 patient keep monitored in the ICU. No significant chest pain or other symptoms. Vitals and labs are stable. WBCs 10. Hemoglobin 12.4. Creatinine stable at 1.1. He has 2 stents placed yesterday, he has also left main disease besides severe triple coronary artery disease. He had PCI to LAD and OM1 He is on aspirin Plavix and Eliquis. Metoprolol increased today to 50 mg because of tachycardia. Patient will be kept monitor to the hospital for 48-72 hours 01/12/2022 Patient lying in bed comfortable, no chest pain, no dyspnea, no headache or dizziness or weakness. Blood pressure is low normal. Patient is asymptomatic. Patient used. Closely by cardiology team and make adjustment as appropriate. Currently on metoprolol 25 mg increased to 50 mg, also is on liquids, aspirin and Plavix and oral Lasix lower to 20 mg daily. Hydrochlorothiazide is on hold. Also lisinopril 20 mg, the patient was held. Creatinine is down to 1.2. Senior Integration Developer of the case. Patient will need pulmonary follow-up for his pulmonary nodule as an outpatient, patient already been informed and he is agreeable 01/13/2022. Patient seen and examined. Family at the bedside. States he feels much better. Denies any shortness of breath on exertion. States he has been ambulating in the hallways. Denies any nausea, vomiting or abdominal pain. Vital signs stable 01/14. Patient being discharged in stable condition Physical exam GENERAL: The patient is alert and oriented x3, not in any acute distress. Well developed, well nourished. HEENT: Pupils are round and equally reacting to light. EOMI. No scleral icterus. No conjunctival pallor. Normocephalic, atraumatic. No pharyngeal erythema. No thyromegaly. CARDIOVASCULAR: S1 and S2 present. No murmurs, rubs, or gallops. PULMONARY: Coarse breath sounds bilaterally, no wheeze, no crackles ABDOMEN: Soft, nontender, nondistended, normoactive bowel sounds. No palpable organomegaly. MUSCULOSKELETAL: No joint swelling or deformity. EXTREMITIES: No cyanosis, clubbing, slight pedal edema. NEUROLOGICAL: Gross neurological examination did not reveal any focal deficits. SKIN: No rashes. no petechiae. Patient Condition at Discharge: Good Plan - Discharge Summary Discharge Rx Participant: No New Discharge Prescriptions: New Clopidogrel [Plavix] 75 mg PO DAILY #30 tab Metoprolol Succinate (ER) [Toprol XL] 50 mg PO BID #60 tab lisinopriL [Zestril] 2.5 mg PO DAILY #30 tab Apixaban [Eliquis] 5 mg PO BID #60 tab Furosemide [Lasix] 20 mg PO DAILY #30 tab Continue Atorvastatin [Lipitor] 40 mg PO HS Aspirin EC [Ecotrin Low Dose] 40.5 mg PO W/SUPPER allopurinoL [Zyloprim] 150 mg PO W/SUPPER Cholecalciferol [Vitamin D3 (125 Mcg = 5000 Iu)] 125 mcg PO DAILY Vit C/E/Zn/Coppr/Lutein/Zeaxan [Preservision Areds 2 Softgel] 1 cap PO BID- W/MEALS fluorouraciL [Efudex] 1 applic TOPICAL MOTUWE Discontinued Lisinopril-Hctz 20-12.5 mg [Zestoretic 20-12.5] 1 tab PO BID-W/MEALS carvediloL [Coreg] 12.5 mg PO BID-W/MEALS amLODIPine [Norvasc] 5 mg PO W/LUNCH Discharge Medication List Aspirin EC [Ecotrin Low Dose] 40.5 mg PO W/SUPPER 12/31/21 [History] Atorvastatin [Lipitor] 40 mg PO HS 12/31/21 [History] Cholecalciferol [Vitamin D3 (125 Mcg = 5000 Iu)] 125 mcg PO DAILY 12/31/21 [History] Vit C/E/Zn/Coppr/Lutein/Zeaxan [Preservision Areds 2 Softgel] 1 cap PO BID- W/MEALS 12/31/21 [History] allopurinoL [Zyloprim] 150 mg PO W/SUPPER 12/31/21 [History] fluorouraciL [Efudex] 1 applic TOPICAL MOTUWE 12/31/21 [History] Apixaban [Eliquis] 5 mg PO BID #60 tab 01/13/22 [Rx] Clopidogrel [Plavix] 75 mg PO DAILY #30 tab 01/14/22 [Rx] Furosemide [Lasix] 20 mg PO DAILY #30 tab 01/14/22 [Rx] Metoprolol Succinate (ER) [Toprol XL] 50 mg PO BID #60 tab 01/14/22 [Rx] lisinopriL [Zestril] 2.5 mg PO DAILY #30 tab 01/14/22 [Rx] Follow up Appointment(s)/Referral(s): Orlando Camacho MD [STAFF PHYSICIAN] - 1 Week Nonstaff,Physician [Primary Care Provider] - 1-2 days Laci Ledesma DO [STAFF PHYSICIAN] - 1 Week Lee Ann Parekh MD [STAFF PHYSICIAN] - 1 Week (Lung nodule) Thomas Mg MD [STAFF PHYSICIAN] - 1 Week Ambulatory/Diagnostic Orders: Basic Metabolic Panel [LAB.AMB] Location: None Selected Complete Blood Count w/diff [LAB.AMB] Location: None Selected Discharge Disposition: HOME WITH HOME HEALTH SERVICES
[2022-01-14 15:14] VITALS: BP 107/62; PULSE 76; RESP 22; TEMP 97.2
== END 2022-01-14 14:10 | disposition home or self-care (01) | DRG 216 ==
LOC: EC 06:49 → 3SCARD 10:44 → 2SICU 01-01 12:07 → 3SCARD 01-09 11:58 → 2SICU 01-10 11:45
PROVIDERS: ADMIT Internal Medicine; ATTEND Internal Medicine
PROC: 3E033XZ Introduction of Vasopressor into Peripheral Vein, Percutaneous Approach (ICD-10-PCS; 2021-12-31)
PROC: B2111ZZ Fluoroscopy of Multiple Coronary Arteries using Low Osmolar Contrast (ICD-10-PCS; 2022-01-08)
PROC: 4A023N7 Measurement of Cardiac Sampling and Pressure, Left Heart, Percutaneous Approach (ICD-10-PCS; principal; 2022-01-08 07:30)
PROC: B2101ZZ Fluoroscopy of Single Coronary Artery using Low Osmolar Contrast (ICD-10-PCS; 2022-01-10)
PROC: B240ZZ3 Ultrasonography of Single Coronary Artery, Intravascular (ICD-10-PCS; 2022-01-10)
PROC: 027135Z Dilation of Coronary Artery, Two Arteries with Two Drug-eluting Intraluminal Devices, Percutaneous Approach (ICD-10-PCS; 2022-01-10 07:30)
PROC: 02HA3RJ Insertion of Short-term External Heart Assist System into Heart, Intraoperative, Percutaneous Approach (ICD-10-PCS; 2022-01-10 07:30)
PROC: 02713ZZ Dilation of Coronary Artery, Two Arteries, Percutaneous Approach (ICD-10-PCS; 2022-01-10 07:30)
PROC: 5A0221D Assistance with Cardiac Output using Impeller Pump, Continuous (ICD-10-PCS; 2022-01-10 07:30)
DX: I21.4 Non-ST elevation (NSTEMI) myocardial infarction (principal); I40.0 Infective myocarditis; J96.01 Acute respiratory failure with hypoxia; I50.43 Acute on chronic combined systolic (congestive) and diastolic (congestive) heart failure; E87.1 Hypo-osmolality and hyponatremia; I13.0 Hypertensive heart and chronic kidney disease with heart failure and stage 1 through stage 4 chronic kidney disease, or unspecified chronic kidney disease; N17.9 Acute kidney failure, unspecified; I48.19 Other persistent atrial fibrillation; E87.2 Acidosis; J98.11 Atelectasis; I51.81 Takotsubo syndrome; J43.8 Other emphysema; E87.6 Hypokalemia; I25.119 Atherosclerotic heart disease of native coronary artery with unspecified angina pectoris; I25.5 Ischemic cardiomyopathy; I27.20 Pulmonary hypertension, unspecified; T50.2X5A Adverse effect of carbonic-anhydrase inhibitors, benzothiadiazides and other diuretics, initial encounter; N14.1 Nephropathy induced by other drugs, medicaments and biological substances; U09.9 Post COVID-19 condition, unspecified; I95.9 Hypotension, unspecified; T50.8X5A Adverse effect of diagnostic agents, initial encounter; R91.1 Solitary pulmonary nodule; I08.3 Combined rheumatic disorders of mitral, aortic and tricuspid valves; E78.5 Hyperlipidemia, unspecified; N18.2 Chronic kidney disease, stage 2 (mild); E83.42 Hypomagnesemia; R79.89 Other specified abnormal findings of blood chemistry; K59.00 Constipation, unspecified; M10.9 Gout, unspecified; M51.34 Other intervertebral disc degeneration, thoracic region; Z79.899 Other long term (current) drug therapy; Z79.82 Long term (current) use of aspirin; Z87.891 Personal history of nicotine dependence; Z85.828 Personal history of other malignant neoplasm of skin; Z82.3 Family history of stroke; Z79.01 Long term (current) use of anticoagulants; Z79.02 Long term (current) use of antithrombotics/antiplatelets; Z85.038 Personal history of other malignant neoplasm of large intestine; Z88.6 Allergy status to analgesic agent; Z95.5 Presence of coronary angioplasty implant and graft
CPT/HCPCS: 36415; 36600; 71045; 71275; 72128; 76770; 80048; 80053; 80061; 80074; 81003; 82805; 83036; 83690; 83735; 83880; 84443; 84484; 85025; 85027; 85379; 85610; 85730; 92920; 92978; 93005; 93306; 93458; 93880; 93970; 94150; 94640; 94760; 96361; 96365; 96366; 96375; 99291

== ENCOUNTER 2022-01-19 18:31 | Inpatient (IN) | payer MEDICARE, BC ==
--- NOTE | 2022-01-19 19:59 | XR ---
EXAMINATION TYPE: XR chest 2V DATE OF EXAM: 01/19/2022 COMPARISON: 01/08/2022 HISTORY: Short of breath TECHNIQUE: FINDINGS: Heart size is normal. There is bilateral pleural effusions with some infiltrate or atelecta sis left lung base. Mild pulmonary vascular congestion. There are chest leads. IMPRESSION: Pleural fluid and pulmonary congestion are similar to last exam and consistent with conge stive heart failure. There is mild basilar infiltrate and atelectasis left lower lobe.
[2022-01-19 20:06] LABS: INR 1.3 (<1.2); Partial Thromboplastin Time 28.7 sec (22.0-30.0); Prothrombin Time 13.8 sec (9.0-12.0)
[2022-01-19 20:08] LABS: Basophils % (A) 1 %; Eosinophils # (A) 0.1 k/uL (0-0.7); Eosinophils % (A) 1 %; HCT 36.4 % (39.0-53.0); Lymphocytes # (A) 1.1 k/uL (1.0-4.8); Lymphocytes % (A) 19 %; MCH 33.3 pg (25.0-35.0); MCV 100.9 fL (80.0-100.0); Macrocytosis Slight; Mean Platelet Volume 8.3; Monocytes # (A) 0.4 k/uL (0-1.0); Monocytes % (A) 8 %; Neutrophils # (A) 4.1 k/uL (1.3-7.7); Neutrophils % (A) 70 %; Platelet Count 162 k/uL (150-450); RBC 3.61 m/uL (4.30-5.90); RDW 13.7 % (11.5-15.5); WBC 5.8 k/uL (3.8-10.6)
--- NOTE | 2022-01-19 20:09 | ED ---
SOB HPI - General Chief Complaint: Shortness of Breath Stated Complaint: sob Source: patient Mode of arrival: ambulatory Limitations: no limitations - History of Present Illness Initial Comments: 81-year-old male with past medical history of A. fib, coronary artery disease, hypertension, hyperlipidemia presents to emergency department for shortness of breath. Patient recently hospitalized for 3 weeks due to NSTEMI. He did have catheterization performed which demonstrated triple-vessel disease. He did receive 2 stents. He was to follow-up with Dr. Lenz on to discuss further staged PCI. He states that he has had improved breathing upon hospital discharge up until yesterday. States that he felt like his breathing became more labored. Denies fevers, chills or cough. No chest pain. Has been taking his medications as directed without missed doses. He does admit to some lower extremity swelling however this is improved from hospital discharge. No other alleviating, precipitating or modifying factors - Related Data Home Medications Medication Instructions Recorded Confirmed Aspirin EC [Ecotrin Low Dose] 40.5 mg PO W/SUPPER 12/31/21 01/19/22 Atorvastatin [Lipitor] 40 mg PO HS 12/31/21 01/19/22 Cholecalciferol [Vitamin D3 (125 125 mcg PO DAILY 12/31/21 01/19/22 Mcg = 5000 Iu)] Vit C/E/Zn/Coppr/Lutein/Zeaxan 1 cap PO BID-W/MEALS 12/31/21 01/19/22 [Preservision Areds 2 Softgel] allopurinoL [Zyloprim] 150 mg PO W/SUPPER 12/31/21 01/19/22 fluorouraciL [Efudex] 1 applic TOPICAL MOTUWE 12/31/21 01/19/22 Acetaminophen Tab [Tylenol] 500 mg PO Q6H PRN 01/19/22 01/19/22 Previous Rx's Medication Instructions Recorded Apixaban [Eliquis] 5 mg PO BID #60 tab 01/13/22 Clopidogrel [Plavix] 75 mg PO DAILY #30 tab 01/14/22 lisinopriL [Zestril] 2.5 mg PO DAILY #30 tab 01/14/22 Dapagliflozin Propanediol [Farxiga] 10 mg PO DAILY #90 tab 01/22/22 Furosemide [Lasix] 40 mg PO DAILY #30 tablet 01/22/22 Metoprolol Succinate (ER) [Toprol 25 mg PO BID #60 tab 01/22/22 XL] Spironolactone 25 mg PO DAILY #30 tab 01/22/22 Allergies Allergy/AdvReac Type Severity Reaction Status Date / Time No Known Allergies Allergy Verified 01/19/22 21:30 Review of Systems ROS Statement: Those systems with pertinent positive or pertinent negative responses have been documented in the HPI. ROS Other: All systems not noted in ROS Statement are negative. 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 History of Any Multi-Drug Resistant Organisms: None Reported Past Surgical History: Back Surgery, Tonsillectomy Additional Past Surgical History / Comment(s): Skin cancer removals/nose flaps, colonoscopy Past Anesthesia/Blood Transfusion Reactions: No Reported Reaction Past Psychological History: No Psychological Hx Reported Smoking Status: Former smoker Past Alcohol Use History: Occasional Past Drug Use History: None Reported - Past Family History Mother Family Medical History: No Reported History Additional Family Medical History / Comment(s): Mother was healthy Father Family Medical History: No Reported History Additional Family Medical History / Comment(s): Father was healthy Brother(s) Family Medical History: CVA/TIA General Exam Limitations: no limitations General appearance: alert, in no apparent distress Head exam: Present: atraumatic, normocephalic, normal inspection Eye exam: Present: normal appearance, PERRL, EOMI. Absent: scleral icterus, conjunctival injection, periorbital swelling ENT exam: Present: normal exam, mucous membranes moist Neck exam: Present: normal inspection. Absent: tenderness, meningismus, lymphadenopathy Respiratory exam: Present: normal lung sounds bilaterally. Absent: respiratory distress, wheezes, rales, rhonchi, stridor Cardiovascular Exam: Present: tachycardia, irregular rhythm, normal heart sounds. Absent: systolic murmur, diastolic murmur, rubs, gallop, clicks GI/Abdominal exam: Present: soft, normal bowel sounds. Absent: distended, tenderness, guarding, rebound, rigid Extremities exam: Present: normal inspection, full ROM, normal capillary refill. Absent: tenderness, pedal edema, joint swelling, calf tenderness Back exam: Present: normal inspection Neurological exam: Present: alert, oriented X3, CN II-XII intact Psychiatric exam: Present: normal affect, normal mood Skin exam: Present: warm, dry, intact, normal color. Absent: rash Course Vital Signs 01/19/22 01/19/22 01/19/22 19:03 19:20 21:25 Temperature 97.9 F Pulse Rate 141 H 85 Respiratory 20 16 16 Rate Blood Pressure 129/77 124/82 O2 Sat by Pulse 98 95 Oximetry Medical Decision Making - Medical Decision Making Upon arrival patient was placed into room 1. History and physical exam was performed. Patient is in A. fib with a controlled rate. He did not take his home medications for this evening. IV access is established and laboratory studies are conducted. Troponin is markedly improved. BNP is 13,000. Chest x- ray does demonstrate the congestion. He was given 40 mg of Lasix IV. Recommended admission for cardiac consultation and diuresis. Spoke with Dr. Ellis who was agreeable to admit the patient. - Lab Data Result diagrams: 01/20/22 01:45 01/22/22 08:35 Lab Results 01/19/22 01/19/22 01/19/22 Range/Units 19:22 19:22 19:22 WBC 5.8 (3.8-10.6) k/uL RBC 3.61 L (4.30-5.90) m/uL Hgb 12.0 L (13.0-17.5) gm/dL Hct 36.4 L (39.0-53.0) % MCV 100.9 H (80.0-100.0) fL MCH 33.3 (25.0-35.0) pg MCHC 33.0 (31.0-37.0) g/dL RDW 13.7 (11.5-15.5) % Plt Count 162 (150-450) k/uL MPV 8.3 Neutrophils % 70 % Lymphocytes % 19 % Monocytes % 8 % Eosinophils % 1 % Basophils % 1 % Neutrophils # 4.1 (1.3-7.7) k/uL Lymphocytes # 1.1 (1.0-4.8) k/uL Monocytes # 0.4 (0-1.0) k/uL Eosinophils # 0.1 (0-0.7) k/uL Basophils # 0.0 (0-0.2) k/uL Macrocytosis Slight PT 13.8 H (9.0-12.0) sec INR 1.3 H (<1.2) APTT 28.7 (22.0-30.0) sec Sodium 136 L (137-145) mmol/L Potassium 3.8 (3.5-5.1) mmol/L Chloride 103 (98-107) mmol/L Carbon Dioxide 21 L (22-30) mmol/L Anion Gap 12 mmol/L BUN 15 (9-20) mg/dL Creatinine 1.14 (0.66-1.25) mg/dL Est GFR (CKD-EPI)AfAm 69 (>60 ml/min/1.73 sqM) Est GFR (CKD-EPI)NonAf 60 (>60 ml/min/1.73 sqM) Glucose 112 H (74-99) mg/dL Plasma Lactic Acid Michael (0.7-2.0) mmol/L Calcium 8.2 L (8.4-10.2) mg/dL Magnesium 1.8 (1.6-2.3) mg/dL Total Bilirubin 1.3 (0.2-1.3) mg/dL AST 34 (17-59) U/L ALT 30 (4-49) U/L Alkaline Phosphatase 135 H (38-126) U/L Troponin I (0.000-0.034) ng/mL NT-Pro-B Natriuret Pep pg/mL Total Protein 5.8 L (6.3-8.2) g/dL Albumin 3.0 L (3.5-5.0) g/dL 01/19/22 01/19/22 01/19/22 Range/Units 19:22 19:22 19:39 WBC (3.8-10.6) k/uL RBC (4.30-5.90) m/uL Hgb (13.0-17.5) gm/dL Hct (39.0-53.0) % MCV (80.0-100.0) fL MCH (25.0-35.0) pg MCHC (31.0-37.0) g/dL RDW (11.5-15.5) % Plt Count (150-450) k/uL MPV Neutrophils % % Lymphocytes % % Monocytes % % Eosinophils % % Basophils % % Neutrophils # (1.3-7.7) k/uL Lymphocytes # (1.0-4.8) k/uL Monocytes # (0-1.0) k/uL Eosinophils # (0-0.7) k/uL Basophils # (0-0.2) k/uL Macrocytosis PT (9.0-12.0) sec INR (<1.2) APTT (22.0-30.0) sec Sodium (137-145) mmol/L Potassium (3.5-5.1) mmol/L Chloride (98-107) mmol/L Carbon Dioxide (22-30) mmol/L Anion Gap mmol/L BUN (9-20) mg/dL Creatinine (0.66-1.25) mg/dL Est GFR (CKD-EPI)AfAm (>60 ml/min/1.73 sqM) Est GFR (CKD-EPI)NonAf (>60 ml/min/1.73 sqM) Glucose (74-99) mg/dL Plasma Lactic Acid Michael 1.1 (0.7-2.0) mmol/L Calcium (8.4-10.2) mg/dL Magnesium (1.6-2.3) mg/dL Total Bilirubin (0.2-1.3) mg/dL AST (17-59) U/L ALT (4-49) U/L Alkaline Phosphatase (38-126) U/L Troponin I 0.047 H* (0.000-0.034) ng/mL NT-Pro-B Natriuret Pep 65196 pg/mL Total Protein (6.3-8.2) g/dL Albumin (3.5-5.0) g/dL - EKG Data EKG Comments: EKG demonstrates A. fib with a rate of 115. QRS 89. QTC of 422. No acute ST segment elevations or depressions Disposition Clinical Impression: Respiratory insufficiency, CHF exacerbation Disposition: ADMITTED IP TO THIS [facility] Condition: Stable Is patient prescribed a controlled substance at d/c from ED?: No Time of Disposition: 21:11 Decision to Admit Reason: Admit from EC Decision Date: 01/19/22 Decision Time: 21:11
[2022-01-19 20:22] LABS: Calcium 8.2 mg/dL (8.4-10.2); Magnesium 1.8 mg/dL (1.6-2.3); Potassium 3.8 mmol/L (3.5-5.1); Total Bilirubin 1.3 mg/dL (0.2-1.3); Total Protein 5.8 g/dL (6.3-8.2)
[2022-01-19] MEDS ORDERED: FUROSEMIDE 10 MG/ML 4 ML VIAL IV STA (21:10)
[2022-01-19] MEDS ORDERED: NALOXONE 0.4 MG/ML 1 ML VIAL IV PRN (21:11)
[2022-01-19] MEDS ORDERED: LORazepam 1 MG TAB PO STA (21:15)
[2022-01-19] MEDS: APIXABAN 5 MG TAB PO SCH (21:36)
[2022-01-19] MEDS: METOPROLOL SUCCINATE (ER) 50 MG TAB.ER.24H PO SCH (21:36)
[2022-01-19] MEDS: ASPIRIN 81 MG PO SCH (21:36)
[2022-01-19] MEDS: ATORVASTATIN 40 MG TAB PO SCH (21:36)
[2022-01-20 02:18] LABS: Potassium 3.3 mmol/L (3.5-5.1)
[2022-01-20 02:20] LABS: Basophils % (A) 1 %; Eosinophils # (A) 0.1 k/uL (0-0.7); Eosinophils % (A) 1 %; HCT 35.8 % (39.0-53.0); HGB 11.9 gm/dL (13.0-17.5); Lymphocytes # (A) 1.2 k/uL (1.0-4.8); Lymphocytes % (A) 24 %; MCH 33.9 pg (25.0-35.0); MCHC 33.1 g/dL (31.0-37.0); MCV 102.5 fL (80.0-100.0); Macrocytosis Slight; Mean Platelet Volume 8.3; Monocytes # (A) 0.3 k/uL (0-1.0); Monocytes % (A) 6 %; Neutrophils # (A) 3.3 k/uL (1.3-7.7); Neutrophils % (A) 67 %; Platelet Count 154 k/uL (150-450); RDW 14.3 % (11.5-15.5)
[2022-01-20 03:08] LABS: Anisocytosis (M) Present; Ovalocytes Present; Poikilocytosis (M) Present
[2022-01-20] MEDS: CLOPIDOGREL 75 MG TAB PO SCH (08:19)
[2022-01-20] MEDS: APIXABAN 5 MG TAB PO SCH ×2 (08:19→20:37)
[2022-01-20] MEDS: METOPROLOL SUCCINATE (ER) 50 MG TAB.ER.24H PO SCH ×2 (08:19→20:37)
[2022-01-20] MEDS: FUROSEMIDE 10 MG/ML 4 ML VIAL IV SCH ×2 (08:20→20:37)
[2022-01-20] MEDS: SPIRONOLACTONE 25 MG TAB PO SCH (09:33)
[2022-01-20] MEDS ORDERED: Potassium Replacement Protocol 1 EACH MISC MISCELLANE PRN (11:26)
[2022-01-20] MEDS ORDERED: POTASSIUM CHLORIDE ER 20 MEQ TAB.ER PO ONE (11:26)
--- NOTE | 2022-01-20 11:56 | P.HPIM ---
History of Present Illness This is a pleasant 81-year-old male was recently discharged from the hospital after he was treated for the triple-vessel disease, coronary artery disease patient had staged intervention patient is supposed to get more interventions as an outpatient patient patient had an ejection fraction of 30-35%. Patient comes in with volume overload with highly elevated BNP chest x-ray showing pulmonary edema. Patient diarrhea is well with a 40 IV twice a day of Lasix patient is bit hyponatremic secondary to Lasix which is being replaced patient fail he looks she will begin this time. Patient came in with complaints of shortness of breath and orthopnea did REVIEW OF SYSTEMS: CONSTITUTIONAL: No fever, no malaise, no fatigue. HEENT: No recent visual problems or hearing problems. Denied any sore throat. CARDIOVASCULAR: No chest pain, orthopnea, PND, no palpitations, no syncope. PULMONARY:no hemoptysis. GASTROINTESTINAL: No diarrhea, no nausea, no vomiting, no abdominal pain. NEUROLOGICAL: No headaches, no weakness, no numbness. HEMATOLOGICAL: Denies any bleeding or petechiae. GENITOURINARY: Denies any burning micturition, frequency, or urgency. MUSCULOSKELETAL/RHEUMATOLOGICAL: Denies any joint pain, swelling, or any muscle pain. ENDOCRINE: Denies any polyuria or polydipsia. The rest of the 14-point review of systems is negative. PHYSICAL EXAMINATION: GENERAL: The patient is alert and oriented x3, not in any acute distress. Well developed, well nourished. HEENT: Pupils are round and equally reacting to light. EOMI. No scleral icterus. No conjunctival pallor. Normocephalic, atraumatic. No pharyngeal erythema. No thyromegaly. CARDIOVASCULAR: S1 and S2 present. No murmurs, rubs, or gallops. PULMONARY: Chest is clear to auscultation, no wheezing or crackles. ABDOMEN: Soft, nontender, nondistended, normoactive bowel sounds. No palpable organomegaly. MUSCULOSKELETAL: No joint swelling or deformity. EXTREMITIES: No cyanosis, clubbing, or pedal edema. NEUROLOGICAL: Gross neurological examination did not reveal any focal deficits. SKIN: No rashes. Assessment and plan -Congestive heart failure chronic systolic dysfunction with acute exacerbation: Patient is on IV Lasix which will be continued. Patient is a very low-dose of lisinopril which will be continued -Coronary artery disease triple-vessel disease with recent intervention with mildly elevated troponin presently doesn't have any chest pain at this time will continue dual antiplatelet therapy. Hyperlipidemia -Toxoid atrial fibrillation presently rate controlled sinus rhythm patient is on a leukocytosis which was resumed at -hypertension DVT prophylaxis: On eliquis Past Medical History Past Medical History: Atrial Fibrillation, Coronary Artery Disease (CAD), Heart Failure, Hyperlipidemia, Hypertension Additional Past Medical History / Comment(s): 12/09/21 covid +/[facility], skin cancer removals, gout in toes History of Any Multi-Drug Resistant Organisms: None Reported Past Surgical History: Back Surgery, Heart Catheterization With Stent, Tonsillectomy Additional Past Surgical History / Comment(s): Skin cancer removals/nose flaps, colonoscopy Past Anesthesia/Blood Transfusion Reactions: No Reported Reaction Date of Last Stent Placement:: 01/10/22 Past Psychological History: No Psychological Hx Reported Additional Psychological History / Comment(s): Pt resides with his friend, Nelson. He is independent. Smoking Status: Former smoker Past Alcohol Use History: None Reported Past Drug Use History: None Reported - Past Family History Mother Family Medical History: No Reported History Additional Family Medical History / Comment(s): Mother was healthy Father Family Medical History: No Reported History Additional Family Medical History / Comment(s): Father was healthy Brother(s) Family Medical History: CVA/TIA Medications and Allergies Home Medications Medication Instructions Recorded Confirmed Type Aspirin EC [Ecotrin Low Dose] 40.5 mg PO W/SUPPER 12/31/21 01/19/22 History Atorvastatin [Lipitor] 40 mg PO HS 12/31/21 01/19/22 History Cholecalciferol [Vitamin D3 (125 125 mcg PO DAILY 12/31/21 01/19/22 History Mcg = 5000 Iu)] Vit C/E/Zn/Coppr/Lutein/Zeaxan 1 cap PO BID-W/MEALS 12/31/21 01/19/22 History [Preservision Areds 2 Softgel] allopurinoL [Zyloprim] 150 mg PO W/SUPPER 12/31/21 01/19/22 History fluorouraciL [Efudex] 1 applic TOPICAL MOTUWE 12/31/21 01/19/22 History Apixaban [Eliquis] 5 mg PO BID #60 tab 01/13/22 01/19/22 Rx Clopidogrel [Plavix] 75 mg PO DAILY #30 tab 01/14/22 01/19/22 Rx Furosemide [Lasix] 20 mg PO DAILY #30 tab 01/14/22 01/19/22 Rx Metoprolol Succinate (ER) [Toprol 50 mg PO BID #60 tab 01/14/22 01/19/22 Rx XL] lisinopriL [Zestril] 2.5 mg PO DAILY #30 tab 01/14/22 01/19/22 Rx Acetaminophen Tab [Tylenol Tab] 500 mg PO Q6H PRN 01/19/22 01/19/22 History Allergies Allergy/AdvReac Type Severity Reaction Status Date / Time No Known Allergies Allergy Verified 01/19/22 21:30 Physical Exam Vitals: Vital Signs Temp Pulse Pulse Resp BP BP Pulse Ox 01/20/22 11:10 98 F 82 17 112/64 95 01/20/22 08:27 98.1 F 99 18 127/70 95 01/20/22 04:00 97.8 F 98 18 107/56 95 01/20/22 02:00 76 18 01/20/22 00:40 71 16 01/20/22 00:00 98.9 F 71 16 112/66 96 01/19/22 21:25 85 16 124/82 95 01/19/22 19:20 16 01/19/22 19:03 97.9 F 141 H 20 129/77 98 Intake and Output 01/19/22 01/20/22 01/20/22 22:59 06:59 14:59 Intake Total 240 Output Total 200 800 600 Balance -200 -800 -360 Intake: Oral 240 Output: Urine 200 800 600 Other: Voiding Method Urinal Weight 81.193 kg 75.7 kg Results CBC & Chem 7: 01/20/22 01:45 01/20/22 01:45 Labs: Abnormal Lab Results - Last 24 Hours (Table) 01/19/22 01/19/22 01/19/22 Range/Units : 19:22 19:22 RBC 3.61 L (4.30-5.90) m/uL Hgb 12.0 L (13.0-17.5) gm/dL Hct 36.4 L (39.0-53.0) % MCV 100.9 H (80.0-100.0) fL PT 13.8 H (9.0-12.0) sec INR 1.3 H (<1.2) Sodium 136 L (137-145) mmol/L Potassium (3.5-5.1) mmol/L Carbon Dioxide 21 L (22-30) mmol/L Glucose 112 H (74-99) mg/dL Calcium 8.2 L (8.4-10.2) mg/dL Alkaline Phosphatase 135 H (38-126) U/L Troponin I (0.000-0.034) ng/mL Total Protein 5.8 L (6.3-8.2) g/dL Albumin 3.0 L (3.5-5.0) g/dL 01/19/22 01/19/22 01/20/22 Range/Units : 22:50 01:45 RBC (4.30-5.90) m/uL Hgb (13.0-17.5) gm/dL Hct (39.0-53.0) % MCV (80.0-100.0) fL PT (9.0-12.0) sec INR (<1.2) Sodium (137-145) mmol/L Potassium (3.5-5.1) mmol/L Carbon Dioxide (22-30) mmol/L Glucose (74-99) mg/dL Calcium (8.4-10.2) mg/dL Alkaline Phosphatase (38-126) U/L Troponin I 0.047 H* 0.044 H* 0.043 H* (0.000-0.034) ng/mL Total Protein (6.3-8.2) g/dL Albumin (3.5-5.0) g/dL 01/20/22 01/20/22 Range/Units 01:45 01:45 RBC 3.50 L (4.30-5.90) m/uL Hgb 11.9 L (13.0-17.5) gm/dL Hct 35.8 L (39.0-53.0) % MCV 102.5 H (80.0-100.0) fL PT (9.0-12.0) sec INR (<1.2) Sodium 136 L (137-145) mmol/L Potassium 3.3 L (3.5-5.1) mmol/L Carbon Dioxide (22-30) mmol/L Glucose (74-99) mg/dL Calcium 8.0 L (8.4-10.2) mg/dL Alkaline Phosphatase (38-126) U/L Troponin I (0.000-0.034) ng/mL Total Protein (6.3-8.2) g/dL Albumin (3.5-5.0) g/dL Thrombosis Risk Factor Assmnt - Choose All That Apply Each Factor Represents 1 point: Obesity (BMI >25), Swollen legs (current) Each Risk Factor Represents 3 Points: Age 75 years or older Thrombosis Risk Factor Assessment Total Risk Factor Score: 5 Thrombosis Risk Factor Assessment Level: High Risk
--- NOTE | 2022-01-20 12:05 | P.CRDCN ---
History of Present Illness Consult date: 01/20/22 History of present illness: HISTORY OF PRESENT ILLNESS: This is a 81-year-old male with a past medical history significant for coronary artery disease with recent Impella assisted stenting of the left main into the circumflex and OM1, cardiomyopathy, hypertension, hyperlipidemia, and atrial fibrillation. Patient follows in the office with Dr. Camacho. We have been asked to see the patient in consultation for CHF. Patient examined at the bedside. Patient presented to the hospital with a chief complaint of shortness of breath for the past week that has gotten worse over the past 2 days. Patient was found to be in acute congestive heart failure. The patient was started on IV Lasix. He reports improvement in his shortness of breath this morning. He denies any chest pain or pressure. * EKG reveals A. fib with RVR * Chest xray pleural fluid and pulmonary congestion similar to last examined consistent with congestive heart failure. There is mild basilar infiltrate and atelectasis left lower lobe. * Laboratory data: WBC 5.0. Hemoglobin 11.9. Platelet count 154. Sodium 136. Potassium 3.3. BUN 14. Creatinine 1.10. Troponin 0.047. 0.044. 0.043. ProBNP 13,000. * Current home cardiac medications include Eliquis 5mg BID, aspirin 40.5 mg with supper, Lipitor 40 mg at night, Plavix 75 mg daily, Lasix 20 mg daily, metoprolol succinate 50 mg twice a day, and lisinopril 2.5 mg daily * Most recent echocardiogram obtained in January 2022 revealing ejection fraction 30-35%, severe pulmonary hypertension, severe mitral regurgitation, mild aortic regurgitation, severe tricuspid regurgitation * Cardiac catheterization history: January 2022 with 95% left main, 100% proximal LAD, 100% RCA, 90% OM1 stenosis. Status post an [place] protected PCI left main and circumflex an additional PCI OM1. Status post attempted wiring of DYER AND WASHER LAD however IVUS showing extraluminal at the level of the first septal branch. Normal left-sided filling pressures. REVIEW OF SYSTEMS: At the time of my exam: CONSTITUTIONAL: Denies fever or chills. HEENT: Denies blurred vision, vision changes, or eye pain. Denies hemoptysis CARDIOVASCULAR: Denies chest pain. Denies orthopnea. Denies PND. Denies palpitations RESPIRATORY: Denies shortness of breath. GASTROINTESTINAL: Denies abdominal pain. Denies nausea or vomiting. HEMATOLOGIC: Denies bleeding disorders. GENITOURINARY: Denies any blood in urine. SKIN: Denies pruitis. Denies rash. PHYSICAL EXAM: VITAL SIGNS: Reviewed. GENERAL: Well-developed in no acute distress. HEENT: Head is normocephalic. Pupils are equal, round. Sclerae anicteric. Mucous membranes of the mouth are moist. Neck supple. No JVD or thyromegaly LUNGS: Respirations even and unlabored. Lungs diminished to auscultation bilaterally. HEART: Regular rate and rhythm. S1 and S2 heard. ABDOMEN: Soft. Nondistended. Nontender. EXTREMITIES: Normal range of motion. No clubbing or cyanosis. Peripheral pulses intact. 2+ lower extremity edema, worse at the ankles NEUROLOGIC: Awake and alert. Oriented x 3. ASSESSMENT: Shortness of breath Acute on chronic heart failure with reduced EF Coronary artery disease with recent PCI Ischemic cardiomyopathy Paroxysmal atrial fibrillation Hypertension Hyperlipidemia PLAN: No need to repeat echo Continue IV lasix Resume home cardiac medications Monitor kidney function Daily weights Add Aldactone Begin Farxiga as substitution for Jardiance Consider Entresto outpatient Further recommendations pending patient course Nurse practitioner note has been reviewed by physician. Signing provider agrees with the documented findings, assessment, and plan of care. Past Medical History Past Medical History: Atrial Fibrillation, Coronary Artery Disease (CAD), Heart Failure, Hyperlipidemia, Hypertension Additional Past Medical History / Comment(s): 12/09/21 covid +/[facility], skin cancer removals, gout in toes History of Any Multi-Drug Resistant Organisms: None Reported Past Surgical History: Back Surgery, Heart Catheterization With Stent, Tonsillectomy Additional Past Surgical History / Comment(s): Skin cancer removals/nose flaps, colonoscopy Past Anesthesia/Blood Transfusion Reactions: No Reported Reaction Date of Last Stent Placement:: 01/10/22 Past Psychological History: No Psychological Hx Reported Additional Psychological History / Comment(s): Pt resides with his friend, Nelson. He is independent. Smoking Status: Former smoker Past Alcohol Use History: None Reported Past Drug Use History: None Reported - Past Family History Mother Family Medical History: No Reported History Additional Family Medical History / Comment(s): Mother was healthy Father Family Medical History: No Reported History Additional Family Medical History / Comment(s): Father was healthy Brother(s) Family Medical History: CVA/TIA Medications and Allergies Home Medications Medication Instructions Recorded Confirmed Type Aspirin EC [Ecotrin Low Dose] 40.5 mg PO W/SUPPER 12/31/21 01/19/22 History Atorvastatin [Lipitor] 40 mg PO HS 12/31/21 01/19/22 History Cholecalciferol [Vitamin D3 (125 125 mcg PO DAILY 12/31/21 01/19/22 History Mcg = 5000 Iu)] Vit C/E/Zn/Coppr/Lutein/Zeaxan 1 cap PO BID-W/MEALS 12/31/21 01/19/22 History [Preservision Areds 2 Softgel] allopurinoL [Zyloprim] 150 mg PO W/SUPPER 12/31/21 01/19/22 History fluorouraciL [Efudex] 1 applic TOPICAL MOTUWE 12/31/21 01/19/22 History Apixaban [Eliquis] 5 mg PO BID #60 tab 01/13/22 01/19/22 Rx Clopidogrel [Plavix] 75 mg PO DAILY #30 tab 01/14/22 01/19/22 Rx Furosemide [Lasix] 20 mg PO DAILY #30 tab 01/14/22 01/19/22 Rx Metoprolol Succinate (ER) [Toprol 50 mg PO BID #60 tab 01/14/22 01/19/22 Rx XL] lisinopriL [Zestril] 2.5 mg PO DAILY #30 tab 01/14/22 01/19/22 Rx Acetaminophen Tab [Tylenol Tab] 500 mg PO Q6H PRN 01/19/22 01/19/22 History Allergies Allergy/AdvReac Type Severity Reaction Status Date / Time No Known Allergies Allergy Verified 01/19/22 21:30 Physical Exam Vitals: Vital Signs Temp Pulse Pulse Resp BP BP Pulse Ox 01/20/22 08:27 98.1 F 99 18 127/70 95 01/20/22 04:00 97.8 F 98 18 107/56 95 01/20/22 02:00 76 18 01/20/22 00:40 71 16 01/20/22 00:00 98.9 F 71 16 112/66 96 01/19/22 21:25 85 16 124/82 95 01/19/22 19:20 16 01/19/22 19:03 97.9 F 141 H 20 129/77 98 Intake and Output 01/19/22 01/20/22 01/20/22 22:59 06:59 14:59 Intake Total 240 Output Total 200 800 Balance -200 -800 240 Intake: Oral 240 Output: Urine 200 800 Other: Voiding Method Urinal Weight 81.193 kg 75.7 kg Results 01/20/22 01:45 01/20/22 01:45 Cardiac Enzymes 01/19/22 01/19/22 01/19/22 Range/Units 19:22 19:22 22:50 AST 34 (17-59) U/L Troponin I 0.047 H* 0.044 H* (0.000-0.034) ng/mL 01/20/22 Range/Units 01:45 AST (17-59) U/L Troponin I 0.043 H* (0.000-0.034) ng/mL Coagulation 01/19/22 Range/Units : PT 13.8 H (9.0-12.0) sec APTT 28.7 (22.0-30.0) sec CBC 01/19/22 01/20/22 Range/Units 19:22 01:45 WBC 5.8 5.0 (3.8-10.6) k/uL RBC 3.61 L 3.50 L (4.30-5.90) m/uL Hgb 12.0 L 11.9 L (13.0-17.5) gm/dL Hct 36.4 L 35.8 L (39.0-53.0) % Plt Count 162 154 (150-450) k/uL Comprehensive Metabolic Panel 01/19/22 01/20/22 Range/Units 19:22 01:45 Sodium 136 L 136 L (137-145) mmol/L Potassium 3.8 3.3 L (3.5-5.1) mmol/L Chloride 103 102 (98-107) mmol/L Carbon Dioxide 21 L 25 (22-30) mmol/L BUN 15 14 (9-20) mg/dL Creatinine 1.14 1.10 (0.66-1.25) mg/dL Glucose 112 H 91 (74-99) mg/dL Calcium 8.2 L 8.0 L (8.4-10.2) mg/dL AST 34 (17-59) U/L ALT 30 (4-49) U/L Alkaline Phosphatase 135 H (38-126) U/L Total Protein 5.8 L (6.3-8.2) g/dL Albumin 3.0 L (3.5-5.0) g/dL Current Medications Generic Name Dose Route Start Last Admin Trade Name Freq PRN Reason Stop Dose Admin Allopurinol 150 mg 01/20/22 17:30 Allopurinol 300 Mg Tab PO W/SUPPER BENJAMIN Apixaban 5 mg 01/19/22 21:15 01/20/22 08:19 Apixaban 5 Mg Tab PO 5 mg BID BENJAMIN Administration Protocol Aspirin 40.5 mg 01/19/22 21:15 01/19/22 21:36 Aspirin 81 Mg PO 40.5 mg W/SUPPER BENJAMIN Administration Atorvastatin Calcium 40 mg 01/19/22 21:15 01/19/22 21:36 Atorvastatin 40 Mg Tab PO 40 mg HS BENJAMIN Administration Clopidogrel Bisulfate 75 mg 01/20/22 09:00 01/20/22 08:19 Clopidogrel 75 Mg Tab PO 75 mg DAILY BENJAMIN Administration Furosemide 40 mg 01/20/22 09:00 01/20/22 08:20 Furosemide 10 Mg/Ml 4 Ml Vial IV 40 mg BID BENJAMIN Administration Lisinopril 2.5 mg 01/20/22 09:00 01/20/22 08:20 Lisinopril 2.5 Mg Tab PO 2.5 mg DAILY BENJAMIN Administration Metoprolol Succinate 50 mg 01/19/22 21:15 01/20/22 08:19 Metoprolol Succinate (Er) 50 Mg Tab.Er.24h PO 50 mg BID BENJAMIN Administration Naloxone HCl 0.2 mg 01/19/22 21:11 Naloxone 0.4 Mg/Ml 1 Ml Vial IV Q2M PRN Opioid Reversal Intake and Output 01/19/22 01/20/22 01/20/22 22:59 06:59 14:59 Intake Total 240 Output Total 200 800 Balance -200 -800 240 Intake: Oral 240 Output: Urine 200 800 Other: Voiding Method Urinal Weight 81.193 kg 75.7 kg 01/20/22 01:45 01/20/22 01:45
[2022-01-20 15:03] VITALS: BMI 26.1
[2022-01-20] MEDS: ASPIRIN 81 MG PO SCH (17:11)
[2022-01-20] MEDS: allopurinoL 300 MG TAB PO SCH (17:12)
[2022-01-20] MEDS: ATORVASTATIN 40 MG TAB PO SCH (20:37)
[2022-01-21] MEDS: SPIRONOLACTONE 25 MG TAB PO SCH (08:42)
[2022-01-21] MEDS: APIXABAN 5 MG TAB PO SCH ×2 (08:42→20:57)
[2022-01-21] MEDS: FUROSEMIDE 10 MG/ML 4 ML VIAL IV SCH ×2 (08:42→20:50)
[2022-01-21] MEDS: CLOPIDOGREL 75 MG TAB PO SCH (08:42)
[2022-01-21] MEDS: METOPROLOL SUCCINATE (ER) 50 MG TAB.ER.24H PO SCH ×2 (08:42→20:50)
[2022-01-21] MEDS ORDERED: DAPAGLIFLOZIN PROPANEDIOL 5 MG TABLET PO SCH (09:00)
[2022-01-21 09:50] LABS: Calcium 8.4 mg/dL (8.4-10.2); Potassium 3.7 mmol/L (3.5-5.1)
--- NOTE | 2022-01-21 12:19 | P.PN ---
Subjective Progress Note Date: 01/21/22 HISTORY OF PRESENT ILLNESS: This is a 81-year-old male with a past medical history significant for coronary artery disease with recent Impella assisted stenting of the left main into the circumflex and OM1, cardiomyopathy, hypertension, hyperlipidemia, and atrial fibrillation. Patient follows in the office with Dr. Camacho. We have been asked to see the patient in consultation for CHF. Patient examined at the bedside. Patient presented to the hospital with a chief complaint of shortness of breath for the past week that has gotten worse over the past 2 days. Patient was found to be in acute congestive heart failure. The patient was started on IV Lasix. He reports improvement in his shortness of breath this morning. He denies any chest pain or pressure. * EKG reveals A. fib with RVR * Chest xray pleural fluid and pulmonary congestion similar to last examined consistent with congestive heart failure. There is mild basilar infiltrate and atelectasis left lower lobe. * Laboratory data: WBC 5.0. Hemoglobin 11.9. Platelet count 154. Sodium 136. Potassium 3.3. BUN 14. Creatinine 1.10. Troponin 0.047. 0.044. 0.043. ProBNP 13,000. * Current home cardiac medications include Eliquis 5mg BID, aspirin 40.5 mg with supper, Lipitor 40 mg at night, Plavix 75 mg daily, Lasix 20 mg daily, metoprolol succinate 50 mg twice a day, and lisinopril 2.5 mg daily * Most recent echocardiogram obtained in January 2022 revealing ejection fraction 30-35%, severe pulmonary hypertension, severe mitral regurgitation, mild aortic regurgitation, severe tricuspid regurgitation * Cardiac catheterization history: January 2022 with 95% left main, 100% proximal LAD, 100% RCA, 90% OM1 stenosis. Status post an [place] protected PCI left main and circumflex an additional PCI OM1. Status post attempted wiring of DIESEL MACHINIST LAD however IVUS showing extraluminal at the level of the first septal branch. Normal left-sided filling pressures. 01/21/2022 Patient examined this morning. Patient is sitting up in the chair. He denies chest pain or pressure. He denies shortness of breath. He continues to have lower extremity edema that is worse around his ankles and feet. He remains on IV Lasix. Patient's kidney function remains stable. Vital signs are stable. PHYSICAL EXAM: VITAL SIGNS: Reviewed. GENERAL: Well-developed in no acute distress. HEENT: Head is normocephalic. Pupils are equal, round. Sclerae anicteric. Mucous membranes of the mouth are moist. Neck supple. No JVD or thyromegaly LUNGS: Respirations even and unlabored. Lungs diminished to auscultation bilaterally. HEART: Regular rate and rhythm. S1 and S2 heard. ABDOMEN: Soft. Nondistended. Nontender. EXTREMITIES: Normal range of motion. No clubbing or cyanosis. Peripheral pulses intact. 1-2+ lower extremity edema, worse at the ankles NEUROLOGIC: Awake and alert. Oriented x 3. ASSESSMENT: Shortness of breath Acute on chronic heart failure with reduced EF Coronary artery disease with recent PCI Ischemic cardiomyopathy Paroxysmal atrial fibrillation Hypertension Hyperlipidemia PLAN: Continue IV lasix Continue current cardiac medications Monitor kidney function Daily weights Continue Farxiga as substitution for Jardiance Consider Entresto outpatient Further recommendations pending patient course Nurse practitioner note has been reviewed by physician. Signing provider agrees with the documented findings, assessment, and plan of care. Objective - Vital Signs Vital signs: Vital Signs Temp 97.7 F 01/21/22 08:41 Pulse 86 01/21/22 08:41 Resp 17 01/21/22 08:41 BP 94/54 01/21/22 08:41 Pulse Ox 97 01/21/22 08:41 FiO2 Intake & Output 01/20/22 01/21/22 01/21/22 18:59 06:59 18:59 Intake Total 358 10 360 Output Total 1510 1350 Balance -1152 -1340 360 Weight 75.7 kg 73 kg Intake: IV 10 Invasive Line 1 10 Oral 358 360 Output: Urine 1510 1350 Other: Voiding Method Urinal Urinal - Labs CBC & Chem 7: 01/20/22 01:45 01/21/22 08:40 Labs: Abnormal Lab Results - Last 24 Hours (Table) 01/21/22 Range/Units 08:40 Glucose 149 H (74-99) mg/dL
[2022-01-21 12:28] LABS: Glucose,Whole Blood 139 mg/dL (70-110)
[2022-01-21] MEDS ORDERED: DEXTROSE 50% SYRINGE 50 ML IVP PRN ×2 (13:28)
--- NOTE | 2022-01-21 15:26 | P.PN ---
Subjective Progress Note Date: 01/21/22 This is a pleasant 81-year-old male was recently discharged from the hospital after he was treated for the triple-vessel disease, coronary artery disease patient had staged intervention patient is supposed to get more interventions as an outpatient patient patient had an ejection fraction of 30-35%. Patient comes in with volume overload with highly elevated BNP chest x-ray showing pulmonary edema. Patient diarrhea is well with a 40 IV twice a day of Lasix patient is bit hyponatremic secondary to Lasix which is being replaced patient fail he looks she will begin this time. Patient came in with complaints of shortness of breath and orthopnea did 01/21/2022 Patient is evaluated today ambulating in room. He denies shortness of breath and no chest pain today. No dizziness or lightheadedness. He continues on IV lasix 40 mg Q12. He continues with significant ankle and pedal edema. Sodium today 13 7, potassium 3.7, BUN 14, creatinine 1.14. Blood glucose 130s today. Blood pressure on the lower side today 94/54. Patient continues on lisinopril 2.5 mg daily, aldactone, toprol xl 50 mg BID. Review of Systems Constitutional: Denied any fatigue denied any fever. Cardio vascular: denied any chest pain, palpitations reports lower extremity edema Gastrointestinal: denied any nausea, vomiting, diarrhea Pulmonary: Denied any shortness of breath cough Neurologic denied any new focal deficits All inpatient medications were reviewed and appropriate changes in these medications as dictated in the interval history and assessment and plan. PHYSICAL EXAMINATION: GENERAL: The patient is alert and oriented x3, not in any acute distress. Well developed, well nourished. HEENT: Pupils are round and equally reacting to light. EOMI. No scleral icterus. No conjunctival pallor. Normocephalic, atraumatic. No pharyngeal erythema. No thyromegaly. CARDIOVASCULAR: S1 and S2 present. No murmurs, rubs, or gallops. PULMONARY: Chest is clear to auscultation, no wheezing or crackles. ABDOMEN: Soft, nontender, nondistended, normoactive bowel sounds. No palpable organomegaly. MUSCULOSKELETAL: No joint swelling or deformity. EXTREMITIES: No cyanosis, clubbing. with +2 pitting ankle and pedal edema. NEUROLOGICAL: Gross neurological examination did not reveal any focal deficits. SKIN: No rashes. Assessment and plan -Congestive heart failure chronic systolic dysfunction with acute exacerbation: Continue on IV lasix Q12 and current cardiac medications. -Coronary artery disease triple-vessel disease with recent intervention with mildly elevated troponin, continue current medications, denies chest pain -Ischemic cardiomyopathy -Hyperlipidemia -Paroxysmal atrial fibrillation presently rate controlled currently in normal sinus rhythm -hypertension -Former tobacco use DVT prophylaxis: On eliquis GI porphylaxis: Full Code Plan Continue on IV lasix. Monitor intake and output. Continue all other cardiac medications. Patient would benefit from compression stockings bilaterally. Further recommendations from cardiology. Monitor renal function. The impression and plan of care has been dictated by Alicia Butler Nurse Practitioner as directed. Dr. Naun MD I have performed a history and physical examination and medical decision making of this patient, discussed the same with the dictator, and agree with the dictators assessment and plan as written, documented as a scribe. Based on total visit time, I have performed more than 50% of this visit. Objective - Vital Signs Vital signs: Vital Signs Temp 97.9 F 01/21/22 12:00 Pulse 80 01/21/22 12:00 Resp 16 01/21/22 12:00 BP 102/56 01/21/22 12:00 Pulse Ox 98 01/21/22 12:00 FiO2 Intake & Output 01/20/22 01/21/22 01/21/22 18:59 06:59 18:59 Intake Total 358 10 478 Output Total 1510 1350 Balance -1152 -1340 478 Weight 75.7 kg 73 kg Intake: IV 10 Invasive Line 1 10 Oral 358 478 Output: Urine 1510 1350 Other: Voiding Method Urinal Urinal Urinal - Labs CBC & Chem 7: 01/20/22 01:45 01/21/22 08:40 Labs: Abnormal Lab Results - Last 24 Hours (Table) 01/21/22 01/21/22 Range/Units 08:40 11:46 Glucose 149 H (74-99) mg/dL POC Glucose (mg/dL) 139 H (70-110) mg/dL Assessment and Plan Time with Patient: Less than 30
[2022-01-21] MEDS: allopurinoL 300 MG TAB PO SCH (17:23)
[2022-01-21] MEDS: INSULIN ASPART (NovoLOG) 100 UNIT/ML VIAL SQ SCH ×2 (17:24→20:48)
[2022-01-21 17:25] LABS: Glucose,Whole Blood 119 mg/dL (70-110)
[2022-01-21 20:34] LABS: Glucose,Whole Blood 102 mg/dL (70-110)
[2022-01-21] MEDS ORDERED: METOPROLOL SUCCINATE (ER) 25 MG TAB.ER.24H PO STA (20:50)
[2022-01-21 20:55] VITALS: RESP 16
[2022-01-21] MEDS: ATORVASTATIN 40 MG TAB PO SCH (20:57)
[2022-01-22 06:51] LABS: Glucose,Whole Blood 90 mg/dL (70-110)
[2022-01-22] MEDS: INSULIN ASPART (NovoLOG) 100 UNIT/ML VIAL SQ SCH ×2 (06:52→11:47)
[2022-01-22] MEDS ORDERED: DAPAGLIFLOZIN PROPANEDIOL 10 MG TABLET PO SCH (09:00)
[2022-01-22] MEDS ORDERED: METOPROLOL SUCCINATE (ER) 25 MG TAB.ER.24H PO SCH (09:00)
[2022-01-22] MEDS ORDERED: ASPIRIN 81 MG PO SCH (09:00)
[2022-01-22 09:17] VITALS: TEMP 97.6
[2022-01-22 09:25] LABS: Calcium 8.3 mg/dL (8.4-10.2); Potassium 3.7 mmol/L (3.5-5.1)
--- NOTE | 2022-01-22 09:31 | P.PN ---
Subjective Progress Note Date: 01/22/22 HISTORY OF PRESENT ILLNESS: This is a 81-year-old male with a past medical history significant for coronary artery disease with recent Impella assisted stenting of the left main into the circumflex and OM1, cardiomyopathy, hypertension, hyperlipidemia, and atrial fibrillation. Patient follows in the office with Dr. Camacho. We have been asked to see the patient in consultation for CHF. Patient examined at the bedside. Patient presented to the hospital with a chief complaint of shortness of breath for the past week that has gotten worse over the past 2 days. Patient was found to be in acute congestive heart failure. The patient was started on IV Lasix. He reports improvement in his shortness of breath this morning. He denies any chest pain or pressure. * EKG reveals A. fib with RVR * Chest xray pleural fluid and pulmonary congestion similar to last examined consistent with congestive heart failure. There is mild basilar infiltrate and atelectasis left lower lobe. * Laboratory data: WBC 5.0. Hemoglobin 11.9. Platelet count 154. Sodium 136. Potassium 3.3. BUN 14. Creatinine 1.10. Troponin 0.047. 0.044. 0.043. ProBNP 13,000. * Current home cardiac medications include Eliquis 5mg BID, aspirin 40.5 mg with supper, Lipitor 40 mg at night, Plavix 75 mg daily, Lasix 20 mg daily, metoprolol succinate 50 mg twice a day, and lisinopril 2.5 mg daily * Most recent echocardiogram obtained in January 2022 revealing ejection fraction 30-35%, severe pulmonary hypertension, severe mitral regurgitation, mild aortic regurgitation, severe tricuspid regurgitation * Cardiac catheterization history: January 2022 with 95% left main, 100% proximal LAD, 100% RCA, 90% OM1 stenosis. Status post an [place] protected PCI left main and circumflex an additional PCI OM1. Status post attempted wiring of LOWER IN SUPERVISOR LAD however IVUS showing extraluminal at the level of the first septal branch. Normal left-sided filling pressures. 01/21/2022 Patient examined this morning. Patient is sitting up in the chair. He denies chest pain or pressure. He denies shortness of breath. He continues to have lower extremity edema that is worse around his ankles and feet. He remains on IV Lasix. Patient's kidney function remains stable. Vital signs are stable. 01/22/2022 Patient examined this morning at the doctor. Patient denies chest pain or pressure. He denies shortness of breath. Patient's lower extremity edema continues to improve. He remains on IV lasix. Blood pressure on the soft side with SBP 80-90. PHYSICAL EXAM: VITAL SIGNS: Reviewed. GENERAL: Well-developed in no acute distress. HEENT: Head is normocephalic. Pupils are equal, round. Sclerae anicteric. Mucous membranes of the mouth are moist. Neck supple. No JVD or thyromegaly LUNGS: Respirations even and unlabored. Lungs diminished to auscultation bilaterally. HEART: Regular rate and rhythm. S1 and S2 heard. ABDOMEN: Soft. Nondistended. Nontender. EXTREMITIES: Normal range of motion. No clubbing or cyanosis. Peripheral pulses intact. 1-2+ lower extremity edema, worse at the ankles NEUROLOGIC: Awake and alert. Oriented x 3. ASSESSMENT: Shortness of breath Acute on chronic heart failure with reduced EF Coronary artery disease with recent PCI Ischemic cardiomyopathy Paroxysmal atrial fibrillation Hypertension Hyperlipidemia PLAN: Discontinue IV lasix. Begin oral lasix Decrease metoprolol to 25mg BID Continue to monitor blood pressure Continue Farxiga as substitution for Jardiance Consider Entresto outpatient Patient stable for discharge home today from a cardiac standpoint Nurse practitioner note has been reviewed by physician. Signing provider agrees with the documented findings, assessment, and plan of care. Objective - Vital Signs Vital signs: Vital Signs Temp 97.6 F 01/22/22 08:00 Pulse 60 01/22/22 08:00 Resp 16 01/22/22 08:00 BP 114/56 01/22/22 08:00 Pulse Ox 97 01/22/22 08:00 FiO2 Intake & Output 01/21/22 01/22/22 01/22/22 18:59 06:59 18:59 Intake Total 838 10 Output Total 650 Balance 838 -640 Intake: IV 10 Invasive Line 1 10 Oral 838 Output: Urine 650 Other: Voiding Method Urinal Urinal Urinal - Labs CBC & Chem 7: 01/20/22 01:45 01/21/22 08:40 Labs: Abnormal Lab Results - Last 24 Hours (Table) 01/21/22 01/21/22 01/21/22 Range/Units 08:40 11:46 17:14 Glucose 149 H (74-99) mg/dL POC Glucose (mg/dL) 139 H 119 H (70-110) mg/dL
[2022-01-22] MEDS: SPIRONOLACTONE 25 MG TAB PO SCH (09:36)
[2022-01-22] MEDS: FUROSEMIDE 10 MG/ML 4 ML VIAL IV SCH (09:36)
[2022-01-22] MEDS: CLOPIDOGREL 75 MG TAB PO SCH (09:36)
[2022-01-22] MEDS: APIXABAN 5 MG TAB PO SCH (09:36)
[2022-01-22 11:44] VITALS: BP 123/72; PULSE 71
[2022-01-22 11:45] LABS: Glucose,Whole Blood 88 mg/dL (70-110)
[2022-01-22] MEDS ORDERED: FUROSEMIDE 40 MG TAB PO SCH (16:00)
--- NOTE | 2022-01-24 14:34 | CDI ---
Documentation Clarification Form Date: 01/24/2022 02:10:36 PM From: Trish Timmons Phone: Admit Date: 01/19/2022 09:11:00 PM Patient Name: Chuck Santiago Visit Number: [id number] Discharge Date: 01/22/2022 04:20:00 PM ATTENTION: The Clinical Documentation Specialists (CDI) and [facility] Coding Staff appreciate your assistance in clarifying documentation. Please respond to the clarification below the line at the bottom and electronically sign. The CDI & [facility] Coding staff will review the response and follow-up if needed. Please note: Queries are made part of the Legal Health Record. If you have any questions, please contact the author of this message via ITS. Dr. Wojciech Meyer Patient recently hospitalized for 3 weeks due to NSTEMI is documented Consult Note 01/20/22. Please specify exact date of the NSTEMI History/Risk Factors: ACSHF, CAD, Ischemic cardiomyopathy, PAF, HTN, HLD Clinical Indicators: Most recent echocardiogram obtained in January 2022 revealing ejection fraction 30-35%, PHTN, MR, AR, and TR Cardiac catheterization history: January 2022 with 95% left main, 100% 00 proximal LAD, 100% RCA, 90% OM1 stenosis. Status post an [place] protected PCI left main and circumflex an additional PCI OM1.Status post attempted wiring of BOX BENDER LAD however IVUS showing extraluminal at the level of the first septal branch. Normal left-sided filling pressures. Treatment: recent PCI Please specify exact date of the NSTEMI [ ] December 2021 [ ] January ___2021 [ ] Before December 29, 2021 (Older than 28 days) [ XX ] Unable to determine [ ] Other Condition, please specify (Template Last Revised: July 2020) MTDD
--- NOTE | 2022-01-24 23:17 | P.DS ---
Providers Date of admission: 01/19/22 21:11 Attending physician: Vaishali Ellis MD Primary care physician: Physician Nonstaff Hospital Course: Diagnosis -Congestive heart failure chronic systolic dysfunction with acute exacerbation -Coronary artery disease triple-vessel disease with recent intervention with mildly elevated troponin -Ischemic cardiomyopathy -Hyperlipidemia -Paroxysmal atrial fibrillation presently rate controlled currently in normal sinus rhythm -hypertension -Former tobacco use Full Code Discharge Disposition Patient is stable for discharge. He has been cleared by cardiology. Transitioned to oral lasix and will also discharge on aldactone. Patient is also discharged on Farxiga 10 mg PO daily, His A1C is 6.0. He has a follow up appointment with his tile ditcher Dr Camacho on 01/28/22. He is also recommended to see his primary care provider Dr. Rivers in 1 to 2 days after discharge. Recommend to repeat labs in 2 days outpatient. Hospital Course This is a pleasant 81-year-old male was recently discharged from the hospital after he was treated for the triple-vessel disease, coronary artery disease patient had staged intervention patient is supposed to get more interventions as an outpatient patient patient had an ejection fraction of 30-35%. Patient comes in with volume overload with highly elevated BNP chest x-ray showing pulmonary edema. ProBNP found to be 13,000. He had elevated troponin level consistent with CHF, acute coronary syndrome has been ruled out. Patient is admitted with cardiology consultation and is diuresing well with 40 IV twice a day of Lasix. Patient has also been started on aldactone. Patient is bit hyponatremic secondary to Lasix and potassium is being replaced. Patient came in with complaints of shortness of breath and orthopnea which has improved with lasix. He does have some pitting ankle edema and is encouraged to wear compression stockings and elevate his lower extremities when sitting/lying. Cardiology has cleared patient for discharge. 01/22/2022 Patient is evaluated in room ambulating without difficulty. He denies shortness of breath, no chest pain. He has no dizziness or lightheadedness. He is anticipating discharge today, will D/C on oral lasix and aldactone. Initially Jardiance was recommending for discharge however the copay was found to be over 500$ a month due to elevated A1C of 6.0. He was then discharge on Farxiga which was affordable for patient. He is given referral information to outpatient diabetes education at [facility] as well. Patients lungs are clear today, on room air. S1 S2 auscultated regular rate and rhythm, continues in normal sinus rhythm. Labs today showing sodium 137, potassium 3.7, BUN 17, creatinine 1.32 which is increased from creatinine on admission which was found to be 1.14. He has been maintained on IV lasix BID and he is given script for repeat labs in 2 to 3 days and this is expected to improve with transitioning to oral medications for discharge. Blood glucose in the 110 range. He is afebrile today, heart rate 71, blood pressure 123/72, 98% room air. Patient will be discharged home today. Total time taken in discharge planning greater than 35 minutes. Please see medication reconciliation for a list of current medication. Thank you for allowing us to participate in the care of this patient. The impression and plan of care has been dictated by Alicia Butler, Nurse Practitioner as directed. Dr. Naun MD I have performed a history and physical examination and medical decision making of this patient, discussed the same with the dictator, and agree with the dictators assessment and plan as written, documented as a scribe. Based on total visit time, I have performed more than 50% of this visit. Patient Condition at Discharge: Stable Plan - Discharge Summary New Discharge Prescriptions: New Furosemide [Lasix] 40 mg PO DAILY #30 tablet Dapagliflozin Propanediol [Farxiga] 10 mg PO DAILY #90 tab Spironolactone 25 mg PO DAILY #30 tab Metoprolol Succinate (ER) [Toprol XL] 25 mg PO BID #60 tab Continue Atorvastatin [Lipitor] 40 mg PO HS Aspirin EC [Ecotrin Low Dose] 40.5 mg PO W/SUPPER allopurinoL [Zyloprim] 150 mg PO W/SUPPER Cholecalciferol [Vitamin D3 (125 Mcg = 5000 Iu)] 125 mcg PO DAILY Clopidogrel [Plavix] 75 mg PO DAILY #30 tab lisinopriL [Zestril] 2.5 mg PO DAILY #30 tab Vit C/E/Zn/Coppr/Lutein/Zeaxan [Preservision Areds 2 Softgel] 1 cap PO BID- W/MEALS fluorouraciL [Efudex] 1 applic TOPICAL MOTUWE Apixaban [Eliquis] 5 mg PO BID #60 tab Acetaminophen Tab [Tylenol] 500 mg PO Q6H PRN PRN Reason: general discomfort Discontinued Metoprolol Succinate (ER) [Toprol XL] 50 mg PO BID #60 tab Furosemide [Lasix] 20 mg PO DAILY #30 tab Discharge Medication List Aspirin EC [Ecotrin Low Dose] 40.5 mg PO W/SUPPER 12/31/21 [History] Atorvastatin [Lipitor] 40 mg PO HS 12/31/21 [History] Cholecalciferol [Vitamin D3 (125 Mcg = 5000 Iu)] 125 mcg PO DAILY 12/31/21 [History] Vit C/E/Zn/Coppr/Lutein/Zeaxan [Preservision Areds 2 Softgel] 1 cap PO BID- W/MEALS 12/31/21 [History] allopurinoL [Zyloprim] 150 mg PO W/SUPPER 12/31/21 [History] fluorouraciL [Efudex] 1 applic TOPICAL MOTUWE 12/31/21 [History] Apixaban [Eliquis] 5 mg PO BID #60 tab 01/13/22 [Rx] Clopidogrel [Plavix] 75 mg PO DAILY #30 tab 01/14/22 [Rx] lisinopriL [Zestril] 2.5 mg PO DAILY #30 tab 01/14/22 [Rx] Acetaminophen Tab [Tylenol] 500 mg PO Q6H PRN 01/19/22 [History] Dapagliflozin Propanediol [Farxiga] 10 mg PO DAILY #90 tab 01/22/22 [Rx] Furosemide [Lasix] 40 mg PO DAILY #30 tablet 01/22/22 [Rx] Metoprolol Succinate (ER) [Toprol XL] 25 mg PO BID #60 tab 01/22/22 [Rx] Spironolactone 25 mg PO DAILY #30 tab 01/22/22 [Rx] Follow up Appointment(s)/Referral(s): Abdon Rivers MD [Other] - 1-2 Days Orlando Camacho MD [STAFF PHYSICIAN] - 01/28/22 11:15 am Lee Ann Parekh MD [STAFF PHYSICIAN] - 02/03/22 9:00 am () Ambulatory/Diagnostic Orders: Basic Metabolic Panel [LAB.AMB] Time Frame: 2 Days, Location: None Selected Patient Instructions/Handouts: Heart Attack (DC), Heart Failure (ER), Heart Healthy Diet (ED), Leg Edema (ED), Low-Sodium Diet (ED), Prediabetes (GEN) Activity/Diet/Wound Care/Special Instructions: Repeat BMP in 2 days outpatient. Can use [facility] outpatient [facility] lab for routine lab draw and results will be sent to your primary care office. Phone number is [phone] Follow up with primary care Dr. Rivers in 1 to 2 days Follow up cardiology Dr. Camacho Cardiology has recommended patient be discharged on Jardiance due to cardiac benefits, medication copay is over 500$ per month. Patient is considered pre diabetic with hgb A1C of 6.0 this admission, blood glucose in the 100s. Recommend to follow up with primary care and recommend diet modifications for 3 months with repeat A1C. Patient can also follow up with outpatient diabetes education at [facility] for further education. Discharge Disposition: HOME SELF-CARE
== END 2022-01-22 16:20 | disposition home or self-care (01) | DRG 291 ==
LOC: EC 18:31 → 3SCARD 21:11
PROVIDERS: ADMIT Internal Medicine; ATTEND Internal Medicine
DX: I11.0 Hypertensive heart disease with heart failure (principal); I50.23 Acute on chronic systolic (congestive) heart failure; E87.1 Hypo-osmolality and hyponatremia; J98.11 Atelectasis; I27.20 Pulmonary hypertension, unspecified; I08.3 Combined rheumatic disorders of mitral, aortic and tricuspid valves; E78.5 Hyperlipidemia, unspecified; I25.5 Ischemic cardiomyopathy; I48.0 Paroxysmal atrial fibrillation; T50.1X5A Adverse effect of loop [high-ceiling] diuretics, initial encounter; R19.7 Diarrhea, unspecified; I25.10 Atherosclerotic heart disease of native coronary artery without angina pectoris; Z79.01 Long term (current) use of anticoagulants; Z87.891 Personal history of nicotine dependence; Z95.5 Presence of coronary angioplasty implant and graft; Z79.82 Long term (current) use of aspirin; Z79.02 Long term (current) use of antithrombotics/antiplatelets; Z85.828 Personal history of other malignant neoplasm of skin; Z86.16 Personal history of COVID-19; Z79.899 Other long term (current) drug therapy; Z82.3 Family history of stroke; I25.2 Old myocardial infarction; Z79.84 Long term (current) use of oral hypoglycemic drugs
CPT/HCPCS: 36415; 71046; 80048; 80053; 83036; 83605; 83735; 83880; 84484; 85025; 85610; 85730; 93005; 96374; 99285

== ENCOUNTER → 2022-01-24 | Outpatient (CLI) | payer MEDICARE, BC ==
[2022-01-24 14:41] LABS: African American GFR (CKD) 59.5 (60.0-200.0); Anion Gap 11.1 mmol/L (10.00-18.00); BUN/Creat Ratio 12.09 Ratio (12.00-20.00); Blood Urea Nitrogen 15.6 mg/dL (9.0-27.0); Calcium 8.8 mg/dL (8.7-10.3); Carbon Dioxide 28.6 mmol/L (20.0-27.5); Non-African American GFR(CKD) 51.3 (60.0-200.0); Potassium 3.8 mmol/L (3.5-5.5)
== END | disposition home or self-care (01) ==
LOC: LABWHC1 08:59
PROVIDERS: ATTEND Nurse Practitioner Family
DX: N17.9 Acute kidney failure, unspecified (principal)
CPT/HCPCS: 36415; 80048

== ENCOUNTER → 2022-04-15 | Outpatient (CLI) | payer MEDICARE, BC ==
[2022-04-16] LABS: African American GFR (CKD) 85.3 (60.0-200.0); BUN/Creat Ratio 16.51 Ratio (12.00-20.00); Blood Urea Nitrogen 15.8 mg/dL (9.0-27.0); Magnesium 2.1 mg/dL (1.5-2.4); Non-African American GFR(CKD) 73.6 (60.0-200.0); Potassium 4.5 mmol/L (3.5-5.5)
== END | disposition home or self-care (01) ==
LOC: LABWHC1 14:31
PROVIDERS: ATTEND Internal Medicine Clinical Cardiac Electrophysiology
DX: I10 Essential (primary) hypertension (principal)
CPT/HCPCS: 36415; 80048; 83735

== ENCOUNTER → 2023-06-17 | Outpatient (CLI) | payer MEDICARE, BC ==
[2023-06-17 15:50] LABS: ALT 37 U/L (10-49); AST 49 U/L (14-35); Albumin 3.6 g/dL (3.8-4.9); Albumin/Globulin Ratio 1.38 Ratio (1.60-3.17); Alkaline Phosphatase 166 U/L (41-126); Blood Urea Nitrogen 14.6 mg/dL (9.0-27.0); Carbon Dioxide 27.8 mmol/L (21.6-31.8); Chloride 106 mmol/L (96-109); Chol/HDL Ratio 2.89 Ratio; Globulin 2.6 g/dL (1.6-3.3); Glucose 88 mg/dL (70-110); LDL Cholesterol,Calculated 73.6 mg/dL (0.0-131.0); Magnesium 2.1 mg/dL (1.5-2.4); Potassium 3.8 mmol/L (3.5-5.5); Sodium 143 mmol/L (135-145); Total Bilirubin 0.7 mg/dL (0.3-1.2); Total Protein 6.2 g/dL (6.2-8.2); VLDL Calculation 12.12 mg/dL (5.00-40.00)
[2023-06-17 16:07] LABS: Basophils # (A) 0.01 X 10*3/uL (0.00-0.10); Basophils % (A) 0.3 %; Elliptocytes 2+; Eosinophils # (A) 0 X 10*3/uL (0.04-0.35); Eosinophils % (A) 0 %; HGB 13.4 g/dL (13.0-17.0); Lymphocytes # (A) 0.69 X 10*3/uL (0.90-5.00); Lymphocytes % (A) 23.1 %; MCH 34.2 pg (27.0-32.0); MCHC 33.5 g/dL (32.0-37.0); Mean Platelet Volume 10.7 FL (9.5-12.2); Monocytes % (A) 16.7 %; NRBC Per 100 WBC 0 X 10*3/uL (0.00-0.01); Neutrophils # (A) 1.78 X 10*3/uL (1.80-7.70); Neutrophils % (A) 59.6 %; Platelet Count 80 X 10*3/uL (140-440); RBC 3.92 X 10*6/uL (4.40-5.60); RDW 12.9 % (11.5-14.5); WBC 2.99 X 10*3/uL (4.50-10.00)
== END | disposition home or self-care (01) ==
LOC: LABWHC1 08:44
PROVIDERS: ATTEND Internal Medicine Clinical Cardiac Electrophysiology
DX: I25.10 Atherosclerotic heart disease of native coronary artery without angina pectoris (principal); E78.5 Hyperlipidemia, unspecified
CPT/HCPCS: 36415; 80053; 80061; 83735; 84443; 85025

== ENCOUNTER 2023-11-08 16:10 | Observation (INO) | payer MEDICARE, BC ==
[2023-11-08] MEDS: MECLIZINE 12.5 MG TAB PO STA (17:55)
[2023-11-08] MEDS: ACETAMINOPHEN TAB 500 MG TAB PO STA (17:55)
[2023-11-08] MEDS: SODIUM CHLORIDE 0.9% 500 ML 500 ML IV STA (17:56)
[2023-11-08 18:17] LABS: Basophils % (A) 0 %; Eosinophils % (A) 0 %; HCT 41.9 % (39.0-53.0); HGB 13.6 gm/dL (13.0-17.5); Lymphocytes # (A) 0.6 k/uL (1.0-4.8); Lymphocytes % (A) 8 %; MCH 34.3 pg (25.0-35.0); MCHC 32.4 g/dL (31.0-37.0); MCV 105.9 fL (80.0-100.0); Macrocytosis Slight; Mean Platelet Volume 9.2; Monocytes # (A) 0.2 k/uL (0-1.0); Monocytes % (A) 3 %; Neutrophils # (A) 6.1 k/uL (1.3-7.7); Neutrophils % (A) 88 %; Platelet Count 130 k/uL (150-450); RBC 3.96 m/uL (4.30-5.90); RDW 12.8 % (11.5-15.5)
[2023-11-08 18:22] LABS: INR 1.3 (<1.2); Prothrombin Time 13.5 sec (10.0-12.5)
[2023-11-08 18:34] LABS: ALT 31 U/L (4-49); AST 34 U/L (17-59); African American GFR (CKD) >90 (>60 ml/min/1.73 sqM); Albumin 3.6 g/dL (3.5-5.0); Alkaline Phosphatase 155 U/L (38-126); Anion Gap 7 mmol/L; Blood Urea Nitrogen 15 mg/dL (9-20); Carbon Dioxide 22 mmol/L (22-30); Chloride 110 mmol/L (98-107); Glucose 160 mg/dL (74-99); Non-African American GFR(CKD) 87 (>60 ml/min/1.73 sqM); Potassium 4.6 mmol/L (3.5-5.1); Sodium 139 mmol/L (137-145); Total Bilirubin 1.4 mg/dL (0.2-1.3); Total Protein 6.3 g/dL (6.3-8.2)
--- NOTE | 2023-11-08 19:56 | CT ---
EXAMINATION TYPE: CT brain wo con CT DLP: Combined DLP of 1563.9 mGycm, Automated exposure control for dose reduction was used. DATE OF EXAM: 11/08/2023 7:48 PM COMPARISON: None. CLINICAL INDICATION:Male, 83 years old with history of ataxia, TECHNIQUE: Brain: Axial CT images of the brain were obtained with coronal and sagittal reformats created and rev iewed. Contrast used: None. Oral contrast used: None. FINDINGS: Brain: Extra-axial spaces: No abnormal extra-axial fluid collections. Ventricular system: Dilatation in proportion to cerebral atrophy. Cerebral parenchyma: 2 foci of hypodense area in the left caudate nucleus and left basal ganglia Cere bral atrophy. No acute intraparenchymal hemorrhage or mass effect. The cm-white junction is well d ifferentiated. Scattered hypoattenuating areas are seen within the white matter. Cerebellum: Unremarkable. Mass effect: No evidence of midline shift. Intracranial vasculature: Atherosclerotic calcifications of the intracranial vessels. Soft tissues: Normal. Calvarium/osseous structures: No depressed skull fracture. Paranasal sinuses and mastoid air cells: Moderate scattered paranasal sinus disease. Visualized orbits: Bilaterally aphakia IMPRESSION: 1. No acute intracranial process. 2. Remote lacunar injuries along with nonspecific white matter changes likely secondary to chronic mi croangiopathy.
--- NOTE | 2023-11-08 20:26 | CT ---
EXAMINATION TYPE: CT angio head neck CT DLP: Combined DLP of 1563.9 mGycm, Automated exposure control for dose reduction was used. DATE OF EXAM: 11/08/2023 7:59 PM COMPARISON: CT brain same day. CLINICAL INDICATION:Male, 83 years old with history of ataxia; TECHNIQUE: Axially acquired helical CT angiogram of the head and neck was obtained with contrast. Axi al images are supplemented with 3D reconstructions and MIP images which were post-processed at an in dependent workstation. NASCET criteria used. Contrast used:65cc mL of Isovue 370 with IV Contrast, Oral contrast used: None. FINDINGS: CTA HEAD: No evidence of acute intracranial hemorrhage, mass effect, or midline shift. The ventricles, sulci, a nd cisterns are unremarkable. Moderate paranasal sinus disease with mucosal thickening present. Posts urgical changes to the globes. The visualized portions of the internal carotid arteries, middle cerebral arteries, anterior cerebral arteries, and posterior cerebral arteries are patent. Calcifications of the intracranial carotid art eries. Hypoplastic A1 segment on the right dominant left A1 segment. origin of the right newspaper clipper ior cerebral artery. Hypoplastic left posterior indicating artery. The basilar and vertebral arteries are patent. Atherosclerosis of the left vertebral artery intracran ial portion with calcified plaque and 25-50% stenosis. Right vertebral artery intracranial portion is hypoplastic compared to left. CTA NECK: Right Carotid System: The common carotid and external carotid arteries are patent. There is less than 60 % stenosis at the proximal internal carotid artery secondary to calcified plaque. The rest of the internal carotid carlos ry is patent. Left Carotid System: The common carotid and external carotid arteries are patent. There is less than 50 % stenosis at the carotid bifurcation secondary to calcified plaque. The rest of the internal carotid artery is patent. Vertebral arteries are patent without evidence hemodynamically significant stenosis. There is a 2-vessel aortic arch. The origins of the great vessels are patent. No evidence of hemodyna mically significant stenosis. Upper thorax: IMPRESSION: 1. No evidence of dissection of the cervical internal carotid arteries or vertebral arteries. 2. 60% stenosis on the right and 50% stenosis on the left of the internal carotid artery secondary to predominantly calcified plaque. 3. No evidence of intracranial high-grade stenosis or intracranial aneurysm. 4. Atherosclerosis of the left vertebral artery intracranial portion with calcified plaque and 25-50% stenosis. 5. Right vertebral artery intracranial portion is hypoplastic compared to left.
--- NOTE | 2023-11-08 21:38 | ED ---
General Adult HPI - General Chief complaint: Syncope Stated complaint: Dizziness Time Seen by Provider: 11/08/23 16:20 Source: patient, EMS Mode of arrival: EMS Limitations: no limitations - History of Present Illness Initial comments: 83-year-old man presents emergency department with vertiginous symptoms. States he awoke this morning and has room spinning sensation. No history of similar in the past. States that his symptoms are worse when he attempts to get up and ambulate. Family at bedside states that the patient seem to be extremely off balance. He did not take any of his medications today due to associated nausea. EMS was finally called and the patient could not get up and ambulate. He is normally very independent. Patient denies any chest pain or difficulty breathing. No recent chiropractic manipulation of the neck. No history of stroke. Denies any lateralizing weakness. No fevers. No visual changes. EMS did provide the patient with 4 mg of Zofran. No other alleviating, precipitating or modifying factors - Related Data Home Medications Medication Instructions Recorded Confirmed Atorvastatin [Lipitor] 40 mg PO HS 12/31/21 11/08/23 Vit C/E/Zn/Coppr/Lutein/Zeaxan 1 cap PO BID-W/MEALS 12/31/21 11/08/23 [Preservision Areds 2 Softgel] allopurinoL [Zyloprim] 150 mg PO HS 12/31/21 11/08/23 Apixaban [Eliquis] 2.5 mg PO BID 11/08/23 11/08/23 Cholecalciferol (Vitamin D3) 50 mcg PO DAILY 11/08/23 11/08/23 [Vitamin D3 (50 Mcg = 2000 Iu)] Ezetimibe [Zetia] 10 mg PO HS 11/08/23 11/08/23 Losartan [Cozaar] 25 mg PO HS 11/08/23 11/08/23 Spironolactone 12.5 mg PO DAILY 11/08/23 11/08/23 Previous Rx's Medication Instructions Recorded Clopidogrel [Plavix] 75 mg PO DAILY #30 tab 01/14/22 Dapagliflozin Propanediol [Farxiga] 10 mg PO DAILY #90 tab 01/22/22 Metoprolol Succinate (ER) [Toprol 25 mg PO BID #60 tab 01/22/22 XL] Allergies Allergy/AdvReac Type Severity Reaction Status Date / Time No Known Allergies Allergy Verified 11/08/23 18:35 Review of Systems ROS Statement: Those systems with pertinent positive or pertinent negative responses have been documented in the HPI. ROS Other: All systems not noted in ROS Statement are negative. Past Medical History Past Medical History: Atrial Fibrillation, Coronary Artery Disease (CAD), Heart Failure, Hyperlipidemia, Hypertension Additional Past Medical History / Comment(s): 12/09/21 covid +/[facility], skin cancer removals, gout in toes History of Any Multi-Drug Resistant Organisms: None Reported Past Surgical History: Back Surgery, Heart Catheterization With Stent, Tonsillectomy Additional Past Surgical History / Comment(s): Skin cancer removals/nose flaps, colonoscopy Past Anesthesia/Blood Transfusion Reactions: No Reported Reaction Date of Last Stent Placement:: 01/10/22 Past Psychological History: No Psychological Hx Reported Past Alcohol Use History: None Reported - Past Family History Mother Family Medical History: No Reported History Additional Family Medical History / Comment(s): Mother was healthy Father Family Medical History: No Reported History Additional Family Medical History / Comment(s): Father was healthy Brother(s) Family Medical History: CVA/TIA General Exam Limitations: no limitations General appearance: alert, in no apparent distress Head exam: Present: atraumatic, normocephalic, normal inspection Eye exam: Present: normal appearance, PERRL, EOMI. Absent: scleral icterus, conjunctival injection, periorbital swelling ENT exam: Present: normal exam, mucous membranes moist Neck exam: Present: normal inspection. Absent: tenderness, meningismus, lymphadenopathy Respiratory exam: Present: normal lung sounds bilaterally. Absent: respiratory distress, wheezes, rales, rhonchi, stridor Cardiovascular Exam: Present: regular rate, normal rhythm, normal heart sounds. Absent: systolic murmur, diastolic murmur, rubs, gallop, clicks GI/Abdominal exam: Present: soft, normal bowel sounds. Absent: distended, tenderness, guarding, rebound, rigid Extremities exam: Present: normal inspection, full ROM, normal capillary refill. Absent: tenderness, pedal edema, joint swelling, calf tenderness Back exam: Present: normal inspection Neurological exam: Present: alert, oriented X3, CN II-XII intact Psychiatric exam: Present: normal affect, normal mood Skin exam: Present: warm, dry, intact, normal color. Absent: rash Course Vital Signs 11/08/23 11/08/23 11/08/23 16:14 17:11 18:59 Temperature 97.3 F L 97.4 F L 97.5 F L Pulse Rate 52 L 53 L 61 Respiratory 15 16 16 Rate Blood Pressure 137/54 141/61 144/68 O2 Sat by Pulse 99 97 100 Oximetry 11/08/23 11/08/23 20:41 23:10 Temperature 98.1 F 97.4 F L Pulse Rate 62 59 L Respiratory 17 16 Rate Blood Pressure 139/64 112/49 O2 Sat by Pulse 100 99 Oximetry Medical Decision Making - Medical Decision Making Was pt. sent in by a medical professional or institution (, PA, HELPER MARBLE FINISHER, urgent care, hospital, or intermediate...) When possible be specific @ -No Did you speak to anyone other than the patient for history (EMS, parent, family, police, friend...)? What history was obtained from this source @ -Spoke with family and EMS for history Did you review nursing and triage notes (agree or disagree)? Why? @ -I reviewed and agree with nursing and triage notes Were old charts reviewed (outside hosp., previous admission, EMS record, old EKG, old radiological studies, urgent care reports/EKG's, intermediate records)? Report findings @ -No old charts were reviewed Differential Diagnosis (chest pain, altered mental status, abdominal pain women, abdominal pain men, vaginal bleeding, weakness, fever, dyspnea, syncope, headache, dizziness, GI bleed, back pain, seizure, CVA, palpatations, mental health, musculoskeletal)? @ -Differential Dizziness: Benign paroxysmal positional Vertigo, Menieres disease, otitis media, acoustic neuroma, vertebrobasilar insufficiency, cerebellar stroke, encephalitis, hypovolemic, arrhythmia, coronary artery syndrome, anemia, this is not meant to be an all-inclusive list EKG interpreted by me (3pts min.). @ -Yes and demonstrates sinus bradycardia with a rate of 52. SC interval 176. QRS 97. QTc of 477. No acute ST segment elevations or depressions. No high degree block X-rays interpreted by me (1pt min.). @ -None done CT interpreted by me (1pt min.). @ -Yes and demonstrates carotid disease with some chronic microvascular changes to the brain U/S interpreted by me (1pt. min.). @ -None done What testing was considered but not performed or refused? (CT, X-rays, U/S, labs)? Why? @ -None What meds were considered but not given or refused? Why? @ -None Did you discuss the management of the patient with other professionals (professionals i.e. Dr., PA, HELPER MARBLE FINISHER, lab, RT, psych nurse, social economist, electric tripper machine operator, teacher, traffic police officer, rn case management)? Give summary @ -Spoke with Dr. Beck who will admit the patient. He recommends MRI Was smoking cessation discussed for >3mins.? @ -No Was critical care preformed (if so, how long)? @ -No Were there social determinants of health that impacted care today? How? (Homelessness, low income, unemployed, alcoholism, drug addiction, transportation, low edu. Level, literacy, decrease access to med. care, retirement, rehab)? @ -No Was there de-escalation of care discussed even if they declined (Discuss DNR or withdrawal of care, Hospice)? DNR status @ -No What co-morbidities impacted this encounter? (DM, HTN, Smoking, COPD, CAD, Cancer, CVA, ARF, Chemo, Hep., AIDS, mental health diagnosis, sleep apnea, morbid obesity)? @ -Coronary disease Was patient admitted / discharged? Hospital course, mention meds given and route, prescriptions, significant lab abnormalities, going to OR and other pertinent info. @ -Upon arrival patient seen and evaluated in room 10. Thorough history and physical exam was performed. IV had been established by EMS. He is given gentle IV fluid administration. Patient does take the meclizine. Laboratory studies are conducted. CT was performed. We do attempt to get the patient up and ambulate however he is still a two-person assist. Patient seems extremely off balance. He is then given 2 mg of Valium. I recommended admission for MRI. Spoke with Dr. Beck who agreed to admit the patient Undiagnosed new problem with uncertain prognosis? @ -Yes Drug Therapy requiring intensive monitoring for toxicity (Heparin, Nitro, Insulin, Cardizem)? @ -No Were any procedures done? @ -No Diagnosis/symptom? @ -Acute vertigo, acute ataxia, bilateral carotid disease Acute, or Chronic, or Acute on Chronic? @ -Acute Uncomplicated (without systemic symptoms) or Complicated (systemic symptoms)? @ -Complicated Side effects of treatment? @ -No Exacerbation, Progression, or Severe Exacerbation? @ -No Poses a threat to life or bodily function? How? (Chest pain, [place], [place], pneumonia, PE, COPD, DKA, ARF, appy, cholecystitis, CVA, Diverticulitis, Homicidal, Suicidal, threat to staff... and all critical care pts) @ -No - Lab Data Result diagrams: 11/09/23 03:08 11/09/23 03:08 Lab Results 11/08/23 11/08/23 11/08/23 Range/Units 17:51 17:51 17:51 WBC 7.0 (3.8-10.6) k/uL RBC 3.96 L (4.30-5.90) m/uL Hgb 13.6 (13.0-17.5) gm/dL Hct 41.9 (39.0-53.0) % MCV 105.9 H (80.0-100.0) fL MCH 34.3 (25.0-35.0) pg MCHC 32.4 (31.0-37.0) g/dL RDW 12.8 (11.5-15.5) % Plt Count 130 L (150-450) k/uL MPV 9.2 Neutrophils % 88 % Lymphocytes % 8 % Monocytes % 3 % Eosinophils % 0 % Basophils % 0 % Neutrophils # 6.1 (1.3-7.7) k/uL Lymphocytes # 0.6 L (1.0-4.8) k/uL Monocytes # 0.2 (0-1.0) k/uL Eosinophils # 0.0 (0-0.7) k/uL Basophils # 0.0 (0-0.2) k/uL Macrocytosis Slight PT (10.0-12.5) sec INR (<1.2) Sodium 139 (137-145) mmol/L Potassium 4.6 (3.5-5.1) mmol/L Chloride 110 H (98-107) mmol/L Carbon Dioxide 22 (22-30) mmol/L Anion Gap 7 mmol/L BUN 15 (9-20) mg/dL Creatinine 0.71 (0.66-1.25) mg/dL Est GFR (CKD-EPI)AfAm >90 (>60 ml/min/1.73 sqM) Est GFR (CKD-EPI)NonAf 87 (>60 ml/min/1.73 sqM) Glucose 160 H (74-99) mg/dL Calcium 9.0 (8.4-10.2) mg/dL Total Bilirubin 1.4 H (0.2-1.3) mg/dL AST 34 (17-59) U/L ALT 31 (4-49) U/L Alkaline Phosphatase 155 H (38-126) U/L Troponin I <0.012 (0.000-0.034) ng/mL Total Protein 6.3 (6.3-8.2) g/dL Albumin 3.6 (3.5-5.0) g/dL 11/08/23 Range/Units 17:51 WBC (3.8-10.6) k/uL RBC (4.30-5.90) m/uL Hgb (13.0-17.5) gm/dL Hct (39.0-53.0) % MCV (80.0-100.0) fL MCH (25.0-35.0) pg MCHC (31.0-37.0) g/dL RDW (11.5-15.5) % Plt Count (150-450) k/uL MPV Neutrophils % % Lymphocytes % % Monocytes % % Eosinophils % % Basophils % % Neutrophils # (1.3-7.7) k/uL Lymphocytes # (1.0-4.8) k/uL Monocytes # (0-1.0) k/uL Eosinophils # (0-0.7) k/uL Basophils # (0-0.2) k/uL Macrocytosis PT 13.5 H (10.0-12.5) sec INR 1.3 H (<1.2) Sodium (137-145) mmol/L Potassium (3.5-5.1) mmol/L Chloride (98-107) mmol/L Carbon Dioxide (22-30) mmol/L Anion Gap mmol/L BUN (9-20) mg/dL Creatinine (0.66-1.25) mg/dL Est GFR (CKD-EPI)AfAm (>60 ml/min/1.73 sqM) Est GFR (CKD-EPI)NonAf (>60 ml/min/1.73 sqM) Glucose (74-99) mg/dL Calcium (8.4-10.2) mg/dL Total Bilirubin (0.2-1.3) mg/dL AST (17-59) U/L ALT (4-49) U/L Alkaline Phosphatase (38-126) U/L Troponin I (0.000-0.034) ng/mL Total Protein (6.3-8.2) g/dL Albumin (3.5-5.0) g/dL Disposition Clinical Impression: Vertigo, Nausea Disposition: ADMITTED IP TO THIS [facility] Condition: Stable Is patient prescribed a controlled substance at d/c from ED?: No Time of Disposition: 21:39 Decision to Admit Reason: Admit from EC Decision Date: 11/08/23 Decision Time: 21:39
[2023-11-08] MEDS ORDERED: NALOXONE 0.4 MG/ML 1 ML VIAL IV PRN (21:39)
[2023-11-08] MEDS ORDERED: ONDANSETRON 4 MG/2 ML VIAL IVP PRN (21:39)
[2023-11-08] MEDS: SODIUM CHLORIDE 0.9% 1,000 ML IV SCH (21:58)
[2023-11-09 03:42] LABS: Basophils % (A) 0 %; Eosinophils % (A) 0 %; HCT 38.2 % (39.0-53.0); HGB 12.4 gm/dL (13.0-17.5); Lymphocytes # (A) 0.7 k/uL (1.0-4.8); Lymphocytes % (A) 10 %; MCH 34.7 pg (25.0-35.0); MCHC 32.6 g/dL (31.0-37.0); MCV 106.6 fL (80.0-100.0); Macrocytosis Moderate; Mean Platelet Volume 9.2; Monocytes # (A) 0.3 k/uL (0-1.0); Monocytes % (A) 5 %; Neutrophils # (A) 5.7 k/uL (1.3-7.7); Neutrophils % (A) 84 %; Platelet Count 106 k/uL (150-450); RBC 3.58 m/uL (4.30-5.90); RDW 12.8 % (11.5-15.5); WBC 6.8 k/uL (3.8-10.6)
[2023-11-09 03:44] LABS: African American GFR (CKD) >90 (>60 ml/min/1.73 sqM); Anion Gap 6 mmol/L; Blood Urea Nitrogen 18 mg/dL (9-20); Calcium 8.5 mg/dL (8.4-10.2); Carbon Dioxide 20 mmol/L (22-30); Chloride 112 mmol/L (98-107); Glucose 120 mg/dL (74-99); Non-African American GFR(CKD) 88 (>60 ml/min/1.73 sqM); Potassium 4.4 mmol/L (3.5-5.1); Sodium 138 mmol/L (137-145)
[2023-11-09] MEDS: SPIRONOLACTONE 25 MG TAB PO STA (10:15)
[2023-11-09] MEDS: METOPROLOL SUCCINATE (ER) 25 MG TAB.ER.24H PO SCH (10:51)
[2023-11-09] MEDS: APIXABAN 2.5 MG TABLET PO SCH (10:51)
[2023-11-09] MEDS: DAPAGLIFLOZIN PROPANEDIOL 10 MG TABLET PO SCH (10:51)
[2023-11-09] MEDS: CLOPIDOGREL 75 MG TAB PO SCH (10:51)
[2023-11-09] MEDS: SPIRONOLACTONE 25 MG TAB PO SCH (10:51)
--- NOTE | 2023-11-09 15:05 | P.GSCN ---
History of Present Illness Consult date: 11/09/23 Reason for Consult: Bilateral carotid stenosis, right 60%, left 50%, intermittent visual disturbance Requesting physician: Bebe Jorgensen History of present illness: This is a pleasant 83-year-old male with a past medical history including atrial fibrillation, coronary artery disease, heart failure, hyperlipidemia and h ypertension who came into the emergency department for symptoms of dizziness and vertigo. Patient states yesterday he had dizziness that continued. Was not improving and he lives in a two-story house and was upstairs. He knew he would not be able to make it down the stairs several he had called 911. He was brought to the emergency department. He had a brain CT that was negative for any acute findings. Also had a CT angiogram head and neck reporting 60% right ICA stenosis and 40% left ICA stenosis. Neurology was consulted and had evaluated patient. States that patient was complaining of seeing black spots intermittently during the evening and vascular surgery was consulted. Patient s tates that he was having dizziness with position change and moving felt like room was spinning. He also states for last 8 months about 2 nights a week he will get up to go the bathroom and he will see large spots on the asher or floor from both eyes. States never happens during the day and is not consistent. Denies any other focal deficits including vision loss, extremity weakness, no difficulty speaking or swallowing. He denies any shortness of breath or chest pain, no abdominal pain nausea or vomiting. Review of Systems A 14 point review systems was completed all pertinent positives and negatives as stated in the HPI. Past Medical History Past Medical History: Atrial Fibrillation, Coronary Artery Disease (CAD), Heart Failure, Hyperlipidemia, Hypertension Additional Past Medical History / Comment(s): 12/09/21 covid +, skin cancer removals, gout in toes. History of Any Multi-Drug Resistant Organisms: None Reported Past Surgical History: Back Surgery, Heart Catheterization With Stent, Tonsillectomy Additional Past Surgical History / Comment(s): Skin cancer removals/nose flaps sx done in [facility], colonoscopy Past Anesthesia/Blood Transfusion Reactions: No Reported Reaction Date of Last Stent Placement:: 01/10/22 Past Psychological History: No Psychological Hx Reported Additional Psychological History / Comment(s): Pt resides with his friend, Nelson. He is independent. Smoking Status: Former smoker Past Alcohol Use History: Occasional Additional Past Alcohol Use History / Comment(s): drinks sometimes 3 times a month. 1 drink. Past Drug Use History: None Reported - Past Family History Mother Family Medical History: No Reported History Additional Family Medical History / Comment(s): Mother was healthy Father Family Medical History: No Reported History Additional Family Medical History / Comment(s): Father was healthy Brother(s) Family Medical History: CVA/TIA Medications and Allergies Home Medications Medication Instructions Recorded Confirmed Type Atorvastatin [Lipitor] 40 mg PO HS 12/31/21 11/08/23 History Vit C/E/Zn/Coppr/Lutein/Zeaxan 1 cap PO BID-W/MEALS 12/31/21 11/08/23 History [Preservision Areds 2 Softgel] allopurinoL [Zyloprim] 150 mg PO HS 12/31/21 11/08/23 History Clopidogrel [Plavix] 75 mg PO DAILY #30 tab 01/14/22 11/08/23 Rx Dapagliflozin Propanediol [Farxiga] 10 mg PO DAILY #90 tab 01/22/22 11/08/23 Rx Metoprolol Succinate (ER) [Toprol 25 mg PO BID #60 tab 01/22/22 11/08/23 Rx XL] Apixaban [Eliquis] 2.5 mg PO BID 11/08/23 11/08/23 History Cholecalciferol (Vitamin D3) 50 mcg PO DAILY 11/08/23 11/08/23 History [Vitamin D3 (50 Mcg = 2000 Iu)] Ezetimibe [Zetia] 10 mg PO HS 11/08/23 11/08/23 History Losartan [Cozaar] 25 mg PO HS 11/08/23 11/08/23 History Spironolactone 12.5 mg PO DAILY 11/08/23 11/08/23 History Allergies Allergy/AdvReac Type Severity Reaction Status Date / Time No Known Allergies Allergy Verified 11/08/23 18:35 Surgical - Exam Vital Signs Temp Pulse Resp BP Pulse Ox 97.3 F L 52 L 15 137/54 99 11/08/23 16:14 11/08/23 16:14 11/08/23 16:14 11/08/23 16:14 11/08/23 16:14 General appearance: The patient is alert, oriented, appears in no acute distress. HET: Head is normocephalic and atraumatic. Pupils are equal and reactive. Neck: Supple. No carotid bruit bilaterally. Heart: Regular. Lungs: Equal expansion, normal respiratory effort. Abdomen: Soft, nontender, nondistended. Extremities: Normal skin color and turgor. Neurological: No focal deficits. Strength and sensation are grossly intact. Results - Labs 11/09/23 03:08 11/09/23 03:08 Abnormal Lab Results - Last 24 Hours (Table) 11/08/23 11/08/23 11/08/23 Range/Units 17:51 17:51 17:51 RBC 3.96 L (4.30-5.90) m/uL Hgb (13.0-17.5) gm/dL Hct (39.0-53.0) % MCV 105.9 H (80.0-100.0) fL Plt Count 130 L (150-450) k/uL Lymphocytes # 0.6 L (1.0-4.8) k/uL PT 13.5 H (10.0-12.5) sec INR 1.3 H (<1.2) Chloride 110 H (98-107) mmol/L Carbon Dioxide (22-30) mmol/L Glucose 160 H (74-99) mg/dL Total Bilirubin 1.4 H (0.2-1.3) mg/dL Alkaline Phosphatase 155 H (38-126) U/L 11/09/23 11/09/23 Range/Units 03:08 03:08 RBC 3.58 L (4.30-5.90) m/uL Hgb 12.4 L (13.0-17.5) gm/dL Hct 38.2 L (39.0-53.0) % MCV 106.6 H (80.0-100.0) fL Plt Count 106 L (150-450) k/uL Lymphocytes # 0.7 L (1.0-4.8) k/uL PT (10.0-12.5) sec INR (<1.2) Chloride 112 H (98-107) mmol/L Carbon Dioxide 20 L (22-30) mmol/L Glucose 120 H (74-99) mg/dL Total Bilirubin (0.2-1.3) mg/dL Alkaline Phosphatase (38-126) U/L Diabetes panel 11/08/23 11/09/23 Range/Units 17:51 03:08 Sodium 139 138 (137-145) mmol/L Potassium 4.6 4.4 (3.5-5.1) mmol/L Chloride 110 H 112 H (98-107) mmol/L Carbon Dioxide 22 20 L (22-30) mmol/L BUN 15 18 (9-20) mg/dL Creatinine 0.71 0.68 (0.66-1.25) mg/dL Glucose 160 H 120 H (74-99) mg/dL Calcium 9.0 8.5 (8.4-10.2) mg/dL AST 34 (17-59) U/L ALT 31 (4-49) U/L Alkaline Phosphatase 155 H (38-126) U/L Total Protein 6.3 (6.3-8.2) g/dL Albumin 3.6 (3.5-5.0) g/dL Calcium panel 11/08/23 11/09/23 Range/Units 17:51 03:08 Calcium 9.0 8.5 (8.4-10.2) mg/dL Albumin 3.6 (3.5-5.0) g/dL Pituitary panel 11/08/23 11/09/23 Range/Units 17:51 03:08 Sodium 139 138 (137-145) mmol/L Potassium 4.6 4.4 (3.5-5.1) mmol/L Chloride 110 H 112 H (98-107) mmol/L Carbon Dioxide 22 20 L (22-30) mmol/L BUN 15 18 (9-20) mg/dL Creatinine 0.71 0.68 (0.66-1.25) mg/dL Glucose 160 H 120 H (74-99) mg/dL Calcium 9.0 8.5 (8.4-10.2) mg/dL Adrenal panel 11/08/23 11/09/23 Range/Units 17:51 03:08 Sodium 139 138 (137-145) mmol/L Potassium 4.6 4.4 (3.5-5.1) mmol/L Chloride 110 H 112 H (98-107) mmol/L Carbon Dioxide 22 20 L (22-30) mmol/L BUN 15 18 (9-20) mg/dL Creatinine 0.71 0.68 (0.66-1.25) mg/dL Glucose 160 H 120 H (74-99) mg/dL Calcium 9.0 8.5 (8.4-10.2) mg/dL Total Bilirubin 1.4 H (0.2-1.3) mg/dL AST 34 (17-59) U/L ALT 31 (4-49) U/L Alkaline Phosphatase 155 H (38-126) U/L Total Protein 6.3 (6.3-8.2) g/dL Albumin 3.6 (3.5-5.0) g/dL - Imaging Comments: CT angiogram head and neck reports No evidence of dissection of the cervical internal carotid arteries or vertebral arteries. 60% stenosis on the right and 50% stenosis on the left of the internal carotid artery secondary to predominantly calcified plaque. No evidence of intracranial high-grade stenosis or intracranial aneurysm. 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 Right vertebral artery intracranial portion is hypoplastic compared to left. Brain CT reports no acute intracranial process. Remote lacunar injuries along the nonspecific white matter changes likely secondary to chronic microangiopathy Assessment and Plan Assessment: 1. Non-hemodynamically significant asymptomatic bilateral internal carotid stenosis 2. Vertigo 3. Intermittent visual disturbances Plan: 1. There is no indication for any vascular surgical intervention 2. Continue with recommendations from neurology 3. Discussed with patient he can follow-up for carotid surveillance in the office every 6 months Thank you for this consultation, we will sign off at this time. The impression and plan of care has been dictated as directed. I performed a history and examination of this patient, discussed the same with the dictator. I agree with the dictator's note ,documented as a scribe. Any additional findings or plans will be noted.
--- NOTE | 2023-11-09 15:17 | P.CNNES ---
History of Present Illness Consult date: 11/09/23 Requesting physician: Stacey Lang Reason for Consult: Acute intractable vertigo History of Present Illness: Patient is a 83-year-old right-handed male came to the hospital by ambulance yesterday at 4:10 PM for dizziness.. Patient denies any previous history of dizziness or vertigo. Patient states that he was fine all day on Thursday. He went to groceries. He went to sleep at night. 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 He felt very dizzy, but he made it to the bathroom and then back to the bed. In the morning, he tried to get up, and felt that he should not, as he could not stand up and felt very dizzy, spinning. When he was trying to get up, he was feeling very severely dizzy, and he fell back on the bed. As his symptoms persisted by mid afternoon, he decided to call the ambulance and was brought to the hospital. Patient denies any slurred speech facial droop, focal numbness or tingling. He denies any postnasal drip, although sometimes he has a runny nose spontaneously, off and on for about 1-1/2 years. He denies any fever although does have some chills. Gets headache very occasionally and baby aspirin usually resolves it. 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 Patient states he woke up in the middle of the night to use the restroom. Patient was not unable to get back out of bed without severe dizziness and nausea. Patient was alert and orient x 4 with GCS of 15. Patient denies any chest pain shortness of breath or abdominal pain. Patient attempted to sit up and was unsuccessful. Patient then became nauseous and had 2 bouts of vomiting. Patient's skin was pale and diaphoretic. Patient's vitals at the scene was blood pressure 152/57, pulse rate 59, respirations 16 saturation 98%. Blood sugar 156 mg/dL. CT head showed no acute intracranial process. I personally reviewed CT head, agree with the findings. On my review, there is evidence of significant paranasal sinusitis, with opacification of frontal, ethmoid, sphenoid as well as maxillary sinuses. The external auditory canals are clear. There is evidence of an old lacunar in the left caudate and left external basal ganglia. EKG showed sinus rhythm. CTA of head and neck revealed no evidence of dissection of the cervical internal carotid arteries or vertebral arteries. 60% stenosis on the right and 50% stenosis on the left of the internal carotid artery secondary to predominantly calcified plaque. No evidence of intracranial high-grade stenosis or intracranial aneurysm. Atherosclerosis of the left sean tebral artery intracranial portion with calcified plaque and 25 to 50% stenosis. Right vertebral artery intradural portion is hypoplastic compared to the left. Patient states that he still feels dizzy when he gets up. Patient states that for last 8 months, about once or twice a week he gets visual disturbance, only when he wakes up in the middle of the night to go to the bathroom. After he has been laying asleep for some time, he gets up to go to the bathroom and he sees black spots on the floor and asher, almost like a pattern, but not involving the whole wall or the room. He has not noticed if this involves 1 eye or the other eye or both. He then goes back to bed and when he wakes up in the morning the symptoms have gone. It has never heparin when he wakes up finally in the morning or during the daytime. The spells only occurs in the middle of the night when he wakes up to go to the bathroom. Home medications include Lipitor 40 mg, Plavix 75 mg, Eliquis 2.5 mg twice daily, Aldactone, vitamin D, losartan, Zetia, metoprolol, 5 seizure, allopurinol. Patient has smoked tobacco 2 packs/day for about 30 to 40 years, quit in 1989. Denies any alcohol use on a regular basis. Review of Systems Constitutional: Reports chills, Denies fever Eyes: denies blurred vision, denies diplopia, denies pain, denies loss of vision (Please refer to HPI.) Ears: bilateral: decreased hearing, deny: earache Ears, nose, mouth and throat: Reports headache (Periodically gets headache, takes aspirin and goes away), Reports nasal discharge, Reports vertigo, Denies sinus pain, Denies sore throat Cardiovascular: Denies chest pain, Denies shortness of breath Respiratory: Reports excessive sputum, Denies cough Gastrointestinal: Reports nausea, Reports vomiting, Denies abdominal pain, Denies diarrhea Genitourinary: Denies dysuria, Denies incontinence Musculoskeletal: Denies low back pain, Denies neck pain Integumentary: Denies pruritus, Denies rash Neurological: Reports as per HPI Psychiatric: Denies anxiety, Denies depression Hematologic/Lymphatic: Reports easy bruising, Denies easy bleeding Past Medical History Past Medical History: Atrial Fibrillation, Coronary Artery Disease (CAD), Heart Failure, Hyperlipidemia, Hypertension Additional Past Medical History / Comment(s): 12/09/21 covid +, skin cancer removals, gout in toes. History of Any Multi-Drug Resistant Organisms: None Reported Past Surgical History: Back Surgery, Heart Catheterization With Stent, Tonsillectomy Additional Past Surgical History / Comment(s): Skin cancer removals/nose flaps sx done in [facility], colonoscopy Past Anesthesia/Blood Transfusion Reactions: No Reported Reaction Date of Last Stent Placement:: 01/10/22 Past Psychological History: No Psychological Hx Reported Additional Psychological History / Comment(s): Pt resides with his friend, Nelson. He is independent. Smoking Status: Former smoker Past Alcohol Use History: Occasional Additional Past Alcohol Use History / Comment(s): drinks sometimes 3 times a m onth. 1 drink. Past Drug Use History: None Reported - Past Family History Mother Family Medical History: No Reported History Additional Family Medical History / Comment(s): Mother was healthy Father Family Medical History: No Reported History Additional Family Medical History / Comment(s): Father was healthy Brother(s) Family Medical History: CVA/TIA Medications and Allergies Home Medications Medication Instructions Recorded Confirmed Type Atorvastatin [Lipitor] 40 mg PO HS 12/31/21 11/08/23 History Vit C/E/Zn/Coppr/Lutein/Zeaxan 1 cap PO BID-W/MEALS 12/31/21 11/08/23 History [Preservision Areds 2 Softgel] allopurinoL [Zyloprim] 150 mg PO HS 12/31/21 11/08/23 History Clopidogrel [Plavix] 75 mg PO DAILY #30 tab 01/14/22 11/08/23 Rx Dapagliflozin Propanediol [Farxiga] 10 mg PO DAILY #90 tab 01/22/22 11/08/23 Rx Metoprolol Succinate (ER) [Toprol 25 mg PO BID #60 tab 01/22/22 11/08/23 Rx XL] Apixaban [Eliquis] 2.5 mg PO BID 11/08/23 11/08/23 History Cholecalciferol (Vitamin D3) 50 mcg PO DAILY 11/08/23 11/08/23 History [Vitamin D3 (50 Mcg = 2000 Iu)] Ezetimibe [Zetia] 10 mg PO HS 11/08/23 11/08/23 History Losartan [Cozaar] 25 mg PO HS 11/08/23 11/08/23 History Spironolactone 12.5 mg PO DAILY 11/08/23 11/08/23 History Allergies Allergy/AdvReac Type Severity Reaction Status Date / Time No Known Allergies Allergy Verified 11/08/23 18:35 Physical Examination - Vital Signs Vital Signs: Vital Signs Temp Pulse Pulse Resp BP BP BP 11/09/23 07:00 97.7 F 63 16 147/67 11/09/23 02:00 98.2 F 65 19 112/58 11/08/23 23:36 97.8 F 62 18 135/70 11/08/23 23:10 97.4 F L 59 L 16 112/49 11/08/23 20:41 98.1 F 62 17 139/64 11/08/23 18:59 97.5 F L 61 16 144/68 11/08/23 17:11 97.4 F L 53 L 16 141/61 11/08/23 16:14 97.3 F L 52 L 15 137/54 BP Pulse Ox 11/09/23 07:00 123/64 100 11/09/23 02:00 98 11/08/23 23:36 100 11/08/23 23:10 99 11/08/23 20:41 100 11/08/23 18:59 100 11/08/23 17:11 97 11/08/23 16:14 99 Intake and Output 11/08/23 11/09/23 11/09/23 22:59 06:59 14:59 Intake Total 0 118 Output Total 375 Balance -375 118 Intake: Oral 0 118 Output: Urine 375 Other: Voiding Method Urinal Weight 67.132 kg 67.132 kg Patient is an elderly male, very pleasant, in no acute distress. Patient is alert awake oriented to time place and person. Speech and language functions are normal. Patient can name and repeat very well. No aphasia or dysarthria. Attention, concentration and fund of knowledge is adequate. On cranial nerve examination, pupils are equal, round and reacting to light, vis ual mcnulty are full on confrontation, with no neglect on double simultaneous stimulation. Extraocular muscles are intact with no nystagmus. Face is symmetric, tongue protrudes to the midline. Palatal elevation and sensation normal, hearing and shoulder shrug normal, facial sensation normal. On muscle strength testing, there is no pronator drift and the strength is normal in arms and legs distally and proximally. Deep tendon reflexes are symmetric 1+ to 2+ and plantars downgoing. Sensory to touch is equal with no neglect on double simultaneous stimulation. Cerebellar function showed no ataxia for [id number] testing. No dysdiadochokinesia. No ataxia for [id number] testing on either side. Tone and bulk of muscles normal. Gait deferred.. On general examination, there is no carotid bruit or murmur, S1-S2 audible. Chest is clear on consultation. Abdomen is soft nontender. No organomegaly, bowel sounds present. Peripheral pulses are present. No peripheral edema. Patient has some bruises on the extremities. Results - Laboratory Findings CBC and BMP: 11/09/23 03:08 11/09/23 03:08 Abnormal Lab Findings: Abnormal Labs 11/08/23 11/08/23 11/08/23 17:51 17:51 17:51 RBC 3.96 L Hgb Hct MCV 105.9 H Plt Count 130 L Lymphocytes # 0.6 L PT 13.5 H INR 1.3 H Chloride 110 H Carbon Dioxide Glucose 160 H Total Bilirubin 1.4 H Alkaline Phosphatase 155 H 11/09/23 11/09/23 03:08 03:08 RBC 3.58 L Hgb 12.4 L Hct 38.2 L MCV 106.6 H Plt Count 106 L Lymphocytes # 0.7 L PT INR Chloride 112 H Carbon Dioxide 20 L Glucose 120 H Total Bilirubin Alkaline Phosphatase Assessment and Plan Assessment: * Acute onset of vertigo, probably due to peripheral vestibular dysfunction/labyrinthitis. Doubt central cause. * Acute pansinusitis. Patient does not have significant sinus symptoms except for intermittent runny nose. Possible viral, less likely bacterial. * Bilateral ICA stenosis, 60% on the right, 50% left, per CTA report * History of atrial fibrillation, on Eliquis * Macrocytosis * CAD * CHF * Hypertension * Diabetes * Hyperlipidemia * Ex tobacco use Plan: * Patient is undergoing MRI of the brain * CTA of head and neck revealed no evidence of dissection of the cervical i nternal carotid arteries or vertebral arteries. 60% stenosis on the right and 50% stenosis on the left of the internal carotid artery secondary to predominantly calcified plaque. No evidence of intracranial high-grade stenosis or intracranial aneurysm. Atherosclerosis of the left vertebral artery intracranial portion with calcified plaque and 25 to 50% stenosis. Right vertebral artery intradural portion is hypoplastic compared to the left. * Patient is having intermittent transient visual disturbance, only when he wakes up in the middle of the night to go to the bathroom, and resolving when wakes up finally in the morning. (Episodes occurring once or twice a week, going on for last 8 months). Uncertain if related to carotid stenosis. We will consult vascular surgery. * Await 2D echo * CT head revealed evidence of pansinusitis. Patient does have intermittent runny nose. May benefit from course of antibiotic, although sinusitis could be viral. * Telemetry monitoring * Lipid panel from 06/17/2023 with cholesterol 131, LDL 73, HDL 45 and triglycerides 60. Continue Lipitor 40 mg daily. * Resume Eliquis 2.5 mg twice daily and Plavix 75 mg daily (home medication). * Patient has macrocytosis, will check B12, folate, hemoglobin A1c. * Neurology will follow. Thank you for the consult.
[2023-11-09] MEDS: VIT A,C & E-LUTEIN-MINERALS 1 EACH TAB PO SCH (18:52)
--- NOTE | 2023-11-09 19:43 | P.HPIM ---
History of Present Illness H&P Date: 11/09/23 Chief Complaint: Vertigo rule out CVA. 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 that was done at the [facility] including a skin graft placement, history of paroxysmal atrial fibrillation, vitamin D deficiency, patient was in his usual state of health till about a week ago when he was walking around and he missed one of the step up to the patio and he can of fell down landed on the left side of his mandaen and scraped his left elbow, he did not do anything about it at that time, he felt fine, patient yesterday drove down to [place] and changed her to try to get some grocery shopping and came back home and he went to bed he felt a bit dizzy at that time, but he did not do anything about it, he woke up at around 2 to 3:00 in the morning and he was feeling extremely dizzy, he mated to the bathroom okay he did not fall and he sat in the bathroom, he mated back to bed, but he was extremely dizzy and nauseated, patient at that time contacted EMS, who came and evaluated the patient and he was transported to the emergency department at [facility], had a CT scan of the brain did not show evidence of acute abnormalities, but because of the presentation patient was admitted to the hospital for further evaluation and treatment and possible central cause, neurology consultation was obtained, patient did receive multiple doses of antihistamine as well as Valium without any relief, then he was placed on meclizine 25 mg orally twice every day and was admitted to the hospital for neurology evaluation, patient underwent CT angiography of the neck and brain that showed evidence of 60% stenosis of the right internal carotid artery 50% stenosis of the left internal carotid artery and no evidence of any aneurysm or dissection, patient echocardiogram was done still pending at the time of dictation, but because of the presentation patient was placed in the hospital for further evaluation and recommendation. REVIEW OF SYSTEMS: Constitutional: No documented fever, no chills, no night sweats. No weight change. No weakness, fatigue or lethargy. No daytime sleepiness. EENT: No headache. No blurred vision or double vision, no loss of vision. No loss of Hearing, no ringing in the ears, positive for dizziness. positive for nasal drainage and congestion. No epistaxis. No sore throat. Lungs: No shortness of breath, no cough, no sputum production. No wheezing. Reports dyspnea with activity. Cardiovascular: No chest pain, no lower extremity edema. No palpitations. No paroxysmal nocturnal dyspnea. No orthopnea. No lightheadedness or dizziness. No syncopal episodes. Abdominal: Reports no abdominal pain. positive for nausea, no vomiting. No diarrhea. No constipation. No bloody or tarry stools reports loss of appetite. Genitourinary: No dysuria, increased frequency, urgency. No urinary retention. Musculoskeletal: No myalgias. No muscle weakness, positive for gait dy sfunction, no frequent falls. No back pain. No neck pain. Integumentary: No wounds, no lesions. No rash or pruritus. No unusual bruising. No change in hair or nails. Neurologic: No aphasia. No facial droop. No change in mentation. No head injury. No headache. No paralysis. No paresthesia. Psychiatric: No depression. No anxiety. No mood swings. Endocrine: No abnormal blood sugars. No weight change. PAST MEDICAL HISTORY: Coronary artery disease status post PCI of the RCA. Ischemic cardiomyopathy. Hypertension and hypertensive cardiovascular disease. Mixed hyperlipidemia. Prediabetes. Squamous cell cancer status post multiple surgical intervention with Mohs procedure and skin graft Paroxysmal atrial fibrillation. Vitamin D deficiency. Chronic back pain. Osteoarthritis. 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 FAMILY HISTORY: Father at age of 90 from colon cancer mother at age of 86 from CVA and had history of dementia, patient had 1 brother who at age of 82 from CVA, patient has 1 sister who is 87-year-old with history of hypertension PHYSICAL EXAMINATION: General: 83-year-old male laying down in bed in no apparent distress. HEENT: Head is atraumatic, normocephalic, pupils were equal round reactive to light and recommendation, extraocular muscle movement were intact, sclera nonicteric, conjunctivae were pale, mucous membranes of the mouth are somewhat dry. Neck: Supple, no JVP, normal carotid upstroke bilaterally, no lymphadenopathy. Chest: Decreased breath sounds at the bases, few rhonchi, no expiratory wheezes, no chest wall tenderness, no intercostal retractions. Heart: First heart sound is normal, second heart sound is normal there is systolic ejection murmur 2/6 located in the left sternal border. Abdomen: Soft, nontender, nondistended, positive bowel sounds. Extremities: There is no edema no calf tenderness DP +2 bilaterally. Neurologic examination: Patient is awake alert and oriented x3, cranial nerves II-12 appear grossly intact, muscle power were 5 out of 5 in upper extremities and 5 out of 5 in bilateral lower extremities, deep tendon reflexes normal bilaterally. Babinski's were flexor bilaterally, [id number] is normal [id number] is normal ASSESSMENT AND PLAN: 1. Acute labyrinthitis unlikely CVA however the patient does have a multiple risk factors for CVA. Continue patient on Eliquis 2.5 mg twice every day, continue Plavix 75 mg once every day, continue atorvastatin 40 mg once every day, CT angiography of the neck and the brain was as above vascular surgery consultation, neurology evaluation appreciated, continue with neurocheck for the next 24 hours, echocardiogram still pending at the time of dictation. Continue patient on meclizine 25 mg orally twice every day. 2. Hypertension and hypertensive cardiovascular disease. Continue losartan 25 mg at bedtime, metoprolol 25 mg orally twice every day, monitor the patient blood pressure very closely. 3. Mixed hyperlipidemia. Continue patient on atorvastatin 40 mg once every day, Zetia 10 mg once every day, monitor lipid panel, keep LDL 55-70. 4. Paroxysmal atrial fibrillation. Continue Eliquis 2.5 mg orally twice every day, continue metoprolol 25 mg orally twice every day. 5. Coronary artery disease with ischemic cardiomyopathy status post PCI of the RCA 01/10/2022. Continue patient on Plavix 75 mg once every day, continue metoprolol 25 mg orally twice every day, atorvastatin 40 mg orally once every day. 6. History of gout. Continue allopurinol 150 mg orally once every day. 7. 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 8. Vitamin D deficiency. Continue vitamin D3 2000 units once every day. 9. DVT prophylaxis. Continue patient on Eliquis 2.5 mg orally twice every day. 10. GI prophylaxis. Continue patient on Protonix 40 mg once every day. 11. Admit to inpatient. Estimated length of stay 2 midnights. 12. Full code. Past Medical History Past Medical History: Atrial Fibrillation, Coronary Artery Disease (CAD), Heart Failure, Hyperlipidemia, Hypertension Additional Past Medical History / Comment(s): 12/09/21 covid +, skin cancer removals, gout in toes. History of Any Multi-Drug Resistant Organisms: None Reported Past Surgical History: Back Surgery, Heart Catheterization With Stent, Tonsillectomy Additional Past Surgical History / Comment(s): Skin cancer removals/nose flaps sx done in [facility], colonoscopy Past Anesthesia/Blood Transfusion Reactions: No Reported Reaction Date of Last Stent Placement:: 01/10/22 Past Psychological History: No Psychological Hx Reported Additional Psychological History / Comment(s): Pt resides with his friend, Nelson. He is independent. Smoking Status: Former smoker Past Alcohol Use History: Occasional Additional Past Alcohol Use History / Comment(s): drinks sometimes 3 times a month. 1 drink. Past Drug Use History: None Reported - Past Family History Mother Family Medical History: No Reported History Additional Family Medical History / Comment(s): Mother was healthy Father Family Medical History: No Reported History Additional Family Medical History / Comment(s): Father was healthy Brother(s) Family Medical History: CVA/TIA Medications and Allergies Home Medications Medication Instructions Recorded Confirmed Type Atorvastatin [Lipitor] 40 mg PO HS 12/31/21 11/08/23 History Vit C/E/Zn/Coppr/Lutein/Zeaxan 1 cap PO BID-W/MEALS 12/31/21 11/08/23 History [Preservision Areds 2 Softgel] allopurinoL [Zyloprim] 150 mg PO HS 12/31/21 11/08/23 History Clopidogrel [Plavix] 75 mg PO DAILY #30 tab 01/14/22 11/08/23 Rx Dapagliflozin Propanediol [Farxiga] 10 mg PO DAILY #90 tab 01/22/22 11/08/23 Rx Metoprolol Succinate (ER) [Toprol 25 mg PO BID #60 tab 01/22/22 11/08/23 Rx XL] Apixaban [Eliquis] 2.5 mg PO BID 11/08/23 11/08/23 History Cholecalciferol (Vitamin D3) 50 mcg PO DAILY 11/08/23 11/08/23 History [Vitamin D3 (50 Mcg = 2000 Iu)] Ezetimibe [Zetia] 10 mg PO HS 11/08/23 11/08/23 History Losartan [Cozaar] 25 mg PO HS 11/08/23 11/08/23 History Spironolactone 12.5 mg PO DAILY 11/08/23 11/08/23 History Allergies Allergy/AdvReac Type Severity Reaction Status Date / Time No Known Allergies Allergy Verified 11/08/23 18:35 Physical Exam Vitals: Vital Signs Temp Pulse Pulse Resp BP BP BP 11/09/23 12:12 58 L 11/09/23 07:00 97.7 F 63 16 147/67 11/09/23 02:00 98.2 F 65 19 112/58 11/08/23 23:36 97.8 F 62 18 135/70 11/08/23 23:10 97.4 F L 59 L 16 112/49 11/08/23 20:41 98.1 F 62 17 139/64 11/08/23 18:59 97.5 F L 61 16 144/68 11/08/23 17:11 97.4 F L 53 L 16 141/61 11/08/23 16:14 97.3 F L 52 L 15 137/54 BP Pulse Ox 11/09/23 12:12 117/63 97 11/09/23 07:00 123/64 100 11/09/23 02:00 98 11/08/23 23:36 100 11/08/23 23:10 99 11/08/23 20:41 100 11/08/23 18:59 100 11/08/23 17:11 97 11/08/23 16:14 99 Intake and Output 11/08/23 11/09/23 11/09/23 22:59 06:59 14:59 Intake Total 0 118 Output Total 375 450 Balance -375 -332 Intake: Oral 0 118 Output: Urine 375 450 Other: Voiding Method Urinal Weight 67.132 kg 67.132 kg Results CBC & Chem 7: 11/09/23 03:08 11/09/23 03:08 Labs: Abnormal Lab Results - Last 24 Hours (Table) 11/08/23 11/08/23 11/08/23 Range/Units 17:51 17:51 17:51 RBC 3.96 L (4.30-5.90) m/uL Hgb (13.0-17.5) gm/dL Hct (39.0-53.0) % MCV 105.9 H (80.0-100.0) fL Plt Count 130 L (150-450) k/uL Lymphocytes # 0.6 L (1.0-4.8) k/uL PT 13.5 H (10.0-12.5) sec INR 1.3 H (<1.2) Chloride 110 H (98-107) mmol/L Carbon Dioxide (22-30) mmol/L Glucose 160 H (74-99) mg/dL Total Bilirubin 1.4 H (0.2-1.3) mg/dL Alkaline Phosphatase 155 H (38-126) U/L 11/09/23 11/09/23 Range/Units 03:08 03:08 RBC 3.58 L (4.30-5.90) m/uL Hgb 12.4 L (13.0-17.5) gm/dL Hct 38.2 L (39.0-53.0) % MCV 106.6 H (80.0-100.0) fL Plt Count 106 L (150-450) k/uL Lymphocytes # 0.7 L (1.0-4.8) k/uL PT (10.0-12.5) sec INR (<1.2) Chloride 112 H (98-107) mmol/L Carbon Dioxide 20 L (22-30) mmol/L Glucose 120 H (74-99) mg/dL Total Bilirubin (0.2-1.3) mg/dL Alkaline Phosphatase (38-126) U/L Thrombosis Risk Factor Assmnt - Choose All That Apply Any of the Below Risk Factors Present?: No Other Risk Factors: Yes Each Risk Factor Represents 3 Points: Age 75 years or older Other congenital or acquired thrombophilia - If yes, enter type in comment: No Thrombosis Risk Factor Assessment Total Risk Factor Score: 3 Thrombosis Risk Factor Assessment Level: Moderate Risk
[2023-11-09] MEDS: ATORVASTATIN 40 MG TAB PO SCH (20:55)
[2023-11-09] MEDS: EZETIMIBE 10 MG TAB PO SCH (20:56)
[2023-11-09] MEDS: LOSARTAN 25 MG TAB PO SCH (20:56)
[2023-11-09] MEDS: allopurinoL 300 MG TAB PO SCH (20:56)
[2023-11-10 07:07] VITALS: RESP 16
[2023-11-10] MEDS: CHOLECALCIFEROL 25 MCG (1000 IU) TABLET PO SCH (08:31)
[2023-11-10 10:36] LABS: Basophils # (A) 0.04 X 10*3/uL (0.00-0.10); Basophils % (A) 0.5 %; Eosinophils # (A) 0.06 X 10*3/uL (0.04-0.35); Eosinophils % (A) 0.8 %; HGB 12.1 g/dL (13.0-17.0); Lymphocytes # (A) 2.28 X 10*3/uL (0.90-5.00); Lymphocytes % (A) 28.8 %; MCH 34.3 pg (27.0-32.0); MCHC 33.6 g/dL (32.0-37.0); Mean Platelet Volume 11.5 FL (9.5-12.2); Monocytes # (A) 0.75 X 10*3/uL (0.20-1.00); Monocytes % (A) 9.5 %; NRBC Per 100 WBC 0 X 10*3/uL (0.00-0.01); Neutrophils # (A) 4.75 X 10*3/uL (1.80-7.70); Platelet Count 118 X 10*3/uL (140-440); RBC 3.53 X 10*6/uL (4.40-5.60); RDW 13.4 % (11.5-14.5); WBC 7.91 X 10*3/uL (4.50-10.00)
[2023-11-10 13:16] LABS: ALT 28 U/L (10-49); AST 31 U/L (14-35); Albumin 3.4 g/dL (3.8-4.9); Alkaline Phosphatase 126 U/L (41-126); BUN/Creat Ratio 16.25 Ratio (12.00-20.00); Calcium 8.2 mg/dL (8.7-10.3); Carbon Dioxide 20.6 mmol/L (21.6-31.8); Chloride 112 mmol/L (96-109); Glucose 105 mg/dL (70-110); Potassium 4.2 mmol/L (3.5-5.5); Sodium 143 mmol/L (135-145); Total Bilirubin 0.7 mg/dL (0.3-1.2); Total Protein 5.4 g/dL (6.2-8.2)
[2023-11-10 16:36] VITALS: BP 129/79; PULSE 76; TEMP 98.2
--- NOTE | 2023-11-10 17:36 | MR ---
EXAMINATION TYPE: MR brain wo/w con DATE OF EXAM: 11/10/2023 5:07 PM CLINICAL INDICATION:Male, 83 years old with history of ataxia, Ataxia COMPARISON: 11/08/2023 TECHNIQUE: Multi planar, multi sequence imaging was performed through the brain including: T1, T2, In version recovery, susceptibility weighted imaging and gradient echo imaging and Diffusion weighted im aging. The patient was then given intravenous contrast and multi planar, T1 fat-saturation images wer e obtained. IV Contrast: 7 cc Gadavist FINDINGS: The cm-white junctions, ventricular system, basal cisterns appear unremarkable. Diffusion-weighted imaging shows no evidence of restricted diffusion to suggest acute/subacute infarct. Intracranial ar terial flow voids are maintained. Midline structures show no abnormality. Scattered foci of high T2 s ignal intensity are seen within the periventricular white matter. The susceptibility weighted images do not reveal any evidence for micro-hemorrhage. After administration of gadolinium, no abnormal enha ncement is seen. The bone marrow signal is within normal limits. Paranasal sinuses and mastoid air cells: Moderate paranasal sinus mucosal thickening right greater th an left maxillary sinus. Visualized orbits: Bilaterally aphakia. There is narrowing of the spinal canal at C3-C4 partially visualized on sagittal imaging this is at l east moderate severity. IMPRESSION: 1. No evidence of intracranial mass, acute/subacute infarct, or abnormal enhancement. 2. Nonspecific white matter changes, likely related to small vessel ischemic disease. 3. Moderate narrowing of the spinal canal at C3-C4 further evaluation with MRI cervical spine may be of benefit. 4. Paranasal sinus disease in the right maxillary sinus and mild on the left maxillary sinus.
--- NOTE | 2023-11-10 18:55 | P.PN ---
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 that was done at the [facility] including a skin graft placement, history of paroxysmal atrial fibrillation, vitamin D deficiency, patient was in his usual state of health till about a week ago when he was walking around and he missed one of the step up to the patio and he can of fell down landed on the left side of his pentecostal and scraped his left elbow, he did not do anything about it at that time, he felt fine, patient yesterday drove down to [place] and changed her to try to get some grocery shopping and came back home and he went to bed he felt a bit dizzy at that time, but he did not do anything about it, he woke up at around 2 to 3:00 in the morning and he was feeling extremely dizzy, he mated to the bathroom okay he did not fall and he sat in the bathroom, he mated back to bed, but he was extremely dizzy and nauseated, patient at that time contacted EMS, who came and evaluated the patient and he was transported to the emergency department at [facility], had a CT scan of the brain did not show evidence of acute abnormalities, but because of the presentation patient was a dmitted to the hospital for further evaluation and treatment and possible central cause, neurology consultation was obtained, patient did receive multiple doses of antihistamine as well as Valium without any relief, then he was placed on meclizine 25 mg orally twice every day and was admitted to the hospital for neurology evaluation, patient underwent CT angiography of the neck and brain that showed evidence of 60% stenosis of the right internal carotid artery 50% stenosis of the left internal carotid artery and no evidence of any aneurysm or dissection, patient echocardiogram was done still pending at the time of dictation, but because of the presentation patient was placed in the hospital for further evaluation and recommendation. 11/09: Patient is sitting up in bed in no apparent distress, he stated that his dizziness is a lot better today, he went to the bathroom using a walker, he has not lost his balance, patient underwent MRI of the brain did not show any evidence of any acute enhancement or stroke, it did show evidence of spinal stenosis at C3 and C4, it was recommended for the patient to go for an outpatient MRI of the cervical spine without camila, patient therefore will be d ischarged home and follow-up with me as an outpatient, he will have an echocardiogram to be done as an outpatient as well. REVIEW OF SYSTEMS: Constitutional: No documented fever, no chills, no night sweats. No weight change. No weakness, fatigue or lethargy. No daytime sleepiness. EENT: No headache. No blurred vision or double vision, no loss of vision. No loss of Hearing, no ringing in the ears, positive for dizziness. positive for nasal drainage and congestion. No epistaxis. No sore throat. Lungs: No shortness of breath, no cough, no sputum production. No wheezing. Reports dyspnea with activity. Cardiovascular: No chest pain, no lower extremity edema. No palpitations. No p aroxysmal nocturnal dyspnea. No orthopnea. No lightheadedness or dizziness. No syncopal episodes. Abdominal: Reports no abdominal pain. positive for nausea, no vomiting. No diarrhea. No constipation. No bloody or tarry stools reports loss of appetite. Genitourinary: No dysuria, increased frequency, urgency. No urinary retention. Musculoskeletal: No myalgias. No muscle weakness, positive for gait dysfunction, no frequent falls. No back pain. No neck pain. Integumentary: No wounds, no lesions. No rash or pruritus. No unusual bruising. No change in hair or nails. Neurologic: No aphasia. No facial droop. No change in mentation. No head injury. No headache. No paralysis. No paresthesia. Psychiatric: No depression. No anxiety. No mood swings. Endocrine: No abnormal blood sugars. No weight change. PHYSICAL EXAMINATION: General: 83-year-old male laying down in bed in no apparent distress. HEENT: Head is atraumatic, normocephalic, pupils were equal round reactive to light and recommendation, extraocular muscle movement were intact, sclera nonicteric, conjunctivae were pale, mucous membranes of the mouth are somewhat dry. Neck: Supple, no JVP, normal carotid upstroke bilaterally, no lymphadenopathy. Chest: Decreased breath sounds at the bases, few rhonchi, no expiratory wheezes, no chest wall tenderness, no intercostal retractions. Heart: First heart sound is normal, second heart sound is normal there is systolic ejection murmur 2/6 located in the left sternal border. Abdomen: Soft, nontender, nondistended, positive bowel sounds. Extremities: There is no edema no calf tenderness DP +2 bilaterally. Neurologic examination: Patient is awake alert and oriented x3, cranial nerves II-12 appear grossly intact, muscle power were 5 out of 5 in upper extremities and 5 out of 5 in bilateral lower extremities, deep tendon reflexes normal bilaterally. Babinski's were flexor bilaterally, [id number] is normal [id number] is normal ASSESSMENT AND PLAN: 1. Acute labyrinthitis ruled out for CVA. Continue patient on Eliquis 2.5 mg twice every day, continue Plavix 75 mg once every day, continue atorvastatin 40 mg once every day, CT angiography of the neck and the brain was done and the patient was seen and evaluated by vascular surgery it was recommended to continue with surveillance program every 6 months. 2. Hypertension and hypertensive cardiovascular disease. Continue losartan 25 mg at bedtime, metoprolol 25 mg orally twice every day, monitor the patient blood pressure very closely. 3. Mixed hyperlipidemia. Continue patient on atorvastatin 40 mg once every day, Zetia 10 mg once every day, monitor lipid panel, keep LDL 55-70. 4. Paroxysmal atrial fibrillation. Continue Eliquis 2.5 mg orally twice every day, continue metoprolol 25 mg orally twice every day. 5. Coronary artery disease with ischemic cardiomyopathy status post PCI of the RCA 01/10/2022. Continue patient on Plavix 75 mg once every day, continue metoprolol 25 mg orally twice every day, atorvastatin 40 mg orally once every day. 6. History of gout. Continue allopurinol 150 mg orally once every day. 7. 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 8. Vitamin D deficiency. Continue vitamin D3 2000 units once every day. 9. DVT prophylaxis. Continue patient on Eliquis 2.5 mg orally twice every day. 10. GI prophylaxis. Continue patient on Protonix 40 mg once every day. 11. We will discharge the patient home this afternoon. Objective - Vital Signs Vital signs: Vital Signs Temp 97.7 F 11/10/23 07:00 Pulse 74 11/10/23 07:00 Resp 16 11/10/23 07:00 BP 135/85 11/10/23 07:00 Pulse Ox 98 11/10/23 07:00 FiO2 Intake & Output 11/09/23 11/10/23 11/10/23 18:59 06:59 18:59 Intake Total 354 118 Output Total 1150 650 Balance -796 -650 118 Intake: Oral 354 118 Output: Urine 1150 650 Other: Voiding Method Urinal Urinal Urinal - Labs CBC & Chem 7: 11/10/23 06:29 11/10/23 06:29 Labs: Abnormal Lab Results - Last 24 Hours (Table) 11/10/23 Range/Units 06:29 RBC 3.53 L (4.40-5.60) X 10*6/uL Hgb 12.1 L (13.0-17.0) g/dL Hct 36.0 L (39.6-50.0) % MCV 102.0 H (80.0-97.0) FL MCH 34.3 H (27.0-32.0) pg Plt Count 118 L (140-440) X 10*3/uL
--- NOTE | 2023-11-10 18:56 | P.DS ---
Providers Date of admission: 11/08/23 21:39 Expected date of discharge: 11/10/23 Attending physician: Elizabeth Beck Consults: 11/08/23 21:39 Consult Physician Urgent Consulting Provider: Satya Cortez Consult Reason/Comments: acute intractable vertigo Do you want consulting provider notified?: Yes Primary care physician: Elizabeth Beck Hospital Course: 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 that was done at the [facility] including a skin graft placement, history of paroxysmal atrial fibrillation, vitamin D deficiency, patient was in his usual state of health till about a week ago when he was walking around and he missed one of the step up to the patio and he can of fell down landed on the left side of his latter day and scraped his left elbow, he did not do anything about it at that time, he felt fine, patient yesterday drove down to [place] and changed her to try to get some grocery shopping and came back home and he went to bed he felt a bit dizzy at that time, but he did not do anything about it, he woke up at around 2 to 3:00 in the morning and he was feeling extremely dizzy, he mated to the bathroom okay he did not fall and he sat in the bathroom, he mated back to bed, but he was extremely dizzy and nauseated, patient at that time contacted EMS, who came and evaluated the patient and he was transported to the emergency department at [facility], had a CT scan of the brain did not show evid ence of acute abnormalities, but because of the presentation patient was admitted to the hospital for further evaluation and treatment and possible central cause, neurology consultation was obtained, patient did receive multiple doses of antihistamine as well as Valium without any relief, then he was placed on meclizine 25 mg orally twice every day and was admitted to the hospital for neurology evaluation, patient underwent CT angiography of the neck and brain that showed evidence of 60% stenosis of the right internal carotid artery 50% stenosis of the left internal carotid artery and no evidence of any aneurysm or dissection, patient echocardiogram was done still pending at the time of dictation, but because of the presentation patient was placed in the hospital for further evaluation and recommendation. 11/09: Patient is sitting up in bed in no apparent distress, he stated that his dizziness is a lot better today, he went to the bathroom using a walker, he has not lost his balance, patient underwent MRI of the brain did not show any evidence of any acute enhancement or stroke, it did show evidence of spinal stenosis at C3 and C4, it was recommended for the patient to go for an out patient MRI of the cervical spine without camila, patient therefore will be discharged home and follow-up with me as an outpatient, he will have an echocardiogram to be done as an outpatient as well. Discharge diagnoses: 1. Acute labyrinthitis ruled out for CVA. 2. Hypertension and hypertensive cardiovascular disease. 3. Mixed hyperlipidemia. 4. Paroxysmal atrial fibrillation. 5. Coronary artery disease with ischemic cardiomyopathy status post PCI of the RCA 01/10/2022. 6. History of gout. 7. 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 8. Vitamin D deficiency. Patient Condition at Discharge: Stable Plan - Discharge Summary Discharge Rx Participant: No New Discharge Prescriptions: No Action Atorvastatin [Lipitor] 40 mg PO HS allopurinoL [Zyloprim] 150 mg PO HS Clopidogrel [Plavix] 75 mg PO DAILY #30 tab Dapagliflozin Propanediol [Farxiga] 10 mg PO DAILY #90 tab Ezetimibe [Zetia] 10 mg PO HS Vit C/E/Zn/Coppr/Lutein/Zeaxan [Preservision Areds 2 Softgel] 1 cap PO BID- W/MEALS Metoprolol Succinate (ER) [Toprol XL] 25 mg PO BID #60 tab Losartan [Cozaar] 25 mg PO HS Cholecalciferol (Vitamin D3) [Vitamin D3 (50 Mcg = 2000 Iu)] 50 mcg PO DAILY Apixaban [Eliquis] 2.5 mg PO BID Spironolactone 12.5 mg PO DAILY Discharge Medication List Atorvastatin [Lipitor] 40 mg PO HS 12/31/21 [History] Vit C/E/Zn/Coppr/Lutein/Zeaxan [Preservision Areds 2 Softgel] 1 cap PO BID- W/MEALS 12/31/21 [History] allopurinoL [Zyloprim] 150 mg PO HS 12/31/21 [History] Clopidogrel [Plavix] 75 mg PO DAILY #30 tab 01/14/22 [Rx] Dapagliflozin Propanediol [Farxiga] 10 mg PO DAILY #90 tab 01/22/22 [Rx] Metoprolol Succinate (ER) [Toprol XL] 25 mg PO BID #60 tab 01/22/22 [Rx] Apixaban [Eliquis] 2.5 mg PO BID 11/08/23 [History] Cholecalciferol (Vitamin D3) [Vitamin D3 (50 Mcg = 2000 Iu)] 50 mcg PO DAILY 11/08/23 [History] Ezetimibe [Zetia] 10 mg PO HS 11/08/23 [History] Losartan [Cozaar] 25 mg PO HS 11/08/23 [History] Spironolactone 12.5 mg PO DAILY 11/08/23 [History] Follow up Appointment(s)/Referral(s): Elizabeth Beck MD [Primary Care Provider] - 1-2 days Augustin Victor DO [STAFF PHYSICIAN] - 6 Weeks
--- NOTE | 2023-11-11 07:43 | CA ---
Transthoracic Echo Report Name: Chuck Santiago Age: 83 Gender: M : 1940 Exam Date: 11/10/2023 08:35 Exam Location: [facility] Ht (in): 68 Wt (lb): 148 Ordering Physician: Elizabeth Beck MD Attending/Referring Phys: Director Of Athletics Mary Sewell RDCS Procedure CPT: Indications: CVA Cardiac Hx: Technical Quality: Fair Contrast 1: Total Dose (mL): Contrast 2: Total Dose (mL): MEASUREMENTS (Male / Female) Normal Values 2D ECHO LV Diastolic Diameter PLAX 4.8 cm 4.2 - 5.9 / 3.9 - 5.3 cm LV Systolic Diameter PLAX 3.2 cm IVS Diastolic Thickness 0.7 cm 0.6 - 1.0 / 0.6 - 0.9 cm LVPW Diastolic Thickness 1.0 cm 0.6 - 1.0 / 0.6 - 0.9 cm LV Relative Wall Thickness 0.4 LVOT Diameter 2.0 cm LV Diastolic Volume MOD BP 84.9 cm??? 67 - 155 / 56 - 104 cm??? LV Systolic Volume MOD BP 31.5 cm??? 22 - 58 / 19 - 49 cm??? LV Ejection Fraction MOD BP 62.9 % >= 55 % LV Cardiac Index MOD BP 2704.8 cm???/min???m??? LV Diastolic Volume MOD 4C 84.3 cm??? LV Systolic Volume MOD 4C 33.7 cm??? LV Ejection Fraction MOD 4C 60.0 % LV Cardiac Index MOD 4C 2563.9 cm???/min???m??? LV Diastolic Length 4C 7.2 cm LV Systolic Length 4C 6.3 cm LV Diastolic Volume MOD 2C 84.4 cm??? LV Systolic Volume MOD 2C 28.4 cm??? LV Ejection Fraction MOD 2C 66.4 % LV Cardiac Index MOD 2C 2839.7 cm???/min???m??? LV Diastolic Length 2C 7.4 cm LV Systolic Length 2C 6.0 cm LA Volume 77.4 cm??? 18 - 58 / 22 - 52 cm??? LA Volume Index 43.1 cm???/m??? 16 - 28 cm???/m??? Ascending Aorta Diameter 3.2 cm DOPPLER AV Peak Velocity 89.8 cm/s AV Peak Gradient 3.2 mmHg AV Mean Velocity 61.6 cm/s AV Mean Gradient 1.7 mmHg AV Velocity Time Integral 18.6 cm LVOT Peak Velocity 75.6 cm/s LVOT Peak Gradient 2.3 mmHg LVOT Velocity Time Integral 13.6 cm LVOT Stroke Volume 40.9 cm??? LVOT Stroke Volume Index 22.8 ml/m??? LVOT Cardiac Index 2072.8 cm???/min???m??? AV Area Cont Eq vti 2.2 cm??? AV Area Cont Eq pk 2.5 cm??? TR Peak Velocity 304.7 cm/s TR Peak Gradient 37.1 mmHg Right Atrial Pressure 5.0 mmHg Pulmonary Artery Systolic Pressu 42.1 mmHg Right Ventricular Systolic Press 42.1 mmHg PV Peak Velocity 64.1 cm/s PV Peak Gradient 1.6 mmHg FINDINGS Left Ventricle Left ventricular ejection fraction is estimated at 60-65 %. Left ventricular cavity size normal. Mildly increased left ventricular wall thickness. No obvious regional wall motion abnormalities. Right Ventricle Normal right ventricular size and function. Mildly elevated right ventricular systolic pressure. Right Atrium Right atrial dilatation. Left Atrium Moderately increased left atrial volume. Mildly increased left atrial area. Mitral Valve Mitral valve thickened. No evidence for mitral valve prolapse. No mitral stenosis. Moderate mitral regurgitation. Aortic Valve Trileaflet aortic valve. Aortic valve sclerosis. No aortic stenosis. No aortic regurgitation. Tricuspid Valve Structurally normal tricuspid valve. No tricuspid stenosis. Moderate tricuspid regurgitation. Pulmonic Valve Pulmonic valve not well visualized. No pulmonic stenosis. Trace pulmonic regurgitation. Pericardium No pericardial effusion. Aorta Normal size aortic root and proximal ascending aorta. CONCLUSIONS Left ventricular ejection fraction 60-65% Mildly increased left ventricular wall thickness RVSP 42 Moderate mitral regurgitation Moderate tricuspid regurgitation Moderately dilated left atrium Previewed by: Dr. Sabino Lenz DO (Electronically Signed) Final Date: 11 November 2023 07:42
--- NOTE | 2023-11-11 11:39 | P.PN ---
Subjective Progress Note Date: 11/10/23 Patient was seen for a follow-up. Patient states dizziness is much better. In fact it is gone. No new focal symptoms. Objective - Vital Signs Vital signs: Vital Signs Temp 98.2 F 11/10/23 15:00 Pulse 76 11/10/23 15:00 Resp 16 11/10/23 15:00 BP 129/79 11/10/23 15:00 Pulse Ox 97 11/10/23 15:00 FiO2 Intake & Output 11/09/23 11/10/23 11/10/23 18:59 06:59 18:59 Intake Total 354 236 Output Total 1150 650 Balance -796 -650 236 Intake: Oral 354 236 Output: Urine 1150 650 Other: Voiding Method Urinal Urinal Urinal # Voids 2 - Labs CBC & Chem 7: 11/10/23 06:29 11/10/23 06:29 Labs: Abnormal Lab Results - Last 24 Hours (Table) 11/10/23 11/10/23 Range/Units 06:29 06:29 RBC 3.53 L (4.40-5.60) X 10*6/uL Hgb 12.1 L (13.0-17.0) g/dL Hct 36.0 L (39.6-50.0) % MCV 102.0 H (80.0-97.0) FL MCH 34.3 H (27.0-32.0) pg Plt Count 118 L (140-440) X 10*3/uL Chloride 112 H (96-109) mmol/L Carbon Dioxide 20.6 L (21.6-31.8) mmol/L Calcium 8.2 L (8.7-10.3) mg/dL Total Protein 5.4 L (6.2-8.2) g/dL Albumin 3.4 L (3.8-4.9) g/dL Assessment and Plan Assessment: * Acute onset of vertigo, likely due to labyrinthitis. CVA ruled out. * Acute pansinusitis. Patient does not have significant sinus symptoms except for intermittent runny nose. Possible viral, less likely bacterial. * Bilateral ICA stenosis, 60% on the right, 50% left, per CTA report * History of atrial fibrillation, on Eliquis * Macrocytosis * CAD * CHF * Hypertension * Diabetes * Hyperlipidemia * Ex tobacco use Plan: * MRI of the brain revealed no evidence of intracranial mass, acute/subacute infarct or abnormal enhancement. Nonspecific white matter changes, likely related to small vessel ischemic disease. Moderate narrowing of the spinal canal at C3-C4 further evaluation with MRI cervical spine May be of benefit. Paranasal sinus disease in the right maxillary sinus and mild on the left maxillary sinus. I personally reviewed MRI, and appears patient has significant paranasal sinus disease, particularly involving the right maxillary, right ethmoid, left sphenoid and right frontal sinuses. * Consider course of antibiotic with Augmentin for 10 days. * CTA of head and neck revealed no evidence of dissection of the cervical internal carotid arteries or vertebral arteries. 60% stenosis on the right and 50% stenosis on the left of the internal carotid artery secondary to predominantly calcified plaque. No evidence of intracranial high-grade stenosis or intracranial aneurysm. Atherosclerosis of the left vertebral artery intracranial portion with calcified plaque and 25 to 50% stenosis. Right vertebral artery intradural portion is hypoplastic compared to the left. * Patient is having intermittent transient visual disturbance, only when he wakes up in the middle of the night to go to the bathroom, and resolving when wakes up finally in the morning. (Episodes occurring once or twice a week, going on for last 8 months). Uncertain if related to carotid stenosis. Vascular surgery input appreciated. Patient has nonhemodynamically significant, asymptomatic bilateral internal carotid stenosis. No indication for any vascular surgical intervention. They recommended patient follow-up with vascular surgery outpatient. * 2D echo revealed normal left ventricular size and systolic function with EF 60 to 65%. Mildly increased left ventricular wall thickness. No obvious regional wall motion abnormalities. Moderate MR, moderate TR. Moderately dilated left atrium. * Telemetry monitoring * Lipid panel from 06/17/2023 with cholesterol 131, LDL 73, HDL 45 and triglycerides 60. Continue Lipitor 40 mg daily. * Resume Eliquis 2.5 mg twice daily and Plavix 75 mg daily (home medication). * Patient has macrocytosis, B12 495, folate 7.4, hemoglobin A1c 5.6, all normal. * Neurologically clear for discharge.
== END 2023-11-10 19:54 | disposition home health service (06) ==
LOC: EC 16:10 → 6NMEDSUR 21:39
PROVIDERS: ADMIT Internal Medicine; ATTEND Internal Medicine
DX: H83.09 Labyrinthitis, unspecified ear (principal); E78.5 Hyperlipidemia, unspecified; I11.9 Hypertensive heart disease without heart failure; R73.03 Prediabetes; I25.10 Atherosclerotic heart disease of native coronary artery without angina pectoris; I48.0 Paroxysmal atrial fibrillation; M54.50 Low back pain, unspecified; G89.29 Other chronic pain; Z82.49 Family history of ischemic heart disease and other diseases of the circulatory system; Z79.01 Long term (current) use of anticoagulants; Z87.891 Personal history of nicotine dependence; E55.9 Vitamin D deficiency, unspecified; M10.9 Gout, unspecified; I25.5 Ischemic cardiomyopathy; Z79.02 Long term (current) use of antithrombotics/antiplatelets; E78.2 Mixed hyperlipidemia
CPT/HCPCS: 96361 ×2; 96374; 99285; 36415; 93005; 93306; 97162; 80053 ×2; 80048; 82607; 82746; 84484 ×2; 85025 ×3; 85610; 83036; 70496; 70450; 70498; 70553; G0378 ×3; J3360; Q9967; A9585

== ENCOUNTER → 2024-01-28 | Outpatient (CLI) | payer MEDICARE, BC ==
[2024-01-28 15:51] LABS: BUN/Creat Ratio 14.38 Ratio (12.00-20.00); Blood Urea Nitrogen 11.5 mg/dL (9.0-27.0); Glucose 94 mg/dL (70-110); Iron 116 UG/DL (65-175); Total Iron Binding Capacity 232 UG/DL (228-460)
[2024-01-28 15:52] LABS: ALT 62 U/L (10-49); AST 54 U/L (14-35); Albumin 3.6 g/dL (3.8-4.9); Alkaline Phosphatase 196 U/L (41-126); Carbon Dioxide 25.4 mmol/L (21.6-31.8); Chloride 106 mmol/L (96-109); Globulin 2.4 g/dL (1.6-3.3); Potassium 4.5 mmol/L (3.5-5.5); Sodium 141 mmol/L (135-145); Total Bilirubin 0.6 mg/dL (0.3-1.2)
[2024-01-28 16:33] LABS: Basophils # (A) 0.04 X 10*3/uL (0.00-0.10); Basophils % (A) 0.8 %; Eosinophils # (A) 0.14 X 10*3/uL (0.04-0.35); Eosinophils % (A) 2.6 %; HCT 40.1 % (39.6-50.0); HGB 13.4 g/dL (13.0-17.0); Lymphocytes # (A) 1.34 X 10*3/uL (0.90-5.00); Lymphocytes % (A) 25.3 %; MCH 34.9 pg (27.0-32.0); MCHC 33.4 g/dL (32.0-37.0); MCV 104.4 FL (80.0-97.0); Mean Platelet Volume 11.5 FL (9.5-12.2); Monocytes # (A) 0.62 X 10*3/uL (0.20-1.00); Monocytes % (A) 11.7 %; NRBC Per 100 WBC 0 X 10*3/uL (0.00-0.01); Neutrophils # (A) 3.12 X 10*3/uL (1.80-7.70); Neutrophils % (A) 58.8 %; Platelet Count 114 X 10*3/uL (140-440); RBC 3.84 X 10*6/uL (4.40-5.60); RDW 13.2 % (11.5-14.5)
== END ==
LOC: LABWHC1 08:30
PROVIDERS: ATTEND Internal Medicine Gastroenterology
DX: E83.110 Hereditary hemochromatosis (principal)
CPT/HCPCS: 36415; 80053; 82728; 83540; 83550; 85025

== ENCOUNTER → 2024-02-08 | Outpatient (CLI) | payer MEDICARE, BC ==
--- NOTE | 2024-02-08 10:43 | US ---
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 TECHNIQUE: Grayscale and color Doppler imaging of the abdomen was performed. FINDINGS: EXAM MEASUREMENTS: Liver Length: 12.3 cm Gallbladder Wall: 0.1 cm CBD: 0.4 cm Spleen: 10.3 cm Right Kidney: 9.2 x 4.9 x 4.4 cm Left Kidney: 9.7 x 3.4 x 4.0 cm HVAC FIELD SERVICE TECHNICIAN NOTES: Limited due to overlying bowel gas Pancreas: Obscured by bowel gas Liver: Appears coarse Gallbladder: wnl, limited due to bowel gas. No obvious wall thickening or stones seen. Evidence for sonographic Gonzalez's sign: neg CBD: limited visualization due to bowel gas Spleen: Multiple nonshadowing echogenic foci most likely related to tiny granuloma. Right Kidney: No hydronephrosis or masses seen Left Kidney: No hydronephrosis or masses seen Upper IVC: wnl Abd Aorta: Plaque visualized IMPRESSION: Nonspecific pattern to the liver most typical of hepatic steatosis or underlying hepatocellular disea se. Correlate clinically. [facility], , 02/08/2024 10:40 AM
== END | disposition home or self-care (01) ==
LOC: RADUSWWP 07:31
PROVIDERS: ATTEND Internal Medicine
DX: D53.9 Nutritional anemia, unspecified (principal)
CPT/HCPCS: 76700

== ENCOUNTER → 2024-02-17 | Outpatient (CLI) | payer MEDICARE, BC ==
[2024-02-17 15:17] LABS: % Iron Saturation 47.26 (15.00-50.00); ALT 56 U/L (10-49); AST 56 U/L (14-35); Albumin 3.8 g/dL (3.8-4.9); Albumin/Globulin Ratio 1.36 Ratio (1.60-3.17); Alkaline Phosphatase 230 U/L (41-126); BUN/Creat Ratio 16.11 Ratio (12.00-20.00); Blood Urea Nitrogen 14.5 mg/dL (9.0-27.0); Calcium 9.3 mg/dL (8.7-10.3); Carbon Dioxide 24.4 mmol/L (21.6-31.8); Chloride 105 mmol/L (96-109); Globulin 2.8 g/dL (1.6-3.3); Glucose 93 mg/dL (70-110); Iron 112 UG/DL (65-175); Potassium 4.7 mmol/L (3.5-5.5); Sodium 140 mmol/L (135-145); Total Bilirubin 0.7 mg/dL (0.3-1.2); Total Iron Binding Capacity 237 UG/DL (228-460); Total Protein 6.6 g/dL (6.2-8.2)
[2024-02-17 15:40] LABS: HCT 40.6 % (39.6-50.0); HGB 13.6 g/dL (13.0-17.0); MCH 34.9 pg (27.0-32.0); MCV 104.1 FL (80.0-97.0); WBC 4.74 X 10*3/uL (4.50-10.00)
[2024-02-17 15:41] LABS: Basophils # (A) 0.03 X 10*3/uL (0.00-0.10); Basophils % (A) 0.6 %; Eosinophils # (A) 0.07 X 10*3/uL (0.04-0.35); Eosinophils % (A) 1.5 %; Lymphocytes # (A) 1.21 X 10*3/uL (0.90-5.00); Lymphocytes % (A) 25.5 %; MCHC 33.5 g/dL (32.0-37.0); Mean Platelet Volume 11.8 FL (9.5-12.2); Monocytes # (A) 0.71 X 10*3/uL (0.20-1.00); NRBC Per 100 WBC 0 X 10*3/uL (0.00-0.01); Neutrophils # (A) 2.71 X 10*3/uL (1.80-7.70); Neutrophils % (A) 57.2 %; Platelet Count 108 X 10*3/uL (140-440); RDW 12.7 % (11.5-14.5)
== END | disposition home or self-care (01) ==
LOC: LABWHC1 11:28
PROVIDERS: ATTEND Internal Medicine Gastroenterology
DX: E83.110 Hereditary hemochromatosis (principal)
CPT/HCPCS: 36415; 80053; 82728; 83540; 83550; 85025

== ENCOUNTER 2024-03-06 01:49 | Inpatient (IN) | payer MEDICARE, BC ==
--- NOTE | 2024-03-06 02:29 | ED ---
General Adult HPI - General Source: patient, EMS, RN notes reviewed Mode of arrival: EMS <Margie Parmar - Last Filed: 03/06/24 17:43> <Adina Smart - Last Filed: 03/13/24 09:59> - General Chief complaint: Recheck/Abnormal Lab/Rx Stated complaint: Shivering Time Seen by Provider: 03/06/24 02:29 - History of Present Illness Initial comments: This is a 83-year-old male with a history of atrial fibrillation on Eliquis, heart failure, and hypertension presenting to the emergency department via EMS for chief complaint of overall not feeling well. Patient is accompanied by long-term friend at bedside reports that patient was reported "shaking "earlier today with and not feeling cold. Patient is denying any acute symptoms or pain. He is denying chest pain, shortness of breath, difficulty breathing, headaches, blurry or double vision, abdominal pain, urinary or bowel changes. Friend at bedside states that patient has been coughing however patient denies. Patient states that he feels mildly weak. (Margie Parmar) - Related Data Home Medications Medication Instructions Recorded Confirmed Atorvastatin [Lipitor] 40 mg PO HS 12/31/21 03/06/24 Vit C/E/Zn/Coppr/Lutein/Zeaxan 1 cap PO BID 12/31/21 03/06/24 [Preservision Areds 2 Softgel] allopurinoL [Zyloprim] 150 mg PO HS 12/31/21 03/06/24 Apixaban [Eliquis] 2.5 mg PO BID 11/08/23 03/06/24 Cholecalciferol (Vitamin D3) 50 mcg PO DAILY 11/08/23 03/06/24 [Vitamin D3 (50 Mcg = 2000 Iu)] Ezetimibe [Zetia] 10 mg PO HS 11/08/23 03/06/24 Losartan [Cozaar] 25 mg PO HS 11/08/23 03/06/24 Spironolactone 12.5 mg PO DAILY 11/08/23 03/06/24 Imiquimod [Aldara] 1 packet TOPICAL MOTUWETHFR PRN 03/06/24 03/06/24 Metoprolol Tartrate [Lopressor] 25 mg PO BID 03/06/24 03/06/24 Previous Rx's Medication Instructions Recorded Clopidogrel [Plavix] 75 mg PO DAILY #30 tab 01/14/22 Dapagliflozin Propanediol [Farxiga] 10 mg PO DAILY #90 tab 01/22/22 Aspirin 81 mg PO DAILY tab 03/09/24 Azithromycin [Zithromax Tri-Jarek (3 500 mg PO DAILY 3 Days #3 tab 03/09/24 tabs)] Allergies Allergy/AdvReac Type Severity Reaction Status Date / Time No Known Allergies Allergy Verified 11/08/23 18:35 Review of Systems ROS Other: All systems not noted in ROS Statement are negative. <Margie Parmar - Last Filed: 03/06/24 17:43> ROS Other: All systems not noted in ROS Statement are negative. <Adina Smart - Last Filed: 03/13/24 09:59> ROS Statement: Those systems with pertinent positive or pertinent negative responses have been documented in the HPI. 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 History of Any Multi-Drug Resistant Organisms: None Reported Past Surgical History: Back Surgery, Heart Catheterization With Stent, Tonsillectomy Additional Past Surgical History / Comment(s): Skin cancer removals/nose flaps, colonoscopy Past Anesthesia/Blood Transfusion Reactions: No Reported Reaction Date of Last Stent Placement:: 01/10/22 Past Psychological History: No Psychological Hx Reported Past Alcohol Use History: None Reported - Past Family History Mother Family Medical History: No Reported History Additional Family Medical History / Comment(s): Mother was healthy Father Family Medical History: No Reported History Additional Family Medical History / Comment(s): Father was healthy Brother(s) Family Medical History: CVA/TIA <Margie Parmar - Last Filed: 03/06/24 17:43> General Exam General appearance: alert, in no apparent distress Eye exam: Present: normal appearance, PERRL, EOMI. Absent: scleral icterus, conjunctival injection, periorbital swelling ENT exam: Present: normal exam, mucous membranes moist Neck exam: Present: normal inspection. Absent: tenderness, meningismus, lymphadenopathy Respiratory exam: Present: normal lung sounds bilaterally, wheezes, rales. Absent: respiratory distress, rhonchi, stridor Cardiovascular Exam: Present: regular rate, normal rhythm, irregular rhythm, normal heart sounds. Absent: systolic murmur, diastolic murmur, rubs, gallop, clicks GI/Abdominal exam: Present: soft, normal bowel sounds. Absent: distended, tenderness, guarding, rebound, rigid Extremities exam: Present: normal inspection, full ROM, normal capillary refill. Absent: tenderness, pedal edema, joint swelling, calf tenderness Back exam: Present: normal inspection Neurological exam: Present: alert, oriented X3, CN II-XII intact Skin exam: Present: warm, dry, intact, normal color. Absent: rash <Margie Parmar - Last Filed: 03/06/24 17:43> Course Vital Signs 03/06/24 03/06/24 03/06/24 01:51 EST 04:00 04:23 Temperature 97.5 F L Pulse Rate 89 96 105 H Respiratory 32 H Rate Blood Pressure 126/80 85/46 O2 Sat by Pulse 91 L 95 Oximetry 03/06/24 03/06/24 03/06/24 04:30 04:33 05:15 Temperature 100.7 F H Pulse Rate 97 106 H 112 H Respiratory Rate Blood Pressure 88/45 77/47 O2 Sat by Pulse 96 95 Oximetry 03/06/24 03/06/24 03/06/24 05:57 06:00 06:37 Temperature Pulse Rate 118 H 122 H 120 H Respiratory 30 H Rate Blood Pressure 65/47 71/42 74/49 O2 Sat by Pulse 95 93 L 97 Oximetry 03/06/24 03/06/24 03/06/24 07:06 07:16 08:00 Temperature 97.4 F L Pulse Rate 111 H 93 103 H Respiratory 18 16 18 Rate Blood Pressure 77/45 101/53 102/67 O2 Sat by Pulse 97 99 98 Oximetry 03/06/24 03/06/24 03/06/24 09:00 09:30 09:31 Temperature Pulse Rate 111 H 112 H 120 H Respiratory 16 17 20 Rate Blood Pressure 92/62 104/64 104/64 O2 Sat by Pulse 99 100 100 Oximetry Medical Decision Making - Lab Data Result diagrams: 03/06/24 02:09 03/06/24 02:34 <Margie Parmar - Last Filed: 03/06/24 17:43> - Lab Data Result diagrams: 03/09/24 08:14 03/09/24 08:14 <Adina Smart - Last Filed: 03/13/24 09:59> - Medical Decision Making Was pt. sent in by a medical professional or institution (, [facility], [employer], urgent care, hospital, or long-term...) When possible be specific @ -No Did you speak to anyone other than the patient for history (EMS, parent, family, police, friend...)? What history was obtained from this source @ -No Did you review nursing and triage notes (agree or disagree)? Why? @ -I reviewed and agree with nursing and triage notes Were old charts reviewed (outside hosp., previous admission, EMS record, old EKG, old radiological studies, urgent care reports/EKG's, long-term records)? Report findings @ -No old charts were reviewed Differential Diagnosis (chest pain, altered mental status, abdominal pain women, abdominal pain men, vaginal bleeding, weakness, fever, dyspnea, syncope, headache, dizziness, GI bleed, back pain, seizure, CVA, palpatations, mental health, musculoskeletal)? @ -Differential Weakness: Hypoglycemia, shock, sepsis, hyponatremia, anemia, infection, AZ, ETOH, adverse medicine reaction, overdose, stroke, this is not meant to be an all-inclusive list. EKG interpreted by me (3pts min.). @ -EKG completed at 202 atrial flutter with a ventricular rate of 82, MA interval undetermined, QRS 92, QTc 380. X-rays interpreted by me (1pt min.). @ -chest x-ray is concerning for mild cardiomegaly without suspicious acute pulmonary infiltrate CT interpreted by me (1pt min.). @ -None done U/S interpreted by me (1pt. min.). @ -None done What testing was considered but not performed or refused? (CT, X-rays, U/S, labs)? Why? @ -None What meds were considered but not given or refused? Why? @ -None Did you discuss the management of the patient with other professionals ( professionals i.e. , [facility], [employer]CH[employer]IC, lab, RT, psych nurse, social media job titles, assembler brazer, teacher, guest services officer, bilingual patient support caseworker)? Give summary @ -No Was smoking cessation discussed for >3mins.? @ -No Was critical care preformed (if so, how long)? @ -No Were there social determinants of health that impacted care today? How? (Homelessness, low income, unemployed, alcoholism, drug addiction, transportation, low edu. Level, literacy, decrease access to med. care, [facility], rehab)? @ -No Was there de-escalation of care discussed even if they declined (Discuss DNR or withdrawal of care, Hospice)? DNR status @ -No What co-morbidities impacted this encounter? (DM, HTN, Smoking, COPD, CAD, Cancer, CVA, ARF, Chemo, Hep., AIDS, mental health diagnosis, sleep apnea, morbid obesity)? @ -Atrial fibrillation, congestive heart failure Was patient admitted / discharged? Hospital course, mention meds given and route, prescriptions, significant lab abnormalities, going to OR and other pertinent info. @ -Admitted. 83-year-old male with generalized weakness. On my evaluation of the patient he is noted to be pale and requiring oxygen 2 L nasal cannula satting in the low 90s. Patient does not normally wear oxygen at baseline. Peds pulmonary examination remarkable for decreased breath sounds, wheezes, and rhonchi of the left lower lung field. Patient's chest x-ray remarkable for cardiomegaly without evidence of pulmonary infiltrate. Patient has an elevated lactic acid of 4.6 at this time fluid bolus was ordered. Patient has transaminitis and AST of 165, ALT 93, alkaline phosphatase 213. Additionally patient's BNP is elevated at 6100. Troponin elevated at 0.087. Patient's D- dimer is elevated at 1.30 and at this time CT of the chest rule out PE is ordered. Patient's urinalysis remarkable for 4+ glucose. Patient is signed out to my attending pending CTA of the chest, laboratory results and disposition. Undiagnosed new problem with uncertain prognosis? @ -No Drug Therapy requiring intensive monitoring for toxicity (Heparin, Nitro, Insulin, Cardizem)? @ -No Were any procedures done? @ -No Diagnosis/symptom? @ - Acute, or Chronic, or Acute on Chronic? @ - Uncomplicated (without systemic symptoms) or Complicated (systemic symptoms)? @ - Side effects of treatment? @ -No Exacerbation, Progression, or Severe Exacerbation? @ -No Poses a threat to life or bodily function? How? (Chest pain, USA, AZ, pneumonia, PE, COPD, DKA, ARF, appy, cholecystitis, CVA, Diverticulitis, Homicidal, Suicidal, threat to staff... and all critical care pts) @ -No (Margie Parmar) Signout received from off going clinician, Margie. Patient is a 83-year-old male presenting for rigors. On my assessment patient is ill appearing, but in no acute distress, nontoxic. Partner at bedside. Patient does have crackles in the bilateral lung bases, rales in the left lower lung field, worse than the right. No tachypnea. On supplemental oxygen however has not been trialed on room air to assess for hypoxia. Patient removed nasal cannula, oxygen saturation 92% on room air. At bedside MAP is 61, heart rate approximately 100, has received 500 cc IV fluid. Patient's BNP is elevated however I am more concerned for severe sepsis given elevated lactic and rigors. Will give an additional 500 cc IV fluid bolus, Zosyn ordered, reviewed CT PE study does appear to be a left lower lobe consolidation. Anticipate admission. CTA with bilateral groundglass opacities and left lower lobe consolidation concerning for infectious process. No PE. Patient hypoxic on room air, pulse ox 85%, placed on 3L NC. Rectal temp 100.7 F, ordered gram tylenol. Patient has since received 1500 cc IV fluid, finishing second bolus. MAP 51. After completion of second liter bolus will have received 30 cc/kg bolus. Patient's pressure does not appear to be responding to fluid boluses, in setting of concern for septic shock, ordered norepinephrine. Updated pt and family to plan of care and plan for admission to the ICU. Pt agreeable. Discussed case with Dr. Cortez, Critical Care, would like to see pt before CVC is placed so this will be held off. 2 Well functioning peripheral IVs are in place. Discussed case with Dr. Beck, who kindly accepts pt for admission. Pt admtited to the ICU in stable but guarded condition. . (Adina Smart) - Lab Data Lab Results 03/06/24 03/06/24 03/06/24 Range/Units 02:05 02:09 02:34 WBC 5.9 (3.8-10.6) k/uL RBC 4.24 L (4.30-5.90) m/uL Hgb 14.7 (13.0-17.5) gm/dL Hct 44.4 (39.0-53.0) % MCV 104.6 H (80.0-100.0) fL MCH 34.6 (25.0-35.0) pg MCHC 33.1 (31.0-37.0) g/dL RDW 13.1 (11.5-15.5) % Plt Count 189 (150-450) k/uL MPV 8.1 Neutrophils % 74 % Lymphocytes % 18 % Monocytes % 5 % Eosinophils % 2 % Basophils % 0 % Neutrophils # 4.4 (1.3-7.7) k/uL Lymphocytes # 1.1 (1.0-4.8) k/uL Monocytes # 0.3 (0-1.0) k/uL Eosinophils # 0.1 (0-0.7) k/uL Basophils # 0.0 (0-0.2) k/uL Macrocytosis Slight PT 12.6 H (10.0-12.5) sec INR 1.2 H (<1.2) APTT 22.6 (22.0-30.0) sec D-Dimer (<0.60) mg/L FEU Sodium (137-145) mmol/L Potassium (3.5-5.1) mmol/L Chloride (98-107) mmol/L Carbon Dioxide (22-30) mmol/L Anion Gap mmol/L BUN (9-20) mg/dL Creatinine (0.66-1.25) mg/dL Est GFR (CKD-EPI)AfAm (>60 ml/min/1.73 sqM) Est GFR (CKD-EPI)NonAf (>60 ml/min/1.73 sqM) Glucose (74-99) mg/dL Lactic Ac Sepsis Rflx Plasma Lactic Acid Michael (0.7-2.0) mmol/L Calcium (8.4-10.2) mg/dL Phosphorus (2.5-4.5) mg/dL Magnesium (1.6-2.3) mg/dL Total Bilirubin (0.2-1.3) mg/dL AST (17-59) U/L ALT (4-49) U/L Alkaline Phosphatase (38-126) U/L Troponin I (0.000-0.034) ng/mL NT-Pro-B Natriuret Pep pg/mL Total Protein (6.3-8.2) g/dL Albumin (3.5-5.0) g/dL Procalcitonin (0.02-0.50) ng/mL Urine Color Colorless Urine Appearance Clear (Clear) Urine pH 5.0 (5.0-8.0) Ur Specific Cartwright 1.008 (1.001-1.035) Urine Protein Negative (Negative) Urine Glucose (UA) 4+ H (Negative) Urine Ketones Negative (Negative) Urine Blood Negative (Negative) Urine Nitrite Negative (Negative) Urine Bilirubin Negative (Negative) Urine Urobilinogen <2.0 (<2.0) mg/dL Ur Leukocyte Esterase Negative (Negative) Influenza Type A (PCR) (Not Detectd) Influenza Type B (PCR) (Not Detectd) RSV (PCR) (Not Detectd) SARS-CoV-2 (PCR) (Not Detectd) 03/06/24 03/06/24 03/06/24 Range/Units 02:34 02:34 02:34 WBC (3.8-10.6) k/uL RBC (4.30-5.90) m/uL Hgb (13.0-17.5) gm/dL Hct (39.0-53.0) % MCV (80.0-100.0) fL MCH (25.0-35.0) pg MCHC (31.0-37.0) g/dL RDW (11.5-15.5) % Plt Count (150-450) k/uL MPV Neutrophils % % Lymphocytes % % Monocytes % % Eosinophils % % Basophils % % Neutrophils # (1.3-7.7) k/uL Lymphocytes # (1.0-4.8) k/uL Monocytes # (0-1.0) k/uL Eosinophils # (0-0.7) k/uL Basophils # (0-0.2) k/uL Macrocytosis PT (10.0-12.5) sec INR (<1.2) APTT (22.0-30.0) sec D-Dimer (<0.60) mg/L FEU Sodium 137 (137-145) mmol/L Potassium 4.3 (3.5-5.1) mmol/L Chloride 108 H (98-107) mmol/L Carbon Dioxide 20 L (22-30) mmol/L Anion Gap 9 mmol/L BUN 22 H (9-20) mg/dL Creatinine 0.95 (0.66-1.25) mg/dL Est GFR (CKD-EPI)AfAm 85 (>60 ml/min/1.73 sqM) Est GFR (CKD-EPI)NonAf 74 (>60 ml/min/1.73 sqM) Glucose 127 H (74-99) mg/dL Lactic Ac Sepsis Rflx Plasma Lactic Acid Michael 4.6 H* (0.7-2.0) mmol/L Calcium 8.5 (8.4-10.2) mg/dL Phosphorus 4.0 (2.5-4.5) mg/dL Magnesium 1.8 (1.6-2.3) mg/dL Total Bilirubin 1.2 (0.2-1.3) mg/dL AST 165 H (17-59) U/L ALT 93 H (4-49) U/L Alkaline Phosphatase 213 H (38-126) U/L Troponin I 0.087 H* (0.000-0.034) ng/mL NT-Pro-B Natriuret Pep 6100 pg/mL Total Protein 6.1 L (6.3-8.2) g/dL Albumin 3.2 L (3.5-5.0) g/dL Procalcitonin (0.02-0.50) ng/mL Urine Color Urine Appearance (Clear) Urine pH (5.0-8.0) Ur Specific Cartwright (1.001-1.035) Urine Protein (Negative) Urine Glucose (UA) (Negative) Urine Ketones (Negative) Urine Blood (Negative) Urine Nitrite (Negative) Urine Bilirubin (Negative) Urine Urobilinogen (<2.0) mg/dL Ur Leukocyte Esterase (Negative) Influenza Type A (PCR) (Not Detectd) Influenza Type B (PCR) (Not Detectd) RSV (PCR) (Not Detectd) SARS-CoV-2 (PCR) (Not Detectd) 03/06/24 03/06/24 03/06/24 Range/Units 02:34 02:47 03:00 WBC (3.8-10.6) k/uL RBC (4.30-5.90) m/uL Hgb (13.0-17.5) gm/dL Hct (39.0-53.0) % MCV (80.0-100.0) fL MCH (25.0-35.0) pg MCHC (31.0-37.0) g/dL RDW (11.5-15.5) % Plt Count (150-450) k/uL MPV Neutrophils % % Lymphocytes % % Monocytes % % Eosinophils % % Basophils % % Neutrophils # (1.3-7.7) k/uL Lymphocytes # (1.0-4.8) k/uL Monocytes # (0-1.0) k/uL Eosinophils # (0-0.7) k/uL Basophils # (0-0.2) k/uL Macrocytosis PT (10.0-12.5) sec INR (<1.2) APTT (22.0-30.0) sec D-Dimer 1.30 H (<0.60) mg/L FEU Sodium (137-145) mmol/L Potassium (3.5-5.1) mmol/L Chloride (98-107) mmol/L Carbon Dioxide (22-30) mmol/L Anion Gap mmol/L BUN (9-20) mg/dL Creatinine (0.66-1.25) mg/dL Est GFR (CKD-EPI)AfAm (>60 ml/min/1.73 sqM) Est GFR (CKD-EPI)NonAf (>60 ml/min/1.73 sqM) Glucose (74-99) mg/dL Lactic Ac Sepsis Rflx Plasma Lactic Acid Michael (0.7-2.0) mmol/L Calcium (8.4-10.2) mg/dL Phosphorus (2.5-4.5) mg/dL Magnesium (1.6-2.3) mg/dL Total Bilirubin (0.2-1.3) mg/dL AST (17-59) U/L ALT (4-49) U/L Alkaline Phosphatase (38-126) U/L Troponin I (0.000-0.034) ng/mL NT-Pro-B Natriuret Pep pg/mL Total Protein (6.3-8.2) g/dL Albumin (3.5-5.0) g/dL Procalcitonin 0.30 (0.02-0.50) ng/mL Urine Color Urine Appearance (Clear) Urine pH (5.0-8.0) Ur Specific Cartwright (1.001-1.035) Urine Protein (Negative) Urine Glucose (UA) (Negative) Urine Ketones (Negative) Urine Blood (Negative) Urine Nitrite (Negative) Urine Bilirubin (Negative) Urine Urobilinogen (<2.0) mg/dL Ur Leukocyte Esterase (Negative) Influenza Type A (PCR) Not Detected (Not Detectd) Influenza Type B (PCR) Not Detected (Not Detectd) RSV (PCR) Not Detected (Not Detectd) SARS-CoV-2 (PCR) Not Detected (Not Detectd) 03/06/24 Range/Units 03:01 WBC (3.8-10.6) k/uL RBC (4.30-5.90) m/uL Hgb (13.0-17.5) gm/dL Hct (39.0-53.0) % MCV (80.0-100.0) fL MCH (25.0-35.0) pg MCHC (31.0-37.0) g/dL RDW (11.5-15.5) % Plt Count (150-450) k/uL MPV Neutrophils % % Lymphocytes % % Monocytes % % Eosinophils % % Basophils % % Neutrophils # (1.3-7.7) k/uL Lymphocytes # (1.0-4.8) k/uL Monocytes # (0-1.0) k/uL Eosinophils # (0-0.7) k/uL Basophils # (0-0.2) k/uL Macrocytosis PT (10.0-12.5) sec INR (<1.2) APTT (22.0-30.0) sec D-Dimer (<0.60) mg/L FEU Sodium (137-145) mmol/L Potassium (3.5-5.1) mmol/L Chloride (98-107) mmol/L Carbon Dioxide (22-30) mmol/L Anion Gap mmol/L BUN (9-20) mg/dL Creatinine (0.66-1.25) mg/dL Est GFR (CKD-EPI)AfAm (>60 ml/min/1.73 sqM) Est GFR (CKD-EPI)NonAf (>60 ml/min/1.73 sqM) Glucose (74-99) mg/dL Lactic Ac Sepsis Rflx Y Plasma Lactic Acid Michael (0.7-2.0) mmol/L Calcium (8.4-10.2) mg/dL Phosphorus (2.5-4.5) mg/dL Magnesium (1.6-2.3) mg/dL Total Bilirubin (0.2-1.3) mg/dL AST (17-59) U/L ALT (4-49) U/L Alkaline Phosphatase (38-126) U/L Troponin I (0.000-0.034) ng/mL NT-Pro-B Natriuret Pep pg/mL Total Protein (6.3-8.2) g/dL Albumin (3.5-5.0) g/dL Procalcitonin (0.02-0.50) ng/mL Urine Color Urine Appearance (Clear) Urine pH (5.0-8.0) Ur Specific Cartwright (1.001-1.035) Urine Protein (Negative) Urine Glucose (UA) (Negative) Urine Ketones (Negative) Urine Blood (Negative) Urine Nitrite (Negative) Urine Bilirubin (Negative) Urine Urobilinogen (<2.0) mg/dL Ur Leukocyte Esterase (Negative) Influenza Type A (PCR) (Not Detectd) Influenza Type B (PCR) (Not Detectd) RSV (PCR) (Not Detectd) SARS-CoV-2 (PCR) (Not Detectd) Disposition <Margie Parmar - Last Filed: 03/06/24 17:43> <Adina Smart - Last Filed: 03/13/24 09:59> Clinical Impression: Transaminitis, Acute exacerbation of congestive heart failure, Pneumonia, S epsis Disposition: ADMITTED IP TO THIS HOSP Condition: Serious
[2024-03-06 02:53] LABS: Basophils % (A) 0 %; Eosinophils # (A) 0.1 k/uL (0-0.7); Eosinophils % (A) 2 %; HCT 44.4 % (39.0-53.0); HGB 14.7 gm/dL (13.0-17.5); Lymphocytes # (A) 1.1 k/uL (1.0-4.8); Lymphocytes % (A) 18 %; MCH 34.6 pg (25.0-35.0); MCHC 33.1 g/dL (31.0-37.0); MCV 104.6 fL (80.0-100.0); Macrocytosis Slight; Mean Platelet Volume 8.1; Monocytes # (A) 0.3 k/uL (0-1.0); Monocytes % (A) 5 %; Neutrophils # (A) 4.4 k/uL (1.3-7.7); Neutrophils % (A) 74 %; Platelet Count 189 k/uL (150-450); RBC 4.24 m/uL (4.30-5.90); RDW 13.1 % (11.5-15.5); WBC 5.9 k/uL (3.8-10.6)
--- NOTE | 2024-03-06 02:57 | XR ---
EXAMINATION TYPE: XR chest 2V DATE OF EXAM: 03/06/2024 COMPARISON: Prior chest x-ray of the 2021 HISTORY: Cough TECHNIQUE: Frontal and lateral views of the chest are obtained. FINDINGS: There is no focal air space opacity, pleural effusion, or pneumothorax seen. The cardiac silhouette size is mildly enlarged. Overlying EKG leads are redemonstrated. The osseous structures a re intact. IMPRESSION: Mild cardiomegaly without suspicious acute pulmonary infiltrate. [facility], , 03/06/2024 2:54 AM
[2024-03-06 03:00] LABS: ALT 93 U/L (4-49); AST 165 U/L (17-59); African American GFR (CKD) 85 (>60 ml/min/1.73 sqM); Albumin 3.2 g/dL (3.5-5.0); Alkaline Phosphatase 213 U/L (38-126); Anion Gap 9 mmol/L; Blood Urea Nitrogen 22 mg/dL (9-20); Calcium 8.5 mg/dL (8.4-10.2); Carbon Dioxide 20 mmol/L (22-30); Chloride 108 mmol/L (98-107); Glucose 127 mg/dL (74-99); Magnesium 1.8 mg/dL (1.6-2.3); Non-African American GFR(CKD) 74 (>60 ml/min/1.73 sqM); Potassium 4.3 mmol/L (3.5-5.1); Sodium 137 mmol/L (137-145); Total Bilirubin 1.2 mg/dL (0.2-1.3); Total Protein 6.1 g/dL (6.3-8.2)
[2024-03-06 03:08] LABS: NT-Pro-B-Type Natriuretic Pept 6100 pg/mL
[2024-03-06 03:19] LABS: Appearance,Urine Clear (Clear); Bilirubin,Urine Negative (Negative); Blood,Urine Negative (Negative); Color,Urine Colorless; Glucose,Urine (UA) 4+ (Negative); Ketones,Urine Negative (Negative); Leukocyte Esterase,Urine Negative (Negative); Nitrite,Urine Negative (Negative); Protein,Urine Negative (Negative); Specific Gravity,Urine 1.008 (1.001-1.035); Urobilinogen,Urine <2.0 mg/dL (<2.0)
[2024-03-06 03:32] LABS: INR 1.2 (<1.2); Partial Thromboplastin Time 22.6 sec (22.0-30.0); Prothrombin Time 12.6 sec (10.0-12.5)
[2024-03-06] MEDS: SODIUM CHLORIDE 0.9% 500 ML 500 ML IV STA (03:51)
[2024-03-06] MEDS: methylPREDNISolone SOD SUCCI 125 MG/2 ML VIAL IV STA (04:15)
[2024-03-06] MEDS: IPRATROPIUM-ALBUTEROL 3 ML NEB INHALATION STA (04:23)
[2024-03-06] MEDS: SODIUM CHLORIDE 0.9% 500 ML 500 ML IV ONE (04:43)
[2024-03-06] MEDS: PIPERACILLIN-TAZOBACTAM 3.375 GM in SODIUM CHLORIDE 0.9% 100 ML IVPB STA (05:15)
--- NOTE | 2024-03-06 05:20 | CT ---
EXAMINATION TYPE: CT chest angio for PE DATE OF EXAM: 03/06/2024 COMPARISON: Prior CTA chest December 31, 2021 HISTORY: SOB, elevated D-dimer, elevated troponin CT DLP: 288.2 mGycm. Automated Exposure Control for Dose Reduction was Utilized. CONTRAST: CTA scan of the thorax is performed with IV Contrast, patient injected with 100 ml mL of Isovue 370, pulmonary embolism protocol. MIP Images are created on CT scanner and reviewed. FINDINGS: LUNGS: Multifocal areas of groundglass opacity and organizing consolidation in the left lower lobe ar e present. There are bilateral multifocal peripheral groundglass opacities in the upper lobes. Tiny l eft greater than right bilateral pleural effusions. Occasional tiny calcified right-sided pulmonary n odule or benign granuloma. MEDIASTINUM: There is satisfactory enhancement of the pulmonary artery and its branches, there is no CT evidence for pulmonary embolism. Satisfactory enhancement of the aorta without aneurysm or dissect ion. Coronary artery calcification and/or stents are present. Heart size upper limits of normal. Trac e pericardial effusion is seen. Moderate left atrial dilatation. OTHER: Bridging osteophytes in the thoracic spine are noted. IMPRESSION: 1. No CT evidence for acute pulmonary embolism. 2. Multifocal groundglass opacities and prominent consolidation in the left lower lobe. There are uziel ateral multifocal peripheral groundglass opacities in upper lobes. Acute infectious process is suspec jade. [facility], , 03/06/2024 5:17 AM
[2024-03-06] MEDS: SODIUM CHLORIDE 0.9% 1,000 ML IV ONE (05:30)
[2024-03-06] MEDS: ACETAMINOPHEN TAB 500 MG TAB PO STA (06:35)
[2024-03-06] MEDS: NOREPINEPHRINE 8 MG in SODIUM CHLORIDE 0.9% 250 ML IV ONE (06:47)
[2024-03-06] MEDS ORDERED: NALOXONE 0.4 MG/ML 1 ML VIAL IV PRN (06:55)
[2024-03-06] MEDS ORDERED: MORPHINE SULFATE 4 MG/ML SYRINGE IV PRN (06:56)
[2024-03-06] MEDS ORDERED: Magnesium Replacement Protocol 1 EACH MISC MISCELLANE PRN (06:56)
[2024-03-06] MEDS ORDERED: LORazepam 2 MG/ML INJ IV PRN (06:56)
[2024-03-06] MEDS ORDERED: Potassium Replacement Protocol 1 EACH MISC MISCELLANE PRN (06:56)
[2024-03-06] MEDS ORDERED: MORPHINE SULFATE 2 MG/ML SYRINGE IV PRN (06:56)
[2024-03-06] MEDS ORDERED: Phosphorus Replacement Protoco 1 EACH MISC MISCELLANE PRN (06:56)
[2024-03-06] MEDS ORDERED: ACETAMINOPHEN TAB 325 MG TAB PO PRN (06:56)
[2024-03-06] MEDS: DEXTROSE 5%-0.45% NACL 1,000 ML IV SCH (07:04)
[2024-03-06] MEDS: AZITHROMYCIN 500 MG TAB PO SCH (09:10)
[2024-03-06] MEDS: FAMOTIDINE 20 MG TAB PO SCH (09:10)
[2024-03-06] MEDS: APIXABAN 2.5 MG TABLET PO SCH (09:10)
[2024-03-06 09:46] LABS: Glucose,Whole Blood 110 mg/dL (70-110)
[2024-03-06] MEDS: NOREPINEPHRINE 4 MG in SODIUM CHLORIDE 0.9% 250 ML IV SCH (10:04)
[2024-03-06] MEDS ORDERED: IMIQUIMOD TOPICAL PRN (10:12)
--- NOTE | 2024-03-06 10:21 | P.HPIM ---
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 James as an outpatient, he did not require any phlebotomy recently, patient also was seen by his behavioral health specialist about a week ago and he was doing fine, patient stated that he was doing fine until last night after he had [place] and go large and he started getting the shaking chills felt extremely weak and got dizzy he could not get up out of the bed, he appears to be somewhat short of breath, they ended up transporting the patient to the emergency department at [facility], initially they thought that the patient was in heart failure, however patient underwent CT angiography due to elevated D-dimer, and that showed evidence of left lower lobe pneumonia patient was started on IV antibiotic in the form of Rocephin as well as Zithromax, after obtaining sputum culture and blood cultures, and he was hypotensive at the time he did receive 2 L of normal saline, and then subsequently was started on Levophed drip, patient will be admitted to the intensive care unit for acute hypoxemic respiratory failure due to left lower lobe pneumonia with sepsis. REVIEW OF SYSTEMS: Constitutional positive for documented fever, positive for chills, no night sweats. No weight change. Positive for generalized weakness, fatigue or lethargy. No daytime sleepiness. EENT: No headache. No blurred vision or double vision, no loss of vision. Positive for loss of Hearing, no ringing in the ears, positive for dizziness. positive for nasal drainage and congestion. No epistaxis. No sore throat. Lungs: Positive for shortness of breath, positive for cough, positive for minimal sputum production. No wheezing. Reports dyspnea with activity. Cardiovascular: No chest pain, no lower extremity edema. No palpitations. No paroxysmal nocturnal dyspnea. No orthopnea. No lightheadedness or dizziness. No syncopal episodes. Abdominal: Reports no abdominal pain. positive for nausea, no vomiting. No diarrhea. No constipation. No bloody or tarry stools reports loss of appetite. Genitourinary: No dysuria, increased frequency, urgency. No urinary retention. Musculoskeletal: No myalgias. No muscle weakness, positive for gait dysfunction, no frequent falls. No back pain. No neck pain. Integumentary: No wounds, no lesions. No rash or pruritus. No unusual bruising. No change in hair or nails. Neurologic: No aphasia. No facial droop. No change in mentation. No head injury. No headache. No paralysis. No paresthesia. Psychiatric: No depression. No anxiety. No mood swings. Endocrine: No abnormal blood sugars. No weight change. PAST MEDICAL HISTORY: Coronary artery disease status post PCI of the RCA. Ischemic cardiomyopathy. Hypertension and hypertensive cardiovascular disease. Mixed hyperlipidemia. Prediabetes. Squamous cell cancer status post multiple surgical intervention with Mohs procedure and skin graft Paroxysmal atrial fibrillation. Vitamin D deficiency. Chronic back pain. Osteoarthritis. 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 FAMILY HISTORY: Father at age of 90 from colon cancer mother at age of 86 from CVA and had history of dementia, patient had 1 brother who at age of 82 from CVA, patient has 1 sister who is 87-year-old with history of hypertension PHYSICAL EXAMINATION: General: 83-year-old male laying down in bed in mild respiratory distress HEENT: Head is atraumatic, normocephalic, pupils were equal round reactive to light and recommendation, extraocular muscle movement were intact, sclera nonicteric, conjunctivae were pale, mucous membranes of the mouth are somewhat dry. Neck: Supple, no JVP, normal carotid upstroke bilaterally, no lymphadenopathy. Chest: Decreased breath sounds at the bases, few rhonchi, positive for left lower lobe egophony, no chest wall tenderness no intercostal retractions. Heart: First heart sound is normal, second heart sound is normal there is systolic ejection murmur 2/6 located in the left sternal border. Abdomen: Soft, nontender, nondistended, positive bowel sounds. Extremities: There is no edema no calf tenderness DP +2 bilaterally. Neurologic examination: Patient is awake alert and oriented x3, cranial nerves I I-12 appear grossly intact, muscle power were 5 out of 5 in upper extremities and 5 out of 5 in bilateral lower extremities, deep tendon reflexes normal bilaterally. Babinski's were flexor bilaterally, [id number] is normal [id number] is normal ASSESSMENT AND PLAN: 1. Acute hypoxemic respiratory failure due to left lower lobe pneumonia with sepsis. Patient continue IV fluid resuscitation, continue IV antibiotic in the form of Rocephin as well as Zithromax, sputum culture, blood culture, continue Levophed to keep his systolic blood pressure greater than 100 or mean arterial pressure greater than 65, we will check urine Legionella antigen, check mycoplasma antibody IgG and IgM, we will monitor the patient very closely, will admit patient to the ICU, consult Dr. Cortez. 2. Type II CT due to sepsis. Monitor the patient troponin in the next 4 hours, hold off metoprolol due to hypotension hold off losartan continue Plavix continue with atorvastatin and Zetia cardiology consultation. 3. Hypertension and hypertensive cardiovascular disease. Currently hypotensive we will discontinue the patient metoprolol and losartan for now, monitor the patient very closely. 4. Mixed hyperlipidemia. Continue patient on atorvastatin 40 mg once every day, Zetia 10 mg once every day, monitor lipid panel, keep LDL 55-70. 5. Paroxysmal atrial fibrillation. Continue Eliquis 2.5 mg orally twice every day, I will hold the patient minute metoprolol at this time because the hypotension. 6. Coronary artery disease with ischemic cardiomyopathy status post PCI of the RCA 01/10/2022. Continue patient on Plavix 75 mg once every day, atorvastatin 40 mg orally once every day, continue Farxiga 10 mg once every day. 7. History of gout. Continue allopurinol 150 mg orally once every day. 8. 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 9. Vitamin D deficiency. Continue vitamin D3 2000 units once every day. 10. Hereditary Hemochromatosis. The patient has been under the care of Dr. James, no need for phlebotomy at this point in time. 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 11. DVT prophylaxis. Continue patient on Eliquis 2.5 mg orally twice every day. 12. GI prophylaxis. Continue patient on Protonix 40 mg once every day. 13. Admit to inpatient. Estimated length of stay 2 midnights. 14. Full code. Past Medical History Past Medical History: Atrial Fibrillation, Coronary Artery Disease (CAD), Heart Failure, Hyperlipidemia, Hypertension Additional Past Medical History / Comment(s): 12/09/21 covid +/[facility], skin cancer removals, gout in toes History of Any Multi-Drug Resistant Organisms: None Reported Past Surgical History: Back Surgery, Heart Catheterization With Stent, Tonsillectomy Additional Past Surgical History / Comment(s): Skin cancer removals/nose flaps, colonoscopy Past Anesthesia/Blood Transfusion Reactions: No Reported Reaction Date of Last Stent Placement:: 01/10/22 Past Psychological History: No Psychological Hx Reported Past Alcohol Use History: None Reported - Past Family History Mother Family Medical History: No Reported History Additional Family Medical History / Comment(s): Mother was healthy Father Family Medical History: No Reported History Additional Family Medical History / Comment(s): Father was healthy Brother(s) Family Medical History: CVA/TIA Medications and Allergies Home Medications Medication Instructions Recorded Confirmed Type Atorvastatin [Lipitor] 40 mg PO HS 12/31/21 03/06/24 History Vit C/E/Zn/Coppr/Lutein/Zeaxan 1 cap PO BID 12/31/21 03/06/24 History [Preservision Areds 2 Softgel] allopurinoL [Zyloprim] 150 mg PO HS 12/31/21 03/06/24 History Clopidogrel [Plavix] 75 mg PO DAILY #30 tab 01/14/22 03/06/24 Rx Dapagliflozin Propanediol [Farxiga] 10 mg PO DAILY #90 tab 01/22/22 03/06/24 Rx Apixaban [Eliquis] 2.5 mg PO BID 11/08/23 03/06/24 History Cholecalciferol (Vitamin D3) 50 mcg PO DAILY 11/08/23 03/06/24 History [Vitamin D3 (50 Mcg = 2000 Iu)] Ezetimibe [Zetia] 10 mg PO HS 11/08/23 03/06/24 History Losartan [Cozaar] 25 mg PO HS 11/08/23 03/06/24 History Spironolactone 12.5 mg PO DAILY 11/08/23 03/06/24 History Imiquimod [Aldara] 1 packet TOPICAL MOTUWETHFR PRN 03/06/24 03/06/24 History Metoprolol Tartrate [Lopressor] 25 mg PO BID 03/06/24 03/06/24 History Allergies Allergy/AdvReac Type Severity Reaction Status Date / Time No Known Allergies Allergy Verified 11/08/23 18:35 Physical Exam Vitals: Vital Signs Temp Pulse Resp BP Pulse Ox 03/06/24 09:31 120 H 20 104/64 100 03/06/24 09:00 111 H 16 92/62 99 03/06/24 08:00 103 H 18 102/67 98 03/06/24 07:16 97.4 F L 93 16 101/53 99 03/06/24 07:06 111 H 18 77/45 97 03/06/24 06:37 120 H 30 H 74/49 97 03/06/24 06:00 122 H 71/42 93 L 03/06/24 05:57 118 H 65/47 95 03/06/24 05:15 100.7 F H 112 H 77/47 95 03/06/24 04:33 106 H 03/06/24 04:30 97 88/45 96 03/06/24 04:23 105 H 03/06/24 04:00 96 85/46 95 03/06/24 01:51 EST 97.5 F L 89 32 H 126/80 91 L Intake and Output 03/05/24 03/06/24 03/06/24 23:59 06:59 14:59 Intake Total 1.945 Balance 1.945 Intake: Intake, IV Titration 1.945 Amount Norepinephrine 8 mg In 1.945 Sodium Chloride 0.9% 250 ml @ 0.03 MCG/KG/MIN 3. 765 mls/hr IV .Q24H [facility] Rx#:[id number] Other: Weight Results CBC & Chem 7: 03/06/24 02:09 03/06/24 02:34 Labs: Abnormal Lab Results - Last 24 Hours (Table) 03/06/24 03/06/24 03/06/24 Range/Units 02:05 02:09 02:34 RBC 4.24 L (4.30-5.90) m/uL MCV 104.6 H (80.0-100.0) fL PT 12.6 H (10.0-12.5) sec INR 1.2 H (<1.2) D-Dimer (<0.60) mg/L FEU Chloride (98-107) mmol/L Carbon Dioxide (22-30) mmol/L BUN (9-20) mg/dL Glucose (74-99) mg/dL Plasma Lactic Acid Michael (0.7-2.0) mmol/L AST (17-59) U/L ALT (4-49) U/L Alkaline Phosphatase (38-126) U/L Troponin I (0.000-0.034) ng/mL Total Protein (6.3-8.2) g/dL Albumin (3.5-5.0) g/dL Urine Glucose (UA) 4+ H (Negative) 03/06/24 03/06/24 03/06/24 Range/Units 02:34 02:34 02:34 RBC (4.30-5.90) m/uL MCV (80.0-100.0) fL PT (10.0-12.5) sec INR (<1.2) D-Dimer (<0.60) mg/L FEU Chloride 108 H (98-107) mmol/L Carbon Dioxide 20 L (22-30) mmol/L BUN 22 H (9-20) mg/dL Glucose 127 H (74-99) mg/dL Plasma Lactic Acid Michael 4.6 H* (0.7-2.0) mmol/L AST 165 H (17-59) U/L ALT 93 H (4-49) U/L Alkaline Phosphatase 213 H (38-126) U/L Troponin I 0.087 H* (0.000-0.034) ng/mL Total Protein 6.1 L (6.3-8.2) g/dL Albumin 3.2 L (3.5-5.0) g/dL Urine Glucose (UA) (Negative) 03/06/24 Range/Units 02:47 RBC (4.30-5.90) m/uL MCV (80.0-100.0) fL PT (10.0-12.5) sec INR (<1.2) D-Dimer 1.30 H (<0.60) mg/L FEU Chloride (98-107) mmol/L Carbon Dioxide (22-30) mmol/L BUN (9-20) mg/dL Glucose (74-99) mg/dL Plasma Lactic Acid Michael (0.7-2.0) mmol/L AST (17-59) U/L ALT (4-49) U/L Alkaline Phosphatase (38-126) U/L Troponin I (0.000-0.034) ng/mL Total Protein (6.3-8.2) g/dL Albumin (3.5-5.0) g/dL Urine Glucose (UA) (Negative)
--- NOTE | 2024-03-06 11:31 | P.CNPUL ---
History of Present Illness Consult date: 03/06/24 Reason for consult: dyspnea (annia), hypoxemia, pneumonia, abnormal CXR/CT Chief complaint: Weakness, rigors, shortness of breath. History of present illness: Pulmonary consult dated March 06, 2024. 83-year-old male seen in the emergency department. He is seen in trauma room 2. The patient was in the hospital, because of complaints of being cold, fever, shaking chills, rigors, and some mild shortness of breath for 1 day prior to admission. He was brought into the emergency department, and initially evaluated, but sometime early this morning, became a stable, from the standpoint of his blood pressure. A central line was placed, he received fluid resuscitation, and was started on norepinephrine. We see him in the emergency department. The CT scan showed an infiltrate, in the left lower lobe. He has a history of coronary disease with previous stent, vertigo, hyperlipidemia, hypertension, atrial fibrillation, and gout. White count is 5.9, hemoglobin 14.7, hematocrit 44.4, platelet count normal. D-dimer was 1.30. Sodium 137, potassium 4.3, chlorides 108, CO2 20, BUN 22, creatinine 0.95. Troponin was 0.087. N-terminal proBNP was 6100. Procalcitonin level was 0.30. CT scan showed no evidence of PE. It did show some multifocal groundglass opacities and prominent consolidation in the left lower lobe. Review of Systems REVIEW OF SYSTEMS: CONSTITUTIONAL: Weakness, shaking chills, rigors. NEUROLOGIC: [ Negative.] HEENT: [ Negative.] CARDIAC: [Negative.] PULMONARY: Mild shortness of breath. GI: [Negative.] : [Negative.] RHEUMATOLOGIC: [ Negative.] IMMUNOLOGIC: [ Negative.] ENDOCRINE: [Negative. ] DERMATOLOGIC: [Negative.] Past Medical History Past Medical History: Atrial Fibrillation, Coronary Artery Disease (CAD), Heart Failure, Hyperlipidemia, Hypertension Additional Past Medical History / Comment(s): 12/09/21 covid +/[facility], skin cancer removals, gout in toes History of Any Multi-Drug Resistant Organisms: None Reported Past Surgical History: Back Surgery, Heart Catheterization With Stent, Tonsillectomy Additional Past Surgical History / Comment(s): Skin cancer removals/nose flaps, colonoscopy Past Anesthesia/Blood Transfusion Reactions: No Reported Reaction Date of Last Stent Placement:: 01/10/22 Past Psychological History: No Psychological Hx Reported Past Alcohol Use History: None Reported - Past Family History Mother Family Medical History: No Reported History Additional Family Medical History / Comment(s): Mother was healthy Father Family Medical History: No Reported History Additional Family Medical History / Comment(s): Father was healthy Brother(s) Family Medical History: CVA/TIA Medications and Allergies Home Medications Medication Instructions Recorded Confirmed Type Atorvastatin [Lipitor] 40 mg PO HS 12/31/21 03/06/24 History Vit C/E/Zn/Coppr/Lutein/Zeaxan 1 cap PO BID 12/31/21 03/06/24 History [Preservision Areds 2 Softgel] allopurinoL [Zyloprim] 150 mg PO HS 12/31/21 03/06/24 History Clopidogrel [Plavix] 75 mg PO DAILY #30 tab 01/14/22 03/06/24 Rx Dapagliflozin Propanediol [Farxiga] 10 mg PO DAILY #90 tab 01/22/22 03/06/24 Rx Apixaban [Eliquis] 2.5 mg PO BID 11/08/23 03/06/24 History Cholecalciferol (Vitamin D3) 50 mcg PO DAILY 11/08/23 03/06/24 History [Vitamin D3 (50 Mcg = 2000 Iu)] Ezetimibe [Zetia] 10 mg PO HS 11/08/23 03/06/24 History Losartan [Cozaar] 25 mg PO HS 11/08/23 03/06/24 History Spironolactone 12.5 mg PO DAILY 11/08/23 03/06/24 History Imiquimod [Aldara] 1 packet TOPICAL MOTUWETHFR PRN 03/06/24 03/06/24 History Metoprolol Tartrate [Lopressor] 25 mg PO BID 03/06/24 03/06/24 History Allergies Allergy/AdvReac Type Severity Reaction Status Date / Time No Known Allergies Allergy Verified 11/08/23 18:35 Physical Exam Osteopathic Statement: *. No significant issues noted on an osteopathic structural exam other than those noted in the History and Physical/Consult. Vitals: Vital Signs Temp Pulse Resp BP Pulse Ox 03/06/24 09:31 120 H 20 104/64 100 11/03/24 09:00 111 H 16 92/62 99 03/06/24 08:00 103 H 18 102/67 98 03/06/24 07:16 97.4 F L 93 16 101/53 99 03/06/24 07:06 111 H 18 77/45 97 03/06/24 06:37 120 H 30 H 74/49 97 03/06/24 06:00 122 H 71/42 93 L 03/06/24 05:57 118 H 65/47 95 03/06/24 05:15 100.7 F H 112 H 77/47 95 03/06/24 04:33 106 H 03/06/24 04:30 97 88/45 96 03/06/24 04:23 105 H 03/06/24 04:00 96 85/46 95 03/06/24 01:51 EST 97.5 F L 89 32 H 126/80 91 L Intake and Output 03/05/24 03/06/24 03/06/24 23:59 06:59 14:59 Intake Total 8.783 Balance 8.783 Intake: Intake, IV Titration 8.783 Amount Norepinephrine 4 mg In 6.838 Sodium Chloride 0.9% 250 ml @ 0.03 MCG/KG/MIN 7. 414 mls/hr IV .Q24H [facility] Rx#:[id number] Norepinephrine 8 mg In 1.945 Sodium Chloride 0.9% 250 ml @ 0.03 MCG/KG/MIN 3. 765 mls/hr IV .Q24H [facility] Rx#:[id number] Other: Weight 64.864 kg No acute distress, oriented 3. The patient is currently on O2, at 6 L by nasal cannula. HEENT examination is grossly unremarkable. Mucous membranes are moist. No oral lesions. Neck supple. Full range of motion. No adenopathy thyromegaly or neck vein distention. Cardiovascular examination reveals an irregular rhythm and rate. S1-S2 normal. No S3 or S4. No discernible murmur noted. Lungs reveal rhonchi. Few scattered crackles. No wheezes. Breath sounds equal. Abdomen soft bowel sounds are heard. No masses or tenderness. Extremities are intact. No cyanosis clubbing or edema. Skin is without rash or lesion. Neurologic examination is brief but nonfocal. Results - Laboratory Findings CBC and BMP: 03/06/24 02:09 03/06/24 02:34 PT/INR, D-dimer PT 12.6 sec (10.0-12.5) H 03/06/24 02:34 INR 1.2 (<1.2) H 03/06/24 02:34 D-Dimer 1.30 mg/L FEU (<0.60) H 03/06/24 02:47 Abnormal lab findings: Abnormal Labs 03/06/24 03/06/24 03/06/24 02:05 02:09 02:34 RBC 4.24 L MCV 104.6 H PT 12.6 H INR 1.2 H D-Dimer Chloride Carbon Dioxide BUN Glucose Plasma Lactic Acid Michael AST ALT Alkaline Phosphatase Troponin I Total Protein Albumin Urine Glucose (UA) 4+ H 03/06/24 03/06/24 03/06/24 02:34 02:34 02:34 RBC MCV PT INR D-Dimer Chloride 108 H Carbon Dioxide 20 L BUN 22 H Glucose 127 H Plasma Lactic Acid Michael 4.6 H* AST 165 H ALT 93 H Alkaline Phosphatase 213 H Troponin I 0.087 H* Total Protein 6.1 L Albumin 3.2 L Urine Glucose (UA) 03/06/24 02:47 RBC MCV PT INR D-Dimer 1.30 H Chloride Carbon Dioxide BUN Glucose Plasma Lactic Acid Michael AST ALT Alkaline Phosphatase Troponin I Total Protein Albumin Urine Glucose (UA) - Diagnostic Findings Chest x-ray: image reviewed CT scan - chest: image reviewed Assessment and Plan Assessment: Possible left lower lobe pneumonia, although patient's procalcitonin level is normal. History of coronary artery disease, with previous stent placement. History of hypertension. History of atrial fibrillation. History of hyperlipidemia. History of vertigo. History of gout. Plan: Plan dated March 06, 2024. The patient is currently on Rocephin and azithromycin. Interestingly, his procalcitonin level is normal. The patient also continues on updrafts, with albuterol sulfate and ipratropium bromide. We will continue to follow the patient, make recommendations along the way. Labs, x-rays, and all medications are reviewed. Prognosis is certainly guarded. Time with Patient: Greater than 30
--- NOTE | 2024-03-06 14:50 | P.CRDCN ---
History of Present Illness Consult date: 03/06/24 History of present illness: This is an 83-year-old gentleman who is known to our service from before with a past medical history significant for CAD with a heart catheterization was performed in 2021 showing occluded RCA and occluded LAD and he underwent at that point PCI of the left main to left circumflex. Beside that the patient does have history of permanent atrial fibrillation on oral anticoagulation as well as hypertension and dyslipidemia. The echo from 2023 showed preserved LV systolic function. He presented to the hospital because he was not feeling well where he was experiencing symptoms of being weak and tired and also he was experiencing shivering and fever. He was also having cough and congestions. He was diagnosed with a pneumonia after he underwent an x-ray. Initially he was hypotensive and he was started on norepinephrine but subsequently that has resolved and currently he is not on any norepinephrine or any vasopressors. His lactic acid was elevated. We consulted to see the patient because of elevated cardiac enzymes. His cardiac enzymes came in to be slightly elevated. The patient did not report having any symptoms of chest pain or chest discomfort or any other cardiovascular symptoms. He is in atrial fibrillation with controlled heart rate. The physical examination is remarkable for irregular rhythm with a systolic murmur at the right and left upper sternal border with diminished breathing sounds bilaterally and no edema was noted in the lower extremities and he does not seems to be in any overt heart failure. Please note that the EKG showed atrial flutter with diffuse nonspecific ST and T wave abnormalities Assessment Sepsis/pneumonia Evidence of myocardial injury with no evidence of ischemia likely secondary to sepsis and pneumonia Atrial flutter with controlled heart rate Multiple comorbid conditions CAD with prior PCI as described above Preserved LV systolic function on the last echo from early 2023 Plan Consider medical treatment for the abnormal cardiac enzymes Continue antiplatelet and anticoagulation Obtain serial cardiac enzymes Obtain an echo for risk stratification and assess for any wall motion abnormalities Follow-up with the patient Past Medical History Past Medical History: Atrial Fibrillation, Coronary Artery Disease (CAD), Heart Failure, Hyperlipidemia, Hypertension Additional Past Medical History / Comment(s): 12/09/21 covid +/[facility], skin cancer removals, gout in toes History of Any Multi-Drug Resistant Organisms: None Reported Past Surgical History: Back Surgery, Heart Catheterization With Stent, Tonsillectomy Additional Past Surgical History / Comment(s): Skin cancer removals/nose flaps, colonoscopy Past Anesthesia/Blood Transfusion Reactions: No Reported Reaction Date of Last Stent Placement:: 01/10/22 Past Psychological History: No Psychological Hx Reported Past Alcohol Use History: None Reported - Past Family History Mother Family Medical History: No Reported History Additional Family Medical History / Comment(s): Mother was healthy Father Family Medical History: No Reported History Additional Family Medical History / Comment(s): Father was healthy Brother(s) Family Medical History: CVA/TIA Medications and Allergies Home Medications Medication Instructions Recorded Confirmed Type Atorvastatin [Lipitor] 40 mg PO HS 12/31/21 03/06/24 History Vit C/E/Zn/Coppr/Lutein/Zeaxan 1 cap PO BID 12/31/21 03/06/24 History [Preservision Areds 2 Softgel] allopurinoL [Zyloprim] 150 mg PO HS 12/31/21 03/06/24 History Clopidogrel [Plavix] 75 mg PO DAILY #30 tab 01/14/22 03/06/24 Rx Dapagliflozin Propanediol [Farxiga] 10 mg PO DAILY #90 tab 01/22/22 03/06/24 Rx Apixaban [Eliquis] 2.5 mg PO BID 11/08/23 03/06/24 History Cholecalciferol (Vitamin D3) 50 mcg PO DAILY 11/08/23 03/06/24 History [Vitamin D3 (50 Mcg = 2000 Iu)] Ezetimibe [Zetia] 10 mg PO HS 11/08/23 03/06/24 History Losartan [Cozaar] 25 mg PO HS 11/08/23 03/06/24 History Spironolactone 12.5 mg PO DAILY 11/08/23 03/06/24 History Imiquimod [Aldara] 1 packet TOPICAL MOTUWETHFR PRN 03/06/24 03/06/24 History Metoprolol Tartrate [Lopressor] 25 mg PO BID 03/06/24 03/06/24 History Allergies Allergy/AdvReac Type Severity Reaction Status Date / Time No Known Allergies Allergy Verified 11/08/23 18:35 Physical Exam Vitals: Vital Signs Temp Pulse Resp BP Pulse Ox 03/06/24 13:00 95 15 109/72 99 03/06/24 12:45 87 16 109/72 98 03/06/24 12:30 104 H 17 103/66 99 03/06/24 12:16 98.3 F 95 26 H 99 03/06/24 09:31 120 H 20 104/64 100 03/06/24 09:30 112 H 17 104/64 100 03/06/24 09:00 111 H 16 92/62 99 03/06/24 08:00 103 H 18 102/67 98 03/06/24 07:16 97.4 F L 93 16 101/53 99 03/06/24 07:06 111 H 18 77/45 97 03/06/24 06:37 120 H 30 H 74/49 97 03/06/24 06:00 122 H 71/42 93 L 03/06/24 05:57 118 H 65/47 95 03/06/24 05:15 100.7 F H 112 H 77/47 95 03/06/24 04:33 106 H 03/06/24 04:30 97 88/45 96 03/06/24 04:23 105 H 03/06/24 04:00 96 85/46 95 03/06/24 01:51 EST 97.5 F L 89 32 H 126/80 91 L Intake and Output 03/05/24 03/06/24 03/06/24 23:59 06:59 14:59 Intake Total 108.783 Output Total 245 Balance -136.217 Intake: Intake, IV Titration 108.783 Amount Dextrose 5%-0.45% NaCl 1, 100 000 ml @ 20 mls/hr IV . Q24H [facility] Rx#:[id number] Norepinephrine 4 mg In 6.838 Sodium Chloride 0.9% 250 ml @ 0.03 MCG/KG/MIN 7. 414 mls/hr IV .Q24H [facility] Rx#:[id number] Norepinephrine 8 mg In 1.945 Sodium Chloride 0.9% 250 ml @ 0.03 MCG/KG/MIN 3. 765 mls/hr IV .Q24H [facility] Rx#:[id number] Output: Urine 245 Other: Weight 64.864 kg Results 03/06/24 02:09 03/06/24 02:34 Cardiac Enzymes 03/06/24 03/06/24 Range/Units 02:34 02:34 AST 165 H (17-59) U/L Troponin I 0.087 H* (0.000-0.034) ng/mL Coagulation 03/06/24 Range/Units 02:34 PT 12.6 H (10.0-12.5) sec APTT 22.6 (22.0-30.0) sec CBC 03/06/24 Range/Units 02:09 WBC 5.9 (3.8-10.6) k/uL RBC 4.24 L (4.30-5.90) m/uL Hgb 14.7 (13.0-17.5) gm/dL Hct 44.4 (39.0-53.0) % Plt Count 189 (150-450) k/uL Comprehensive Metabolic Panel 03/06/24 Range/Units 02:34 Sodium 137 (137-145) mmol/L Potassium 4.3 (3.5-5.1) mmol/L Chloride 108 H (98-107) mmol/L Carbon Dioxide 20 L (22-30) mmol/L BUN 22 H (9-20) mg/dL Creatinine 0.95 (0.66-1.25) mg/dL Glucose 127 H (74-99) mg/dL Calcium 8.5 (8.4-10.2) mg/dL AST 165 H (17-59) U/L ALT 93 H (4-49) U/L Alkaline Phosphatase 213 H (38-126) U/L Total Protein 6.1 L (6.3-8.2) g/dL Albumin 3.2 L (3.5-5.0) g/dL Current Medications Generic Name Dose Route Start Last Admin Trade Name Freq PRN Reason Stop Dose Admin Acetaminophen 650 mg 03/06/24 06:56 Acetaminophen Tab 325 Mg Tab PO Q4HR PRN Fever and/or Mild Pain Allopurinol 150 mg 03/06/24 21:00 Allopurinol 300 Mg Tab PO HS [facility] Apixaban 2.5 mg 03/06/24 09:00 03/06/24 09:10 Apixaban 2.5 Mg Tablet PO 2.5 mg BID [facility] Administration Protocol Atorvastatin Calcium 40 mg 03/06/24 21:00 Atorvastatin 40 Mg Tab PO HS [facility] Azithromycin 500 mg 03/06/24 09:00 03/06/24 09:10 Azithromycin 500 Mg Tab PO 03/08/24 09:01 500 mg DAILY [facility] Administration Protocol Cholecalciferol 50 mcg 03/07/24 09:00 Cholecalciferol 25 Mcg (1000 Iu) Tablet PO DAILY [facility] Clopidogrel Bisulfate 75 mg 03/07/24 09:00 Clopidogrel 75 Mg Tab PO DAILY [facility] Dapagliflozin 10 mg 03/07/24 09:00 Dapagliflozin Propanediol 10 Mg Tablet PO DAILY [facility] Ezetimibe 10 mg 03/06/24 21:00 Ezetimibe 10 Mg Tab PO HS [facility] Famotidine 20 mg 03/06/24 09:00 03/06/24 09:10 Famotidine 20 Mg Tab PO 20 mg BID [facility] Administration Dextrose/Sodium Chloride 1,000 mls @ 20 mls/hr 03/06/24 07:00 03/06/24 07:04 Dextrose 5%-1/2ns Iv Soln IV 20 mls/hr .Q24H [facility] Administration Ceftriaxone Sodium 1 gm/ 50 mls @ 100 mls/hr 03/06/24 09:00 03/06/24 09:13 Sodium Chloride IVPB 100 mls/hr Q24HR [facility] Administration Protocol Norepinephrine Bitartrate 4 mg 254 mls @ 7.414 mls/hr 03/06/24 09:45 03/06/24 11:13 / Sodium Chloride IV 0.01 mcg/kg/min .Q24H [facility] 2.471 mls/hr Titration Protocol 0.03 MCG/KG/MIN Lorazepam 1 mg 03/06/24 06:56 Lorazepam 2 Mg/Ml Inj IV Q6HR PRN Anxiety Miscellaneous Information 1 each 03/06/24 06:56 Potassium Replacement Protocol 1 Each Misc MISCELLANE DAILY PRN Per Protocol Miscellaneous Information 1 each 03/06/24 06:56 Magnesium Replacement Protocol 1 Each Misc MISCELLANE DAILY PRN Per Protocol Protocol Miscellaneous Information 1 each 03/06/24 06:56 Phosphorus Replacement Protoco 1 Each Misc MISCELLANE DAILY PRN Per Protocol Protocol Morphine Sulfate 2 mg 03/06/24 06:56 Morphine Sulfate 2 Mg/Ml Syringe IV Q2HR PRN Moderate Pain (Scale 4 to 6) Morphine Sulfate 4 mg 03/06/24 06:56 Morphine Sulfate 4 Mg/Ml Syringe IV Q3HR PRN Severe Pain (Scale 7 to 10) Naloxone HCl 0.2 mg 03/06/24 06:55 Naloxone 0.4 Mg/Ml 1 Ml Vial IV Q2M PRN Opioid Reversal Imiquimod [Aldara] 1 1 packet 11/03/24 10:12 Each Cream.Pack TOPICAL MOTUWETHFR PRN Skin Irritation Intake and Output 03/05/24 03/06/24 03/06/24 23:59 06:59 14:59 Intake Total 108.783 Output Total 245 Balance -136.217 Intake: Intake, IV Titration 108.783 Amount Dextrose 5%-0.45% NaCl 1, 100 000 ml @ 20 mls/hr IV . Q24H [facility] Rx#:[id number] Norepinephrine 4 mg In 6.838 Sodium Chloride 0.9% 250 ml @ 0.03 MCG/KG/MIN 7. 414 mls/hr IV .Q24H [facility] Rx#:[id number] Norepinephrine 8 mg In 1.945 Sodium Chloride 0.9% 250 ml @ 0.03 MCG/KG/MIN 3. 765 mls/hr IV .Q24H [facility] Rx#:[id number] Output: Urine 245 Other: Weight 64.864 kg Patient Weight 03/07/24 06:59 Weight 64.864 kg 03/06/24 02:09 03/06/24 02:34
[2024-03-06] MEDS: allopurinoL 300 MG TAB PO SCH (20:11)
[2024-03-06] MEDS: ATORVASTATIN 40 MG TAB PO SCH (20:11)
[2024-03-06] MEDS: EZETIMIBE 10 MG TAB PO SCH (20:11)
--- NOTE | 2024-03-07 03:53 | P.PN ---
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 James as an outpatient, he did not require any phlebotomy recently, patient also was seen by his client development consultant about a week ago and he was doing fine, patient stated that he was doing fine until last night after he had [employer] and go large and he started getting the shaking chills felt extremely weak and got dizzy he could not get up out of the bed, he appears to be somewhat short of breath, they ended up transporting the patient to the emergency department at [facility], initially they thought that the patient was in heart failure, however patient underwent CT angiography due to elevated D-dimer, and that showed evidence of left lower lobe pneumonia patient was started on IV antibiotic in the form of Rocephin as well as Zithromax, after obtaining sputum culture and blood cultures, and he was hypotensive at the time he did receive 2 L of normal saline, and then subsequently was started on Levophed drip, patient will be admitted to the intensive care unit for acute hypoxemic respiratory failure due to left lower lobe pneumonia with sepsis. 03/07: Patient is laying down in bed in no apparent distress, he is feeling a lot better, he is currently off Levophed drip, he continues to be on IV fluid resuscitation, continue patient on IV antibiotic in the form of ceftriaxone 1 g of piggyback every 24 hours, Zithromax 500 mg orally once every day, his sputum cultures are still pending at the time of dictation, presumptive Zaira, which is likely saliva contamination, patient has no chest pain at this point in time, his troponin is trending down suggestive of type II IN, was seen in consultation by cardiology, patient will have an echocardiogram tomorrow morning for further evaluation of LV function, patient has no abdominal pain, the mycoplasma IgG and IgM still pending Legionella antigen still pending, patient has been followed by pulmonary medicine and cardiology and he will be downgraded to a stepdown unit hopefully later on today. REVIEW OF SYSTEMS: Constitutional positive for documented fever, positive for chills, no night sweats. No weight change. Positive for generalized weakness, fatigue or lethargy. No daytime sleepiness. EENT: No headache. No blurred vision or double vision, no loss of vision. P ositive for loss of Hearing, no ringing in the ears, positive for dizziness. positive for nasal drainage and congestion. No epistaxis. No sore throat. Lungs: Positive for shortness of breath, positive for cough, positive for minimal sputum production. No wheezing. Reports dyspnea with activity. Cardiovascular: No chest pain, no lower extremity edema. No palpitations. No paroxysmal nocturnal dyspnea. No orthopnea. No lightheadedness or dizziness. No syncopal episodes. Abdominal: Reports no abdominal pain. positive for nausea, no vomiting. No diarrhea. No constipation. No bloody or tarry stools reports loss of appetite. Genitourinary: No dysuria, increased frequency, urgency. No urinary retention. Musculoskeletal: No myalgias. No muscle weakness, positive for gait dysfunct ion, no frequent falls. No back pain. No neck pain. Integumentary: No wounds, no lesions. No rash or pruritus. No unusual bruising. No change in hair or nails. Neurologic: No aphasia. No facial droop. No change in mentation. No head injury. No headache. No paralysis. No paresthesia. Psychiatric: No depression. No anxiety. No mood swings. Endocrine: No abnormal blood sugars. No weight change. PHYSICAL EXAMINATION: General: 83-year-old male laying down in bed in mild respiratory distress HEENT: Head is atraumatic, normocephalic, pupils were equal round reactive to light and recommendation, extraocular muscle movement were intact, sclera nonicteric, conjunctivae were pale, mucous membranes of the mouth are somewhat dry. Neck: Supple, no JVP, normal carotid upstroke bilaterally, no lymphadenopathy. Chest: Decreased breath sounds at the bases, few rhonchi, positive for left lower lobe egophony, no chest wall tenderness no intercostal retractions. Heart: First heart sound is normal, second heart sound is normal there is systolic ejection murmur 2/6 located in the left sternal border. Abdomen: Soft, nontender, nondistended, positive bowel sounds. Extremities: There is no edema no calf tenderness DP +2 bilaterally. Neurologic examination: Patient is awake alert and oriented x3, cranial nerves II-12 appear grossly intact, muscle power were 5 out of 5 in upper extremities and 5 out of 5 in bilateral lower extremities, deep tendon reflexes normal bilaterally. Babinski's were flexor bilaterally, [id number] is normal [id number] is normal ASSESSMENT AND PLAN: 1. Acute hypoxemic respiratory failure due to left lower lobe pneumonia with sepsis. Patient continue IV fluid resuscitation, continue IV antibiotic in the form of Rocephin as well as Zithromax, sputum culture, blood culture, monitor for the sputum culture, mycoplasma IgG and IgM along with Legionella antigen, continue current treatment plan, hopefully the patient will be downgraded to [facility] 2. Type II IN due to sepsis. Monitor the patient troponin in the next 4 hours, hold off metoprolol due to hypotension hold off losartan continue Plavix continue with atorvastatin and Zetia cardiology consultation appreciated. 3. Hypertension and hypertensive cardiovascular disease. Currently hypotensive we will discontinue the patient metoprolol and losartan for now, monitor the p atient very closely. 4. Mixed hyperlipidemia. Continue patient on atorvastatin 40 mg once every d ay, Zetia 10 mg once every day, monitor lipid panel, keep LDL 55-70. 5. Paroxysmal atrial fibrillation. Continue Eliquis 2.5 mg orally twice every day, I will hold the patient minute metoprolol at this time because the hypotension. 6. Coronary artery disease with ischemic cardiomyopathy status post PCI of the RCA 01/10/2022. Continue patient on Plavix 75 mg once every day, atorvastatin 40 mg orally once every day, continue Farxiga 10 mg once every day. 7. History of gout. Continue allopurinol 150 mg orally once every day. 8. 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 9. Vitamin D deficiency. Continue vitamin D3 2000 units once every day. 10. Hereditary Hemochromatosis. The patient has been under the care of Dr. Riley, no need for phlebotomy at this point in time. Patient is positive for 2 genetic component and 1 allele of each gene H60 3D and [id number]. 11. DVT prophylaxis. Continue patient on Eliquis 2.5 mg orally twice every day. 12. GI prophylaxis. Continue patient on Protonix 40 mg once every day. 13. Physical therapy evaluation 14. Patient is full code Objective - Vital Signs Vital signs: Vital Signs Temp 97.6 F 03/07/24 00:00 Pulse 91 03/07/24 02:00 Resp 18 03/07/24 02:00 BP 102/72 03/07/24 02:00 Pulse Ox 98 03/07/24 02:00 FiO2 Intake & Output 03/06/24 03/06/24 03/07/24 06:59 18:59 06:59 Intake Total 188.783 280 Output Total 665 535 Balance -476.217 -255 Weight 68.3 kg 70.8 kg Intake: IV 140 Dextrose 5%-0.45% NaCl 1, 140 000 ml @ 20 mls/hr IV . Q24H [facility] Rx#:[id number] Intake, IV Titration 188.783 140 Amount Dextrose 5%-0.45% NaCl 1, 180 140 000 ml @ 20 mls/hr IV . Q24H [facility] Rx#:[id number] Norepinephrine 4 mg In 6.838 Sodium Chloride 0.9% 250 ml @ 0.03 MCG/KG/MIN 7. 414 mls/hr IV .Q24H [facility] Rx#:[id number] Norepinephrine 8 mg In 1.945 Sodium Chloride 0.9% 250 ml @ 0.03 MCG/KG/MIN 3. 765 mls/hr IV .Q24H [facility] Rx#:[id number] Output: Urine 665 535 Other: Voiding Method Indwelling Catheter Indwelling Catheter - Labs CBC & Chem 7: 03/07/24 05:50 03/07/24 05:50 Labs: Abnormal Lab Results - Last 24 Hours (Table) 03/06/24 03/06/24 Range/Units 15:00 19:49 Troponin I 0.615 H* 0.475 H* (0.000-0.034) ng/mL
[2024-03-07 06:13] LABS: Basophils % (A) 0 %; Eosinophils # (A) 0.1 k/uL (0-0.7); Eosinophils % (A) 1 %; HCT 40.6 % (39.0-53.0); HGB 13.1 gm/dL (13.0-17.5); Lymphocytes # (A) 0.7 k/uL (1.0-4.8); Lymphocytes % (A) 6 %; MCHC 32.1 g/dL (31.0-37.0); MCV 105.9 fL (80.0-100.0); Macrocytosis Moderate; Mean Platelet Volume 8.2; Monocytes # (A) 0.4 k/uL (0-1.0); Monocytes % (A) 3 %; Neutrophils # (A) 10.3 k/uL (1.3-7.7); Neutrophils % (A) 89 %; Platelet Count 110 k/uL (150-450); RBC 3.84 m/uL (4.30-5.90); RDW 13.3 % (11.5-15.5); WBC 11.5 k/uL (3.8-10.6)
[2024-03-07 06:30] LABS: ALT 66 U/L (4-49); AST 57 U/L (17-59); African American GFR (CKD) >90 (>60 ml/min/1.73 sqM); Albumin 2.7 g/dL (3.5-5.0); Alkaline Phosphatase 132 U/L (38-126); Anion Gap 3 mmol/L; Blood Urea Nitrogen 18 mg/dL (9-20); Calcium 8.1 mg/dL (8.4-10.2); Carbon Dioxide 25 mmol/L (22-30); Chloride 109 mmol/L (98-107); Glucose 117 mg/dL (74-99); Non-African American GFR(CKD) 85 (>60 ml/min/1.73 sqM); Potassium 4.4 mmol/L (3.5-5.1); Sodium 137 mmol/L (137-145); Total Bilirubin 1.3 mg/dL (0.2-1.3); Total Protein 5.5 g/dL (6.3-8.2)
[2024-03-07] MEDS: CHOLECALCIFEROL 25 MCG (1000 IU) TABLET PO SCH (08:13)
[2024-03-07] MEDS: CLOPIDOGREL 75 MG TAB PO SCH (08:14)
[2024-03-07] MEDS: DAPAGLIFLOZIN PROPANEDIOL 10 MG TABLET PO SCH (08:14)
--- NOTE | 2024-03-07 09:25 | XR ---
EXAMINATION TYPE: XR chest 1V portable DATE OF EXAM: 03/07/2024 COMPARISON: NONE CLINICAL INDICATION: Male, 83 years old with history of chf v pneumonia; , TECHNIQUE: XR chest 1V portable views of the chest. FINDINGS: Bilateral patchy infiltrate with small bilateral effusions. No pneumothorax. Atherosclerotic change a vivian. Diffuse osteopenia and arthropathy of the shoulders.. Heart size normal and no overt failure. Osseous structures demonstrate hypertrophic and degenerative changes of the spine. IMPRESSION: 1. Bilateral infiltrate and small effusion correlate for pneumonia otherwise consider CHF. [facility], , 03/07/2024 9:23 AM
[2024-03-07] MEDS ORDERED: METOPROLOL TARTRATE 12.5 MG TAB PO SCH (10:45)
[2024-03-07] MEDS: METOPROLOL TARTRATE 25 MG TAB PO SCH (11:48)
--- NOTE | 2024-03-07 14:19 | P.PN ---
Subjective Progress Note Date: 03/07/24 83-year-old male seen in the emergency department. He is seen in trauma room 2. The patient was in the hospital, because of complaints of being cold, fever, shaking chills, rigors, and some mild shortness of breath for 1 day prior to admission. He was brought into the emergency department, and initially evaluated, but sometime early this morning, became a stable, from the standpoint of his blood pressure. A central line was placed, he received fluid resuscitation, and was started on norepinephrine. We see him in the emergency department. The CT scan showed an infiltrate, in the left lower lobe. He has a history of coronary disease with previous stent, vertigo, hyperlipidemia, hypertension, atrial fibrillation, and gout. White count is 5.9, hemoglobin 14.7, hematocrit 44.4, platelet count normal. D-dimer was 1.30. Sodium 137, potassium 4.3, chlorides 108, CO2 20, BUN 22, creatinine 0.95. Troponin was 0.087. N-terminal proBNP was 6100. Procalcitonin level was 0.30. CT scan showed no evidence of PE. It did show some multifocal groundglass opacities and prominent consolidation in the left lower lobe. 03/07/2024, the patient is being seen for a follow-up. On today's evaluation, the patient seems to be calm and comfortable. No significant respite distress. He is being treated for left lower lobe pneumonia. Oxygenation is improved and the patient is currently on 2 L of oxygen by nasal cannula with a pulse ox of 97%. The patient remains on a combination of Rocephin and Zithromax. Limited cough and congestion. No significant sputum production or hemoptysis. Cultures are still pending for now. Meanwhile, the patient's white cell count is 11.17 was 13.1 and a platelet count of 110. BUN 18 with a creatinine 0.74 and sodium levels at 137. The LFTs are essentially improving as the patient had some mild transaminitis. No reported aspiration. The underlying cardiac rhythm is atrial fibrillation/flutter and the patient remains on anticoagulation with Eliquis 2.5 mg p.o. twice a day. The patient is also on metoprolol 25 mg p.o. twice daily for rate control and this will be started. Currently on no pressors. Objective - Vital Signs Vital signs: Vital Signs Temp 97.9 F 03/07/24 08:00 Pulse 121 H 03/07/24 09:00 Resp 16 03/07/24 09:00 BP 112/72 03/07/24 09:00 Pulse Ox 97 03/07/24 09:00 FiO2 Intake & Output 03/06/24 03/07/24 03/07/24 18:59 06:59 18:59 Intake Total 188.783 440 332 Output Total 665 960 150 Balance -476.217 -520 182 Weight 68.3 kg 70.8 kg Intake: IV 220 90 Dextrose 5%-0.45% NaCl 1, 220 40 000 ml @ 20 mls/hr IV . Q24H [facility] Rx#:[id number] cefTRIAXone 1 gm In 50 Sodium Chloride 0.9% 50 ml @ 100 mls/hr IVPB Q24HR [facility] Rx#:[id number] Intake, IV Titration 188.783 220 20 Amount Dextrose 5%-0.45% NaCl 1, 180 220 20 000 ml @ 20 mls/hr IV . Q24H [facility] Rx#:[id number] Norepinephrine 4 mg In 6.838 Sodium Chloride 0.9% 250 ml @ 0.03 MCG/KG/MIN 7. 414 mls/hr IV .Q24H [facility] Rx#:[id number] Norepinephrine 8 mg In 1.945 Sodium Chloride 0.9% 250 ml @ 0.03 MCG/KG/MIN 3. 765 mls/hr IV .Q24H [facility] Rx#:[id number] Oral 222 Output: Urine 665 960 150 Other: Voiding Method Indwelling Catheter Indwelling Catheter - Exam No acute distress, oriented 3. The patient is currently on O2, at 2 L/min nasal cannula. No signs of any significant respiratory distress HEENT examination is grossly unremarkable. Mucous membranes are moist. No oral lesions. Neck supple. Full range of motion. No adenopathy thyromegaly or neck vein distention. Cardiovascular examination reveals an irregular rhythm and rate. S1-S2 normal. No S3 or S4. No discernible murmur noted. Lungs reveal rhonchi. Few scattered crackles. No wheezes. Breath sounds equal. Abdomen soft bowel sounds are heard. No masses or tenderness. Extremities are intact. No cyanosis clubbing or edema. Skin is without rash or lesion. Neurologic examination is brief but nonfocal. - Labs CBC & Chem 7: 03/07/24 05:50 03/07/24 05:50 Labs: Abnormal Lab Results - Last 24 Hours (Table) 03/06/24 03/06/24 03/07/24 Range/Units 15:00 19:49 05:50 WBC 11.5 H (3.8-10.6) k/uL RBC 3.84 L (4.30-5.90) m/uL MCV 105.9 H (80.0-100.0) fL Plt Count 110 L (150-450) k/uL Neutrophils # 10.3 H (1.3-7.7) k/uL Lymphocytes # 0.7 L (1.0-4.8) k/uL Chloride (98-107) mmol/L Glucose (74-99) mg/dL Calcium (8.4-10.2) mg/dL ALT (4-49) U/L Alkaline Phosphatase (38-126) U/L Troponin I 0.615 H* 0.475 H* (0.000-0.034) ng/mL Total Protein (6.3-8.2) g/dL Albumin (3.5-5.0) g/dL 03/07/24 Range/Units 05:50 WBC (3.8-10.6) k/uL RBC (4.30-5.90) m/uL MCV (80.0-100.0) fL Plt Count (150-450) k/uL Neutrophils # (1.3-7.7) k/uL Lymphocytes # (1.0-4.8) k/uL Chloride 109 H (98-107) mmol/L Glucose 117 H (74-99) mg/dL Calcium 8.1 L (8.4-10.2) mg/dL ALT 66 H (4-49) U/L Alkaline Phosphatase 132 H (38-126) U/L Troponin I (0.000-0.034) ng/mL Total Protein 5.5 L (6.3-8.2) g/dL Albumin 2.7 L (3.5-5.0) g/dL Assessment and Plan Plan: Acute hypoxic respiratory failure, currently on 2 L of oxygen by nasal cannula Acute left lower lobe pneumonia, although patient's procalcitonin level is normal. The viral screen was negative. Legionella urine antigen is still pending. The patient is currently on a combination of Rocephin and Zithromax Shortness of breath secondary to above, improving Mild leukocytosis History of coronary artery disease, with previous stent placement. History of hypertension. History of atrial fibrillation/flutter History of hyperlipidemia. History of vertigo. History of gout. Plan: Titrate FiO2 to maintain saturation above 90% Legionella urine antigen Continue IV Rocephin and Zithromax Continue bronchodilators Continue metoprolol Continue anticoagulation with Eliquis Repeat chest x-ray with next 24 to 48 hours Will continue to follow
--- NOTE | 2024-03-07 15:22 | P.PN ---
Subjective Progress Note Date: 03/07/24 This is an 83-year-old gentleman who is known to our service from before with a past medical history significant for CAD with a heart catheterization was performed in 2021 showing occluded RCA and occluded LAD and he underwent at that point PCI of the left main to left circumflex. Beside that the patient does have history of permanent atrial fibrillation on oral anticoagulation as well as hypertension and dyslipidemia. The echo from 2023 showed preserved LV systolic function. He presented to the hospital because he was not feeling well where he was experiencing symptoms of being weak and tired and also he was experiencing shivering and fever. He was also having cough and congestions. He was d iagnosed with a pneumonia after he underwent an x-ray. Initially he was hypotensive and he was started on norepinephrine but subsequently that has resolved and currently he is not on any norepinephrine or any vasopressors. His lactic acid was elevated. We consulted to see the patient because of elevated cardiac enzymes. His cardiac enzymes came in to be slightly elevated. The patient did not report having any symptoms of chest pain or chest discomfort or any other cardiovascular symptoms. He is in atrial fibrillation with controlled heart rate. The physical examination is remarkable for irregular rhythm with a systolic murmur at the right and left upper sternal border with diminished breathing sounds bilaterally and no edema was noted in the lower extremities and he does not seems to be in any overt heart failure. Please note that the EKG showed atrial flutter with diffuse nonspecific ST and T wave abnormalities March 07, 2024 On today's exam patient is hemodynamically stable. BP 133/76, heart rate 96 bpm, atrial flutter on telemetry, rate controlled On exam Irregularly irregular pulse, S1-S2 audible, mild systolic murmur audible Mild crackles audible in right and left lower lung mcnulty No focal neurological deficits, alert oriented, difficulty in hearing, detailed neuroexam was not performed No significant swelling in bilateral lower extremity Assessment Sepsis due to left lower lobe community-acquired pneumonia Type II NSTEMI Atrial flutter with controlled heart rate Multiple comorbid conditions CAD with prior PCI as described above Preserved LV systolic function on the last echo from early 2023 Plan Await echocardiogram results. Continue Eliquis 2.5 mg twice daily, Plavix 75 mg daily. Add aspirin 81 mg daily for next 1 month. Stop from April 03, 2024. Continue Farxiga 10 mg daily, metoprolol 25 g twice daily Consider medical treatment for the abnormal cardiac enzymes Continue antiplatelet and anticoagulation. Okay to be transferred out of ICU from cardiac standpoint Objective - Vital Signs Vital signs: Vital Signs Temp 97.9 F 03/07/24 08:00 Pulse 96 03/07/24 14:00 Resp 12 03/07/24 14:00 BP 134/92 03/07/24 13:00 Pulse Ox 97 03/07/24 10:00 FiO2 Intake & Output 03/06/24 03/07/24 03/07/24 18:59 06:59 18:59 Intake Total 188.783 440 332 Output Total 665 960 150 Balance -476.217 -520 182 Weight 68.3 kg 70.8 kg Intake: IV 220 90 Dextrose 5%-0.45% NaCl 1, 220 40 000 ml @ 20 mls/hr IV . Q24H [facility] Rx#:[id number] cefTRIAXone 1 gm In 50 Sodium Chloride 0.9% 50 ml @ 100 mls/hr IVPB Q24HR [facility] Rx#:[id number] Intake, IV Titration 188.783 220 20 Amount Dextrose 5%-0.45% NaCl 1, 180 220 20 000 ml @ 20 mls/hr IV . Q24H [facility] Rx#:[id number] Norepinephrine 4 mg In 6.838 Sodium Chloride 0.9% 250 ml @ 0.03 MCG/KG/MIN 7. 414 mls/hr IV .Q24H [facility] Rx#:[id number] Norepinephrine 8 mg In 1.945 Sodium Chloride 0.9% 250 ml @ 0.03 MCG/KG/MIN 3. 765 mls/hr IV .Q24H [facility] Rx#:[id number] Oral 222 Output: Urine 665 960 150 Other: Voiding Method Indwelling Catheter Indwelling Catheter Indwelling Catheter - Labs CBC & Chem 7: 03/07/24 05:50 03/07/24 05:50 Labs: Abnormal Lab Results - Last 24 Hours (Table) 03/06/24 03/06/24 03/07/24 Range/Units 15:00 19:49 05:50 WBC 11.5 H (3.8-10.6) k/uL RBC 3.84 L (4.30-5.90) m/uL MCV 105.9 H (80.0-100.0) fL Plt Count 110 L (150-450) k/uL Neutrophils # 10.3 H (1.3-7.7) k/uL Lymphocytes # 0.7 L (1.0-4.8) k/uL Chloride (98-107) mmol/L Glucose (74-99) mg/dL Calcium (8.4-10.2) mg/dL ALT (4-49) U/L Alkaline Phosphatase (38-126) U/L Troponin I 0.615 H* 0.475 H* (0.000-0.034) ng/mL Total Protein (6.3-8.2) g/dL Albumin (3.5-5.0) g/dL 03/07/24 Range/Units 05:50 WBC (3.8-10.6) k/uL RBC (4.30-5.90) m/uL MCV (80.0-100.0) fL Plt Count (150-450) k/uL Neutrophils # (1.3-7.7) k/uL Lymphocytes # (1.0-4.8) k/uL Chloride 109 H (98-107) mmol/L Glucose 117 H (74-99) mg/dL Calcium 8.1 L (8.4-10.2) mg/dL ALT 66 H (4-49) U/L Alkaline Phosphatase 132 H (38-126) U/L Troponin I (0.000-0.034) ng/mL Total Protein 5.5 L (6.3-8.2) g/dL Albumin 2.7 L (3.5-5.0) g/dL
[2024-03-07] MEDS: ASPIRIN 81 MG PO SCH (17:05)
--- NOTE | 2024-03-07 18:12 | CA ---
Transthoracic Echo Report Name: Chuck Santiago Jr Age: 83 Gender: M : 1940 Exam Date: 03/07/2024 09:22 Exam Location: [place] [facility] Ht (in): 67 Wt (lb): 150 Ordering Physician: Thomas Mg MD ([id number]) Attending/Referring Phys: Landscape Architecture Professor Wendi Gomez RDCS Procedure CPT: Indications: elevated trops, hx stents Cardiac Hx: Technical Quality: Fair Contrast 1: Total Dose (mL): Contrast 2: Total Dose (mL): MEASUREMENTS (Male / Female) Normal Values 2D ECHO LV Diastolic Diameter PLAX 3.7 cm 4.2 - 5.9 / 3.9 - 5.3 cm LV Systolic Diameter PLAX 2.4 cm IVS Diastolic Thickness 1.4 cm 0.6 - 1.0 / 0.6 - 0.9 cm LVPW Diastolic Thickness 1.3 cm 0.6 - 1.0 / 0.6 - 0.9 cm LV Relative Wall Thickness 0.7 LV Diastolic Volume MOD BP 54.0 cm??? 67 - 155 / 56 - 104 cm??? LV Systolic Volume MOD BP 25.1 cm??? 22 - 58 / 19 - 49 cm??? LV Ejection Fraction MOD BP 53.5 % >= 55 % LV Diastolic Volume MOD 4C 51.4 cm??? LV Systolic Volume MOD 4C 24.5 cm??? LV Ejection Fraction MOD 4C 52.2 % LV Diastolic Length 4C 6.4 cm LV Systolic Length 4C 5.7 cm LV Diastolic Volume MOD 2C 56.7 cm??? LV Systolic Volume MOD 2C 24.7 cm??? LV Ejection Fraction MOD 2C 56.5 % LV Diastolic Length 2C 6.3 cm LV Systolic Length 2C 5.5 cm M-MODE LV Diastolic Diameter MM 4.1 cm 4.2 - 5.9 / 3.9 - 5.3 cm LV Systolic Diameter MM 3.3 cm IVS Diastolic Thickness MM 0.8 cm 0.6 - 1.0 / 0.6 - 0.9 cm LVPW Diastolic Thickness MM 1.0 cm 0.6 - 1.0 / 0.6 - 0.9 cm LV Relative Wall Thickness MM 0.5 0.24 - 0.42 / 0.22 - 0.42 LV Mass Index MM 67.9 g/m??? 49 - 115 / 43 - 95 g/m??? FINDINGS Left Ventricle Mildly increased septal wall thickness. Moderately decreased fractional shortening. Severely decreased midwall fractional shortening. Mildly increased left ventricular relative wall thickness. Mildly decreased left ventricular ejection fraction. Left ventricular ejection fraction is estimated at 40-45%. Right Ventricle Right Atrium Left Atrium Mitral Valve Aortic Valve Tricuspid Valve Pulmonic Valve Pericardium No pericardial effusion. Aorta CONCLUSIONS Mild to moderate LV systolic dysfunction Previewed by: Dr. Hipolito Riley MD (Electronically Signed) Final Date: 07 March 2024 18:11
--- NOTE | 2024-03-08 13:21 | P.PN ---
Subjective Progress Note Date: 03/08/24 83-year-old male seen in the emergency department. He is seen in trauma room 2. The patient was in the hospital, because of complaints of being cold, fever, shaking chills, rigors, and some mild shortness of breath for 1 day prior to admission. He was brought into the emergency department, and initially evaluated, but sometime early this morning, became a stable, from the standpoint of his blood pressure. A central line was placed, he received fluid resuscitation, and was started on norepinephrine. We see him in the emergency department. The CT scan showed an infiltrate, in the left lower lobe. He has a history of coronary disease with previous stent, vertigo, hyperlipidemia, hypertension, atrial fibrillation, and gout. White count is 5.9, hemoglobin 14.7, hematocrit 44.4, platelet count normal. D-dimer was 1.30. Sodium 137, potassium 4.3, chlorides 108, CO2 20, BUN 22, creatinine 0.95. Troponin was 0.087. N-terminal proBNP was 6100. Procalcitonin level was 0.30. CT scan showed no evidence of PE. It did show some multifocal groundglass opacities and prominent consolidation in the left lower lobe. 03/07/2024, the patient is being seen for a follow-up. On today's evaluation, the patient seems to be calm and comfortable. No significant respite distress. He is being treated for left lower lobe pneumonia. Oxygenation is improved and the patient is currently on 2 L of oxygen by nasal cannula with a pulse ox of 97%. The patient remains on a combination of Rocephin and Zithromax. Limited cough and congestion. No significant sputum production or hemoptysis. Cultures are still pending for now. Meanwhile, the patient's white cell count is 11.17 was 13.1 and a platelet count of 110. BUN 18 with a creatinine 0.74 and sodium levels at 137. The LFTs are essentially improving as the patient had some mild transaminitis. No reported aspiration. The underlying cardiac rhythm is atrial fibrillation/flutter and the patient remains on anticoagulation with Eliquis 2.5 mg p.o. twice a day. The patient is also on metoprolol 25 mg p.o. twice daily for rate control and this will be started. Currently on no pressors. On 03/08/2024, the patient is on room air oxygen. The patient denies having any specific complaints. He was taken off the O2 yesterday and the patient is currently on room air oxygen and the pulse ox in the order of 99% and the patient remains hemodynamically stable as the patient is being treated for left lower lobe pneumonia. Remains on IV Rocephin. Zithromax has been completed. The patient remains on anticoagulation with Eliquis 2.5 mg p.o. twice a day. The blood work from yesterday shows a white cell count of 11.5 with a hemoglobin 13.1, BUN is 18 with a creatinine of 0.7 and sodium is at 137. Troponins were slightly elevated and this is considered to be a type II myocardial ischemia. Objective - Vital Signs Vital signs: Vital Signs Temp 98.0 F 03/08/24 08:25 Pulse 83 03/08/24 08:25 Resp 20 03/08/24 08:25 BP 122/57 03/08/24 08:25 Pulse Ox 97 03/08/24 08:25 FiO2 Intake & Output 03/07/24 03/08/24 03/08/24 18:59 06:59 18:59 Intake Total 332 150 Output Total 375 240 Balance -43 -240 150 Weight 67.6 kg Intake: IV 90 Dextrose 5%-0.45% NaCl 1, 40 000 ml @ 20 mls/hr IV . Q24H [facility] Rx#:[id number] cefTRIAXone 1 gm In 50 Sodium Chloride 0.9% 50 ml @ 100 mls/hr IVPB Q24HR [facility] Rx#:[id number] Intake, IV Titration 20 Amount Dextrose 5%-0.45% NaCl 1, 20 000 ml @ 20 mls/hr IV . Q24H [facility] Rx#:[id number] Oral 222 150 Output: Urine 375 240 Other: Voiding Method Indwelling Catheter Toilet Toilet # Voids 1 1 - Exam No acute distress, oriented 3. The patient is currently on room air oxygen. No signs of any significant respiratory distress HEENT examination is grossly unremarkable. Mucous membranes are moist. No oral lesions. Neck supple. Full range of motion. No adenopathy thyromegaly or neck vein distention. Cardiovascular examination reveals an irregular rhythm and rate. S1-S2 normal. No S3 or S4. No discernible murmur noted. Lungs reveal rhonchi. Few scattered crackles. No wheezes. Breath sounds equal. Abdomen soft bowel sounds are heard. No masses or tenderness. Extremities are intact. No cyanosis clubbing or edema. Skin is without rash or lesion. Neurologic examination is brief but nonfocal. - Labs CBC & Chem 7: 03/07/24 05:50 03/07/24 05:50 Labs: Microbiology - Last 24 Hours (Table) 03/06/24 15:45 Gram Stain - Preliminary Sputum Sputum Culture - Preliminary Zaira albicans 03/06/24 10:29 Blood Culture - Preliminary Blood Assessment and Plan Plan: Acute hypoxic respiratory failure, currently on room air oxygen Acute left lower lobe pneumonia, although patient's procalcitonin level is normal. The viral screen was negative. Legionella urine antigen is still pending. The patient is currently on Rocephin Shortness of breath secondary to above, improving Mild leukocytosis History of coronary artery disease, with previous stent placement. History of hypertension. History of atrial fibrillation/flutter History of hyperlipidemia. History of vertigo. History of gout. Plan: Titrate FiO2 to maintain saturation above 90%, currently on RA Legionella urine antigen was negative Continue IV Rocephin and switch this patient to oral antibiotics for the next 24 hours Continue bronchodilators Continue metoprolol Continue anticoagulation with Eliquis Repeat chest x-ray with next 24 to 48 hours Will continue to follow
[2024-03-08] MEDS: LOSARTAN 25 MG TAB PO SCH (16:55)
--- NOTE | 2024-03-08 19:01 | P.PN ---
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 James as an outpatient, he did not require any phlebotomy recently, patient also was seen by his career education teacher about a week ago and he was doing fine, patient stated that he was doing fine until last night after he had [employer] and go large and he started getting the shaking chills felt extremely weak and got dizzy he could not get up out of the bed, he appears to be somewhat short of breath, they ended up transporting the patient to the emergency department at [facility], initially they thought that the patient was in heart failure, however patient underwent CT angiography due to elevated D-dimer, and that showed evidence of left lower lobe pneumonia patient was started on IV antibiotic in the form of Rocephin as well as Zithromax, after obtaining sputum culture and blood cultures, and he was hypotensive at the time he did receive 2 L of normal saline, and then subsequently was started on Levophed drip, patient will be admitted to the intensive care unit for acute hypoxemic respiratory failure due to left lower lobe pneumonia with sepsis. 03/07: Patient is laying down in bed in no apparent distress, he is feeling a lot better, he is currently off Levophed drip, he continues to be on IV fluid resuscitation, continue patient on IV antibiotic in the form of ceftriaxone 1 g of piggyback every 24 hours, Zithromax 500 mg orally once every day, his sputum cultures are still pending at the time of dictation, presumptive Zaira, which is likely saliva contamination, patient has no chest pain at this point in time, his troponin is trending down suggestive of type II MO, was seen in consultation by cardiology, patient will have an echocardiogram tomorrow morning for further evaluation of LV function, patient has no abdominal pain, the mycoplasma IgG and IgM still pending Legionella antigen still pending, patient has been followed by pulmonary medicine and cardiology and he will be downgraded to a stepdown unit hopefully later on today. 03/08: Patient is sitting up in a recliner chair in no apparent distress, he denies any chest pain, shortness of breath, he is coughing a bit but no phlegm production, he is not using any oxygen at this time, he is maintained on IV antibiotic in the form of ceftriaxone, Zithromax 500 mg orally once every day, his sputum culture showed Zaira albicans which likely contamination from the mouth, patient appears to be doing a lot better, he is ambulating well using the walker, will keep the patient for another 24 hours, hopefully he will be discharged home in the next 24 hours. REVIEW OF SYSTEMS: Constitutional positive for documented fever, positive for chills, no night swe ats. No weight change. Positive for generalized weakness, fatigue or lethargy. No daytime sleepiness. EENT: No headache. No blurred vision or double vision, no loss of vision. Positive for loss of Hearing, no ringing in the ears, positive for dizziness. positive for nasal drainage and congestion. No epistaxis. No sore throat. Lungs: Positive for shortness of breath, positive for cough, positive for minimal sputum production. No wheezing. Reports dyspnea with activity. Cardiovascular: No chest pain, no lower extremity edema. No palpitations. No paroxysmal nocturnal dyspnea. No orthopnea. No lightheadedness or dizziness. No syncopal episodes. Abdominal: Reports no abdominal pain. positive for nausea, no vomiting. No diarrhea. No constipation. No bloody or tarry stools reports loss of appetite. Genitourinary: No dysuria, increased frequency, urgency. No urinary retention. Musculoskeletal: No myalgias. No muscle weakness, positive for gait dysfunction, no frequent falls. No back pain. No neck pain. Integumentary: No wounds, no lesions. No rash or pruritus. No unusual bruising. No change in hair or nails. Neurologic: No aphasia. No facial droop. No change in mentation. No head injury. No headache. No paralysis. No paresthesia. Psychiatric: No depression. No anxiety. No mood swings. Endocrine: No abnormal blood sugars. No weight change. PHYSICAL EXAMINATION: General: 83-year-old male laying down in bed in mild respiratory distress HEENT: Head is atraumatic, normocephalic, pupils were equal round reactive to light and recommendation, extraocular muscle movement were intact, sclera nonicteric, conjunctivae were pale, mucous membranes of the mouth are somewhat dry. Neck: Supple, no JVP, normal carotid upstroke bilaterally, no lymphadenopathy. Chest: Decreased breath sounds at the bases, few rhonchi, positive for left lower lobe egophony, no chest wall tenderness no intercostal retractions. Heart: First heart sound is normal, second heart sound is normal there is systolic ejection murmur 2/6 located in the left sternal border. Abdomen: Soft, nontender, nondistended, positive bowel sounds. Extremities: There is no edema no calf tenderness DP +2 bilaterally. Neurologic examination: Patient is awake alert and oriented x3, cranial nerves II-12 appear grossly intact, muscle power were 5 out of 5 in upper extremities and 5 out of 5 in bilateral lower extremities, deep tendon reflexes normal bilaterally. Babinski's were flexor bilaterally, [id number] is normal [id number] is normal ASSESSMENT AND PLAN: 1. Acute hypoxemic respiratory failure due to left lower lobe pneumonia with sepsis. Continue ceftriaxone 1 g of piggyback every 24 hours for another 24 hours, continue Zithromax 500 mg orally once every day, urine Legionella antigen is negative, you mycoplasma antibody still pending at time of dictation, con tinue to increase activity, continue incentive spirometer. 2. 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 Restart the patient back on his metoprolol as well as losartan, continue patient on atorvastatin as well as Zetia. Cardiology consultation appreciated. 3. Hypertension and hypertensive cardiovascular disease. Restart the patient back on metoprolol as well as losartan monitor the patient blood pressure very closely. 4. Mixed hyperlipidemia. Continue patient on atorvastatin 40 mg once every day, Zetia 10 mg once every day, monitor lipid panel, keep LDL 55-70. 5. Paroxysmal atrial fibrillation. Continue Eliquis 2.5 mg orally twice every day, I will hold the patient minute metoprolol at this time because the hypotension. 6. Coronary artery disease with ischemic cardiomyopathy status post PCI of the RCA 01/10/2022. Continue patient on Plavix 75 mg once every day, atorvastatin 40 mg orally once every day, continue Farxiga 10 mg once every day. 7. History of gout. Continue allopurinol 150 mg orally once every day. 8. 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 9. Vitamin D deficiency. Continue vitamin D3 2000 units once every day. 10. Hereditary Hemochromatosis. The patient has been under the care of Dr. Riley, no need for phlebotomy at this point in time. Patient is positive for 2 genetic component and 1 allele of each gene H60 3D and [id number]. 11. DVT prophylaxis. Continue patient on Eliquis 2.5 mg orally twice every day. 12. GI prophylaxis. Continue patient on Protonix 40 mg once every day. 13. Increase activity level. 14. Hopefully home in the next 24 hours. Objective - Vital Signs Vital signs: Vital Signs Temp 98.0 F 03/08/24 08:25 Pulse 83 03/08/24 08:25 Resp 20 03/08/24 08:25 BP 122/57 03/08/24 08:25 Pulse Ox 97 03/08/24 08:25 FiO2 Intake & Output 03/07/24 03/08/24 03/08/24 18:59 06:59 18:59 Intake Total 332 Output Total 375 240 Balance -43 -240 Weight 67.6 kg Intake: IV 90 Dextrose 5%-0.45% NaCl 1, 40 000 ml @ 20 mls/hr IV . Q24H [facility] Rx#:[id number] cefTRIAXone 1 gm In 50 Sodium Chloride 0.9% 50 ml @ 100 mls/hr IVPB Q24HR [facility] Rx#:[id number] Intake, IV Titration 20 Amount Dextrose 5%-0.45% NaCl 1, 20 000 ml @ 20 mls/hr IV . Q24H [facility] Rx#:[id number] Oral 222 Output: Urine 375 240 Other: Voiding Method Indwelling Catheter Toilet # Voids 1 1 - Labs CBC & Chem 7: 03/07/24 05:50 03/07/24 05:50 Labs: Microbiology - Last 24 Hours (Table) 03/06/24 10:29 Blood Culture - Preliminary Blood 03/06/24 15:45 Gram Stain - Preliminary Sputum
--- NOTE | 2024-03-08 20:27 | P.PN ---
Subjective Progress Note Date: 03/08/24 This is an 83-year-old gentleman who is known to our service from before with a past medical history significant for CAD with a heart catheterization was performed in 2021 showing occluded RCA and occluded LAD and he underwent at that point PCI of the left main to left circumflex. Beside that the patient does have history of permanent atrial fibrillation on oral anticoagulation as well as hypertension and dyslipidemia. The echo from 2023 showed preserved LV systolic function. He presented to the hospital because he was not feeling well where he was experiencing symptoms of being weak and tired and also he was experiencing shivering and fever. He was also having cough and congestions. He was d iagnosed with a pneumonia after he underwent an x-ray. Initially he was hypotensive and he was started on norepinephrine but subsequently that has resolved and currently he is not on any norepinephrine or any vasopressors. His lactic acid was elevated. We consulted to see the patient because of elevated cardiac enzymes. His cardiac enzymes came in to be slightly elevated. The patient did not report having any symptoms of chest pain or chest discomfort or any other cardiovascular symptoms. He is in atrial fibrillation with controlled heart rate. The physical examination is remarkable for irregular rhythm with a systolic murmur at the right and left upper sternal border with diminished breathing sounds bilaterally and no edema was noted in the lower extremities and he does not seems to be in any overt heart failure. Please note that the EKG showed atrial flutter with diffuse nonspecific ST and T wave abnormalities March 07, 2024 On today's exam patient is hemodynamically stable. BP 133/76, heart rate 96 bpm, atrial flutter on telemetry, rate controlled March 08, 2024 Patient seen and examined bedside seen. Echo shows EF of 40 to 45%, mild to moderate concentric LVH. Creatinine 0.7, BP 153/74, heart rate 87 bpm On exam Irregularly irregular pulse, S1-S2 audible, mild systolic murmur audible Mild crackles audible in right and left lower lung mcnulty No focal neurological deficits, alert oriented, difficulty in hearing, detailed neuroexam was not performed No significant swelling in bilateral lower extremity Assessment Sepsis due to left lower lobe community-acquired pneumonia Type II NSTEMI Atrial flutter with controlled heart rate Multiple comorbid conditions CAD status post PCI of distal left main to LCx. Residual severe disease in LAD, REFUND SPECIALIST of RCA with left to right collaterals. Ischemic cardiomyopathy EF of 40 to 45% Preserved LV systolic function on the last echo from early 2023 Plan Continue Eliquis 2.5 mg twice daily, Plavix 75 mg daily. Add aspirin 81 mg daily for next 1 month. Stop from April 03, 2024. Continue Farxiga 10 mg daily, metoprolol 25 mg twice daily Add losartan 12.5 mg daily Plan is to optimize guideline directed medical therapy and achieve rate control and volume optimization. Once stable, discharged on home oxygen with outpatient follow-up with cardiology to assess if he would benefit from rhythm control strategy. Objective - Vital Signs Vital signs: Vital Signs Temp 98.0 F 03/08/24 16:52 Pulse 87 03/08/24 16:52 Resp 18 03/08/24 16:52 BP 153/74 03/08/24 16:52 Pulse Ox 96 03/08/24 16:52 FiO2 Intake & Output 03/08/24 03/08/24 03/09/24 06:59 18:59 06:59 Intake Total 630 Output Total 240 Balance -240 630 Weight 67.6 kg Intake: Oral 630 Output: Urine 240 Other: Voiding Method Toilet Toilet # Voids 1 200 - Labs CBC & Chem 7: 03/07/24 05:50 03/07/24 05:50 Labs: Microbiology - Last 24 Hours (Table) 03/06/24 10:29 Blood Culture - Preliminary Blood 03/06/24 15:45 Gram Stain - Preliminary Sputum Sputum Culture - Preliminary Zaira albicans
[2024-03-09 04:30] LABS: Mycoplasma IgG Antibody (EIA) 2.63 INDEX (<=0.90); Mycoplasma IgM Antibody 0.26 INDEX (<=0.90)
--- NOTE | 2024-03-09 07:40 | XR ---
EXAMINATION TYPE: XR chest 1V DATE OF EXAM: 03/09/2024 COMPARISON: 03/07/2028 CLINICAL INDICATION: Male, 83 years old with history of Follow-up pneumonia; , TECHNIQUE: XR chest 1V views of the chest. FINDINGS: Bilateral patchy infiltrate with small left pleural effusion. No pneumothorax. Atherosclerotic change aorta. Diffuse osteopenia and arthropathy of the shoulders.. Heart size normal and no overt failure. Osseous structures demonstrate hypertrophic and degenerative changes of the spine. IMPRESSION: 1. Mild improvement bilateral patchy infiltrate greater at the left lung base with tiny left [facility] Claudia Suh, , 03/09/2024 7:38 AM
[2024-03-09 08:49] LABS: Basophils % (A) 0 %; Eosinophils # (A) 0.1 k/uL (0-0.7); Eosinophils % (A) 1 %; HCT 37.2 % (39.0-53.0); HGB 11.8 gm/dL (13.0-17.5); Lymphocytes # (A) 1.1 k/uL (1.0-4.8); Lymphocytes % (A) 18 %; MCH 33.6 pg (25.0-35.0); MCHC 31.8 g/dL (31.0-37.0); MCV 105.7 fL (80.0-100.0); Macrocytosis Moderate; Mean Platelet Volume 8.7; Monocytes # (A) 0.2 k/uL (0-1.0); Monocytes % (A) 4 %; Neutrophils # (A) 4.6 k/uL (1.3-7.7); Neutrophils % (A) 76 %; Platelet Count 145 k/uL (150-450); RBC 3.52 m/uL (4.30-5.90); RDW 13.4 % (11.5-15.5); WBC 6.1 k/uL (3.8-10.6)
[2024-03-09 09:06] LABS: ALT 130 U/L (4-49); AST 129 U/L (17-59); African American GFR (CKD) >90 (>60 ml/min/1.73 sqM); Albumin 2.7 g/dL (3.5-5.0); Alkaline Phosphatase 163 U/L (38-126); Anion Gap 6 mmol/L; Calcium 8.2 mg/dL (8.4-10.2); Carbon Dioxide 25 mmol/L (22-30); Chloride 106 mmol/L (98-107); Glucose 132 mg/dL (74-99); Non-African American GFR(CKD) 79 (>60 ml/min/1.73 sqM); Potassium 3.8 mmol/L (3.5-5.1); Sodium 137 mmol/L (137-145); Total Bilirubin 1.1 mg/dL (0.2-1.3); Total Protein 5.5 g/dL (6.3-8.2)
[2024-03-09 09:07] LABS: Blood Urea Nitrogen 19 mg/dL (9-20)
[2024-03-09 11:26] VITALS: RESP 16
[2024-03-09] MEDS: SPIRONOLACTONE 25 MG TAB PO SCH (12:20)
--- NOTE | 2024-03-09 12:24 | P.PN ---
Subjective Progress Note Date: 03/09/24 83-year-old male seen in the emergency department. He is seen in trauma room 2. The patient was in the hospital, because of complaints of being cold, fever, shaking chills, rigors, and some mild shortness of breath for 1 day prior to admission. He was brought into the emergency department, and initially evaluated, but sometime early this morning, became a stable, from the standpoint of his blood pressure. A central line was placed, he received fluid resuscitation, and was started on norepinephrine. We see him in the emergency department. The CT scan showed an infiltrate, in the left lower lobe. He has a history of coronary disease with previous stent, vertigo, hyperlipidemia, hypertension, atrial fibrillation, and gout. White count is 5.9, hemoglobin 14.7, hematocrit 44.4, platelet count normal. D-dimer was 1.30. Sodium 137, potassium 4.3, chlorides 108, CO2 20, BUN 22, creatinine 0.95. Troponin was 0.087. N-terminal proBNP was 6100. Procalcitonin level was 0.30. CT scan showed no evidence of PE. It did show some multifocal groundglass opacities and prominent consolidation in the left lower lobe. 03/07/2024, the patient is being seen for a follow-up. On today's evaluation, the patient seems to be calm and comfortable. No significant respite distress. He is being treated for left lower lobe pneumonia. Oxygenation is improved and the patient is currently on 2 L of oxygen by nasal cannula with a pulse ox of 97%. The patient remains on a combination of Rocephin and Zithromax. Limited cough and congestion. No significant sputum production or hemoptysis. Cultures are still pending for now. Meanwhile, the patient's white cell count is 11.17 was 13.1 and a platelet count of 110. BUN 18 with a creatinine 0.74 and sodium levels at 137. The LFTs are essentially improving as the patient had some mild transaminitis. No reported aspiration. The underlying cardiac rhythm is atrial fibrillation/flutter and the patient remains on anticoagulation with Eliquis 2.5 mg p.o. twice a day. The patient is also on metoprolol 25 mg p.o. twice daily for rate control and this will be started. Currently on no pressors. On 03/08/2024, the patient is on room air oxygen. The patient denies having any specific complaints. He was taken off the O2 yesterday and the patient is currently on room air oxygen and the pulse ox in the order of 99% and the patient remains hemodynamically stable as the patient is being treated for left lower lobe pneumonia. Remains on IV Rocephin. Zithromax has been completed. The patient remains on anticoagulation with Eliquis 2.5 mg p.o. twice a day. The blood work from yesterday shows a white cell count of 11.5 with a hemoglobin 13.1, BUN is 18 with a creatinine of 0.7 and sodium is at 137. Troponins were slightly elevated and this is considered to be a type II myocardial ischemia. On 03/09/2024, the patient is being seen for a follow-up. The patient is on room air oxygen. Denies having any hemoptysis. No significant sputum production. No shortness of breath and the patient is currently on room air oxygen. Repeat chest x-ray was done which shows improvement in left lower lobe pulmonary filtration. The patient remains on IV Rocephin. Rest of the medications are unchanged. The white cell count is down to 6.1. Hemoglobin 11.8 and a platelet count of 145. Electrolytes are all within normal limits. BUN is at 19 with a creatinine of 0.8. Objective - Vital Signs Vital signs: Vital Signs Temp 97.8 F 03/09/24 08:00 Pulse 64 03/09/24 08:00 Resp 18 03/09/24 08:00 BP 112/70 03/09/24 08:00 Pulse Ox 97 03/09/24 09:15 FiO2 Intake & Output 03/08/24 03/09/24 03/09/24 18:59 06:59 18:59 Intake Total 630 20 236 Balance 630 20 236 Weight 68.4 kg Intake: IV 20 Invasive Line 1 10 Invasive Line 2 10 Oral 630 236 Other: Voiding Method Toilet Toilet Toilet # Voids 200 1 - Exam No acute distress, oriented 3. The patient is currently on room air oxygen. No signs of any significant respiratory distress HEENT examination is grossly unremarkable. Mucous membranes are moist. No oral lesions. Neck supple. Full range of motion. No adenopathy thyromegaly or neck vein distention. Cardiovascular examination reveals an irregular rhythm and rate. S1-S2 normal. No S3 or S4. No discernible murmur noted. Lungs reveal rhonchi. Few scattered crackles. No wheezes. Breath sounds equal. Abdomen soft bowel sounds are heard. No masses or tenderness. Extremities are intact. No cyanosis clubbing or edema. Skin is without rash or lesion. Neurologic examination is brief but nonfocal. - Labs CBC & Chem 7: 03/09/24 08:14 03/09/24 08:14 Labs: Abnormal Lab Results - Last 24 Hours (Table) 03/06/24 03/09/24 03/09/24 Range/Units 10:22 08:14 08:14 RBC 3.52 L (4.30-5.90) m/uL Hgb 11.8 L (13.0-17.5) gm/dL Hct 37.2 L (39.0-53.0) % MCV 105.7 H (80.0-100.0) fL Plt Count 145 L (150-450) k/uL Glucose 132 H (74-99) mg/dL Calcium 8.2 L (8.4-10.2) mg/dL AST 129 H (17-59) U/L ALT 130 H (4-49) U/L Alkaline Phosphatase 163 H (38-126) U/L Total Protein 5.5 L (6.3-8.2) g/dL Albumin 2.7 L (3.5-5.0) g/dL Mycoplasma pneumon IgG 2.63 H (<=0.90) INDEX Microbiology - Last 24 Hours (Table) 03/06/24 15:45 Gram Stain - Final Sputum Sputum Culture - Final Zaira albicans 03/06/24 10:29 Blood Culture - Preliminary Blood Assessment and Plan Plan: Acute hypoxic respiratory failure, currently on room air oxygen Acute left lower lobe pneumonia, although patient's procalcitonin level is normal. The viral screen was negative. Legionella urine antigen is still pending. The patient is currently on Rocephin. The follow-up chest x-ray done today shows improvement in the left lower lobe pulmonary filtrates and the patient is obviously short of breath and clinically improving. Shortness of breath secondary to above, improving Mild leukocytosis History of coronary artery disease, with previous stent placement. History of hypertension. History of atrial fibrillation/flutter History of hyperlipidemia. History of vertigo. History of gout. Plan: Titrate FiO2 to maintain saturation above 90%, currently on RA Legionella urine antigen was negative Continue IV Rocephin and switch this patient to oral antibiotics at the time of discharge. There is improvement in left lower lobe pulmonary filtration and clinically patient is stable. Continue bronchodilators Continue metoprolol Continue anticoagulation with Eliquis Will continue to follow
--- NOTE | 2024-03-09 13:16 | P.PN ---
Subjective Progress Note Date: 03/09/24 This is an 83-year-old gentleman who is known to our service from before with a past medical history significant for CAD with a heart catheterization was performed in 2021 showing occluded RCA and occluded LAD and he underwent at that point PCI of the left main to left circumflex. Beside that the patient does have history of permanent atrial fibrillation on oral anticoagulation as well as hypertension and dyslipidemia. The echo from 2023 showed preserved LV systolic function. He presented to the hospital because he was not feeling well where he was experiencing symptoms of being weak and tired and also he was experiencing shivering and fever. He was also having cough and congestions. He was d iagnosed with a pneumonia after he underwent an x-ray. Initially he was hypotensive and he was started on norepinephrine but subsequently that has resolved and currently he is not on any norepinephrine or any vasopressors. His lactic acid was elevated. We consulted to see the patient because of elevated cardiac enzymes. His cardiac enzymes came in to be slightly elevated. The patient did not report having any symptoms of chest pain or chest discomfort or any other cardiovascular symptoms. He is in atrial fibrillation with controlled heart rate. The physical examination is remarkable for irregular rhythm with a systolic murmur at the right and left upper sternal border with diminished breathing sounds bilaterally and no edema was noted in the lower extremities and he does not seems to be in any overt heart failure. Please note that the EKG showed atrial flutter with diffuse nonspecific ST and T wave abnormalities March 07, 2024 On today's exam patient is hemodynamically stable. BP 133/76, heart rate 96 bpm, atrial flutter on telemetry, rate controlled March 08, 2024 Patient seen and examined bedside seen. Echo shows EF of 40 to 45%, mild to moderate concentric LVH. Creatinine 0.7, BP 153/74, heart rate 87 bpm 03/09 Patient converted to sinus rhythm at about 9 PM yesterday evening. He is currently in sinus rhythm at 57 bpm. Blood pressure 112/70, pulse ox 97% on room air. Patient denies having any palpitations, no chest pain. WBC 6.1, hemoglobin 11.8. Sodium 137, potassium 3.8, creatinine 0.87. AST 129, ALT 130, alkaline phosphatase 163. On exam Regular egularly irregular pulse, S1-S2 audible, mild sys lungs are clear to auscultation bilaterally. Mild crackles audible in right and left lower lung mcnulty No focal neurological deficits, alert oriented, difficulty in hearing, detailed neuroexam was not performed No significant swelling in bilateral lower extremity Assessment Sepsis due to left lower lobe community-acquired pneumonia Type II NSTEMI Atrial flutter with controlled heart rate, converted to sinus rhythm Multiple comorbid conditions CAD status post PCI of distal left main to LCx. 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 Ischemic cardiomyopathy EF of 40 to 45% Preserved LV systolic function on the last echo from early 2023 Elevated liver function test Plan Continue Eliquis 2.5 mg twice daily, Plavix 75 mg daily. Continue aspirin 81 mg daily for next 1 month. Stop from April 03, 2024. Continue Farxiga 10 mg daily, metoprolol 25 mg twice daily Continue losartan 12.5 mg daily Patient is cleared for discharge from cardiology. Cardiology will sign off this case and follow on an as-needed basis. Please reconsult for any new concerns. Patient may follow-up in the office in one to 2 weeks. Nurse practitioner note has been reviewed, I agree with documented findings and plan of care. Patient was seen and examined. Objective - Vital Signs Vital signs: Vital Signs Temp 97.8 F 03/09/24 08:00 Pulse 52 L 03/09/24 11:24 Resp 16 03/09/24 11:24 BP 101/55 03/09/24 11:24 Pulse Ox 98 03/09/24 11:24 FiO2 Intake & Output 03/08/24 03/09/24 03/09/24 18:59 06:59 18:59 Intake Total 630 20 236 Balance 630 20 236 Weight 68.4 kg Intake: IV 20 Invasive Line 1 10 Invasive Line 2 10 Oral 630 236 Other: Voiding Method Toilet Toilet Toilet # Voids 200 1 - Labs CBC & Chem 7: 03/09/24 08:14 03/09/24 08:14 Labs: Abnormal Lab Results - Last 24 Hours (Table) 03/06/24 03/09/24 03/09/24 Range/Units 10:22 08:14 08:14 RBC 3.52 L (4.30-5.90) m/uL Hgb 11.8 L (13.0-17.5) gm/dL Hct 37.2 L (39.0-53.0) % MCV 105.7 H (80.0-100.0) fL Plt Count 145 L (150-450) k/uL Glucose 132 H (74-99) mg/dL Calcium 8.2 L (8.4-10.2) mg/dL AST 129 H (17-59) U/L ALT 130 H (4-49) U/L Alkaline Phosphatase 163 H (38-126) U/L Total Protein 5.5 L (6.3-8.2) g/dL Albumin 2.7 L (3.5-5.0) g/dL Mycoplasma pneumon IgG 2.63 H (<=0.90) INDEX Microbiology - Last 24 Hours (Table) 03/06/24 15:45 Gram Stain - Final Sputum Sputum Culture - Final Zaira albicans 03/06/24 10:29 Blood Culture - Preliminary Blood
[2024-03-09 15:54] VITALS: BP 141/75; PULSE 60; TEMP 97.7
== END 2024-03-09 16:06 | disposition home or self-care (01) | DRG 871 ==
LOC: EC 01:49 → 2SICU 06:58 → 3SCARD 03-07 22:34
PROVIDERS: ADMIT Internal Medicine; ATTEND Internal Medicine
DX: A41.9 Sepsis, unspecified organism (principal); I21.A1 Myocardial infarction type 2; J96.01 Acute respiratory failure with hypoxia; J18.9 Pneumonia, unspecified organism; I48.92 Unspecified atrial flutter; I48.21 Permanent atrial fibrillation; I50.9 Heart failure, unspecified; I11.0 Hypertensive heart disease with heart failure; E78.2 Mixed hyperlipidemia; E83.110 Hereditary hemochromatosis; E55.9 Vitamin D deficiency, unspecified; I25.10 Atherosclerotic heart disease of native coronary artery without angina pectoris; I25.5 Ischemic cardiomyopathy; Z95.5 Presence of coronary angioplasty implant and graft; I25.82 Chronic total occlusion of coronary artery; Z79.01 Long term (current) use of anticoagulants; Z79.02 Long term (current) use of antithrombotics/antiplatelets; Z79.82 Long term (current) use of aspirin; Z79.84 Long term (current) use of oral hypoglycemic drugs; Z79.899 Other long term (current) drug therapy; Z85.828 Personal history of other malignant neoplasm of skin; Z86.16 Personal history of COVID-19; Z87.891 Personal history of nicotine dependence; Z82.49 Family history of ischemic heart disease and other diseases of the circulatory system; Z82.3 Family history of stroke; M10.9 Gout, unspecified
CPT/HCPCS: 36415; 71045; 71046; 71275; 80053; 81003; 83605; 83735; 83880; 84100; 84145; 84484; 85025; 85379; 85610; 85730; 86738; 87040; 87070; 87205; 87449; 87636; 93005; 93308; 94640; 94760; 96361; 96365; 96366; 96367; 96375; 99285

== ENCOUNTER → 2024-05-17 | Outpatient (CLI) | payer MEDICARE, BC ==
[2024-05-17 20:28] LABS: % Iron Saturation 68.25 (15.00-50.00); ALT 29 U/L (10-49); AST 36 U/L (14-35); Albumin 3.7 g/dL (3.8-4.9); Albumin/Globulin Ratio 1.42 Ratio (1.60-3.17); Alkaline Phosphatase 172 U/L (41-126); BUN/Creat Ratio 17.75 Ratio (12.00-20.00); Blood Urea Nitrogen 14.2 mg/dL (9.0-27.0); Calcium 9.3 mg/dL (8.7-10.3); Carbon Dioxide 27.9 mmol/L (21.6-31.8); Chloride 106 mmol/L (96-109); Globulin 2.6 g/dL (1.6-3.3); Glucose 91 mg/dL (70-110); Iron 172 UG/DL (65-175); Potassium 4.9 mmol/L (3.5-5.5); Sodium 141 mmol/L (135-145); Total Bilirubin 0.8 mg/dL (0.3-1.2); Total Iron Binding Capacity 252 UG/DL (228-460); Total Protein 6.3 g/dL (6.2-8.2)
[2024-05-17 20:32] LABS: Alpha Fetoprotein, Tumor Mkr <3.00 ng/mL (0.00-7.90)
[2024-05-17 20:39] LABS: Basophils # (A) 0.04 X 10*3/uL (0.00-0.10); Basophils % (A) 0.8 %; Eosinophils # (A) 0.08 X 10*3/uL (0.04-0.35); Eosinophils % (A) 1.6 %; HCT 38.6 % (39.6-50.0); Lymphocytes # (A) 1.38 X 10*3/uL (0.90-5.00); Lymphocytes % (A) 27.3 %; MCH 34.4 pg (27.0-32.0); MCHC 33.7 g/dL (32.0-37.0); MCV 102.1 FL (80.0-97.0); Mean Platelet Volume 11.3 FL (9.5-12.2); Monocytes # (A) 0.58 X 10*3/uL (0.20-1.00); Monocytes % (A) 11.5 %; NRBC Per 100 WBC 0 X 10*3/uL (0.00-0.01); Neutrophils # (A) 2.96 X 10*3/uL (1.80-7.70); Neutrophils % (A) 58.6 %; Platelet Count 122 X 10*3/uL (140-440); RBC 3.78 X 10*6/uL (4.40-5.60); RDW 13.2 % (11.5-14.5); WBC 5.05 X 10*3/uL (4.50-10.00)
== END | disposition home or self-care (01) ==
LOC: LABWHC1 11:48
PROVIDERS: ATTEND Internal Medicine Gastroenterology
DX: E83.110 Hereditary hemochromatosis (principal)
CPT/HCPCS: 36415; 80053; 82105; 82728; 83540; 83550; 84466; 85025

== ENCOUNTER → 2024-08-02 | Outpatient (CLI) | payer MEDICARE, BC ==
--- NOTE | 2024-08-02 08:31 | US ---
EXAMINATION TYPE: US liver DATE OF EXAM: 08/02/2024 COMPARISON: 02/08/24 ultrasound abdomen. CLINICAL INDICATION: Male, 83 years old with history of R79.89 ABN BLOOD CHEM, ELEVATED LFTS; elevate d LFT's TECHNIQUE: Grayscale and color Doppler imaging of the right upper quadrant was performed. FINDINGS: EXAM MEASUREMENTS: Liver Length: 12.2 cm Gallbladder Wall: 0.1 cm CBD: 0.4 cm Right Kidney: 9.6 x 6.1 x 5.2 cm SPECIALTY COOK NOTES: Pancreas: limited due to bowel gas Liver: heterogeneous Gallbladder: wnl Evidence for sonographic Gonzalez's sign: No CBD: wnl Right Kidney: wnl Suboptimal study. Visualized portion of pancreas is unremarkable. Visualized liver remains diffusely hyperechoic. Evaluation for focal masses suboptimal due to the heterogeneity. IMPRESSION: Suboptimal study. Persistent heterogeneous hyperechoic appearance of liver consistent with diffuse fa tty infiltration and/or underlying hepatocellular disease. No ascites or biliary dilatation is noted. [facility], , 08/02/2024 8:29 AM
[2024-08-02 15:03] LABS: % Iron Saturation 65.06 (15.00-50.00); ALT 48 U/L (10-49); AST 50 U/L (14-35); Albumin 3.7 g/dL (3.8-4.9); Albumin/Globulin Ratio 1.54 Ratio (1.60-3.17); Alkaline Phosphatase 182 U/L (41-126); BUN/Creat Ratio 15.33 Ratio (12.00-20.00); Blood Urea Nitrogen 13.8 mg/dL (9.0-27.0); Calcium 9.2 mg/dL (8.7-10.3); Carbon Dioxide 27.1 mmol/L (21.6-31.8); Chloride 108 mmol/L (96-109); Globulin 2.4 g/dL (1.6-3.3); Glucose 94 mg/dL (70-110); Iron 162 UG/DL (65-175); Potassium 3.9 mmol/L (3.5-5.5); Sodium 144 mmol/L (135-145); Total Bilirubin 0.8 mg/dL (0.3-1.2); Total Iron Binding Capacity 249 UG/DL (228-460); Total Protein 6.1 g/dL (6.2-8.2)
[2024-08-02 15:51] LABS: Basophils # (A) 0.03 X 10*3/uL (0.00-0.10); Basophils % (A) 0.6 %; Eosinophils # (A) 0.13 X 10*3/uL (0.04-0.35); Eosinophils % (A) 2.8 %; HCT 38.7 % (39.6-50.0); HGB 12.6 g/dL (13.0-17.0); Lymphocytes # (A) 1.38 X 10*3/uL (0.90-5.00); Lymphocytes % (A) 29.4 %; MCH 33.8 pg (27.0-32.0); MCHC 32.6 g/dL (32.0-37.0); MCV 103.8 FL (80.0-97.0); Monocytes # (A) 0.58 X 10*3/uL (0.20-1.00); Monocytes % (A) 12.4 %; NRBC Per 100 WBC 0 X 10*3/uL (0.00-0.01); Neutrophils # (A) 2.56 X 10*3/uL (1.80-7.70); Neutrophils % (A) 54.6 %; Platelet Count 116 X 10*3/uL (140-440); RBC 3.73 X 10*6/uL (4.40-5.60); RDW 13.9 % (11.5-14.5); WBC 4.69 X 10*3/uL (4.50-10.00)
== END | disposition home or self-care (01) ==
LOC: RADUSWWP 07:40
PROVIDERS: ATTEND Internal Medicine
DX: E83.110 Hereditary hemochromatosis (principal); R79.89 Other specified abnormal findings of blood chemistry
CPT/HCPCS: 76705; 80053; 82728; 83540; 83550; 85025

== ENCOUNTER → 2024-11-07 | Outpatient (CLI) | payer MEDICARE, BC ==
[2024-11-07 22:16] LABS: Basophils # (A) 0.03 X 10*3/uL (0.00-0.10); Basophils % (A) 0.6 %; Eosinophils # (A) 0.09 X 10*3/uL (0.04-0.35); Eosinophils % (A) 1.8 %; HCT 37.3 % (39.6-50.0); HGB 12.3 g/dL (13.0-17.0); Immature Grans, Automated 0.20 %; Lymphocytes # (A) 1.31 X 10*3/uL (0.90-5.00); Lymphocytes % (A) 26.5 %; MCH 34.7 pg (27.0-32.0); MCHC 33.0 g/dL (32.0-37.0); MCV 105.4 FL (80.0-97.0); Monocytes # (A) 0.60 X 10*3/uL (0.20-1.00); Monocytes % (A) 12.1 %; NRBC Per 100 WBC 0 X 10*3/uL (0.00-0.01); Neutrophils # (A) 2.91 X 10*3/uL (1.80-7.70); Neutrophils % (A) 58.8 %; Platelet Count 100 X 10*3/uL (140-440); RBC 3.54 X 10*6/uL (4.40-5.60); RDW 14.5 % (11.5-14.5); WBC 4.95 X 10*3/uL (4.50-10.00)
[2024-11-07 23:51] LABS: ALT 30 U/L (10-49); AST 32 U/L (14-35); Albumin 3.8 g/dL (3.8-4.9); Albumin/Globulin Ratio 1.46 Ratio (1.60-3.17); Alkaline Phosphatase 174 U/L (41-126); Anion Gap 10.20 mmol/L (4.00-12.00); BUN/Creat Ratio 19.22 Ratio (12.00-20.00); Blood Urea Nitrogen 17.3 mg/dL (9.0-27.0); Calcium 9.0 mg/dL (8.7-10.3); Carbon Dioxide 26.8 mmol/L (21.6-31.8); Chloride 105 mmol/L (96-109); Ferritin 138.0 ng/mL (22.0-322.0); Globulin 2.6 g/dL (1.6-3.3); Glucose 111 mg/dL (70-110); Iron 133 UG/DL (65-175); Potassium 4.5 mmol/L (3.5-5.5); Sodium 142 mmol/L (135-145); Total Iron Binding Capacity 238 UG/DL (228-460); Total Protein 6.4 g/dL (6.2-8.2)
[2024-11-07 23:56] LABS: Alpha Fetoprotein, Tumor Mkr <3.00 ng/mL (0.00-7.90)
== END | disposition home or self-care (01) ==
LOC: LABWHC1 14:35
PROVIDERS: ATTEND Nurse Practitioner Family
DX: E83.110 Hereditary hemochromatosis (principal)
CPT/HCPCS: 36415; 80053; 82105; 82728; 83540; 83550; 84466; 85025